=== PATIENT | male | born 1935 | race Caucasian/White ===

== ENCOUNTER 2017-03-06 14:23 | Day surgery (SDC) | payer MEDICARE, OTHER ==
[~2017-03-06 14:23] MED LIST: ACET325 PO; ACIDOPHILUS LA1 EACH PO; ALBIPROI INH; ALBU.083IS IH; ALBU3IS INH; ALBU90I INH; ALBU90OI INH; ALBU90OI61 INH; ALLO300 PO; AMIO200; AMIO200 PO; AMLO10 PO; AMLO5 PO; AMOCLA500 PO; AMOCLA875 PO; ASPI325 PO; ASPI81CH PO; ASPI81EC; ASPI81EC PO; ATEN50; BENACAR; BISA5EC PO; BUME1 PO; BUME2 PO; Benicar PO; CALC.25 PO; CEFP200 PO; CETI5 PO; CHOL10002 PO; CIPR250 PO; CLON.1 PO; CLON.2 PO; CLON.2TP TP; CLONIDINE; CLOP75; CLOP75 PO; COLCRYS0.6 MG PO; CYCL10 PO; DARB200I SQ; DILT120 PO; DILT120ERA PO; DILT30 PO; DILT60ER PO; DOCU100 PO; DULERA INH; Dilaudid 2 mg Ta2 MG PO; Diltiazem ER180 M1 PO; Duoneb 2.5-0.5 M3 ML INH; ELIQUIS5 MG PO; FIBE4P PO; FINA5 PO; FISH1000; FLUO25TC TOP; FURO100EL PO; FURO40; FURO80 PO; GABA300 PO; GATI5OPSO OD; GEMF600; GLIP2.5ER PO; GLIP5; GLIP5ER PO; GUAI600T33 PO; GUAPHELA PO; HYDACE5 PO; HYDMOR2 PO; Hair, Skin & N1 EACH PO; Humulin N100 UNIT/1 SQ; INSDET100 SC; INSN100I; INSN100I SC; INSN100I SUBQ; INSR10I; INSR10I SC; INSR10I SUBQ; INSUASPI SC; INSULANI SC; IPRA.06NI; IRON; ISOMON20 PO; ISOMON60ER PO; Isosorbide Mono30 MG PO; LEVFLO500 PO; LISI5 PO; LOVA20 PO; MECL25 PO; MEMA10 PO; METH10 PO; METO100 PO; METO2.5 PO; METO25 PO; METO25ER PO; METO50 PO; METO50ER PO; METR500 PO; MIDO2.5 PO; Monodox100 MG PO; Mucinex600 MG PO; NIAC500; NIFE30ER PO; NITR.4SL; NITR.4SL SL; Novolin R100 UNIT/M SC; Novolog Fl100 UNIT/1 SC; OLME20 PO; OLME5TAB PO; OMEP10ER; OMEP20ER; OMEP20ER PO; ONDA4 PO; ONDA4ODT MM; OXYACE5T PO; OXYC10ER PO; OXYC10TA19 PO; OXYC5 PO; PANT40 PO; PARI1 PO; POTA20PAC; POTCHL10ER; PRAV20 PO; PREG50 PO; PROM25 PO; Prednisone10 MG PO; Prednisone20 MG PO; RABE20; RANI150; RANI150 PO; Renvela800 MG PO; SACC250C PO; SENN187 PO; SEVE800 PO; SIMV40; SIMV80 PO; SPACER IH; STOMUL PO; TAMS.4ER; TAMS.4ER PO; TERA2 PO; TRAM50; TRAM50 PO; Vibramycin100 MG PO; WARF2.5 PO; WARF5; WARF5 PO; ZOLP10 PO; Zithromax250 MG PO; [UNRECOGNIZED DRUG - OTHER]; [UNRECOGNIZED DRUG - OTHER]
[2017-04-05] MEDS ORDERED: TAMS.4ER PO (01:27)
[2017-04-05] MEDS ORDERED: DIPH50 PO (01:28)
[2017-04-05] MEDS ORDERED: DOCU100 (01:29)
[2017-04-05] MEDS ORDERED: OXYC10TA19 (01:30)
[2017-04-05] MEDS ORDERED: COLCHICINE0.6 MG PO (01:32)
[2017-04-05] MEDS ORDERED: DESL5 PO (01:33)
[2017-04-05] MEDS ORDERED: MIDO5 PO (01:38)
[2017-04-05] MEDS ORDERED: INSULANPEN (01:42)
[2017-04-10] MEDS ORDERED: BENADRYL25 MG PO (09:43)
[2017-04-10] MEDS ORDERED: CEFP200 PO (09:49)
[2017-04-10] MEDS ORDERED: Pyridium100 MG PO (11:18)
== END 2017-03-06 23:16 | disposition home or self-care (01) ==
LOC: WOUND 14:23
PROC: 0HBNXZZ Excision of Left Foot Skin, External Approach (ICD-10-PCS; principal; 2017-03-06)
DX: Z48.00 Encounter for change or removal of nonsurgical wound dressing (principal); E11.621 Type 2 diabetes mellitus with foot ulcer; E11.22 Type 2 diabetes mellitus with diabetic chronic kidney disease; I13.2 Hypertensive heart and chronic kidney disease with heart failure and with stage 5 chronic kidney disease, or end stage renal disease; I73.9 Peripheral vascular disease, unspecified; L89.891 Pressure ulcer of other site, stage 1; J43.9 Emphysema, unspecified; N18.6 End stage renal disease; Z79.4 Long term (current) use of insulin; G47.33 Obstructive sleep apnea (adult) (pediatric); I50.9 Heart failure, unspecified
CPT/HCPCS: G0463

== ENCOUNTER 2017-03-13 14:52 | Day surgery (SDC) | payer MEDICARE, OTHER ==
[2017-04-05] MEDS ORDERED: TAMS.4ER PO (01:27)
[2017-04-05] MEDS ORDERED: DIPH50 PO (01:28)
[2017-04-05] MEDS ORDERED: DOCU100 (01:29)
[2017-04-05] MEDS ORDERED: OXYC10TA19 (01:30)
[2017-04-05] MEDS ORDERED: COLCHICINE0.6 MG PO (01:32)
[2017-04-05] MEDS ORDERED: DESL5 PO (01:33)
[2017-04-05] MEDS ORDERED: MIDO5 PO (01:38)
[2017-04-05] MEDS ORDERED: INSULANPEN (01:42)
[2017-04-10] MEDS ORDERED: BENADRYL25 MG PO (09:43)
[2017-04-10] MEDS ORDERED: CEFP200 PO (09:49)
[2017-04-10] MEDS ORDERED: Pyridium100 MG PO (11:18)
== END 2017-03-13 16:55 | disposition home or self-care (01) ==
LOC: WOUND 14:52
DX: Z48.00 Encounter for change or removal of nonsurgical wound dressing (principal); E11.621 Type 2 diabetes mellitus with foot ulcer; I13.2 Hypertensive heart and chronic kidney disease with heart failure and with stage 5 chronic kidney disease, or end stage renal disease; E11.22 Type 2 diabetes mellitus with diabetic chronic kidney disease; I73.9 Peripheral vascular disease, unspecified; L89.891 Pressure ulcer of other site, stage 1; J43.9 Emphysema, unspecified; Z79.4 Long term (current) use of insulin; N18.6 End stage renal disease; Z99.2 Dependence on renal dialysis; I48.91 Unspecified atrial fibrillation; I25.10 Atherosclerotic heart disease of native coronary artery without angina pectoris; I50.9 Heart failure, unspecified
CPT/HCPCS: G0463

== ENCOUNTER 2017-03-20 14:20 | Day surgery (SDC) | payer MEDICARE, OTHER ==
[2017-04-05] MEDS ORDERED: TAMS.4ER PO (01:27)
[2017-04-05] MEDS ORDERED: DIPH50 PO (01:28)
[2017-04-05] MEDS ORDERED: DOCU100 (01:29)
[2017-04-05] MEDS ORDERED: OXYC10TA19 (01:30)
[2017-04-05] MEDS ORDERED: COLCHICINE0.6 MG PO (01:32)
[2017-04-05] MEDS ORDERED: DESL5 PO (01:33)
[2017-04-05] MEDS ORDERED: MIDO5 PO (01:38)
[2017-04-05] MEDS ORDERED: INSULANPEN (01:42)
[2017-04-10] MEDS ORDERED: BENADRYL25 MG PO (09:43)
[2017-04-10] MEDS ORDERED: CEFP200 PO (09:49)
[2017-04-10] MEDS ORDERED: Pyridium100 MG PO (11:18)
== END 2017-03-20 17:22 | disposition home or self-care (01) ==
LOC: WOUND 14:20
PROC: 0HBNXZZ Excision of Left Foot Skin, External Approach (ICD-10-PCS; principal; 2017-03-20)
DX: Z48.00 Encounter for change or removal of nonsurgical wound dressing (principal); E11.621 Type 2 diabetes mellitus with foot ulcer; E11.22 Type 2 diabetes mellitus with diabetic chronic kidney disease; I73.9 Peripheral vascular disease, unspecified; I13.2 Hypertensive heart and chronic kidney disease with heart failure and with stage 5 chronic kidney disease, or end stage renal disease; L89.891 Pressure ulcer of other site, stage 1; J43.9 Emphysema, unspecified; Z79.4 Long term (current) use of insulin; N18.6 End stage renal disease; I48.91 Unspecified atrial fibrillation; Z79.01 Long term (current) use of anticoagulants; G47.33 Obstructive sleep apnea (adult) (pediatric)
CPT/HCPCS: G0463

== ENCOUNTER 2017-03-27 14:40 | Day surgery (SDC) | payer MEDICARE, OTHER ==
[2017-04-05] MEDS ORDERED: TAMS.4ER PO (01:27)
[2017-04-05] MEDS ORDERED: DIPH50 PO (01:28)
[2017-04-05] MEDS ORDERED: DOCU100 (01:29)
[2017-04-05] MEDS ORDERED: OXYC10TA19 (01:30)
[2017-04-05] MEDS ORDERED: COLCHICINE0.6 MG PO (01:32)
[2017-04-05] MEDS ORDERED: DESL5 PO (01:33)
[2017-04-05] MEDS ORDERED: MIDO5 PO (01:38)
[2017-04-05] MEDS ORDERED: INSULANPEN (01:42)
[2017-04-10] MEDS ORDERED: BENADRYL25 MG PO (09:43)
[2017-04-10] MEDS ORDERED: CEFP200 PO (09:49)
[2017-04-10] MEDS ORDERED: Pyridium100 MG PO (11:18)
== END 2017-03-27 23:26 | disposition home or self-care (01) ==
LOC: WOUND 14:40
DX: Z48.00 Encounter for change or removal of nonsurgical wound dressing (principal); E11.621 Type 2 diabetes mellitus with foot ulcer; E11.22 Type 2 diabetes mellitus with diabetic chronic kidney disease; I73.9 Peripheral vascular disease, unspecified; I13.2 Hypertensive heart and chronic kidney disease with heart failure and with stage 5 chronic kidney disease, or end stage renal disease; L89.891 Pressure ulcer of other site, stage 1; J43.9 Emphysema, unspecified; Z79.4 Long term (current) use of insulin; N18.6 End stage renal disease; I48.91 Unspecified atrial fibrillation; J44.9 Chronic obstructive pulmonary disease, unspecified; I25.10 Atherosclerotic heart disease of native coronary artery without angina pectoris; G47.33 Obstructive sleep apnea (adult) (pediatric); I50.9 Heart failure, unspecified; Z79.01 Long term (current) use of anticoagulants
CPT/HCPCS: G0463

== ENCOUNTER 2017-04-03 00:58 | Day surgery (SDC) | payer MEDICARE, OTHER ==
[2017-04-05] MEDS ORDERED: TAMS.4ER PO (01:27)
[2017-04-05] MEDS ORDERED: DIPH50 PO (01:28)
[2017-04-05] MEDS ORDERED: DOCU100 (01:29)
[2017-04-05] MEDS ORDERED: OXYC10TA19 (01:30)
[2017-04-05] MEDS ORDERED: COLCHICINE0.6 MG PO (01:32)
[2017-04-05] MEDS ORDERED: DESL5 PO (01:33)
[2017-04-05] MEDS ORDERED: MIDO5 PO (01:38)
[2017-04-05] MEDS ORDERED: INSULANPEN (01:42)
[2017-04-10] MEDS ORDERED: BENADRYL25 MG PO (09:43)
[2017-04-10] MEDS ORDERED: CEFP200 PO (09:49)
[2017-04-10] MEDS ORDERED: Pyridium100 MG PO (11:18)
== END 2017-04-03 22:47 | disposition home or self-care (01) ==
LOC: WOUND 00:58
DX: Z48.00 Encounter for change or removal of nonsurgical wound dressing (principal); E11.621 Type 2 diabetes mellitus with foot ulcer; I13.2 Hypertensive heart and chronic kidney disease with heart failure and with stage 5 chronic kidney disease, or end stage renal disease; E11.22 Type 2 diabetes mellitus with diabetic chronic kidney disease; N18.6 End stage renal disease; I50.9 Heart failure, unspecified; I73.9 Peripheral vascular disease, unspecified; L89.891 Pressure ulcer of other site, stage 1; J43.9 Emphysema, unspecified; Z79.4 Long term (current) use of insulin; I25.10 Atherosclerotic heart disease of native coronary artery without angina pectoris; G47.33 Obstructive sleep apnea (adult) (pediatric); I48.91 Unspecified atrial fibrillation; Z79.01 Long term (current) use of anticoagulants
CPT/HCPCS: G0463

== ENCOUNTER 2017-04-04 21:01 | Inpatient (IN) | payer MEDICARE, OTHER ==
[~2017-04-04] VITALS: Ht 180.3 cm; Wt 103.9 kg
[2017-04-04 21:57] LABS: BASOPHILS ABSOLUTE AUTO 0.06 K/mm3 (0.00-0.23); BASOPHILS PERCENT AUTO 1 % (0-2); EOSINOPHILS ABSOLUTE AUTO 0.11 K/mm3 (0.00-0.68); EOSINOPHILS PERCENT AUTO 1 % (0-6); Hematocrit 39.3 % (37.0-53.0); Hemoglobin 12.6 g/dL (13.5-17.5); IMMATURE GRAN ABSOLUTE AUTO 0.06 K/mm3 (0.00-0.10); IMMATURE GRAN PERCENT AUTO 1 % (0-1); LYMPHOCYTES ABSOLUTE AUTO 0.24 K/mm3 (0.84-5.20); LYMPHOCYTES PERCENT AUTO 2 % (21-46); MONOCYTES ABSOLUTE AUTO 0.48 K/mm3 (0.16-1.47); MONOCYTES PERCENT AUTO 4 % (4-13); Mean Corpuscular HGB 29.4 pg (26.0-34.0); Mean Corpuscular HGB Conc 32.1 g/dL (31.5-36.5); Mean Corpuscular Volume 92 fL (80-100); Mean Platelet Volume 11.8 fL (9.1-12.4); NEUTROPHILS ABSOLUTE AUTO 10.99 K/mm3 (1.96-9.15); NEUTROPHILS PERCENT AUTO 92 % (41-73); Platelet Count 124 K/mm3 (150-400); RDW Standard Deviation 49.3 fL (35.1-46.3); Red Blood Cell Count 4.28 M/mm3 (4.30-5.90); White Blood Cell Count 11.94 K/mm3 (4.00-11.30)
[2017-04-04 22:22] LABS: Albumin, Blood 3.4 g/dL (3.4-5.0); Albumin/Globulin Ratio 0.7 (0.8-1.8); Bilirubin, Total 0.7 mg/dL (0.1-1.0); Calcium, Blood 9.2 mg/dL (8.5-10.1); Creatinine, Blood 3.68 mg/dL (0.60-1.20); Globulin, Blood 4.9 g/dL (2.2-4.0); Potassium, Blood 4.5 mmol/L (3.5-5.5); Total Protein, Blood 8.3 g/dL (6.4-8.2); Troponin I 0.04 ng/mL (0.000-0.040)
[2017-04-04 22:26] LABS: Influenza A Negative (NEGATIVE); Influenza B Negative (NEGATIVE)
[2017-04-05] MEDS ORDERED: TAMS.4ER PO ×2 (01:27)
[2017-04-05] MEDS ORDERED: DIPH50 PO ×2 (01:28)
[2017-04-05] MEDS ORDERED: DOCU100 ×2 (01:29)
[2017-04-05] MEDS ORDERED: OXYC10TA19 ×2 (01:30)
[2017-04-05] MEDS ORDERED: COLCHICINE0.6 MG PO ×2 (01:32)
[2017-04-05] MEDS ORDERED: DESL5 PO ×2 (01:33)
[2017-04-05] MEDS ORDERED: MIDO5 PO ×2 (01:38)
[2017-04-05] MEDS ORDERED: INSULANPEN ×2 (01:42)
[2017-04-05 03:32] LABS: BASOPHILS ABSOLUTE AUTO 0.04 K/mm3 (0.00-0.23); BASOPHILS PERCENT AUTO 1 % (0-2); EOSINOPHILS ABSOLUTE AUTO 0.06 K/mm3 (0.00-0.68); EOSINOPHILS PERCENT AUTO 1 % (0-6); Hematocrit 33.7 % (37.0-53.0); IMMATURE GRAN ABSOLUTE AUTO 0.05 K/mm3 (0.00-0.10); IMMATURE GRAN PERCENT AUTO 1 % (0-1); LYMPHOCYTES ABSOLUTE AUTO 0.17 K/mm3 (0.84-5.20); LYMPHOCYTES PERCENT AUTO 2 % (21-46); MONOCYTES ABSOLUTE AUTO 0.26 K/mm3 (0.16-1.47); MONOCYTES PERCENT AUTO 3 % (4-13); Mean Corpuscular HGB 29.9 pg (26.0-34.0); Mean Corpuscular HGB Conc 32.6 g/dL (31.5-36.5); Mean Corpuscular Volume 92 fL (80-100); Mean Platelet Volume 11.3 fL (9.1-12.4); NEUTROPHILS ABSOLUTE AUTO 8.02 K/mm3 (1.96-9.15); NEUTROPHILS PERCENT AUTO 93 % (41-73); Platelet Count 112 K/mm3 (150-400); RDW Coefficient Variation 15.1 % (11.7-14.2); RDW Standard Deviation 49.9 fL (35.1-46.3); Red Blood Cell Count 3.68 M/mm3 (4.30-5.90)
[2017-04-05 03:48] LABS: Albumin, Blood 2.8 g/dL (3.4-5.0); Anion Gap 7 mmol/L (6-16); Blood Urea Nitrogen 39 mg/dL (8-24); Bun/Creatinine Ratio 9.1 (12.0-20.0); CO2, Blood 35 mmol/L (21-32); Calcium, Blood 8.5 mg/dL (8.5-10.1); Chloride, Blood 93 mmol/L (98-108); Creatinine, Blood 4.28 mg/dL (0.60-1.20); Glomerular Filtration Rate 14 (60-); Glucose, Blood 289 mg/dL (70-99); Phosphorus, Blood 4.1 mg/dL (2.5-4.9); Sodium, Blood 135 mmol/L (136-145)
[2017-04-05 06:24] LABS: Source, Urine Catheter
[2017-04-05 06:39] LABS: Blood, Urine 4+ (Neg); Glucose Qualitative, Urine 1+ (Neg); Ketones, Urine Neg (Neg); Leukocyte Esterase, Urine 3+ (Neg); Nitrite, Urine Neg (Neg); Protein, Urine 3+ (Neg); Specific Gravity, Urine 1.025 (1.003-1.022); Urobilinogen, Urine 1+ (Normal)
[2017-04-05 06:48] LABS: Appearance, Urine Cloudy (Clear); Bilirubin, Urine 2+ (Neg); Color, Urine Amber (P-Yellow)
[2017-04-05 06:49] LABS: White Blood Cells, Urine 50-100 /hpf (0-5)
[2017-04-05 06:50] LABS: Bacteria Many /hpf; Granular Casts 0-2 /lpf (0); Red Blood Cells, Urine 25-50 /hpf (0-2); Squamous Epithelial Cells Not Seen /hpf (Few)
[2017-04-05 16:18] LABS: Vancomycin, Random 15.6 ug/mL
[2017-04-06 04:05] LABS: BASOPHILS ABSOLUTE AUTO 0.04 K/mm3 (0.00-0.23); BASOPHILS PERCENT AUTO 1 % (0-2); EOSINOPHILS ABSOLUTE AUTO 0.27 K/mm3 (0.00-0.68); EOSINOPHILS PERCENT AUTO 4 % (0-6); Hematocrit 32.2 % (37.0-53.0); Hemoglobin 10.4 g/dL (13.5-17.5); IMMATURE GRAN ABSOLUTE AUTO 0.02 K/mm3 (0.00-0.10); IMMATURE GRAN PERCENT AUTO 0 % (0-1); LYMPHOCYTES ABSOLUTE AUTO 0.76 K/mm3 (0.84-5.20); LYMPHOCYTES PERCENT AUTO 11 % (21-46); MONOCYTES PERCENT AUTO 8 % (4-13); Mean Corpuscular HGB 29.5 pg (26.0-34.0); Mean Corpuscular HGB Conc 32.3 g/dL (31.5-36.5); Mean Corpuscular Volume 91 fL (80-100); Mean Platelet Volume 12.2 fL (9.1-12.4); NEUTROPHILS ABSOLUTE AUTO 5.42 K/mm3 (1.96-9.15); NEUTROPHILS PERCENT AUTO 76 % (41-73); Platelet Count 108 K/mm3 (150-400); RDW Coefficient Variation 15.5 % (11.7-14.2); RDW Standard Deviation 50.6 fL (35.1-46.3); Red Blood Cell Count 3.53 M/mm3 (4.30-5.90); White Blood Cell Count 7.11 K/mm3 (4.00-11.30)
[2017-04-06 04:29] LABS: Alanine Aminotransfer (ALT/SGP 22 U/L (12-78); Albumin, Blood 2.6 g/dL (3.4-5.0); Albumin/Globulin Ratio 0.7 (0.8-1.8); Alk Phos 66 U/L (50-136); Anion Gap 10 mmol/L (6-16); Aspartate Aminotrans (AST/SGOT 11 U/L (12-37); Bilirubin, Total 0.6 mg/dL (0.1-1.0); Blood Urea Nitrogen 44 mg/dL (8-24); Bun/Creatinine Ratio 8.8 (12.0-20.0); CO2, Blood 29 mmol/L (21-32); Calcium, Blood 8.8 mg/dL (8.5-10.1); Chloride, Blood 98 mmol/L (98-108); Creatinine, Blood 4.99 mg/dL (0.60-1.20); Globulin, Blood 3.9 g/dL (2.2-4.0); Glomerular Filtration Rate 12 (60-); Glucose, Blood 162 mg/dL (70-99); Magnesium, Blood 2.2 mg/dL (1.6-2.4); Phosphorus, Blood 4.8 mg/dL (2.5-4.9); Potassium, Blood 4.7 mmol/L (3.5-5.5); Sodium, Blood 137 mmol/L (136-145); Total Protein, Blood 6.5 g/dL (6.4-8.2)
[2017-04-06 17:16] LABS: Vancomycin, Random 21.2 ug/mL
[2017-04-07 04:26] LABS: BASOPHILS ABSOLUTE AUTO 0.04 K/mm3 (0.00-0.23); BASOPHILS PERCENT AUTO 1 % (0-2); EOSINOPHILS ABSOLUTE AUTO 0.59 K/mm3 (0.00-0.68); EOSINOPHILS PERCENT AUTO 8 % (0-6); Hematocrit 30.4 % (37.0-53.0); Hemoglobin 9.9 g/dL (13.5-17.5); IMMATURE GRAN ABSOLUTE AUTO 0.02 K/mm3 (0.00-0.10); IMMATURE GRAN PERCENT AUTO 0 % (0-1); LYMPHOCYTES ABSOLUTE AUTO 1.11 K/mm3 (0.84-5.20); LYMPHOCYTES PERCENT AUTO 15 % (21-46); MONOCYTES ABSOLUTE AUTO 0.65 K/mm3 (0.16-1.47); MONOCYTES PERCENT AUTO 9 % (4-13); Mean Corpuscular HGB Conc 32.6 g/dL (31.5-36.5); Mean Corpuscular Volume 92 fL (80-100); Mean Platelet Volume 11.8 fL (9.1-12.4); NEUTROPHILS PERCENT AUTO 67 % (41-73); Platelet Count 106 K/mm3 (150-400); RDW Coefficient Variation 15.1 % (11.7-14.2); RDW Standard Deviation 50.2 fL (35.1-46.3); White Blood Cell Count 7.31 K/mm3 (4.00-11.30)
[2017-04-07 04:44] LABS: Albumin, Blood 2.5 g/dL (3.4-5.0); Anion Gap 11 mmol/L (6-16); Blood Urea Nitrogen 63 mg/dL (8-24); Bun/Creatinine Ratio 10.5 (12.0-20.0); CO2, Blood 28 mmol/L (21-32); Calcium, Blood 8.7 mg/dL (8.5-10.1); Chloride, Blood 98 mmol/L (98-108); Creatinine, Blood 6.01 mg/dL (0.60-1.20); Glomerular Filtration Rate 10 (60-); Glucose, Blood 155 mg/dL (70-99); Magnesium, Blood 2.3 mg/dL (1.6-2.4); Phosphorus, Blood 5.3 mg/dL (2.5-4.9); Potassium, Blood 4.5 mmol/L (3.5-5.5); Sodium, Blood 137 mmol/L (136-145)
[2017-04-07 12:59] LABS: Vancomycin, Random 14.3 ug/mL
[2017-04-08 04:58] LABS: Hematocrit 32.5 % (37.0-53.0); Hemoglobin 10.6 g/dL (13.5-17.5)
[2017-04-08 05:23] LABS: Magnesium, Blood 2.3 mg/dL (1.6-2.4)
[2017-04-08 05:28] LABS: Albumin, Blood 2.8 g/dL (3.4-5.0); Anion Gap 11 mmol/L (6-16); Blood Urea Nitrogen 62 mg/dL (8-24); Bun/Creatinine Ratio 10.6 (12.0-20.0); CO2, Blood 24 mmol/L (21-32); Chloride, Blood 99 mmol/L (98-108); Creatinine, Blood 5.87 mg/dL (0.60-1.20); Glomerular Filtration Rate 10 (60-); Glucose, Blood 134 mg/dL (70-99); Phosphorus, Blood 5.6 mg/dL (2.5-4.9); Potassium, Blood 4.5 mmol/L (3.5-5.5); Sodium, Blood 134 mmol/L (136-145)
[2017-04-08 15:47] LABS: Vancomycin, Random 15.4 ug/mL
[2017-04-09 05:10] LABS: Hemoglobin 11.1 g/dL (13.5-17.5)
[2017-04-09 05:33] LABS: Magnesium, Blood 2.5 mg/dL (1.6-2.4)
[2017-04-09 05:37] LABS: Albumin, Blood 2.9 g/dL (3.4-5.0); Anion Gap 11 mmol/L (6-16); Blood Urea Nitrogen 60 mg/dL (8-24); Bun/Creatinine Ratio 10.5 (12.0-20.0); CO2, Blood 28 mmol/L (21-32); Calcium, Blood 9.2 mg/dL (8.5-10.1); Chloride, Blood 97 mmol/L (98-108); Creatinine, Blood 5.72 mg/dL (0.60-1.20); Glomerular Filtration Rate 10 (60-); Glucose, Blood 166 mg/dL (70-99); Phosphorus, Blood 5.1 mg/dL (2.5-4.9); Potassium, Blood 4.5 mmol/L (3.5-5.5); Sodium, Blood 136 mmol/L (136-145)
[2017-04-09 16:33] LABS: Vancomycin, Random 17.1 ug/mL
[2017-04-10 05:36] LABS: Hematocrit 34.1 % (37.0-53.0); Hemoglobin 11.4 g/dL (13.5-17.5)
[2017-04-10 05:58] LABS: Magnesium, Blood 2.6 mg/dL (1.6-2.4)
[2017-04-10 05:59] LABS: Anion Gap 10 mmol/L (6-16); Blood Urea Nitrogen 57 mg/dL (8-24); Bun/Creatinine Ratio 11.1 (12.0-20.0); CO2, Blood 26 mmol/L (21-32); Calcium, Blood 9.1 mg/dL (8.5-10.1); Chloride, Blood 99 mmol/L (98-108); Creatinine, Blood 5.15 mg/dL (0.60-1.20); Glomerular Filtration Rate 11 (60-); Glucose, Blood 162 mg/dL (70-99); Phosphorus, Blood 4.6 mg/dL (2.5-4.9); Potassium, Blood 4.6 mmol/L (3.5-5.5); Sodium, Blood 135 mmol/L (136-145)
[2017-04-10] MEDS ORDERED: BENADRYL25 MG PO ×2 (09:43)
[2017-04-10] MEDS ORDERED: CEFP200 PO ×2 (09:49)
[2017-04-10] MEDS ORDERED: Pyridium100 MG PO ×2 (11:18)
== END 2017-04-10 14:40 | disposition home or self-care (01) | DRG 871 ==
LOC: ER 21:01 → PCU 23:18 → MEDS 23:18 → PCU 04-05 00:20 → MEDS 04-07 16:40 → ENPENDDIS 04-10 09:14 → MEDS 04-10 14:40
PROVIDERS: Emergency Medicine; Family Medicine; Internal Medicine Nephrology
PROC: 5A1D70Z Performance of Urinary Filtration, Intermittent, Less than 6 Hours Per Day (ICD-10-PCS; principal; 2017-04-05)
PROC: 5A1D70Z Performance of Urinary Filtration, Intermittent, Less than 6 Hours Per Day (ICD-10-PCS; 2017-04-07)
PROC: 5A1D70Z Performance of Urinary Filtration, Intermittent, Less than 6 Hours Per Day (ICD-10-PCS; 2017-04-08)
PROC: 5A1D70Z Performance of Urinary Filtration, Intermittent, Less than 6 Hours Per Day (ICD-10-PCS; 2017-04-09)
DX: A41.9 Sepsis, unspecified organism (principal); G92 Toxic encephalopathy; J96.01 Acute respiratory failure with hypoxia; I13.2 Hypertensive heart and chronic kidney disease with heart failure and with stage 5 chronic kidney disease, or end stage renal disease; E11.22 Type 2 diabetes mellitus with diabetic chronic kidney disease; D69.6 Thrombocytopenia, unspecified; N18.5 Chronic kidney disease, stage 5; E87.5 Hyperkalemia; E87.1 Hypo-osmolality and hyponatremia; N25.81 Secondary hyperparathyroidism of renal origin; N39.0 Urinary tract infection, site not specified; I50.42 Chronic combined systolic (congestive) and diastolic (congestive) heart failure; E88.09 Other disorders of plasma-protein metabolism, not elsewhere classified; E86.9 Volume depletion, unspecified; I48.2 Chronic atrial fibrillation; I25.10 Atherosclerotic heart disease of native coronary artery without angina pectoris; J44.9 Chronic obstructive pulmonary disease, unspecified; B95.7 Other staphylococcus as the cause of diseases classified elsewhere; B96.20 Unspecified Escherichia coli [E. coli] as the cause of diseases classified elsewhere; R65.20 Severe sepsis without septic shock; D63.1 Anemia in chronic kidney disease; R80.9 Proteinuria, unspecified; R31.29 Other microscopic hematuria; L89.629 Pressure ulcer of left heel, unspecified stage; G47.33 Obstructive sleep apnea (adult) (pediatric); K21.9 Gastro-esophageal reflux disease without esophagitis; G89.4 Chronic pain syndrome; Z99.2 Dependence on renal dialysis; Z95.1 Presence of aortocoronary bypass graft; Z88.5 Allergy status to narcotic agent; Z88.6 Allergy status to analgesic agent; Z88.8 Allergy status to other drugs, medicaments and biological substances; Z86.14 Personal history of Methicillin resistant Staphylococcus aureus infection; Z79.01 Long term (current) use of anticoagulants; Z79.02 Long term (current) use of antithrombotics/antiplatelets; Z79.4 Long term (current) use of insulin; Z79.899 Other long term (current) drug therapy; Z86.73 Personal history of transient ischemic attack (TIA), and cerebral infarction without residual deficits; Z86.718 Personal history of other venous thrombosis and embolism; I25.2 Old myocardial infarction; Z95.5 Presence of coronary angioplasty implant and graft
CPT/HCPCS: 36415; 51702; 70450; 71046; 80053; 80069; 80202; 81001; 82947; 83605; 83735; 83880; 84100; 84145; 84484; 85014; 85018; 85025; 87040; 87070; 87077; 87086; 87186; 87205; 87493; 87804; 93005; 93010; 94762; 96374; 99285; G0463; J0692; J0881; J1815; J1956; J2405; J2543; J2997; J3370; J7030; J7050

== ENCOUNTER 2017-04-10 14:30 | Day surgery (SDC) | payer MEDICARE, OTHER ==
[~2017-04-10 14:30] MED LIST changes: +BENADRYL25 MG PO; +COLCHICINE0.6 MG PO; +DESL5 PO; +DIPH50 PO; +DOCU100; +INSULANPEN; +MIDO5 PO; +OXYC10TA19; +Pyridium100 MG PO
== END 2017-04-10 17:20 | disposition home or self-care (01) ==
LOC: WOUND 14:30
DX: Z48.00 Encounter for change or removal of nonsurgical wound dressing (principal); E11.621 Type 2 diabetes mellitus with foot ulcer; E11.22 Type 2 diabetes mellitus with diabetic chronic kidney disease; I73.9 Peripheral vascular disease, unspecified; I10 Essential (primary) hypertension; L89.891 Pressure ulcer of other site, stage 1; J43.9 Emphysema, unspecified
CPT/HCPCS: G0463

== ENCOUNTER 2017-04-24 00:27 | Day surgery (SDC) | payer MEDICARE, OTHER | END 2017-04-24 23:17 | disposition home or self-care (01) | LOC: WOUND 00:27 | DX: Z48.00 Encounter for change or removal of nonsurgical wound dressing (principal); E11.621 Type 2 diabetes mellitus with foot ulcer; E11.22 Type 2 diabetes mellitus with diabetic chronic kidney disease; I73.9 Peripheral vascular disease, unspecified; L89.891 Pressure ulcer of other site, stage 1; J43.9 Emphysema, unspecified; I13.2 Hypertensive heart and chronic kidney disease with heart failure and with stage 5 chronic kidney disease, or end stage renal disease; N18.6 End stage renal disease; I48.91 Unspecified atrial fibrillation; I25.10 Atherosclerotic heart disease of native coronary artery without angina pectoris; Z86.73 Personal history of transient ischemic attack (TIA), and cerebral infarction without residual deficits; I50.9 Heart failure, unspecified | CPT/HCPCS: G0463 ==

== ENCOUNTER 2017-05-01 01:07 | Day surgery (SDC) | payer MEDICARE, OTHER | END 2017-05-01 22:57 | disposition home or self-care (01) | LOC: WOUND 01:07 | PROC: 0HBNXZZ Excision of Left Foot Skin, External Approach (ICD-10-PCS; principal; 2017-05-01) | DX: E11.621 Type 2 diabetes mellitus with foot ulcer (principal); L89.629 Pressure ulcer of left heel, unspecified stage; E11.22 Type 2 diabetes mellitus with diabetic chronic kidney disease; I73.9 Peripheral vascular disease, unspecified; Z79.4 Long term (current) use of insulin; N18.3 Chronic kidney disease, stage 3 (moderate); Z99.2 Dependence on renal dialysis; I11.0 Hypertensive heart disease with heart failure; I50.9 Heart failure, unspecified; J44.9 Chronic obstructive pulmonary disease, unspecified; I48.91 Unspecified atrial fibrillation; Z79.01 Long term (current) use of anticoagulants | CPT/HCPCS: G0463 ==

== ENCOUNTER 2017-05-08 14:30 | Day surgery (SDC) | payer MEDICARE, OTHER | END 2017-05-08 22:39 | disposition home or self-care (01) | LOC: WOUND 14:30 | DX: L89.891 Pressure ulcer of other site, stage 1 (principal); E11.621 Type 2 diabetes mellitus with foot ulcer; E11.22 Type 2 diabetes mellitus with diabetic chronic kidney disease; I73.9 Peripheral vascular disease, unspecified; I12.0 Hypertensive chronic kidney disease with stage 5 chronic kidney disease or end stage renal disease; J43.9 Emphysema, unspecified; N18.6 End stage renal disease; Z99.2 Dependence on renal dialysis; I48.91 Unspecified atrial fibrillation; Z79.01 Long term (current) use of anticoagulants | CPT/HCPCS: G0463 ==

== ENCOUNTER → 2017-05-22 | Outpatient (CLI) | payer MEDICARE, OTHER ==
[~2017-05-22] MED LIST changes: +ALLEGRA ALLERG180 M1 PO; +AMOX875 PO; +AZIT250 PO; +CINA30; +ELIQUIS2.5 MG PO; +Fexofenadine HC60 MG PO; +Humulin N100 UNIT/1 SC; +METOPROLOL ER-1 EAC2 PO; +METPRE4 PO; +NITR.6SL SL; +Namenda10 MG PO; +Novolin R100 UNIT/M; +PREG25 PO; +Plavix75 MG PO; +SEVEC800 PO; +Senna8.6 MG PO; +TEMA15 PO; +Ventolin5 MG/1 ML INH; +Zantac150 MG PO
[2017-05-26 12:27] LABS: Albumin 3.6 g/dL (3.3-4.8); Albumin 51.6 % (45.0-80.0); Monoclonal Protein 1.2 g/dL; Monoclonal Protien % 17.7 %; Protein, Total 6.9 g/dL (6.1-7.8)
== END | disposition home or self-care (01) ==
LOC: LAB 13:30
PROVIDERS: Internal Medicine Hematology & Oncology
DX: D47.2 Monoclonal gammopathy (principal)
CPT/HCPCS: 84165; 86334

== ENCOUNTER → 2017-05-30 | Outpatient (CLI) | payer MEDICARE, OTHER ==
[~2017-05-30] MED LIST changes: -ALLEGRA ALLERG180 M1 PO; -AMOX875 PO; -CINA30; -ELIQUIS2.5 MG PO; -METOPROLOL ER-1 EAC2 PO; -NITR.6SL SL; -Namenda10 MG PO; -Novolin R100 UNIT/M; -PREG25 PO; -Plavix75 MG PO; -Senna8.6 MG PO; -TEMA15 PO; -Zantac150 MG PO
== END ==
LOC: EDSTATUS 14:05 → LAB DAV 15:51
DX: M10.9 Gout, unspecified (principal)
CPT/HCPCS: 84550

== ENCOUNTER 2017-06-02 14:04 | Inpatient (IN) | payer MEDICARE, OTHER ==
[~2017-06-02] VITALS: Ht 172.7 cm; Wt 101.4 kg
[~2017-06-02 14:04] MED LIST changes: -AZIT250 PO; -Fexofenadine HC60 MG PO; -Humulin N100 UNIT/1 SC; -METPRE4 PO; -SEVEC800 PO; -Ventolin5 MG/1 ML INH
[2017-06-02 15:23] LABS: BASOPHILS ABSOLUTE AUTO 0.04 K/mm3 (0.00-0.23); BASOPHILS PERCENT AUTO 0 % (0-2); EOSINOPHILS PERCENT AUTO 0 % (0-6); Hematocrit 36.1 % (37.0-53.0); Hemoglobin 11.9 g/dL (13.5-17.5); IMMATURE GRAN ABSOLUTE AUTO 0.05 K/mm3 (0.00-0.10); IMMATURE GRAN PERCENT AUTO 1 % (0-1); LYMPHOCYTES ABSOLUTE AUTO 0.52 K/mm3 (0.84-5.20); LYMPHOCYTES PERCENT AUTO 6 % (21-46); MONOCYTES ABSOLUTE AUTO 0.61 K/mm3 (0.16-1.47); MONOCYTES PERCENT AUTO 7 % (4-13); Mean Corpuscular HGB 29.8 pg (26.0-34.0); Mean Corpuscular Volume 91 fL (80-100); Mean Platelet Volume 12.2 fL (9.1-12.4); NEUTROPHILS ABSOLUTE AUTO 7.89 K/mm3 (1.96-9.15); NEUTROPHILS PERCENT AUTO 87 % (41-73); Platelet Count 122 K/mm3 (150-400); RDW Coefficient Variation 14.6 % (11.7-14.2); RDW Standard Deviation 48.2 fL (35.1-46.3); Red Blood Cell Count 3.99 M/mm3 (4.30-5.90); White Blood Cell Count 9.11 K/mm3 (4.00-11.30)
[2017-06-02 16:05] LABS: Troponin I 0.076 ng/mL (0.000-0.040)
[2017-06-02 16:12] LABS: Albumin, Blood 2.9 g/dL (3.4-5.0); Albumin/Globulin Ratio 0.6 (0.8-1.8); Bilirubin, Total 0.4 mg/dL (0.1-1.0); Calcium, Blood 8.6 mg/dL (8.5-10.1); Creatinine, Blood 9.84 mg/dL (0.60-1.20); Globulin, Blood 4.5 g/dL (2.2-4.0); Potassium, Blood 5.6 mmol/L (3.5-5.5); Total Protein, Blood 7.4 g/dL (6.4-8.2)
[2017-06-02 17:37] LABS: Bun/Creatinine Ratio 10.9 (12.0-20.0); Creatinine, Blood 9.93 mg/dL (0.60-1.20)
[2017-06-02 21:39] LABS: Bun/Creatinine Ratio 11.1 (12.0-20.0); Calcium, Blood 8.9 mg/dL (8.5-10.1); Creatinine, Blood 10.3 mg/dL (0.60-1.20); Potassium, Blood 5.4 mmol/L (3.5-5.5)
[2017-06-03] MEDS ORDERED: Humulin N100 UNIT/1 SC (03:05)
[2017-06-03] MEDS ORDERED: PANT40 PO (03:07)
[2017-06-03] MEDS ORDERED: AZIT250 PO (03:09)
[2017-06-03] MEDS ORDERED: METPRE4 PO (03:10)
[2017-06-03] MEDS ORDERED: PROM25 PO (03:13)
[2017-06-03] MEDS ORDERED: Ventolin5 MG/1 ML INH (03:14)
[2017-06-03] MEDS ORDERED: Fexofenadine HC60 MG PO (03:15)
[2017-06-03] MEDS ORDERED: SENN187 PO (03:19)
[2017-06-03] MEDS ORDERED: SEVEC800 PO (03:25)
[2017-06-03 05:38] LABS: BASOPHILS ABSOLUTE AUTO 0.01 K/mm3 (0.00-0.23); BASOPHILS PERCENT AUTO 0 % (0-2); EOSINOPHILS PERCENT AUTO 0 % (0-6); Hemoglobin 11.7 g/dL (13.5-17.5); IMMATURE GRAN ABSOLUTE AUTO 0.02 K/mm3 (0.00-0.10); IMMATURE GRAN PERCENT AUTO 0 % (0-1); LYMPHOCYTES ABSOLUTE AUTO 0.33 K/mm3 (0.84-5.20); LYMPHOCYTES PERCENT AUTO 4 % (21-46); MONOCYTES PERCENT AUTO 1 % (4-13); Mean Corpuscular HGB 29.3 pg (26.0-34.0); Mean Corpuscular HGB Conc 32.5 g/dL (31.5-36.5); Mean Corpuscular Volume 90 fL (80-100); NEUTROPHILS ABSOLUTE AUTO 7.72 K/mm3 (1.96-9.15); NEUTROPHILS PERCENT AUTO 95 % (41-73); Platelet Count 110 K/mm3 (150-400); RDW Coefficient Variation 14.5 % (11.7-14.2); RDW Standard Deviation 47.3 fL (35.1-46.3); White Blood Cell Count 8.18 K/mm3 (4.00-11.30)
[2017-06-03 05:59] LABS: Alanine Aminotransfer (ALT/SGP 24 U/L (12-78); Albumin, Blood 2.7 g/dL (3.4-5.0); Albumin/Globulin Ratio 0.6 (0.8-1.8); Alk Phos 87 U/L (50-136); Anion Gap 15 mmol/L (6-16); Aspartate Aminotrans (AST/SGOT 14 U/L (12-37); Bilirubin, Total 0.3 mg/dL (0.1-1.0); Blood Urea Nitrogen 78 mg/dL (8-24); CO2, Blood 27 mmol/L (21-32); Calcium, Blood 8.4 mg/dL (8.5-10.1); Chloride, Blood 91 mmol/L (98-108); Creatinine, Blood 7.12 mg/dL (0.60-1.20); Globulin, Blood 4.4 g/dL (2.2-4.0); Glomerular Filtration Rate 8 (60-); Glucose, Blood 414 mg/dL (70-99); Magnesium, Blood 2.6 mg/dL (1.6-2.4); Phosphorus, Blood 7.2 mg/dL (2.5-4.9); Potassium, Blood 5.3 mmol/L (3.5-5.5); Sodium, Blood 133 mmol/L (136-145); Total Protein, Blood 7.1 g/dL (6.4-8.2)
[2017-06-04 05:25] LABS: Hematocrit 33.8 % (37.0-53.0); Hemoglobin 11.2 g/dL (13.5-17.5)
[2017-06-04 05:53] LABS: Albumin, Blood 2.9 g/dL (3.4-5.0); Anion Gap 12 mmol/L (6-16); Blood Urea Nitrogen 87 mg/dL (8-24); Bun/Creatinine Ratio 13.8 (12.0-20.0); CO2, Blood 28 mmol/L (21-32); Calcium, Blood 9.2 mg/dL (8.5-10.1); Chloride, Blood 93 mmol/L (98-108); Creatinine, Blood 6.31 mg/dL (0.60-1.20); Glomerular Filtration Rate 9 (60-); Glucose, Blood 361 mg/dL (70-99); Magnesium, Blood 2.6 mg/dL (1.6-2.4); Phosphorus, Blood 5.6 mg/dL (2.5-4.9); Potassium, Blood 4.9 mmol/L (3.5-5.5); Sodium, Blood 133 mmol/L (136-145)
[2017-06-04 13:59] LABS: HCV Non Reactive (NR)
[2017-06-05 05:47] LABS: Hemoglobin 11.4 g/dL (13.5-17.5)
[2017-06-05 06:15] LABS: Albumin, Blood 2.9 g/dL (3.4-5.0); Anion Gap 15 mmol/L (6-16); Blood Urea Nitrogen 88 mg/dL (8-24); Bun/Creatinine Ratio 15.5 (12.0-20.0); CO2, Blood 28 mmol/L (21-32); Calcium, Blood 9.2 mg/dL (8.5-10.1); Chloride, Blood 89 mmol/L (98-108); Creatinine, Blood 5.67 mg/dL (0.60-1.20); Glomerular Filtration Rate 10 (60-); Glucose, Blood 379 mg/dL (70-99); Magnesium, Blood 2.4 mg/dL (1.6-2.4); Phosphorus, Blood 5.4 mg/dL (2.5-4.9); Potassium, Blood 4.5 mmol/L (3.5-5.5); Sodium, Blood 132 mmol/L (136-145)
[2017-06-06 05:28] LABS: Hematocrit 34.1 % (37.0-53.0); Hemoglobin 11.6 g/dL (13.5-17.5)
[2017-06-06 06:02] LABS: Albumin, Blood 2.9 g/dL (3.4-5.0); Anion Gap 15 mmol/L (6-16); Blood Urea Nitrogen 114 mg/dL (8-24); Bun/Creatinine Ratio 17.5 (12.0-20.0); CO2, Blood 28 mmol/L (21-32); Chloride, Blood 90 mmol/L (98-108); Creatinine, Blood 6.53 mg/dL (0.60-1.20); Glomerular Filtration Rate 9 (60-); Glucose, Blood 218 mg/dL (70-99); Magnesium, Blood 2.7 mg/dL (1.6-2.4); Phosphorus, Blood 5.8 mg/dL (2.5-4.9); Potassium, Blood 4.4 mmol/L (3.5-5.5); Sodium, Blood 133 mmol/L (136-145)
[2017-06-06] MEDS ORDERED: PREG50 PO (15:16)
[2017-06-06] MEDS ORDERED: METO50ER PO (15:17)
[2017-06-06] MEDS ORDERED: DILT30 PO (15:28)
== END 2017-06-06 19:12 | disposition home or self-care (01) | DRG 291 ==
LOC: ER 14:04 → MEDS 18:04 → ENPENDDIS 06-06 13:17 → MEDS 06-06 19:12
PROVIDERS: Emergency Medicine; Internal Medicine; Internal Medicine Nephrology; Physician Assistant
DX: I13.2 Hypertensive heart and chronic kidney disease with heart failure and with stage 5 chronic kidney disease, or end stage renal disease (principal); J96.20 Acute and chronic respiratory failure, unspecified whether with hypoxia or hypercapnia; N18.6 End stage renal disease; I50.20 Unspecified systolic (congestive) heart failure; J44.1 Chronic obstructive pulmonary disease with (acute) exacerbation; E87.1 Hypo-osmolality and hyponatremia; J44.0 Chronic obstructive pulmonary disease with (acute) lower respiratory infection; J20.9 Acute bronchitis, unspecified; D63.1 Anemia in chronic kidney disease; E11.22 Type 2 diabetes mellitus with diabetic chronic kidney disease; I25.10 Atherosclerotic heart disease of native coronary artery without angina pectoris; I48.91 Unspecified atrial fibrillation; E87.6 Hypokalemia; E88.09 Other disorders of plasma-protein metabolism, not elsewhere classified; E83.39 Other disorders of phosphorus metabolism; E87.5 Hyperkalemia; Z99.2 Dependence on renal dialysis; Z79.4 Long term (current) use of insulin; Z88.6 Allergy status to analgesic agent; Z88.5 Allergy status to narcotic agent; Z88.8 Allergy status to other drugs, medicaments and biological substances; Z79.02 Long term (current) use of antithrombotics/antiplatelets; Z86.14 Personal history of Methicillin resistant Staphylococcus aureus infection; Z79.899 Other long term (current) drug therapy; Z86.73 Personal history of transient ischemic attack (TIA), and cerebral infarction without residual deficits; I25.2 Old myocardial infarction; Z95.1 Presence of aortocoronary bypass graft; Z86.711 Personal history of pulmonary embolism; Z79.01 Long term (current) use of anticoagulants
CPT/HCPCS: 36415; 71046; 80048; 80053; 80069; 80074; 82947; 83735; 83880; 84100; 84484; 85014; 85018; 85025; 86706; 87070; 87205; 93005; 93010; 94640; 94644; 94760; 96374; 97161; 97530; 99285; G8978; G8979; G8980; J0696; J1815; J2920; J2930; P9041

== ENCOUNTER 2017-07-03 00:03 | Day surgery (SDC) | payer MEDICARE, OTHER ==
[~2017-07-03 00:03] MED LIST changes: +AZIT250 PO; +Fexofenadine HC60 MG PO; +Humulin N100 UNIT/1 SC; +METPRE4 PO; +SEVEC800 PO; +Ventolin5 MG/1 ML INH
== END 2017-07-03 11:37 | disposition home or self-care (01) ==
LOC: WOUND 00:03
PROC: 0HBMXZZ Excision of Right Foot Skin, External Approach (ICD-10-PCS; principal; 2017-07-03)
PROC: 0HBNXZZ Excision of Left Foot Skin, External Approach (ICD-10-PCS; principal; 2017-07-03)
DX: E11.621 Type 2 diabetes mellitus with foot ulcer (principal); L89.892 Pressure ulcer of other site, stage 2; I50.22 Chronic systolic (congestive) heart failure; E11.21 Type 2 diabetes mellitus with diabetic nephropathy; I48.2 Chronic atrial fibrillation; I25.84 Coronary atherosclerosis due to calcified coronary lesion; Z86.711 Personal history of pulmonary embolism; G47.30 Sleep apnea, unspecified; Z79.4 Long term (current) use of insulin
CPT/HCPCS: G0463

== ENCOUNTER 2017-07-10 10:30 | Day surgery (SDC) | payer MEDICARE, OTHER | END 2017-07-10 23:00 | disposition home or self-care (01) | LOC: WOUND 10:30 | PROC: 0HBMXZZ Excision of Right Foot Skin, External Approach (ICD-10-PCS; principal; 2017-07-10) | DX: L89.892 Pressure ulcer of other site, stage 2 (principal); E11.621 Type 2 diabetes mellitus with foot ulcer; L97.519 Non-pressure chronic ulcer of other part of right foot with unspecified severity; I50.22 Chronic systolic (congestive) heart failure; I48.2 Chronic atrial fibrillation; I25.84 Coronary atherosclerosis due to calcified coronary lesion; E11.22 Type 2 diabetes mellitus with diabetic chronic kidney disease; N18.6 End stage renal disease | CPT/HCPCS: G0463 ==

== ENCOUNTER 2017-07-17 10:30 | Day surgery (SDC) | payer MEDICARE, OTHER | END 2017-07-17 14:03 | disposition home or self-care (01) | LOC: WOUND 10:30 | PROC: 0HBMXZZ Excision of Right Foot Skin, External Approach (ICD-10-PCS; principal; 2017-07-17) | DX: L89.892 Pressure ulcer of other site, stage 2 (principal); I50.22 Chronic systolic (congestive) heart failure; E11.21 Type 2 diabetes mellitus with diabetic nephropathy; I48.2 Chronic atrial fibrillation; I25.84 Coronary atherosclerosis due to calcified coronary lesion; Z86.711 Personal history of pulmonary embolism; G47.30 Sleep apnea, unspecified; E11.22 Type 2 diabetes mellitus with diabetic chronic kidney disease; N18.6 End stage renal disease; Z79.4 Long term (current) use of insulin; J44.9 Chronic obstructive pulmonary disease, unspecified ==

== ENCOUNTER → 2017-07-22 | Outpatient (CLI) | payer MEDICARE, OTHER | LOC: LAB SHORT 13:28 → PLD 13:28 | DX: D48.5 Neoplasm of uncertain behavior of skin (principal) | CPT/HCPCS: 88305 ==

== ENCOUNTER 2017-07-24 11:00 | Day surgery (SDC) | payer MEDICARE, OTHER | END 2017-07-24 12:48 | disposition home or self-care (01) | LOC: WOUND 11:00 | PROC: 0HBMXZZ Excision of Right Foot Skin, External Approach (ICD-10-PCS; principal; 2017-07-24) | DX: E11.621 Type 2 diabetes mellitus with foot ulcer (principal); E11.22 Type 2 diabetes mellitus with diabetic chronic kidney disease; I13.2 Hypertensive heart and chronic kidney disease with heart failure and with stage 5 chronic kidney disease, or end stage renal disease; N18.6 End stage renal disease; Z99.2 Dependence on renal dialysis; I50.22 Chronic systolic (congestive) heart failure; L89.892 Pressure ulcer of other site, stage 2; I48.2 Chronic atrial fibrillation; L97.519 Non-pressure chronic ulcer of other part of right foot with unspecified severity | CPT/HCPCS: 87070; 87077; 87147; 87186; 87205; G0463 ==

== ENCOUNTER 2017-07-31 10:30 | Day surgery (SDC) | payer MEDICARE, OTHER | END 2017-07-31 12:26 | disposition home or self-care (01) | LOC: WOUND 10:30 | PROC: 0HBMXZZ Excision of Right Foot Skin, External Approach (ICD-10-PCS; principal; 2017-07-31) | DX: E11.621 Type 2 diabetes mellitus with foot ulcer (principal); L97.512 Non-pressure chronic ulcer of other part of right foot with fat layer exposed; Z79.4 Long term (current) use of insulin; I13.2 Hypertensive heart and chronic kidney disease with heart failure and with stage 5 chronic kidney disease, or end stage renal disease; E11.22 Type 2 diabetes mellitus with diabetic chronic kidney disease; N18.6 End stage renal disease; I48.91 Unspecified atrial fibrillation; G47.33 Obstructive sleep apnea (adult) (pediatric); Z79.02 Long term (current) use of antithrombotics/antiplatelets; L89.892 Pressure ulcer of other site, stage 2; I50.22 Chronic systolic (congestive) heart failure | CPT/HCPCS: G0463 ==

== ENCOUNTER 2017-08-14 10:30 | Day surgery (SDC) | payer MEDICARE, OTHER | END 2017-08-14 11:51 | disposition home or self-care (01) | LOC: WOUND 10:30 | DX: Z48.00 Encounter for change or removal of nonsurgical wound dressing (principal); E11.621 Type 2 diabetes mellitus with foot ulcer; E11.52 Type 2 diabetes mellitus with diabetic peripheral angiopathy with gangrene; I96 Gangrene, not elsewhere classified; L97.512 Non-pressure chronic ulcer of other part of right foot with fat layer exposed; L97.522 Non-pressure chronic ulcer of other part of left foot with fat layer exposed; L89.629 Pressure ulcer of left heel, unspecified stage; L89.159 Pressure ulcer of sacral region, unspecified stage; E11.22 Type 2 diabetes mellitus with diabetic chronic kidney disease; I13.2 Hypertensive heart and chronic kidney disease with heart failure and with stage 5 chronic kidney disease, or end stage renal disease; I50.22 Chronic systolic (congestive) heart failure; N18.6 End stage renal disease; I25.84 Coronary atherosclerosis due to calcified coronary lesion; I48.2 Chronic atrial fibrillation; G47.33 Obstructive sleep apnea (adult) (pediatric); Z79.4 Long term (current) use of insulin; Z79.01 Long term (current) use of anticoagulants; Z86.718 Personal history of other venous thrombosis and embolism; Z86.711 Personal history of pulmonary embolism; Z95.1 Presence of aortocoronary bypass graft; Z95.5 Presence of coronary angioplasty implant and graft; Z99.2 Dependence on renal dialysis | CPT/HCPCS: G0463 ==

== ENCOUNTER 2017-08-29 10:41 | Day surgery (SDC) | payer MEDICARE, OTHER | END 2017-08-29 12:50 | disposition home or self-care (01) | LOC: WOUND 10:41 | DX: Z48.00 Encounter for change or removal of nonsurgical wound dressing (principal); L89.892 Pressure ulcer of other site, stage 2; I50.22 Chronic systolic (congestive) heart failure; E11.21 Type 2 diabetes mellitus with diabetic nephropathy; I48.2 Chronic atrial fibrillation; I25.84 Coronary atherosclerosis due to calcified coronary lesion; Z86.711 Personal history of pulmonary embolism; G47.30 Sleep apnea, unspecified | CPT/HCPCS: G0463 ==

== ENCOUNTER 2017-09-02 12:00 | Day surgery (SDC) | payer MEDICARE, OTHER | END 2017-09-02 13:16 | disposition home or self-care (01) | LOC: WOUND 12:00 | DX: Z48.00 Encounter for change or removal of nonsurgical wound dressing (principal); L89.892 Pressure ulcer of other site, stage 2; I50.22 Chronic systolic (congestive) heart failure; E11.21 Type 2 diabetes mellitus with diabetic nephropathy; I48.2 Chronic atrial fibrillation; I25.84 Coronary atherosclerosis due to calcified coronary lesion; Z86.711 Personal history of pulmonary embolism; G47.30 Sleep apnea, unspecified | CPT/HCPCS: G0463 ==

== ENCOUNTER 2017-09-16 10:40 | Emergency (ER) | payer MEDICARE, OTHER ==
[~2017-09-16] VITALS: Ht 177.8 cm; Wt 99.8 kg
[2017-09-16 11:05] LABS: BASOPHILS ABSOLUTE AUTO 0.07 K/mm3 (0.00-0.23); BASOPHILS PERCENT AUTO 1 % (0-2); EOSINOPHILS PERCENT AUTO 3 % (0-6); Hemoglobin 12.7 g/dL (13.5-17.5); IMMATURE GRAN ABSOLUTE AUTO 0.03 K/mm3 (0.00-0.10); IMMATURE GRAN PERCENT AUTO 1 % (0-1); LYMPHOCYTES ABSOLUTE AUTO 0.78 K/mm3 (0.84-5.20); LYMPHOCYTES PERCENT AUTO 12 % (21-46); MONOCYTES PERCENT AUTO 9 % (4-13); Mean Corpuscular HGB 30.2 pg (26.0-34.0); Mean Corpuscular HGB Conc 33.4 g/dL (31.5-36.5); Mean Corpuscular Volume 90 fL (80-100); Mean Platelet Volume 10.8 fL (9.1-12.4); NEUTROPHILS ABSOLUTE AUTO 4.98 K/mm3 (1.96-9.15); NEUTROPHILS PERCENT AUTO 75 % (41-73); Platelet Count 157 K/mm3 (150-400); RDW Standard Deviation 49.4 fL (35.1-46.3); Red Blood Cell Count 4.21 M/mm3 (4.30-5.90); White Blood Cell Count 6.66 K/mm3 (4.00-11.30)
[2017-09-16 11:19] LABS: International Normalized Ratio 1.03; Prothrombin Time Results 10.6 Sec (9.7-11.5)
[2017-09-16 11:29] LABS: Albumin, Blood 3.4 g/dL (3.4-5.0); Albumin/Globulin Ratio 0.9 (0.8-1.8); Bilirubin, Total 0.7 mg/dL (0.1-1.0); Bun/Creatinine Ratio 7.5 (12.0-20.0); Calcium, Blood 8.4 mg/dL (8.5-10.1); Creatinine, Blood 4.67 mg/dL (0.60-1.20); Globulin, Blood 3.9 g/dL (2.2-4.0); Potassium, Blood 4.7 mmol/L (3.5-5.5); Total Protein, Blood 7.3 g/dL (6.4-8.2)
== END 2017-09-16 12:59 | disposition home or self-care (01) ==
LOC: ER 10:40
PROVIDERS: Emergency Medicine
DX: I48.91 Unspecified atrial fibrillation (principal); Z86.73 Personal history of transient ischemic attack (TIA), and cerebral infarction without residual deficits; Z88.6 Allergy status to analgesic agent; Z88.8 Allergy status to other drugs, medicaments and biological substances; Z88.5 Allergy status to narcotic agent; Z79.899 Other long term (current) drug therapy; Z79.4 Long term (current) use of insulin; Z79.2 Long term (current) use of antibiotics; E11.9 Type 2 diabetes mellitus without complications; I11.0 Hypertensive heart disease with heart failure; I50.9 Heart failure, unspecified; I25.2 Old myocardial infarction
CPT/HCPCS: 70450; 80053; 85025; 85610; 93005; 93010; 99285-25

== ENCOUNTER 2017-11-20 13:40 | Day surgery (SDC) | payer MEDICARE, OTHER | END 2017-11-20 15:05 | disposition home or self-care (01) | LOC: WOUND 13:40 | DX: E11.621 Type 2 diabetes mellitus with foot ulcer (principal); I87.2 Venous insufficiency (chronic) (peripheral); L97.519 Non-pressure chronic ulcer of other part of right foot with unspecified severity; E11.22 Type 2 diabetes mellitus with diabetic chronic kidney disease; N18.6 End stage renal disease; Z99.2 Dependence on renal dialysis; I12.0 Hypertensive chronic kidney disease with stage 5 chronic kidney disease or end stage renal disease ==

== ENCOUNTER 2017-11-24 12:35 | Day surgery (SDC) | payer MEDICARE, OTHER | END 2017-11-24 22:47 | disposition home or self-care (01) | LOC: WOUND 12:35 | DX: E11.621 Type 2 diabetes mellitus with foot ulcer (principal); L97.512 Non-pressure chronic ulcer of other part of right foot with fat layer exposed; L97.519 Non-pressure chronic ulcer of other part of right foot with unspecified severity; I87.2 Venous insufficiency (chronic) (peripheral); I10 Essential (primary) hypertension ==

== ENCOUNTER 2017-12-02 08:59 | Day surgery (SDC) | payer MEDICARE, OTHER ==
[2017-12-03] MEDS ORDERED: ALLEGRA ALLERG180 M1 PO (16:23)
[2017-12-03] MEDS ORDERED: DIPH50 PO (16:23)
[2017-12-03] MEDS ORDERED: ALBU3IS INH (16:23)
[2017-12-03] MEDS ORDERED: BUME2 PO (16:24)
[2017-12-03] MEDS ORDERED: DOCU100 PO (16:24)
[2017-12-03] MEDS ORDERED: CHOL10002 PO (16:24)
[2017-12-03] MEDS ORDERED: Novolin R100 UNIT/M (16:25)
[2017-12-03] MEDS ORDERED: INSDET100 SC (16:25)
[2017-12-03] MEDS ORDERED: Namenda10 MG PO (16:26)
[2017-12-03] MEDS ORDERED: OXYC10TA19 PO (16:26)
[2017-12-03] MEDS ORDERED: PANT40 PO (16:27)
[2017-12-03] MEDS ORDERED: FINA5 PO (16:27)
[2017-12-03] MEDS ORDERED: Plavix75 MG PO (16:27)
[2017-12-03] MEDS ORDERED: SEVEC800 PO (16:28)
[2017-12-03] MEDS ORDERED: Zantac150 MG PO (16:28)
[2017-12-03] MEDS ORDERED: Senna8.6 MG PO (16:29)
[2017-12-03] MEDS ORDERED: TEMA15 PO (16:29)
[2017-12-03] MEDS ORDERED: METO50ER PO (16:30)
[2017-12-03] MEDS ORDERED: TAMS.4ER PO (16:30)
== END 2017-12-02 22:40 | disposition home or self-care (01) ==
LOC: WOUND 08:59
DX: E11.621 Type 2 diabetes mellitus with foot ulcer (principal); L97.519 Non-pressure chronic ulcer of other part of right foot with unspecified severity; I87.2 Venous insufficiency (chronic) (peripheral); I10 Essential (primary) hypertension
CPT/HCPCS: G0463

== ENCOUNTER 2017-12-03 14:54 | Emergency (ER) | payer MEDICARE, OTHER ==
[~2017-12-03] VITALS: Ht 177.8 cm; Wt 104.3 kg
[2017-12-03 16:07] LABS: BASOPHILS ABSOLUTE AUTO 0.07 K/mm3 (0.00-0.23); BASOPHILS PERCENT AUTO 1 % (0-2); EOSINOPHILS ABSOLUTE AUTO 0.22 K/mm3 (0.00-0.68); EOSINOPHILS PERCENT AUTO 3 % (0-6); Hematocrit 37.1 % (37.0-53.0); Hemoglobin 12.3 g/dL (13.5-17.5); IMMATURE GRAN ABSOLUTE AUTO 0.02 K/mm3 (0.00-0.10); IMMATURE GRAN PERCENT AUTO 0 % (0-1); LYMPHOCYTES ABSOLUTE AUTO 1.17 K/mm3 (0.84-5.20); LYMPHOCYTES PERCENT AUTO 14 % (21-46); MONOCYTES ABSOLUTE AUTO 0.77 K/mm3 (0.16-1.47); MONOCYTES PERCENT AUTO 9 % (4-13); Mean Corpuscular HGB 32.1 pg (26.0-34.0); Mean Corpuscular HGB Conc 33.2 g/dL (31.5-36.5); Mean Corpuscular Volume 97 fL (80-100); Mean Platelet Volume 11.4 fL (9.1-12.4); NEUTROPHILS ABSOLUTE AUTO 6.23 K/mm3 (1.96-9.15); NEUTROPHILS PERCENT AUTO 74 % (41-73); Platelet Count 173 K/mm3 (150-400); RDW Coefficient Variation 13.9 % (11.7-14.2); RDW Standard Deviation 49.7 fL (35.1-46.3); Red Blood Cell Count 3.83 M/mm3 (4.30-5.90); White Blood Cell Count 8.48 K/mm3 (4.00-11.30)
[2017-12-03 16:23] LABS: Bun/Creatinine Ratio 8.4 (12.0-20.0); Calcium, Blood 8.5 mg/dL (8.5-10.1); Creatinine, Blood 7.18 mg/dL (0.60-1.20); Potassium, Blood 4.4 mmol/L (3.5-5.5)
[2017-12-03] MEDS ORDERED: ALLEGRA ALLERG180 M1 PO (16:23)
[2017-12-03] MEDS ORDERED: ALBU3IS INH (16:23)
[2017-12-03] MEDS ORDERED: DIPH50 PO (16:23)
[2017-12-03] MEDS ORDERED: DOCU100 PO (16:24)
[2017-12-03] MEDS ORDERED: CHOL10002 PO (16:24)
[2017-12-03] MEDS ORDERED: BUME2 PO (16:24)
[2017-12-03] MEDS ORDERED: Novolin R100 UNIT/M (16:25)
[2017-12-03] MEDS ORDERED: INSDET100 SC (16:25)
[2017-12-03] MEDS ORDERED: OXYC10TA19 PO (16:26)
[2017-12-03] MEDS ORDERED: Namenda10 MG PO (16:26)
[2017-12-03] MEDS ORDERED: PANT40 PO (16:27)
[2017-12-03] MEDS ORDERED: FINA5 PO (16:27)
[2017-12-03] MEDS ORDERED: Plavix75 MG PO (16:27)
[2017-12-03] MEDS ORDERED: SEVEC800 PO (16:28)
[2017-12-03] MEDS ORDERED: Zantac150 MG PO (16:28)
[2017-12-03] MEDS ORDERED: TEMA15 PO (16:29)
[2017-12-03] MEDS ORDERED: Senna8.6 MG PO (16:29)
[2017-12-03] MEDS ORDERED: METO50ER PO (16:30)
[2017-12-03] MEDS ORDERED: TAMS.4ER PO (16:30)
== END 2017-12-03 17:13 | disposition home or self-care (01) ==
LOC: ER 14:54
PROVIDERS: Emergency Medicine
DX: S09.90XA Unspecified injury of head, initial encounter (principal); E11.9 Type 2 diabetes mellitus without complications; I11.0 Hypertensive heart disease with heart failure; I50.9 Heart failure, unspecified; I25.2 Old myocardial infarction; J44.9 Chronic obstructive pulmonary disease, unspecified; I48.91 Unspecified atrial fibrillation; Z88.6 Allergy status to analgesic agent; Z88.8 Allergy status to other drugs, medicaments and biological substances; Z88.5 Allergy status to narcotic agent; Z91.048 Other nonmedicinal substance allergy status; Z79.01 Long term (current) use of anticoagulants; Z79.899 Other long term (current) drug therapy; Z79.4 Long term (current) use of insulin; Z79.51 Long term (current) use of inhaled steroids; Z86.73 Personal history of transient ischemic attack (TIA), and cerebral infarction without residual deficits; Z99.2 Dependence on renal dialysis; W22.8XXA Striking against or struck by other objects, initial encounter
CPT/HCPCS: 70450; 72125; 80048; 85025; 96360; 99284-25; J7030

== ENCOUNTER 2017-12-04 00:16 | Day surgery (SDC) | payer MEDICARE, OTHER ==
[~2017-12-04 00:16] MED LIST changes: +ALLEGRA ALLERG180 M1 PO; +Namenda10 MG PO; +Novolin R100 UNIT/M; +Plavix75 MG PO; +Senna8.6 MG PO; +TEMA15 PO; +Zantac150 MG PO
== END 2017-12-04 22:53 | disposition home or self-care (01) ==
LOC: WOUND 00:16
DX: E11.621 Type 2 diabetes mellitus with foot ulcer (principal); L97.519 Non-pressure chronic ulcer of other part of right foot with unspecified severity; E11.22 Type 2 diabetes mellitus with diabetic chronic kidney disease; N18.6 End stage renal disease; I50.9 Heart failure, unspecified; I13.2 Hypertensive heart and chronic kidney disease with heart failure and with stage 5 chronic kidney disease, or end stage renal disease; I87.2 Venous insufficiency (chronic) (peripheral); Z99.2 Dependence on renal dialysis
CPT/HCPCS: G0463

== ENCOUNTER 2017-12-24 07:54 | Day surgery (SDC) | payer MEDICARE, OTHER | END 2017-12-24 22:59 | disposition home health service (06) | LOC: WOUND 07:54 | DX: E11.621 Type 2 diabetes mellitus with foot ulcer (principal); L97.512 Non-pressure chronic ulcer of other part of right foot with fat layer exposed; S81.802A Unspecified open wound, left lower leg, initial encounter; I87.2 Venous insufficiency (chronic) (peripheral); R42 Dizziness and giddiness; R11.0 Nausea; I95.9 Hypotension, unspecified; E11.22 Type 2 diabetes mellitus with diabetic chronic kidney disease; I13.2 Hypertensive heart and chronic kidney disease with heart failure and with stage 5 chronic kidney disease, or end stage renal disease; I50.9 Heart failure, unspecified; N18.6 End stage renal disease; Z99.2 Dependence on renal dialysis; Z79.4 Long term (current) use of insulin; J44.9 Chronic obstructive pulmonary disease, unspecified; Z95.1 Presence of aortocoronary bypass graft; Z98.61 Coronary angioplasty status; G47.33 Obstructive sleep apnea (adult) (pediatric) | CPT/HCPCS: 87070; 87205 ==

== ENCOUNTER 2017-12-30 07:59 | Day surgery (SDC) | payer MEDICARE, OTHER | END 2017-12-30 23:03 | disposition home or self-care (01) | LOC: WOUND 07:59 | DX: E11.621 Type 2 diabetes mellitus with foot ulcer (principal); L97.519 Non-pressure chronic ulcer of other part of right foot with unspecified severity; I87.2 Venous insufficiency (chronic) (peripheral); I10 Essential (primary) hypertension ==

== ENCOUNTER 2018-02-16 12:15 | Emergency (ER) | payer MEDICARE, OTHER ==
[~2018-02-16] VITALS: Ht 180.3 cm; Wt 105.7 kg
[2018-02-16 13:02] LABS: BASOPHILS ABSOLUTE AUTO 0.04 K/mm3 (0.00-0.23); BASOPHILS PERCENT AUTO 0 % (0-2); EOSINOPHILS ABSOLUTE AUTO 0.22 K/mm3 (0.00-0.68); EOSINOPHILS PERCENT AUTO 2 % (0-6); Hematocrit 31.9 % (37.0-53.0); Hemoglobin 10.7 g/dL (13.5-17.5); IMMATURE GRAN ABSOLUTE AUTO 0.04 K/mm3 (0.00-0.10); IMMATURE GRAN PERCENT AUTO 0 % (0-1); LYMPHOCYTES ABSOLUTE AUTO 0.65 K/mm3 (0.84-5.20); LYMPHOCYTES PERCENT AUTO 6 % (21-46); MONOCYTES ABSOLUTE AUTO 0.76 K/mm3 (0.16-1.47); MONOCYTES PERCENT AUTO 7 % (4-13); Mean Corpuscular HGB 32.8 pg (26.0-34.0); Mean Corpuscular HGB Conc 33.5 g/dL (31.5-36.5); Mean Corpuscular Volume 98 fL (80-100); Mean Platelet Volume 11.1 fL (9.1-12.4); NEUTROPHILS ABSOLUTE AUTO 9.22 K/mm3 (1.96-9.15); NEUTROPHILS PERCENT AUTO 84 % (41-73); Platelet Count 140 K/mm3 (150-400); RDW Standard Deviation 50.6 fL (35.1-46.3); Red Blood Cell Count 3.26 M/mm3 (4.30-5.90); White Blood Cell Count 10.93 K/mm3 (4.00-11.30)
[2018-02-16 13:15] LABS: Source, Urine Clean Catch
[2018-02-16] MEDS ORDERED: PREG25 PO (13:18)
[2018-02-16] MEDS ORDERED: ELIQUIS2.5 MG PO (13:18)
[2018-02-16] MEDS ORDERED: DILT30 PO (13:18)
[2018-02-16 13:19] LABS: Bilirubin, Urine Neg (Neg); Blood, Urine 1+ (Neg); Glucose Qualitative, Urine 4+ (Neg); Ketones, Urine Neg (Neg); Leukocyte Esterase, Urine 1+ (Neg); Nitrite, Urine Neg (Neg); Protein, Urine 3+ (Neg); Urobilinogen, Urine NORM (Normal)
[2018-02-16] MEDS ORDERED: NITR.6SL SL (13:19)
[2018-02-16] MEDS ORDERED: METOPROLOL ER-1 EAC2 PO (13:19)
[2018-02-16] MEDS ORDERED: GABA300 PO (13:20)
[2018-02-16] MEDS ORDERED: CINA30 (13:20)
[2018-02-16 13:21] LABS: Albumin, Blood 2.7 g/dL (3.4-5.0); Albumin/Globulin Ratio 0.7 (0.8-1.8); Bilirubin, Total 0.4 mg/dL (0.1-1.0); Bun/Creatinine Ratio 11.6 (12.0-20.0); Calcium, Blood 7.8 mg/dL (8.5-10.1); Creatinine, Blood 7.33 mg/dL (0.60-1.20); Globulin, Blood 3.9 g/dL (2.2-4.0); Potassium, Blood 5.5 mmol/L (3.5-5.5); Total Protein, Blood 6.6 g/dL (6.4-8.2)
[2018-02-16] MEDS ORDERED: AMOX875 PO (13:21)
[2018-02-16 13:28] LABS: Appearance, Urine Clear (Clear); Bacteria Rare /hpf; Color, Urine Yellow (P-Yellow); Red Blood Cells, Urine 0-2 /hpf (0-2); Squamous Epithelial Cells Few /hpf (Few); White Blood Cells, Urine 0-2 /hpf (0-5)
== END 2018-02-16 15:25 | disposition home or self-care (01) ==
LOC: ER 12:15
PROVIDERS: Physician Assistant
DX: I13.2 Hypertensive heart and chronic kidney disease with heart failure and with stage 5 chronic kidney disease, or end stage renal disease (principal); E11.22 Type 2 diabetes mellitus with diabetic chronic kidney disease; N18.6 End stage renal disease; I50.9 Heart failure, unspecified; Z99.2 Dependence on renal dialysis; D64.9 Anemia, unspecified; I48.91 Unspecified atrial fibrillation; E11.621 Type 2 diabetes mellitus with foot ulcer; R79.89 Other specified abnormal findings of blood chemistry; Z88.6 Allergy status to analgesic agent; Z88.8 Allergy status to other drugs, medicaments and biological substances; Z88.5 Allergy status to narcotic agent; Z79.899 Other long term (current) drug therapy; Z79.4 Long term (current) use of insulin; I25.2 Old myocardial infarction; Z86.73 Personal history of transient ischemic attack (TIA), and cerebral infarction without residual deficits; J44.9 Chronic obstructive pulmonary disease, unspecified
CPT/HCPCS: 70450; 71046; 80053; 81001; 83880; 85025; 87086; 93005; 93010; 99284-25

== ENCOUNTER 2018-02-17 00:08 | Day surgery (SDC) | payer MEDICARE, OTHER ==
[~2018-02-17 00:08] MED LIST changes: +AMOX875 PO; +CINA30; +ELIQUIS2.5 MG PO; +METOPROLOL ER-1 EAC2 PO; +NITR.6SL SL; +PREG25 PO
== END 2018-02-17 22:42 | disposition home or self-care (01) ==
LOC: WOUND 00:08
DX: E11.621 Type 2 diabetes mellitus with foot ulcer (principal); L97.512 Non-pressure chronic ulcer of other part of right foot with fat layer exposed; I87.2 Venous insufficiency (chronic) (peripheral); I12.0 Hypertensive chronic kidney disease with stage 5 chronic kidney disease or end stage renal disease; E11.22 Type 2 diabetes mellitus with diabetic chronic kidney disease; N18.6 End stage renal disease; G47.33 Obstructive sleep apnea (adult) (pediatric); Z99.2 Dependence on renal dialysis

== ENCOUNTER 2018-02-23 10:30 | Day surgery (SDC) | payer MEDICARE, OTHER | END 2018-02-23 22:45 | disposition home or self-care (01) | LOC: WOUND 10:30 | DX: E11.621 Type 2 diabetes mellitus with foot ulcer (principal); L97.512 Non-pressure chronic ulcer of other part of right foot with fat layer exposed; I87.2 Venous insufficiency (chronic) (peripheral); I12.0 Hypertensive chronic kidney disease with stage 5 chronic kidney disease or end stage renal disease; E11.22 Type 2 diabetes mellitus with diabetic chronic kidney disease; N18.6 End stage renal disease; G47.33 Obstructive sleep apnea (adult) (pediatric); Z99.2 Dependence on renal dialysis ==

== ENCOUNTER 2018-03-05 14:10 | Day surgery (SDC) | payer MEDICARE, OTHER | END 2018-03-05 22:43 | disposition home or self-care (01) | LOC: WOUND 14:10 | DX: E11.621 Type 2 diabetes mellitus with foot ulcer (principal); L97.513 Non-pressure chronic ulcer of other part of right foot with necrosis of muscle; I87.2 Venous insufficiency (chronic) (peripheral); I12.0 Hypertensive chronic kidney disease with stage 5 chronic kidney disease or end stage renal disease; N18.6 End stage renal disease; G47.33 Obstructive sleep apnea (adult) (pediatric); Z99.2 Dependence on renal dialysis | CPT/HCPCS: 87081 ==

== ENCOUNTER → 2018-03-09 | Outpatient (CLI) | payer MEDICARE, OTHER | END | disposition home or self-care (01) | LOC: LAB SHORT 14:40 → LAB 14:40 | DX: R30.0 Dysuria (principal) | CPT/HCPCS: 87086 ==

== ENCOUNTER 2018-03-10 13:45 | Day surgery (SDC) | payer MEDICARE, OTHER | END 2018-03-10 22:36 | disposition home or self-care (01) | LOC: WOUND 13:45 | DX: Z48.00 Encounter for change or removal of nonsurgical wound dressing (principal); E11.621 Type 2 diabetes mellitus with foot ulcer; L97.516 Non-pressure chronic ulcer of other part of right foot with bone involvement without evidence of necrosis; L97.512 Non-pressure chronic ulcer of other part of right foot with fat layer exposed; I10 Essential (primary) hypertension | CPT/HCPCS: 87081; G0463 ==

== ENCOUNTER 2018-03-17 13:40 | Day surgery (SDC) | payer MEDICARE, OTHER | END 2018-03-17 22:37 | disposition home or self-care (01) | LOC: WOUND 13:40 | DX: E11.621 Type 2 diabetes mellitus with foot ulcer (principal); L97.515 Non-pressure chronic ulcer of other part of right foot with muscle involvement without evidence of necrosis; L97.512 Non-pressure chronic ulcer of other part of right foot with fat layer exposed; I87.2 Venous insufficiency (chronic) (peripheral); I10 Essential (primary) hypertension | CPT/HCPCS: 73718 ==

== ENCOUNTER 2018-03-24 00:22 | Day surgery (SDC) | payer MEDICARE, OTHER | END 2018-03-24 23:03 | disposition home or self-care (01) | LOC: WOUND 00:22 | DX: E11.621 Type 2 diabetes mellitus with foot ulcer (principal); L97.515 Non-pressure chronic ulcer of other part of right foot with muscle involvement without evidence of necrosis; I87.2 Venous insufficiency (chronic) (peripheral); E11.22 Type 2 diabetes mellitus with diabetic chronic kidney disease; N18.6 End stage renal disease; G47.33 Obstructive sleep apnea (adult) (pediatric); I12.0 Hypertensive chronic kidney disease with stage 5 chronic kidney disease or end stage renal disease; Z99.2 Dependence on renal dialysis; Z79.4 Long term (current) use of insulin; Z79.01 Long term (current) use of anticoagulants | CPT/HCPCS: G0463 ==

== ENCOUNTER 2018-04-02 10:34 | Day surgery (SDC) | payer MEDICARE, OTHER | END 2018-04-02 23:20 | disposition home or self-care (01) | LOC: WOUND 10:34 | DX: E11.621 Type 2 diabetes mellitus with foot ulcer (principal); L97.516 Non-pressure chronic ulcer of other part of right foot with bone involvement without evidence of necrosis; L97.512 Non-pressure chronic ulcer of other part of right foot with fat layer exposed; I87.2 Venous insufficiency (chronic) (peripheral); I10 Essential (primary) hypertension; E11.22 Type 2 diabetes mellitus with diabetic chronic kidney disease; I12.0 Hypertensive chronic kidney disease with stage 5 chronic kidney disease or end stage renal disease; N18.6 End stage renal disease ==

== ENCOUNTER 2018-04-14 00:36 | Day surgery (SDC) | payer MEDICARE, OTHER | END 2018-04-14 22:40 | disposition home or self-care (01) | LOC: WOUND 00:36 | DX: E11.621 Type 2 diabetes mellitus with foot ulcer (principal); L97.512 Non-pressure chronic ulcer of other part of right foot with fat layer exposed; I87.2 Venous insufficiency (chronic) (peripheral); I10 Essential (primary) hypertension; Z79.4 Long term (current) use of insulin; I50.9 Heart failure, unspecified | CPT/HCPCS: 71046; G0463 ==

== ENCOUNTER 2018-04-21 00:14 | Day surgery (SDC) | payer MEDICARE, OTHER | END 2018-04-21 22:48 | disposition home or self-care (01) | LOC: WOUND 00:14 | DX: E11.621 Type 2 diabetes mellitus with foot ulcer (principal); L97.512 Non-pressure chronic ulcer of other part of right foot with fat layer exposed; E11.51 Type 2 diabetes mellitus with diabetic peripheral angiopathy without gangrene; I10 Essential (primary) hypertension; E11.22 Type 2 diabetes mellitus with diabetic chronic kidney disease; I13.2 Hypertensive heart and chronic kidney disease with heart failure and with stage 5 chronic kidney disease, or end stage renal disease; I50.9 Heart failure, unspecified; N18.6 End stage renal disease; Z99.2 Dependence on renal dialysis; Z79.4 Long term (current) use of insulin; Z86.718 Personal history of other venous thrombosis and embolism; Z86.711 Personal history of pulmonary embolism; I48.91 Unspecified atrial fibrillation; J44.9 Chronic obstructive pulmonary disease, unspecified; I25.10 Atherosclerotic heart disease of native coronary artery without angina pectoris; Z95.1 Presence of aortocoronary bypass graft; Z95.5 Presence of coronary angioplasty implant and graft; Z86.73 Personal history of transient ischemic attack (TIA), and cerebral infarction without residual deficits; G47.33 Obstructive sleep apnea (adult) (pediatric) | CPT/HCPCS: G0463 ==

== ENCOUNTER 2018-05-12 00:20 | Day surgery (SDC) | payer MEDICARE, OTHER ==
[~2018-05-12 00:20] MED LIST changes: +Amoxicillin500 MG PO; +PROMETH-CODEIN 65 ML PO
== END 2018-05-12 22:41 | disposition home or self-care (01) ==
LOC: WOUND 00:20
DX: E11.621 Type 2 diabetes mellitus with foot ulcer (principal); L97.515 Non-pressure chronic ulcer of other part of right foot with muscle involvement without evidence of necrosis; I87.2 Venous insufficiency (chronic) (peripheral); I10 Essential (primary) hypertension; N18.6 End stage renal disease; G47.33 Obstructive sleep apnea (adult) (pediatric); Z99.2 Dependence on renal dialysis

== ENCOUNTER 2018-05-19 00:15 | Day surgery (SDC) | payer MEDICARE, OTHER ==
[2018-05-20] MEDS ORDERED: Zantac150 MG PO (14:25)
[2018-05-20] MEDS ORDERED: ELIQUIS2.5 MG PO (14:25)
[2018-05-20] MEDS ORDERED: CLOP75 PO (14:25)
[2018-05-20] MEDS ORDERED: CHOL10002 PO (14:26)
[2018-05-20] MEDS ORDERED: Novolin R100 UNIT/M SC (14:27)
[2018-05-20] MEDS ORDERED: Flomax0.4 MG PO (14:28)
[2018-05-20] MEDS ORDERED: Senna Laxative8.6 MG PO (14:28)
[2018-05-20] MEDS ORDERED: ALBU3IS INH (14:30)
[2018-05-20] MEDS ORDERED: SEVEC800 PO (14:31)
[2018-05-20] MEDS ORDERED: ALLEGRA ALLERGY60 MG PO (14:36)
[2018-05-20] MEDS ORDERED: BUME2 PO (14:36)
[2018-05-20] MEDS ORDERED: COLCHICINE0.6 MG PO (14:37)
[2018-05-20] MEDS ORDERED: CINA30 PO (14:37)
[2018-05-20] MEDS ORDERED: MEMA10 PO (14:38)
[2018-05-20] MEDS ORDERED: Toprol Xl25 MG PO (14:38)
[2018-05-20] MEDS ORDERED: BENADRYL25 MG PO (14:42)
== END 2018-05-19 22:58 | disposition home or self-care (01) ==
LOC: WOUND 00:15
DX: E11.621 Type 2 diabetes mellitus with foot ulcer (principal); L97.515 Non-pressure chronic ulcer of other part of right foot with muscle involvement without evidence of necrosis; I87.2 Venous insufficiency (chronic) (peripheral); I13.2 Hypertensive heart and chronic kidney disease with heart failure and with stage 5 chronic kidney disease, or end stage renal disease; E11.22 Type 2 diabetes mellitus with diabetic chronic kidney disease; N18.6 End stage renal disease; I50.9 Heart failure, unspecified; I48.91 Unspecified atrial fibrillation; J44.9 Chronic obstructive pulmonary disease, unspecified; I25.10 Atherosclerotic heart disease of native coronary artery without angina pectoris; G47.33 Obstructive sleep apnea (adult) (pediatric); Z99.2 Dependence on renal dialysis; Z86.718 Personal history of other venous thrombosis and embolism; Z86.711 Personal history of pulmonary embolism; Z95.5 Presence of coronary angioplasty implant and graft; Z86.73 Personal history of transient ischemic attack (TIA), and cerebral infarction without residual deficits; Z99.89 Dependence on other enabling machines and devices
CPT/HCPCS: G0463

== ENCOUNTER 2018-05-21 11:13 | Day surgery (SDC) | payer MEDICARE, OTHER ==
[~2018-05-21] VITALS: Ht 177.8 cm; Wt 104.0 kg
[~2018-05-21 11:13] MED LIST changes: +ALLEGRA ALLERGY60 MG PO; +CINA30 PO; +Flomax0.4 MG PO; +Senna Laxative8.6 MG PO; +Toprol Xl25 MG PO
--- NOTE | 2018-05-21 14:40 | NUR ---
PT RETURNED TO RECOVERY ROOM IN RECLINER. LEFT FOREARM FISTULA SITE SOFT WITH NO HEMATOMA AND NO BLEEDING WITH INTACT POLYMEM DRESSINGS. PT C/O "SORENESS" NEAR LEFT ELBOW. PT EATING LUNCH AND VISITING WITH FAMILY MEMBER. CALL LIGHT IN REACH.
--- NOTE | 2018-05-21 15:30 | NUR ---
PT RESTING COMFORTABLY. VSS. NADN. PT WITH CLOTH DOT DRESSINGS TO L FOREARM FISTULA AFTER PURSE STRINGS PULLED. NO BLEEDING OR HEMATOMA NOTED. NADN. SON AT BEDSIDE. CALL LIGHT WITHIN REACH.
--- NOTE | 2018-05-21 16:15 | NUR ---
PT IV DC'D. CATH INTACT. PRESSURE DSG APPLIED. NO BLEEDING NOTED. L ARM/ SITE REMAINS CLEAR/ STABLE. NO BLEEDING OR HEMATOMA NOTED. VSS. PT DRESSES SELF WITH MINIMAL ASSITANCE. PT AND GRANDSON VERBALIZES UNDERSTANDING WRITTEN AND VERBAL ORDERS. PT SCHEDULED TO HAVE DIALYSIS TOMORROW. PT DC TO HOME/ ESCORTED OUT BY WC.
== END 2018-05-21 16:20 | disposition home or self-care (01) ==
LOC: MHTC 11:13
DX: T82.858A Stenosis of other vascular prosthetic devices, implants and grafts, initial encounter (principal); I12.0 Hypertensive chronic kidney disease with stage 5 chronic kidney disease or end stage renal disease; E11.22 Type 2 diabetes mellitus with diabetic chronic kidney disease; N18.6 End stage renal disease; E78.00 Pure hypercholesterolemia, unspecified; I25.10 Atherosclerotic heart disease of native coronary artery without angina pectoris; M19.90 Unspecified osteoarthritis, unspecified site; N25.81 Secondary hyperparathyroidism of renal origin; E11.51 Type 2 diabetes mellitus with diabetic peripheral angiopathy without gangrene; I65.29 Occlusion and stenosis of unspecified carotid artery; M10.9 Gout, unspecified; I25.2 Old myocardial infarction; D63.1 Anemia in chronic kidney disease; Z88.5 Allergy status to narcotic agent; Z88.8 Allergy status to other drugs, medicaments and biological substances; Z86.73 Personal history of transient ischemic attack (TIA), and cerebral infarction without residual deficits; Z79.899 Other long term (current) drug therapy
CPT/HCPCS: 82947; 99152; 99153; C1725; C1769; C1887; C1894; J1644; J2250; J3010; J7030; J7040; Q9967

== ENCOUNTER 2018-05-26 01:04 | Day surgery (SDC) | payer MEDICARE, OTHER | END 2018-05-26 22:38 | disposition home or self-care (01) | LOC: WOUND 01:04 | DX: E11.621 Type 2 diabetes mellitus with foot ulcer (principal); L97.515 Non-pressure chronic ulcer of other part of right foot with muscle involvement without evidence of necrosis; I87.2 Venous insufficiency (chronic) (peripheral); I13.2 Hypertensive heart and chronic kidney disease with heart failure and with stage 5 chronic kidney disease, or end stage renal disease; E11.22 Type 2 diabetes mellitus with diabetic chronic kidney disease; N18.6 End stage renal disease; I50.9 Heart failure, unspecified; I48.91 Unspecified atrial fibrillation; I25.10 Atherosclerotic heart disease of native coronary artery without angina pectoris; J44.9 Chronic obstructive pulmonary disease, unspecified; G47.33 Obstructive sleep apnea (adult) (pediatric); Z86.718 Personal history of other venous thrombosis and embolism; Z86.711 Personal history of pulmonary embolism; Z86.73 Personal history of transient ischemic attack (TIA), and cerebral infarction without residual deficits; Z99.89 Dependence on other enabling machines and devices; Z99.2 Dependence on renal dialysis | CPT/HCPCS: G0463 ==

== ENCOUNTER 2018-06-02 13:05 | Day surgery (SDC) | payer MEDICARE, OTHER | END 2018-06-02 23:22 | disposition home or self-care (01) | LOC: WOUND 13:05 | DX: I87.2 Venous insufficiency (chronic) (peripheral) (principal); E11.621 Type 2 diabetes mellitus with foot ulcer; L97.515 Non-pressure chronic ulcer of other part of right foot with muscle involvement without evidence of necrosis; E11.22 Type 2 diabetes mellitus with diabetic chronic kidney disease; I13.2 Hypertensive heart and chronic kidney disease with heart failure and with stage 5 chronic kidney disease, or end stage renal disease; I50.9 Heart failure, unspecified; N18.6 End stage renal disease; J44.9 Chronic obstructive pulmonary disease, unspecified; I12.0 Hypertensive chronic kidney disease with stage 5 chronic kidney disease or end stage renal disease; I25.10 Atherosclerotic heart disease of native coronary artery without angina pectoris; G47.33 Obstructive sleep apnea (adult) (pediatric); Z95.1 Presence of aortocoronary bypass graft; Z86.711 Personal history of pulmonary embolism; Z86.718 Personal history of other venous thrombosis and embolism; Z95.5 Presence of coronary angioplasty implant and graft; Z86.73 Personal history of transient ischemic attack (TIA), and cerebral infarction without residual deficits; Z99.89 Dependence on other enabling machines and devices | CPT/HCPCS: Q4196 ==

== ENCOUNTER 2018-06-09 00:27 | Day surgery (SDC) | payer MEDICARE, OTHER | END 2018-06-09 22:54 | disposition home or self-care (01) | LOC: WOUND 00:27 | DX: E11.621 Type 2 diabetes mellitus with foot ulcer (principal); L97.515 Non-pressure chronic ulcer of other part of right foot with muscle involvement without evidence of necrosis; E11.36 Type 2 diabetes mellitus with diabetic cataract; J44.9 Chronic obstructive pulmonary disease, unspecified; G47.30 Sleep apnea, unspecified; I11.0 Hypertensive heart disease with heart failure; I50.9 Heart failure, unspecified; E11.22 Type 2 diabetes mellitus with diabetic chronic kidney disease; N18.6 End stage renal disease; M06.9 Rheumatoid arthritis, unspecified; M10.9 Gout, unspecified; F03.90 Unspecified dementia, unspecified severity, without behavioral disturbance, psychotic disturbance, mood disturbance, and anxiety; M19.90 Unspecified osteoarthritis, unspecified site; I25.2 Old myocardial infarction | CPT/HCPCS: Q4196 ==

== ENCOUNTER 2018-06-23 13:12 | Day surgery (SDC) | payer MEDICARE, OTHER | END 2018-06-23 22:41 | disposition home or self-care (01) | LOC: WOUND 13:12 | DX: E11.621 Type 2 diabetes mellitus with foot ulcer (principal); L97.515 Non-pressure chronic ulcer of other part of right foot with muscle involvement without evidence of necrosis; I87.2 Venous insufficiency (chronic) (peripheral); I13.2 Hypertensive heart and chronic kidney disease with heart failure and with stage 5 chronic kidney disease, or end stage renal disease; E11.22 Type 2 diabetes mellitus with diabetic chronic kidney disease; I50.9 Heart failure, unspecified; N18.6 End stage renal disease; I25.10 Atherosclerotic heart disease of native coronary artery without angina pectoris; I48.91 Unspecified atrial fibrillation; J44.9 Chronic obstructive pulmonary disease, unspecified; G47.33 Obstructive sleep apnea (adult) (pediatric); Z86.718 Personal history of other venous thrombosis and embolism; Z86.711 Personal history of pulmonary embolism; Z86.73 Personal history of transient ischemic attack (TIA), and cerebral infarction without residual deficits; Z99.89 Dependence on other enabling machines and devices | CPT/HCPCS: G0463 ==

== ENCOUNTER 2018-06-30 13:10 | Day surgery (SDC) | payer MEDICARE, OTHER | END 2018-06-30 22:50 | disposition home or self-care (01) | LOC: WOUND | DX: E11.621 Type 2 diabetes mellitus with foot ulcer (principal); L97.511 Non-pressure chronic ulcer of other part of right foot limited to breakdown of skin; I87.2 Venous insufficiency (chronic) (peripheral); I13.2 Hypertensive heart and chronic kidney disease with heart failure and with stage 5 chronic kidney disease, or end stage renal disease; E11.22 Type 2 diabetes mellitus with diabetic chronic kidney disease; N18.6 End stage renal disease; I50.9 Heart failure, unspecified; I48.91 Unspecified atrial fibrillation; J44.9 Chronic obstructive pulmonary disease, unspecified; I25.10 Atherosclerotic heart disease of native coronary artery without angina pectoris; F03.90 Unspecified dementia, unspecified severity, without behavioral disturbance, psychotic disturbance, mood disturbance, and anxiety; G47.33 Obstructive sleep apnea (adult) (pediatric); Z99.2 Dependence on renal dialysis; Z86.718 Personal history of other venous thrombosis and embolism; Z86.711 Personal history of pulmonary embolism; Z99.89 Dependence on other enabling machines and devices | CPT/HCPCS: Q4196 ==

== ENCOUNTER 2018-07-06 13:18 | Day surgery (SDC) | payer MEDICARE, OTHER ==
[2018-07-06] MEDS ORDERED: SEVEC800 PO (16:13)
[2018-07-07] MEDS ORDERED: CIPR500 PO (11:04)
== END 2018-07-06 22:47 | disposition home or self-care (01) ==
LOC: WOUND 13:18
DX: E11.621 Type 2 diabetes mellitus with foot ulcer (principal); L97.512 Non-pressure chronic ulcer of other part of right foot with fat layer exposed; I87.2 Venous insufficiency (chronic) (peripheral); E11.22 Type 2 diabetes mellitus with diabetic chronic kidney disease; I13.2 Hypertensive heart and chronic kidney disease with heart failure and with stage 5 chronic kidney disease, or end stage renal disease; I50.9 Heart failure, unspecified; N18.6 End stage renal disease; J44.9 Chronic obstructive pulmonary disease, unspecified; G47.33 Obstructive sleep apnea (adult) (pediatric); I25.10 Atherosclerotic heart disease of native coronary artery without angina pectoris; Z95.1 Presence of aortocoronary bypass graft; Z86.73 Personal history of transient ischemic attack (TIA), and cerebral infarction without residual deficits; Z95.5 Presence of coronary angioplasty implant and graft; Z99.89 Dependence on other enabling machines and devices; Z86.711 Personal history of pulmonary embolism; Z86.718 Personal history of other venous thrombosis and embolism; Z99.2 Dependence on renal dialysis
CPT/HCPCS: Q4196

== ENCOUNTER 2018-07-13 13:44 | Emergency (ER) | payer MEDICARE, OTHER ==
[~2018-07-13] VITALS: Ht 167.6 cm; Wt 104.3 kg
[~2018-07-13 13:44] MED LIST changes: +CIPR500 PO
[2018-07-13 14:33] LABS: BASOPHILS ABSOLUTE AUTO 0.06 K/mm3 (0.00-0.23); BASOPHILS PERCENT AUTO 1 % (0-2); EOSINOPHILS ABSOLUTE AUTO 0.29 K/mm3 (0.00-0.68); EOSINOPHILS PERCENT AUTO 4 % (0-6); Hemoglobin 10.7 g/dL (13.5-17.5); IMMATURE GRAN ABSOLUTE AUTO 0.03 K/mm3 (0.00-0.10); IMMATURE GRAN PERCENT AUTO 0 % (0-1); LYMPHOCYTES ABSOLUTE AUTO 0.71 K/mm3 (0.84-5.20); LYMPHOCYTES PERCENT AUTO 9 % (21-46); MONOCYTES ABSOLUTE AUTO 0.49 K/mm3 (0.16-1.47); MONOCYTES PERCENT AUTO 7 % (4-13); Mean Corpuscular HGB 32.5 pg (26.0-34.0); Mean Corpuscular HGB Conc 32.4 g/dL (31.5-36.5); Mean Corpuscular Volume 100 fL (80-100); Mean Platelet Volume 10.8 fL (9.1-12.4); NEUTROPHILS ABSOLUTE AUTO 5.96 K/mm3 (1.96-9.15); NEUTROPHILS PERCENT AUTO 79 % (41-73); Platelet Count 152 K/mm3 (150-400); RDW Coefficient Variation 14.6 % (11.7-14.2); RDW Standard Deviation 52.4 fL (35.1-46.3); Red Blood Cell Count 3.29 M/mm3 (4.30-5.90); White Blood Cell Count 7.54 K/mm3 (4.00-11.30)
[2018-07-13 15:10] LABS: Albumin, Blood 3.1 g/dL (3.4-5.0); Albumin/Globulin Ratio 0.8 (0.8-1.8); Bilirubin, Total 0.5 mg/dL (0.1-1.0); Bun/Creatinine Ratio 7.5 (12.0-20.0); Creatinine, Blood 7.1 mg/dL (0.60-1.20); Total Protein, Blood 7.1 g/dL (6.4-8.2)
[2018-07-13 16:08] LABS: International Normalized Ratio 1.01; Prothrombin Time Results 10.7 Sec (9.7-11.5)
== END 2018-07-13 19:42 | disposition home or self-care (01) ==
LOC: ER 13:44
PROVIDERS: Physician Assistant
DX: I97.638 Postprocedural hematoma of a circulatory system organ or structure following other circulatory system procedure (principal); E11.9 Type 2 diabetes mellitus without complications; I25.2 Old myocardial infarction; I11.0 Hypertensive heart disease with heart failure; I50.9 Heart failure, unspecified; J44.9 Chronic obstructive pulmonary disease, unspecified; Z79.899 Other long term (current) drug therapy
CPT/HCPCS: 36415; 71046; 80053; 85025; 85610; 85730; 93926; 99284-25

== ENCOUNTER 2018-07-14 13:10 | Day surgery (SDC) | payer MEDICARE, OTHER | END 2018-07-14 22:47 | disposition home or self-care (01) | LOC: WOUND 13:10 | DX: E11.621 Type 2 diabetes mellitus with foot ulcer (principal); L97.512 Non-pressure chronic ulcer of other part of right foot with fat layer exposed; I87.2 Venous insufficiency (chronic) (peripheral); I13.11 Hypertensive heart and chronic kidney disease without heart failure, with stage 5 chronic kidney disease, or end stage renal disease; E11.22 Type 2 diabetes mellitus with diabetic chronic kidney disease; N18.6 End stage renal disease; I50.9 Heart failure, unspecified; I25.2 Old myocardial infarction; J44.9 Chronic obstructive pulmonary disease, unspecified; F03.90 Unspecified dementia, unspecified severity, without behavioral disturbance, psychotic disturbance, mood disturbance, and anxiety; G47.30 Sleep apnea, unspecified; Z86.718 Personal history of other venous thrombosis and embolism | CPT/HCPCS: Q4196 ==

== ENCOUNTER 2018-07-21 13:15 | Day surgery (SDC) | payer MEDICARE, OTHER | END 2018-07-21 22:56 | disposition home or self-care (01) | LOC: WOUND 13:15 | DX: E11.621 Type 2 diabetes mellitus with foot ulcer (principal); L97.512 Non-pressure chronic ulcer of other part of right foot with fat layer exposed; E11.22 Type 2 diabetes mellitus with diabetic chronic kidney disease; I13.2 Hypertensive heart and chronic kidney disease with heart failure and with stage 5 chronic kidney disease, or end stage renal disease; I50.9 Heart failure, unspecified; N18.6 End stage renal disease; I25.10 Atherosclerotic heart disease of native coronary artery without angina pectoris; J44.9 Chronic obstructive pulmonary disease, unspecified; G47.33 Obstructive sleep apnea (adult) (pediatric); Z99.89 Dependence on other enabling machines and devices; Z95.5 Presence of coronary angioplasty implant and graft; Z86.718 Personal history of other venous thrombosis and embolism; Z86.711 Personal history of pulmonary embolism | CPT/HCPCS: Q4196 ==

== ENCOUNTER 2018-07-28 13:12 | Day surgery (SDC) | payer MEDICARE, OTHER | END 2018-07-28 23:10 | disposition home or self-care (01) | LOC: WOUND 13:12 | DX: E11.621 Type 2 diabetes mellitus with foot ulcer (principal); L97.512 Non-pressure chronic ulcer of other part of right foot with fat layer exposed; I87.2 Venous insufficiency (chronic) (peripheral); I13.2 Hypertensive heart and chronic kidney disease with heart failure and with stage 5 chronic kidney disease, or end stage renal disease; E11.22 Type 2 diabetes mellitus with diabetic chronic kidney disease; N18.6 End stage renal disease; I50.9 Heart failure, unspecified; I48.91 Unspecified atrial fibrillation; I25.10 Atherosclerotic heart disease of native coronary artery without angina pectoris; J44.9 Chronic obstructive pulmonary disease, unspecified; G47.33 Obstructive sleep apnea (adult) (pediatric); Z99.2 Dependence on renal dialysis; Z86.718 Personal history of other venous thrombosis and embolism; Z86.711 Personal history of pulmonary embolism; Z86.73 Personal history of transient ischemic attack (TIA), and cerebral infarction without residual deficits; Z99.89 Dependence on other enabling machines and devices | CPT/HCPCS: G0463 ==

== ENCOUNTER 2018-08-04 00:20 | Day surgery (SDC) | payer MEDICARE, OTHER | END 2018-08-04 23:01 | disposition home or self-care (01) | LOC: WOUND 00:20 | DX: E11.621 Type 2 diabetes mellitus with foot ulcer (principal); L97.512 Non-pressure chronic ulcer of other part of right foot with fat layer exposed; I87.2 Venous insufficiency (chronic) (peripheral); I13.10 Hypertensive heart and chronic kidney disease without heart failure, with stage 1 through stage 4 chronic kidney disease, or unspecified chronic kidney disease; E11.22 Type 2 diabetes mellitus with diabetic chronic kidney disease; N18.6 End stage renal disease; I50.9 Heart failure, unspecified; I48.91 Unspecified atrial fibrillation; J44.9 Chronic obstructive pulmonary disease, unspecified; I25.10 Atherosclerotic heart disease of native coronary artery without angina pectoris; G47.33 Obstructive sleep apnea (adult) (pediatric); Z99.2 Dependence on renal dialysis; Z86.718 Personal history of other venous thrombosis and embolism; Z86.711 Personal history of pulmonary embolism; Z86.73 Personal history of transient ischemic attack (TIA), and cerebral infarction without residual deficits; Z99.89 Dependence on other enabling machines and devices | CPT/HCPCS: G0463 ==

== ENCOUNTER 2018-08-11 13:13 | Day surgery (SDC) | payer MEDICARE, OTHER ==
[~2018-08-11 13:13] MED LIST changes: -CINA30 PO; -Flomax0.4 MG PO; -Senna Laxative8.6 MG PO; -Toprol Xl25 MG PO
== END 2018-08-11 23:26 | disposition home or self-care (01) ==
LOC: WOUND 13:13
DX: E11.621 Type 2 diabetes mellitus with foot ulcer (principal); L97.512 Non-pressure chronic ulcer of other part of right foot with fat layer exposed; I13.2 Hypertensive heart and chronic kidney disease with heart failure and with stage 5 chronic kidney disease, or end stage renal disease; I50.9 Heart failure, unspecified; E11.22 Type 2 diabetes mellitus with diabetic chronic kidney disease; N18.6 End stage renal disease; J44.9 Chronic obstructive pulmonary disease, unspecified; I87.2 Venous insufficiency (chronic) (peripheral); I95.9 Hypotension, unspecified; Z86.718 Personal history of other venous thrombosis and embolism; Z86.711 Personal history of pulmonary embolism
CPT/HCPCS: G0463

== ENCOUNTER 2018-08-18 13:15 | Day surgery (SDC) | payer MEDICARE, OTHER | END 2018-08-18 22:48 | disposition home or self-care (01) | LOC: WOUND 13:15 | DX: E11.621 Type 2 diabetes mellitus with foot ulcer (principal); L97.512 Non-pressure chronic ulcer of other part of right foot with fat layer exposed; I87.2 Venous insufficiency (chronic) (peripheral); I13.2 Hypertensive heart and chronic kidney disease with heart failure and with stage 5 chronic kidney disease, or end stage renal disease; E11.22 Type 2 diabetes mellitus with diabetic chronic kidney disease; N18.6 End stage renal disease; I50.9 Heart failure, unspecified; I48.91 Unspecified atrial fibrillation; J44.9 Chronic obstructive pulmonary disease, unspecified; I25.10 Atherosclerotic heart disease of native coronary artery without angina pectoris; I25.2 Old myocardial infarction; F03.90 Unspecified dementia, unspecified severity, without behavioral disturbance, psychotic disturbance, mood disturbance, and anxiety; G47.33 Obstructive sleep apnea (adult) (pediatric); Z99.2 Dependence on renal dialysis; Z86.718 Personal history of other venous thrombosis and embolism; Z86.711 Personal history of pulmonary embolism; Z95.1 Presence of aortocoronary bypass graft; Z95.5 Presence of coronary angioplasty implant and graft; Z86.73 Personal history of transient ischemic attack (TIA), and cerebral infarction without residual deficits; Z99.89 Dependence on other enabling machines and devices | CPT/HCPCS: G0463 ==

== ENCOUNTER → 2018-08-28 | Outpatient (CLI) | payer MEDICARE, OTHER ==
[~2018-08-28] MED LIST changes: +ALBU2.5V5 INH; +ALBU2.5V5 NEB; +ALLEGRA ALLERG180 MG PO; +ANTACID PLUS A355 M1 PO; +BASAGLAR K100 UNIT/1 SC; +BISA10S PR; +Bumetanide2 MG PO; +CINA30 PO; +Calcium Acetat667 MG PO; +Culturelle1 CAP PO; +Flomax0.4 MG PO; +HUMULIN N100 UNIT/1 SC; +HUMULIN R500 UNIT/1 SC; +HYDR10 PO; +LACT10SY PO; +MELATONIN10 M2 PO; +MEMA5TAB PO; +Midodrine HCl2.5 MG PO; +ONDA4ODT PO; +TEMA30 PO; +VITAMIN D31000 UNI2 PO
== END | disposition home or self-care (01) ==
LOC: LAB DAV 19:09 → LAB 19:09
DX: N39.0 Urinary tract infection, site not specified (principal)
CPT/HCPCS: 87086

== ENCOUNTER 2018-11-05 09:14 | Day surgery (SDC) | payer MEDICARE, OTHER ==
[~2018-11-05] VITALS: Ht 177.8 cm; Wt 106.0 kg
[~2018-11-05 09:14] MED LIST changes: -ALBU2.5V5 INH; -ALBU2.5V5 NEB; -ALLEGRA ALLERG180 MG PO; -ANTACID PLUS A355 M1 PO; -BASAGLAR K100 UNIT/1 SC; -BISA10S PR; -Bumetanide2 MG PO; -CINA30 PO; -Calcium Acetat667 MG PO; -Culturelle1 CAP PO; -Flomax0.4 MG PO; -HUMULIN N100 UNIT/1 SC; -HUMULIN R500 UNIT/1 SC; -HYDR10 PO; -LACT10SY PO; -MELATONIN10 M2 PO; -MEMA5TAB PO; -Midodrine HCl2.5 MG PO; -ONDA4ODT PO; -TEMA30 PO; -VITAMIN D31000 UNI2 PO
[2018-11-05 10:40] LABS: BASOPHILS ABSOLUTE AUTO 0.06 K/mm3 (0.00-0.23); BASOPHILS PERCENT AUTO 0 % (0-2); EOSINOPHILS ABSOLUTE AUTO 0.19 K/mm3 (0.00-0.68); EOSINOPHILS PERCENT AUTO 1 % (0-6); Hematocrit 36.9 % (37.0-53.0); Hemoglobin 12.2 g/dL (13.5-17.5); IMMATURE GRAN ABSOLUTE AUTO 0.07 K/mm3 (0.00-0.10); IMMATURE GRAN PERCENT AUTO 1 % (0-1); LYMPHOCYTES ABSOLUTE AUTO 0.76 K/mm3 (0.84-5.20); LYMPHOCYTES PERCENT AUTO 6 % (21-46); MONOCYTES ABSOLUTE AUTO 0.84 K/mm3 (0.16-1.47); MONOCYTES PERCENT AUTO 6 % (4-13); Mean Corpuscular HGB 31.7 pg (26.0-34.0); Mean Corpuscular HGB Conc 33.1 g/dL (31.5-36.5); Mean Platelet Volume 10.7 fL (9.1-12.4); NEUTROPHILS ABSOLUTE AUTO 11.51 K/mm3 (1.96-9.15); NEUTROPHILS PERCENT AUTO 86 % (41-73); Platelet Count 164 K/mm3 (150-400); RDW Coefficient Variation 15.1 % (11.7-14.2); Red Blood Cell Count 3.85 M/mm3 (4.30-5.90); White Blood Cell Count 13.43 K/mm3 (4.00-11.30)
[2018-11-05 10:42] LABS: Mean Corpuscular Volume 96 fL (80-100)
[2018-11-05 10:56] LABS: International Normalized Ratio 1.03; Prothrombin Time Results 10.9 Sec (9.7-11.5)
[2018-11-05 11:20] LABS: Calcium, Blood 9.3 mg/dL (8.5-10.1); Creatinine, Blood 4.55 mg/dL (0.60-1.20); Potassium, Blood 4.3 mmol/L (3.5-5.5)
--- NOTE | 2018-11-05 16:30 | NUR ---
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 vs stable, lungs are clear, dim in bases, resp even and unlabored, is 99% on 2liters via n/c, he reports he only uses at night, will titrate down, hrr, tele in place running sr per monitor, see strip, no edema noted, ppp found by doppler, btx4, abd flat soft nontender, voids via urinal, skin has access sites, otherwise c/w/d, kell titus, call light in reach.
--- NOTE | 2018-11-05 18:27 | NUR ---
pt doing well, v.s. stable. states he has a bit of pain, but doing ok, drifts off to sleep when left undisturbed. angio sites look unchanged. call light in reach.
--- NOTE | 2018-11-05 20:39 | NUR ---
PCU ASSUMED CARE (NOC SHIFT) ASSUMED CARE AT APPROX 1900. PATIENT ALERT AND ORIENTED TO SELF, SITUATION, LOCATION AND TIME/DATE. PATIENT DENIES ANY PAIN OR DISCOMFORT AT THIS TIME. RIGHT GROIN SITE AND LEFT PEDAL SURGICAL SITES CHECKED WITH RN DORITA KEVIN - NO CHANGE NOTED FROM DAYSHIFT PRIMARY RN - RIGHT GROIN REMAINS SOFT UPON PALPATION WITH SURGICAL CHG TEGADERM DRESSING IN PLACE - SMALL OLD DRIED BLOOD NOTED UNDERDRESSING DIME SIZE. LEFT PEDAL SITE HAS TEGADERM DRESSING IN PLACE WITH NO SWELLING OR BLEEDING NOTED. PEDAL AND TIBIAL PULSES OBTAINED WITH DOPPLER POSITIVE. VSS. PATIENT DENIES AND NEEDS AT THIS TIME.
--- NOTE | 2018-11-06 05:59 | NUR ---
PCU NOC SHIFT SUMMARY PATIENT REMAINED ALERT AND ORIENTED T/O SHIFT WITH NO ACUTE CHANGES. RIGHT GROIN SITE REMAINED STABLE WITH NO S/SX OF BLEEDING OR HEMATOMA NOTED. LEFT PEDAL SITE REMAINED STABLE. PATIENT USED WALKER TO AMBULATE TO BATHROOM, TOLERATED WELL - SITES REMAINED STABLE. PATIENT REMAINED IN AFIB IN THE 90'S WITH NO CARDIAC EVENTS PER HOSPITAL WARD CLERK. WILL CONTINUE TO MONITOR AND REPORT TO AN AGUILERA.
--- NOTE | 2018-11-06 08:00 | NUR ---
pt laying in bed, sleeps when left undisturbed, he states he did not sleep well last night, lungs are clear t/o, resp even and unlabored, no cough noted, hrr, tele, in place running afib per monitor, see strip, trace edema noted, ppp via doppler, iv site to rfa is clear and patent, fistula to lfa, btx4, abd flat soft nontender, voids via urinal, skin has access site to right groin and left foot, both sites are clear, kell titus, call light in reach.
--- NOTE | 2018-11-06 14:06 | NUR ---
pt has been discharged to home by Dr. Da Silva, iv removed intact, charge nurse went over discharge instructions with him, he verbalized understanding, left via wheelchair with family member and store clerk cashier in attendence.
== END 2018-11-06 13:59 | disposition home or self-care (01) ==
LOC: MHTC 09:14 → PCU 16:24 → MHTC 11-06 13:59
PROVIDERS: Radiology Diagnostic Radiology
DX: E11.51 Type 2 diabetes mellitus with diabetic peripheral angiopathy without gangrene (principal); I70.202 Unspecified atherosclerosis of native arteries of extremities, left leg; E11.621 Type 2 diabetes mellitus with foot ulcer; L97.519 Non-pressure chronic ulcer of other part of right foot with unspecified severity; I12.9 Hypertensive chronic kidney disease with stage 1 through stage 4 chronic kidney disease, or unspecified chronic kidney disease; E11.22 Type 2 diabetes mellitus with diabetic chronic kidney disease; N18.6 End stage renal disease; I65.29 Occlusion and stenosis of unspecified carotid artery; I25.10 Atherosclerotic heart disease of native coronary artery without angina pectoris; D63.1 Anemia in chronic kidney disease; I48.91 Unspecified atrial fibrillation; I25.2 Old myocardial infarction; Z99.2 Dependence on renal dialysis; Z86.73 Personal history of transient ischemic attack (TIA), and cerebral infarction without residual deficits; Z88.8 Allergy status to other drugs, medicaments and biological substances; Z88.1 Allergy status to other antibiotic agents; Z88.5 Allergy status to narcotic agent; Z91.09 Other allergy status, other than to drugs and biological substances; Z79.899 Other long term (current) drug therapy; Z79.01 Long term (current) use of anticoagulants
CPT/HCPCS: 36140; 37224; 37228; 75716; 75774; 76937; 80048; 85025; 85347; 85610; 93926; 99152; 99153; C1725; C1760; C1769; C1887; C1894; C2623; J1644; J2250; J3010; J7030; Q9967

== ENCOUNTER 2018-11-20 17:48 | Inpatient (IN) | payer OTHER, MEDICARE ==
[~2018-11-20] VITALS: Ht 177.8 cm; Wt 100.5 kg
[~2018-11-20 17:48] MED LIST changes: -ALBU2.5V5 INH; -ALBU2.5V5 NEB; -ALLEGRA ALLERG180 MG PO; -ANTACID PLUS A355 M1 PO; -BASAGLAR K100 UNIT/1 SC; -BISA10S PR; -Bumetanide2 MG PO; -CINA30 PO; -Calcium Acetat667 MG PO; -Culturelle1 CAP PO; -Flomax0.4 MG PO; -HUMULIN N100 UNIT/1 SC; -HUMULIN R500 UNIT/1 SC; -HYDR10 PO; -LACT10SY PO; -MELATONIN10 M2 PO; -MEMA5TAB PO; -Midodrine HCl2.5 MG PO; -ONDA4ODT PO; -TEMA30 PO; -VITAMIN D31000 UNI2 PO
[2018-11-20 18:17] LABS: BASOPHILS ABSOLUTE AUTO 0.06 K/mm3 (0.00-0.23); BASOPHILS PERCENT AUTO 1 % (0-2); EOSINOPHILS ABSOLUTE AUTO 0.15 K/mm3 (0.00-0.68); EOSINOPHILS PERCENT AUTO 1 % (0-6); Hematocrit 39.7 % (37.0-53.0); Hemoglobin 12.7 g/dL (13.5-17.5); IMMATURE GRAN ABSOLUTE AUTO 0.05 K/mm3 (0.00-0.10); IMMATURE GRAN PERCENT AUTO 0 % (0-1); LYMPHOCYTES PERCENT AUTO 7 % (21-46); MONOCYTES ABSOLUTE AUTO 0.58 K/mm3 (0.16-1.47); MONOCYTES PERCENT AUTO 5 % (4-13); Mean Corpuscular HGB 31.4 pg (26.0-34.0); Mean Corpuscular Volume 98 fL (80-100); Mean Platelet Volume 10.6 fL (9.1-12.4); NEUTROPHILS ABSOLUTE AUTO 9.85 K/mm3 (1.96-9.15); NEUTROPHILS PERCENT AUTO 86 % (41-73); Platelet Count 167 K/mm3 (150-400); RDW Coefficient Variation 14.4 % (11.7-14.2); Red Blood Cell Count 4.05 M/mm3 (4.30-5.90); White Blood Cell Count 11.49 K/mm3 (4.00-11.30)
[2018-11-20 18:36] LABS: Albumin, Blood 3.3 g/dL (3.4-5.0); Albumin/Globulin Ratio 0.8 (0.8-1.8); Bilirubin, Total 0.7 mg/dL (0.1-1.0); Bun/Creatinine Ratio 6.4 (12.0-20.0); Calcium, Blood 8.9 mg/dL (8.5-10.1); Creatinine, Blood 2.99 mg/dL (0.60-1.20); Globulin, Blood 4.1 g/dL (2.2-4.0); Potassium, Blood 3.8 mmol/L (3.5-5.5); Total Protein, Blood 7.4 g/dL (6.4-8.2)
[2018-11-20] MEDS ORDERED: TEMA30 PO (19:43)
[2018-11-20] MEDS ORDERED: MELATONIN10 M2 PO (19:43)
[2018-11-20] MEDS ORDERED: HUMULIN N100 UNIT/1 SC (19:44)
[2018-11-20] MEDS ORDERED: MEMA5TAB PO (19:45)
[2018-11-20] MEDS ORDERED: GABA300 PO (19:45)
[2018-11-20] MEDS ORDERED: METO25 PO (19:46)
[2018-11-20] MEDS ORDERED: MEMA10 PO (20:02)
[2018-11-20] MEDS ORDERED: OXYC10TA19 PO (20:04)
[2018-11-20] MEDS ORDERED: FINA5 PO (20:05)
[2018-11-20] MEDS ORDERED: Zantac150 MG PO (20:05)
[2018-11-20] MEDS ORDERED: ELIQUIS2.5 MG PO (20:05)
[2018-11-20] MEDS ORDERED: CLOP75 PO (20:05)
[2018-11-20] MEDS ORDERED: SENN187 PO (20:06)
[2018-11-20] MEDS ORDERED: VITAMIN D31000 UNI2 PO (20:06)
[2018-11-20] MEDS ORDERED: Flomax0.4 MG PO (20:07)
[2018-11-20] MEDS ORDERED: SEVEC800 PO ×2 (20:08→20:10)
[2018-11-20] MEDS ORDERED: ALBU2.5V5 NEB (20:08)
[2018-11-20] MEDS ORDERED: CINA30 PO (20:09)
[2018-11-20] MEDS ORDERED: BENADRYL25 MG PO (20:09)
[2018-11-20] MEDS ORDERED: Bumetanide2 MG PO (20:09)
[2018-11-20] MEDS ORDERED: HUMULIN R500 UNIT/1 SC (20:13)
[2018-11-20 21:15] LABS: International Normalized Ratio 1.04
[2018-11-21 06:46] LABS: BASOPHILS ABSOLUTE AUTO 0.04 K/mm3 (0.00-0.23); BASOPHILS PERCENT AUTO 0 % (0-2); EOSINOPHILS ABSOLUTE AUTO 0.05 K/mm3 (0.00-0.68); EOSINOPHILS PERCENT AUTO 0 % (0-6); Hematocrit 36.9 % (37.0-53.0); Hemoglobin 11.9 g/dL (13.5-17.5); IMMATURE GRAN ABSOLUTE AUTO 0.11 K/mm3 (0.00-0.10); IMMATURE GRAN PERCENT AUTO 1 % (0-1); LYMPHOCYTES ABSOLUTE AUTO 0.34 K/mm3 (0.84-5.20); LYMPHOCYTES PERCENT AUTO 2 % (21-46); MONOCYTES ABSOLUTE AUTO 0.59 K/mm3 (0.16-1.47); MONOCYTES PERCENT AUTO 4 % (4-13); Mean Corpuscular HGB 32.4 pg (26.0-34.0); Mean Corpuscular HGB Conc 32.2 g/dL (31.5-36.5); Mean Platelet Volume 10.6 fL (9.1-12.4); NEUTROPHILS ABSOLUTE AUTO 13.48 K/mm3 (1.96-9.15); NEUTROPHILS PERCENT AUTO 92 % (41-73); Platelet Count 154 K/mm3 (150-400); RDW Coefficient Variation 14.7 % (11.7-14.2); RDW Standard Deviation 54.5 fL (35.1-46.3); Red Blood Cell Count 3.67 M/mm3 (4.30-5.90); White Blood Cell Count 14.61 K/mm3 (4.00-11.30)
[2018-11-21 06:51] LABS: Mean Corpuscular Volume 101 fL (80-100)
[2018-11-22 04:05] LABS: Hematocrit 31.4 % (37.0-53.0); Hemoglobin 9.9 g/dL (13.5-17.5)
[2018-11-22 04:27] LABS: Albumin, Blood 2.3 g/dL (3.4-5.0); Anion Gap 7 mmol/L (6-16); Blood Urea Nitrogen 36 mg/dL (8-24); Bun/Creatinine Ratio 7.3 (12.0-20.0); CO2, Blood 30 mmol/L (21-32); Calcium, Blood 8.5 mg/dL (8.5-10.1); Chloride, Blood 100 mmol/L (98-108); Glomerular Filtration Rate 12 (60-); Glucose, Blood 201 mg/dL (70-99); Potassium, Blood 4.9 mmol/L (3.5-5.5); Sodium, Blood 137 mmol/L (136-145)
[2018-11-23 05:05] LABS: Hematocrit 32.3 % (37.0-53.0); Hemoglobin 10.3 g/dL (13.5-17.5)
[2018-11-23 05:24] LABS: Albumin, Blood 2.3 g/dL (3.4-5.0); Anion Gap 8 mmol/L (6-16); Blood Urea Nitrogen 34 mg/dL (8-24); Bun/Creatinine Ratio 7.5 (12.0-20.0); CO2, Blood 30 mmol/L (21-32); Calcium, Blood 8.4 mg/dL (8.5-10.1); Chloride, Blood 100 mmol/L (98-108); Creatinine, Blood 4.55 mg/dL (0.60-1.20); Glomerular Filtration Rate 13 (60-); Glucose, Blood 194 mg/dL (70-99); Magnesium, Blood 2.2 mg/dL (1.6-2.4); Phosphorus, Blood 4.5 mg/dL (2.5-4.9); Sodium, Blood 138 mmol/L (136-145)
[2018-11-24 04:46] LABS: BASOPHILS ABSOLUTE AUTO 0.03 K/mm3 (0.00-0.23); BASOPHILS PERCENT AUTO 0 % (0-2); EOSINOPHILS ABSOLUTE AUTO 0.33 K/mm3 (0.00-0.68); EOSINOPHILS PERCENT AUTO 4 % (0-6); Hematocrit 31.7 % (37.0-53.0); Hemoglobin 9.9 g/dL (13.5-17.5); IMMATURE GRAN ABSOLUTE AUTO 0.05 K/mm3 (0.00-0.10); IMMATURE GRAN PERCENT AUTO 1 % (0-1); LYMPHOCYTES ABSOLUTE AUTO 0.56 K/mm3 (0.84-5.20); LYMPHOCYTES PERCENT AUTO 7 % (21-46); MONOCYTES ABSOLUTE AUTO 0.77 K/mm3 (0.16-1.47); MONOCYTES PERCENT AUTO 9 % (4-13); Mean Corpuscular HGB 31.9 pg (26.0-34.0); Mean Corpuscular HGB Conc 31.2 g/dL (31.5-36.5); Mean Corpuscular Volume 102 fL (80-100); Mean Platelet Volume 11.4 fL (9.1-12.4); NEUTROPHILS ABSOLUTE AUTO 6.77 K/mm3 (1.96-9.15); NEUTROPHILS PERCENT AUTO 80 % (41-73); Platelet Count 118 K/mm3 (150-400); RDW Coefficient Variation 14.4 % (11.7-14.2); White Blood Cell Count 8.51 K/mm3 (4.00-11.30)
[2018-11-24 05:02] LABS: Albumin, Blood 2.3 g/dL (3.4-5.0); Anion Gap 9 mmol/L (6-16); Blood Urea Nitrogen 44 mg/dL (8-24); Bun/Creatinine Ratio 7.8 (12.0-20.0); CO2, Blood 30 mmol/L (21-32); Calcium, Blood 8.5 mg/dL (8.5-10.1); Chloride, Blood 99 mmol/L (98-108); Creatinine, Blood 5.66 mg/dL (0.60-1.20); Glomerular Filtration Rate 10 (60-); Glucose, Blood 162 mg/dL (70-99); Magnesium, Blood 2.2 mg/dL (1.6-2.4); Potassium, Blood 4.3 mmol/L (3.5-5.5); Sodium, Blood 138 mmol/L (136-145)
[2018-11-25 05:35] LABS: Hematocrit 30.3 % (37.0-53.0); Hemoglobin 9.6 g/dL (13.5-17.5)
[2018-11-25 06:01] LABS: Magnesium, Blood 2.3 mg/dL (1.6-2.4)
[2018-11-25 06:02] LABS: Albumin, Blood 2.3 g/dL (3.4-5.0); Anion Gap 7 mmol/L (6-16); Blood Urea Nitrogen 38 mg/dL (8-24); Bun/Creatinine Ratio 7.9 (12.0-20.0); CO2, Blood 30 mmol/L (21-32); Calcium, Blood 8.2 mg/dL (8.5-10.1); Chloride, Blood 102 mmol/L (98-108); Creatinine, Blood 4.82 mg/dL (0.60-1.20); Glomerular Filtration Rate 12 (60-); Glucose, Blood 142 mg/dL (70-99); Phosphorus, Blood 3.2 mg/dL (2.5-4.9); Sodium, Blood 139 mmol/L (136-145)
[2018-11-25] MEDS ORDERED: AMOCLA500 PO (12:34)
[2018-11-26 04:39] LABS: Hematocrit 31.9 % (37.0-53.0); Hemoglobin 10.2 g/dL (13.5-17.5)
[2018-11-26 04:59] LABS: Albumin, Blood 2.2 g/dL (3.4-5.0); Anion Gap 7 mmol/L (6-16); Blood Urea Nitrogen 47 mg/dL (8-24); Bun/Creatinine Ratio 8.7 (12.0-20.0); CO2, Blood 29 mmol/L (21-32); Calcium, Blood 8.1 mg/dL (8.5-10.1); Chloride, Blood 101 mmol/L (98-108); Glomerular Filtration Rate 11 (60-); Glucose, Blood 138 mg/dL (70-99); Magnesium, Blood 2.2 mg/dL (1.6-2.4); Phosphorus, Blood 3.5 mg/dL (2.5-4.9); Potassium, Blood 3.9 mmol/L (3.5-5.5); Sodium, Blood 137 mmol/L (136-145)
[2018-11-27] MEDS ORDERED: INSDET100 SC (18:15)
[2018-11-27] MEDS ORDERED: DOCU100 PO (18:15)
[2018-11-27] MEDS ORDERED: Midodrine HCl2.5 MG PO (18:16)
[2018-11-27] MEDS ORDERED: PANT40 PO (18:22)
[2018-11-27] MEDS ORDERED: ALBU3IS INH (18:23)
[2018-11-27] MEDS ORDERED: ALLEGRA ALLERG180 MG PO (18:23)
== END 2018-11-26 15:58 | disposition home or self-care (01) | DRG 853 ==
LOC: ER 17:48 → PCU 19:28 → SURS 11-22 19:42
PROVIDERS: Emergency Medicine; Internal Medicine Nephrology; Surgery; ADMIT Hospitalist
PROC: 0DTJ4ZZ Resection of Appendix, Percutaneous Endoscopic Approach (ICD-10-PCS; principal; 2018-11-21 10:00)
DX: A41.9 Sepsis, unspecified organism (principal); K35.32 Acute appendicitis with perforation, localized peritonitis, and gangrene, without abscess; N18.6 End stage renal disease; J96.01 Acute respiratory failure with hypoxia; I50.32 Chronic diastolic (congestive) heart failure; I13.2 Hypertensive heart and chronic kidney disease with heart failure and with stage 5 chronic kidney disease, or end stage renal disease; I48.0 Paroxysmal atrial fibrillation; E11.22 Type 2 diabetes mellitus with diabetic chronic kidney disease; I25.10 Atherosclerotic heart disease of native coronary artery without angina pectoris; D63.1 Anemia in chronic kidney disease; J44.9 Chronic obstructive pulmonary disease, unspecified; E11.40 Type 2 diabetes mellitus with diabetic neuropathy, unspecified; E66.01 Morbid (severe) obesity due to excess calories; I95.9 Hypotension, unspecified; E88.09 Other disorders of plasma-protein metabolism, not elsewhere classified; R65.20 Severe sepsis without septic shock; Z95.1 Presence of aortocoronary bypass graft; Z99.2 Dependence on renal dialysis; Z79.4 Long term (current) use of insulin; Z86.711 Personal history of pulmonary embolism; Z86.73 Personal history of transient ischemic attack (TIA), and cerebral infarction without residual deficits; Z87.891 Personal history of nicotine dependence; Z79.02 Long term (current) use of antithrombotics/antiplatelets; Z79.899 Other long term (current) drug therapy; I25.2 Old myocardial infarction
CPT/HCPCS: 36415; 71046; 74176; 80053; 80069; 82947; 83605; 83735; 84484; 85014; 85018; 85025; 85610; 85730; 87040; 87076; 88304; 93005; 93010; 94640; 94760; 96361; 96365; 96375; 97116; 97162; 97166; 97530; 97535; 99285-25; C1751; J0696; J0881; J1644; J1815; J1885; J2250; J2405; J2543; J2704; J3010; J7030; J7120

== ENCOUNTER → 2018-11-20 | Outpatient (CLI) | payer MEDICARE, OTHER ==
[~2018-11-20] MED LIST changes: +ALBU2.5V5 INH; +ALBU2.5V5 NEB; +ALLEGRA ALLERG180 MG PO; +ANTACID PLUS A355 M1 PO; +BASAGLAR K100 UNIT/1 SC; +BISA10S PR; +Bumetanide2 MG PO; +CINA30 PO; +Calcium Acetat667 MG PO; +Culturelle1 CAP PO; +Flomax0.4 MG PO; +HUMULIN N100 UNIT/1 SC; +HUMULIN R500 UNIT/1 SC; +HYDR10 PO; +LACT10SY PO; +MELATONIN10 M2 PO; +MEMA5TAB PO; +Midodrine HCl2.5 MG PO; +ONDA4ODT PO; +TEMA30 PO; +VITAMIN D31000 UNI2 PO
== END | disposition home or self-care (01) ==
LOC: LAB DAV 15:46
DX: N39.0 Urinary tract infection, site not specified (principal)
CPT/HCPCS: 87077; 87086; 87186

== ENCOUNTER 2018-11-27 15:51 | Inpatient (IN) | payer OTHER, MEDICARE ==
[~2018-11-27] VITALS: Ht 177.8 cm; Wt 105.3 kg
[~2018-11-27 15:51] MED LIST changes: +ALBU2.5V5 NEB; +Bumetanide2 MG PO; +CINA30 PO; +Flomax0.4 MG PO; +HUMULIN N100 UNIT/1 SC; +HUMULIN R500 UNIT/1 SC; +MELATONIN10 M2 PO; +MEMA5TAB PO; +TEMA30 PO; +VITAMIN D31000 UNI2 PO
[2018-11-27 17:27] LABS: BASOPHILS ABSOLUTE AUTO 0.04 K/mm3 (0.00-0.23); BASOPHILS PERCENT AUTO 1 % (0-2); EOSINOPHILS ABSOLUTE AUTO 0.15 K/mm3 (0.00-0.68); EOSINOPHILS PERCENT AUTO 2 % (0-6); Hemoglobin 11.6 g/dL (13.5-17.5); IMMATURE GRAN ABSOLUTE AUTO 0.04 K/mm3 (0.00-0.10); IMMATURE GRAN PERCENT AUTO 1 % (0-1); LYMPHOCYTES PERCENT AUTO 11 % (21-46); MONOCYTES ABSOLUTE AUTO 0.76 K/mm3 (0.16-1.47); MONOCYTES PERCENT AUTO 10 % (4-13); Mean Corpuscular HGB 31.7 pg (26.0-34.0); Mean Corpuscular HGB Conc 32.2 g/dL (31.5-36.5); Mean Platelet Volume 11.3 fL (9.1-12.4); NEUTROPHILS ABSOLUTE AUTO 6.07 K/mm3 (1.96-9.15); NEUTROPHILS PERCENT AUTO 76 % (41-73); Platelet Count 194 K/mm3 (150-400); RDW Coefficient Variation 14.2 % (11.7-14.2); RDW Standard Deviation 51.4 fL (35.1-46.3); Red Blood Cell Count 3.66 M/mm3 (4.30-5.90); White Blood Cell Count 7.96 K/mm3 (4.00-11.30)
[2018-11-27 17:34] LABS: Mean Corpuscular Volume 98 fL (80-100)
[2018-11-27 17:45] LABS: Albumin, Blood 2.4 g/dL (3.4-5.0); Albumin/Globulin Ratio 0.6 (0.8-1.8); Bilirubin, Total 0.6 mg/dL (0.1-1.0); Bun/Creatinine Ratio 9.4 (12.0-20.0); Calcium, Blood 8.2 mg/dL (8.5-10.1); Creatinine, Blood 5.72 mg/dL (0.60-1.20); Globulin, Blood 3.9 g/dL (2.2-4.0); Potassium, Blood 4.9 mmol/L (3.5-5.5); Total Protein, Blood 6.3 g/dL (6.4-8.2)
[2018-11-27] MEDS ORDERED: INSDET100 SC (18:15)
[2018-11-27] MEDS ORDERED: DOCU100 PO (18:15)
[2018-11-27] MEDS ORDERED: Midodrine HCl2.5 MG PO (18:16)
[2018-11-27] MEDS ORDERED: PANT40 PO (18:22)
[2018-11-27] MEDS ORDERED: ALBU3IS INH (18:23)
[2018-11-27] MEDS ORDERED: ALLEGRA ALLERG180 MG PO (18:23)
--- NOTE | 2018-11-28 02:05 | NUR ---
ATTEMPTED TO INSERT NG TUBE. PT DID NOT TOLERATE WELL. PT REPORTED THAT HE HAD BROKEN HIS NOSE WHEN HE WAS YOUNGER AND THAT DOCTORS HAD ATTEMPTED IN THE PAST AND WERE UNABLE TO INSERT AN NG TUBE. AFTER ONE ATTEMPT PT WOULD NOT ALLOW ANY FURTHER ATTEMPTS. PT DENYING NAUSEA AT TIME OF INSERTION ATTEMPT. PT ALSO PASSING SOME GAS. NOTIFIED CHANCE ANGELA.
--- NOTE | 2018-11-28 05:55 | NUR ---
SHIFT SUMMARY: Pt admitted to medical floor with small bowel obstruction. Reports no BM since 11/19- post appendectomy. RUQ and LUQ bowel tones active, RLQ, LLQ bowel tones hypoactive. Pt is passing flatus during ambulation to commode. No BM produced. Initially pt presented without nausea. NG tube placement attempted in right nare and encountered resistance afterwhich pt refused further attempts. Attending physician notified. Pt subsequently developed nausea- zofran was administered effectively, no vomiting. Pt has slept since. Reports severe abdominal pain- 11/10 with movement and light palation. Pain is intermittent between 0 and 10. Pt requested pain med and then refused when administration attmepted, instead requesting antinausea meds. Fistula on LFA with dressing in place- thrill palpable and bruit auscultated. [employer] Clerk ordered Dialysis on 11/28. 02 2l via NC 96%, continuous [address] Telemetry in place- Afib 98. Amb with SBA and walker. Continent of urine. Heel pads placed preventatively due to history of diabetic ulcers on bilateral heels per grand daughter. Call button explained to patient and placed within reach.
[2018-11-28 06:25] LABS: BASOPHILS ABSOLUTE AUTO 0.04 K/mm3 (0.00-0.23); BASOPHILS PERCENT AUTO 1 % (0-2); EOSINOPHILS ABSOLUTE AUTO 0.18 K/mm3 (0.00-0.68); EOSINOPHILS PERCENT AUTO 3 % (0-6); Hematocrit 32.7 % (37.0-53.0); Hemoglobin 10.6 g/dL (13.5-17.5); IMMATURE GRAN ABSOLUTE AUTO 0.03 K/mm3 (0.00-0.10); IMMATURE GRAN PERCENT AUTO 1 % (0-1); LYMPHOCYTES ABSOLUTE AUTO 0.72 K/mm3 (0.84-5.20); LYMPHOCYTES PERCENT AUTO 12 % (21-46); MONOCYTES ABSOLUTE AUTO 0.84 K/mm3 (0.16-1.47); MONOCYTES PERCENT AUTO 13 % (4-13); Mean Corpuscular HGB 31.8 pg (26.0-34.0); Mean Corpuscular HGB Conc 32.4 g/dL (31.5-36.5); Mean Corpuscular Volume 98 fL (80-100); Mean Platelet Volume 11.2 fL (9.1-12.4); NEUTROPHILS ABSOLUTE AUTO 4.47 K/mm3 (1.96-9.15); NEUTROPHILS PERCENT AUTO 71 % (41-73); Platelet Count 192 K/mm3 (150-400); RDW Coefficient Variation 14.3 % (11.7-14.2); Red Blood Cell Count 3.33 M/mm3 (4.30-5.90); White Blood Cell Count 6.28 K/mm3 (4.00-11.30)
[2018-11-28 06:39] LABS: Alanine Aminotransfer (ALT/SGP 8 U/L (12-78); Albumin, Blood 2.1 g/dL (3.4-5.0); Albumin/Globulin Ratio 0.6 (0.8-1.8); Alk Phos 61 U/L (50-136); Anion Gap 11 mmol/L (6-16); Bilirubin, Total 0.5 mg/dL (0.1-1.0); Blood Urea Nitrogen 58 mg/dL (8-24); Bun/Creatinine Ratio 9.5 (12.0-20.0); CO2, Blood 26 mmol/L (21-32); Calcium, Blood 7.9 mg/dL (8.5-10.1); Chloride, Blood 100 mmol/L (98-108); Creatinine, Blood 6.09 mg/dL (0.60-1.20); Globulin, Blood 3.3 g/dL (2.2-4.0); Glomerular Filtration Rate 9 (60-); Glucose, Blood 167 mg/dL (70-99); Magnesium, Blood 2.3 mg/dL (1.6-2.4); Phosphorus, Blood 5.2 mg/dL (2.5-4.9); Potassium, Blood 4.4 mmol/L (3.5-5.5); Sodium, Blood 137 mmol/L (136-145); Total Protein, Blood 5.4 g/dL (6.4-8.2)
[2018-11-28 06:44] LABS: Aspartate Aminotrans (AST/SGOT <3 U/L (12-37)
--- NOTE | 2018-11-28 11:34 | NUR ---
HORTENCIA SHAIKH NOTIFIED ABOUT PALLIATIVE CARE CONSULT.
--- NOTE | 2018-11-28 17:26 | NUR ---
SHIFT SUMMARY OX2; NPO; CBG'S Q6. DIALYSIS COMPLETED TODAY. AFIB IN 110'S TO 120'S. RECENT APPY SURGICAL INCISIONS WNL. FISTULA LEFT FOREARM. REFUSED OFFERS TO SIT IN CHAIR TODAY. Q2 TURNS.
[2018-11-29 05:35] LABS: BASOPHILS ABSOLUTE AUTO 0.03 K/mm3 (0.00-0.23); BASOPHILS PERCENT AUTO 1 % (0-2); EOSINOPHILS ABSOLUTE AUTO 0.17 K/mm3 (0.00-0.68); EOSINOPHILS PERCENT AUTO 4 % (0-6); Hematocrit 32.3 % (37.0-53.0); Hemoglobin 10.3 g/dL (13.5-17.5); IMMATURE GRAN ABSOLUTE AUTO 0.01 K/mm3 (0.00-0.10); IMMATURE GRAN PERCENT AUTO 0 % (0-1); LYMPHOCYTES PERCENT AUTO 13 % (21-46); MONOCYTES ABSOLUTE AUTO 0.76 K/mm3 (0.16-1.47); MONOCYTES PERCENT AUTO 19 % (4-13); Mean Corpuscular HGB 31.6 pg (26.0-34.0); Mean Corpuscular HGB Conc 31.9 g/dL (31.5-36.5); Mean Corpuscular Volume 99 fL (80-100); Mean Platelet Volume 10.7 fL (9.1-12.4); NEUTROPHILS ABSOLUTE AUTO 2.45 K/mm3 (1.96-9.15); NEUTROPHILS PERCENT AUTO 62 % (41-73); Platelet Count 211 K/mm3 (150-400); RDW Coefficient Variation 14.4 % (11.7-14.2); RDW Standard Deviation 52.1 fL (35.1-46.3); Red Blood Cell Count 3.26 M/mm3 (4.30-5.90); White Blood Cell Count 3.92 K/mm3 (4.00-11.30)
--- NOTE | 2018-11-29 05:44 | NUR ---
SHIFT SUMMARY: A/O. Making needs known. Abd large, round, tender. Bowel tones auscultated in RUQ, LUQ, and LLQ. NO bowel tones in RLQ. Tender in RLQ. Pt passed a very small- slightly less than a golf ball sized BM. Medicated with fentanyl x 1 this evening. Slept minimally. No N/V. No acute changes. Call button within reach.
[2018-11-29 06:08] LABS: Albumin, Blood 2.2 g/dL (3.4-5.0); Anion Gap 10 mmol/L (6-16); Blood Urea Nitrogen 45 mg/dL (8-24); Bun/Creatinine Ratio 8.4 (12.0-20.0); CO2, Blood 28 mmol/L (21-32); Calcium, Blood 8.1 mg/dL (8.5-10.1); Chloride, Blood 102 mmol/L (98-108); Creatinine, Blood 5.36 mg/dL (0.60-1.20); Glomerular Filtration Rate 11 (60-); Glucose, Blood 166 mg/dL (70-99); Magnesium, Blood 2.4 mg/dL (1.6-2.4); Phosphorus, Blood 4.9 mg/dL (2.5-4.9); Potassium, Blood 4.3 mmol/L (3.5-5.5); Sodium, Blood 140 mmol/L (136-145)
--- NOTE | 2018-11-29 08:28 | NUR ---
PATIENT DID NOT EAT BREAKFAST THIS SHIFT DUE TO BEING NPO AT THIS TIME.
--- NOTE | 2018-11-29 13:18 | NUR ---
PATIENT DID NOT EAT LUNCH THIS SHIFT AT THIS TIME DUE TO BEING NPO AT THIS TIME.
--- NOTE | 2018-11-29 17:47 | NUR ---
SUMMARY PT IS A/O X4, PLEASANT AFFECT. UP TO BR 1 ASSIST w FWW. DX SBO, DR RM IN T SEE HIM THIS AM, STATE CONTINUE NPO FOR NOW. PT STATE SM LIQUID BM DURING NOC. HE HAS BEEN UP TO TOILET X2 TODAY, PASSING GAS HOWEVER NO BM. S/P LAP APPY, STERI STRIPS TO ABD SITES, NO S/S INFECTION. ABD IS FIRM, DISTENDED, PAINFUL RLQ, HAVE GIVEN FENTANYL 25MCG PRN FOR RELIEF/CONTROL. PT STATE NO NAUSEA. CLINIMIX INFUSING/ORDER. HR IRREG, AFIB/TELE 90-100'S, VSS.
--- NOTE | 2018-11-29 18:40 | NUR ---
PATIENT DID NOT EAT DINNER THIS SHIFT DUE TO BEING NPO AT THIS TIME.
--- NOTE | 2018-11-30 05:09 | NUR ---
SHIFT SUMMARY: A/O. Slept heavily most of night, arousable. Pupils remain pencil point every noc since admit. Abd large, round, and LLQ/RLQ tender with palpation. BT active. No N/V. + Flatus. Amb to toilet with 1 A and walker. No BM. Tele- Afib, 104. Requested fentanyl x 1 tonight, effective. Fistula on LFA, + bruit and thrill. No acute changes to condition. Call button within reach.
[2018-11-30 09:35] LABS: BASOPHILS ABSOLUTE AUTO 0.02 K/mm3 (0.00-0.23); BASOPHILS PERCENT AUTO 0 % (0-2); Hemoglobin 9.9 g/dL (13.5-17.5); LYMPHOCYTES ABSOLUTE AUTO 0.31 K/mm3 (0.84-5.20); LYMPHOCYTES PERCENT AUTO 7 % (21-46); MONOCYTES ABSOLUTE AUTO 0.62 K/mm3 (0.16-1.47); MONOCYTES PERCENT AUTO 13 % (4-13); Mean Corpuscular HGB 30.9 pg (26.0-34.0); Mean Corpuscular HGB Conc 31.9 g/dL (31.5-36.5); Mean Corpuscular Volume 97 fL (80-100); Mean Platelet Volume 10.3 fL (9.1-12.4); Platelet Count 211 K/mm3 (150-400); RDW Coefficient Variation 14.2 % (11.7-14.2); RDW Standard Deviation 50.1 fL (35.1-46.3); White Blood Cell Count 4.74 K/mm3 (4.00-11.30)
[2018-11-30 09:36] LABS: EOSINOPHILS ABSOLUTE AUTO 0.22 K/mm3 (0.00-0.68); EOSINOPHILS PERCENT AUTO 5 % (0-6); IMMATURE GRAN ABSOLUTE AUTO 0.01 K/mm3 (0.00-0.10); IMMATURE GRAN PERCENT AUTO 0 % (0-1); NEUTROPHILS ABSOLUTE AUTO 3.56 K/mm3 (1.96-9.15); NEUTROPHILS PERCENT AUTO 75 % (41-73)
[2018-11-30 09:51] LABS: Albumin, Blood 2.1 g/dL (3.4-5.0); Anion Gap 6 mmol/L (6-16); Blood Urea Nitrogen 57 mg/dL (8-24); Bun/Creatinine Ratio 9.9 (12.0-20.0); CO2, Blood 28 mmol/L (21-32); Calcium, Blood 8.4 mg/dL (8.5-10.1); Chloride, Blood 104 mmol/L (98-108); Creatinine, Blood 5.74 mg/dL (0.60-1.20); Glomerular Filtration Rate 10 (60-); Glucose, Blood 182 mg/dL (70-99); Phosphorus, Blood 5.3 mg/dL (2.5-4.9); Potassium, Blood 4.3 mmol/L (3.5-5.5); Sodium, Blood 138 mmol/L (136-145)
--- NOTE | 2018-11-30 18:16 | NUR ---
SHIFT SUMMARY PT INCREASED TO CLEAR LIQUID DIET. PT HAS A LITTLE AROUND LUNCH TIME. PT STATES HIS ABD IS VERY TENDER THIS AFTERNOON & REFUSED DINNER DUE TO PAIN. PT CONTINUED ON CLINIMIX AT 50 ML/HR. PT REPORTS PASSING GAS. NO BM AT THIS TIME. PT STATES HE WOULD LIKE TO REMAIN NPO AT THIS TIME FOR ABD COMFORT. NO OTHER CHANGES IN ASSESSMENT AT THIS TIME. VSS. WILL CONTINUE TO MONITOR UNTIL TURNOVER IS COMPLETE.
--- NOTE | 2018-11-30 22:48 | NUR ---
1926: ASSUMED CARE OF PATIENT. PATIENT GETTING OOB TO BRP. PATIENT VOIDED 10 ML DARK YELLOW URINE, AND 1 EX-LARGE BM, FORMED BROWN. BELLY SOUNDS ARE HYPER ACTIVE. ABDOMEN IDS SOFT TENDER, STILL VERY DISTENDED. PER PATIENT FEELS LIKE HE MAY DO MORE, AND SAYS HE FEELS BETTER
[2018-12-01] MEDS ORDERED: GUAI600T33 PO (11:39)
[2018-12-01] MEDS ORDERED: LACT10SY PO (12:11)
--- NOTE | 2018-12-01 16:55 | NUR ---
SHIFT SUMMARY PT CONTINUES TO PASS GAS. PT TOELRATING FULL LIQUID DIET. PT SHOWERED THIS SHIFT. PT & OT ORDERED BY DR. PEREIRA FOR TOMORROW. PT IS POSSIBLE DC TOMORROW AFTER EVALS. CLINIMIX DC'ED. NO OTHER CHANGES IN ASSESSMENT AT THIS TIME. VSS. WILL CONTINUE TO MONITOR UNTIL TURNOVER IS COMPLETE.
[2018-12-02 05:20] LABS: BASOPHILS ABSOLUTE AUTO 0.03 K/mm3 (0.00-0.23); BASOPHILS PERCENT AUTO 0 % (0-2); Hematocrit 36.2 % (37.0-53.0); Hemoglobin 11.4 g/dL (13.5-17.5); LYMPHOCYTES ABSOLUTE AUTO 0.32 K/mm3 (0.84-5.20); LYMPHOCYTES PERCENT AUTO 4 % (21-46); MONOCYTES ABSOLUTE AUTO 0.71 K/mm3 (0.16-1.47); MONOCYTES PERCENT AUTO 8 % (4-13); Mean Corpuscular HGB 31.1 pg (26.0-34.0); Mean Corpuscular HGB Conc 31.5 g/dL (31.5-36.5); Mean Corpuscular Volume 99 fL (80-100); Mean Platelet Volume 10.4 fL (9.1-12.4); Platelet Count 286 K/mm3 (150-400); RDW Coefficient Variation 14.2 % (11.7-14.2); Red Blood Cell Count 3.67 M/mm3 (4.30-5.90)
[2018-12-02 05:22] LABS: EOSINOPHILS ABSOLUTE AUTO 0.11 K/mm3 (0.00-0.68); EOSINOPHILS PERCENT AUTO 1 % (0-6); IMMATURE GRAN ABSOLUTE AUTO 0.03 K/mm3 (0.00-0.10); IMMATURE GRAN PERCENT AUTO 0 % (0-1); NEUTROPHILS PERCENT AUTO 86 % (41-73)
[2018-12-02 05:41] LABS: Albumin, Blood 2.5 g/dL (3.4-5.0); Anion Gap 9 mmol/L (6-16); Blood Urea Nitrogen 52 mg/dL (8-24); Bun/Creatinine Ratio 8.9 (12.0-20.0); CO2, Blood 30 mmol/L (21-32); Calcium, Blood 9.2 mg/dL (8.5-10.1); Chloride, Blood 99 mmol/L (98-108); Creatinine, Blood 5.87 mg/dL (0.60-1.20); Glomerular Filtration Rate 10 (60-); Glucose, Blood 155 mg/dL (70-99); Magnesium, Blood 2.4 mg/dL (1.6-2.4); Phosphorus, Blood 5.1 mg/dL (2.5-4.9); Potassium, Blood 4.1 mmol/L (3.5-5.5); Sodium, Blood 138 mmol/L (136-145)
--- NOTE | 2018-12-02 07:21 | NUR ---
SHIFT SUMMARY PT WITH INCREASED NAUSEA AND ABD PAIN THIS EVENING. MEDICATED X 4 WITH 25 MCG FENTANYL, X 2 WITH ZOFRAN. ZOFRAN MINIMALLY EFFECTIVE. NEW ORDER THIS AM FOR PHENERGAN 25 MG X 1. AFTER PHENERGAN WAS GIVEN PT'S NAUSEA IMPROVED BUT PT VERY DROWSY FOLLOWING. PT VOMITED X 5 THIS SHIFT. MOST, VERY SMALL AMOUNTS BUT THE LAST EMESIS WAS [address] BILE LIKE. DR. LIM ORDERED A STAT ABD WITH PELVIS CT W/O CONTRAST THIS AM. PT HAD CT AND TOLERATED WELL. PT HAS CHRONIC AFIB W/ HEART RATE IN THE 110'S-120'2. PT ON 2 L O2 NC WHICH IS HIS BASELINE WITH O2 SATS IN THE HIGH 90'S. NO BM'S OR GAS THIS EVENING. REPORT GIVEN TO DAY RN.
--- NOTE | 2018-12-02 12:57 | NUR ---
DIALYSIS VOMITED SMALL AMTS OF EMESIS T/O THE TX. MEDICAL FLOOR RN GAVE ZOFRAN, BUT CONT TO VOMIT. HE HAS A SMALL BOWELL OBSTRUCTION.
--- NOTE | 2018-12-02 13:00 | NUR ---
DIALYSIS PT VOMITED SMALL ANTS OF EMESIS T/O THE ENTIRE TX. THE MEDICAL FLOOR RN CAME DOWN AND GAVE HIM SOME ZOFRAN BUT HE CONTINUED TO VOMITE. AT HIS REQUEST WE TOOK 30 MINS OFF HIS TX TIME.
--- NOTE | 2018-12-02 18:31 | NUR ---
SHIFT SUMMARY PATIENT CURRENTLY ASLEEP. MEDICATED WITH IV PHENERGAN APPEARED TO HAVE HELPED WITH ACTIVE VOMITING. CONTINUING BOWEL REST.
--- NOTE | 2018-12-02 22:23 | NUR ---
Hospitalist Contact: Call placed to Hospitalist JULIO CÉSAR Arcos regarding pt ongoing nausea/vomiting and pulse ranging 130s-150s. Pt allowed NG tube placement attempt again this evening. Unsuccessful first attempt. Pt then adamately refused any further attempts. Continues to vomit small amounts of green liquid. JULIO CÉSAR Arcos okayed restarting Clinimix. She suggested NG tube placement with interventional radiology. Due to hypertension similar to baseline for patient, no recommendations at this time for the tachycardia. She would like us to call again if pt condition worsens.
[2018-12-03 05:10] LABS: Hematocrit 34.4 % (37.0-53.0); Hemoglobin 11.2 g/dL (13.5-17.5)
--- NOTE | 2018-12-03 05:22 | NUR ---
SHIFT SUMMARY: Pt had a difficult night. C/O pain in LRQ of abdomen and in back all night despite administration of fentanyl Q2-3 hrs. Nauseaus and vomiting small amount of bile repeatedly through the night, blood tinged emesis- bright red streaking. Phenergan administered x 2 with little improvement in symptoms. Pt allowed attempt of NG tube placement- unsuccessful. Pt refused any further attempts tonight. Pulse ranging from 120s to 150s through the night. BP elevated 154/100, 160/101. Hospitalist notified. Restarted Clinimix while patient is not tolerating PO intake per hospitalist. BT active x 4. Abdomen large and distended, very tender to touch. Attempted to have a BM without success. Congested sounding cough tonight. Auscultated inspiratory crackles in right mid lobe posteriorly. 02 91-92% on 2L via NC. Lowered head of bed independently several times tonight attempting to find back pain relief. Encouraged pt to elevate head of bed due to ongoing N/V. Hospitalist mental health nurse practitioner this evening suggested NG tube placement by Interventional Radiology. Communicated this recommendation to charge account authorizer and will inform oncoming day shift RN. Call button in reach.
[2018-12-03 05:27] LABS: Albumin, Blood 2.5 g/dL (3.4-5.0); Anion Gap 14 mmol/L (6-16); Blood Urea Nitrogen 51 mg/dL (8-24); Bun/Creatinine Ratio 8.7 (12.0-20.0); CO2, Blood 27 mmol/L (21-32); Calcium, Blood 9.2 mg/dL (8.5-10.1); Chloride, Blood 96 mmol/L (98-108); Creatinine, Blood 5.88 mg/dL (0.60-1.20); Glomerular Filtration Rate 10 (60-); Glucose, Blood 289 mg/dL (70-99); Magnesium, Blood 2.5 mg/dL (1.6-2.4); Phosphorus, Blood 6.5 mg/dL (2.5-4.9); Potassium, Blood 4.6 mmol/L (3.5-5.5); Sodium, Blood 137 mmol/L (136-145)
--- NOTE | 2018-12-03 14:17 | NUR ---
PATIENT COMPLAINED OF CHEST PAIN. RN LOOKED AT THE CONTINUOUS PULSE OX TO SEE HIS HR WAS IN THE 130'S TO 140'S. RN CALLED DR. PEREIRA TO LET HIM KNOW ABOUT THE SITUATION. DR. PEREIRA ASKED FOR THE PATIENT TO BE TRANSFERRED DOWN TO PCU. ALL HIS BELONGINGS WERE GATHERED. HIS DAUGHTERS WERE NOTIFIED OF THE TRANSFER TO PCU 6.
--- NOTE | 2018-12-03 14:45 | NUR ---
PT TRANSFERRED TO PCU 6 BY STAFF. REPORT RECIEVED FROM WILLY ELLSWORTH. DR PEREIRA WAS AT BEDSIDE AND AWARE OF HR AND N/V WITH OBSTRUCTION AND DISTENTION. AWARE THAT STAFF ATTEMPTED TWICE FOR NG TUBE PLACEMENT. DISCUSSED PLACEMENT BY MD WITH SEDATION. STATED HE WAS GOING TO TRY TO SPEAK WITH DR DE LEON AND INSTRUCTED RN TO CALL IF HAVEN'T HEARD BY 3PM. AFIB ON TELE IN 120S-140S. CARDIZEM GTT AT 5 MG/HR AT THIS TIME.
--- NOTE | 2018-12-03 14:59 | NUR ---
CALL TO DR DE LEON, LEFT MESSAGE WITH OFFICE
--- NOTE | 2018-12-03 16:10 | NUR ---
PT C/O CHEST PAIN. INCREASE OF CARDIZEM GTT DUE TO HR REMAINING IN 1TEENS TO 120S ON 5 MG/HR. INCREASE TO 10 WITH HR IN 90S TO LOW 100S. PT RESTING QUIETLY NOW. GRANDDAUGHTER INFORMED OF TRANSFER AND CURRENT PLAN. AWAITING DR DE LEON FOR NG TUBE PLACEMENT
--- NOTE | 2018-12-03 16:26 | NUR ---
PT AWAKE, STATES CHEST PAIN IMPROVING. HR DECREASING BUT NO OTHER CHANGES ON TELE
--- NOTE | 2018-12-03 18:37 | NUR ---
PT MEDICATED FOR NAUSEA AND PAIN. LETHARGIC AND CONFUSED AT THIS TIME. IV CLINIMIX AND CARDIZEM RUNNING. CARDIZEM AT 10MG/HR AT THIS TIME. AFIB IN 1TEENS CURRENTLY. CONTINUING TO HAVE NAUSEA AND EMESIS AT TIMES. PT'S GRANDDAUGHTER AT BEDSIDE, BED ALARM ON.
--- NOTE | 2018-12-03 19:30 | NUR ---
ASSUMED CARE OF PATIENT (PCU NOC SHIFT) PATIENT SITTING UP IN PCU 6 ROOM UNIT BED. REPORTS ON GOING N/V, CHRONIC BACK PAIN DISCOMFORT AND ABD PAIN. UPON ASSESSMENT PATIENTS ABD IS SEVERLY DISTENDED, VOMITING BRIGHT GREEN EMESIS CONTINUOUSLY AND APPEARS MODERATLY UNCOMFORTABLE - MEDICATED PER EMAR. IT'S NOTED PATIENT HAS DIALYSIS FISTULA TO LEFT FOREARM W/ TWO 20 SUMAN IV'S IN RIGHT AC INFUSING CLINIMIX AND CARDIEZEM PER EMAR. PATIENT HAS OXYGEN IN PLACE AT 4 LPM WHICH HE STATES THAT HE DOES WEAR AT HOME BUT IS UNSURE OF HOW MANY LPM. WILL CONTINUE TO MONITOR CALL LIGHT W/I REACH AND BED ALARM ON.
--- NOTE | 2018-12-03 20:40 | NUR ---
PROVIDER CHANCE CALLED PATIENT CONTINUES TO HAVE BRIGHT GREEN EMESIS W/ SEVERLY DISTENDED ABD. PATIENT ALSO CONTINUES TO HAVE SEVERE PAIN W/ MEDICATION PER EMAR. ORDERS GIVEN. PATIENT GIVEN ENEMA, IV PAIN MEDICATION PER EMAR AND DISCUSSED PLACING A NG TUBE TO DRAIN STOMACH FLUID - PATIENT REFUSED TO HAVE NG PLACE TO THIS RN AND TO DILLAN SPAULDING LAWN CARETAKER WHO WAS IN THE ROOM DURING DISCUSSION W/ PATIENT. SPOKE WITH FAMILY MEMBERS IRMA WHO PATIENT LIVES WITH AND PATIENTS GRANDDAUGHTER - BOTH STATED PATIENT IS STUBBORN AND HAS HAD PAIN WITH NG TUBE PLACEMENT IN THE PAST. PATIENTS BED ALARM BUFFER INFLATED PAD LIGHT W/I REACH.
[2018-12-03 23:53] LABS: PO2 Arterial 61.2 mmHg (80-100); pH Blood Arterial 7.41 (7.35-7.45)
--- NOTE | 2018-12-04 | NUR ---
TRANSFER - REPORT TO ICU PATIENT BECOME HYPOXIC AT APPROX 2355 - NONREBREATHER PLACE ON PATIENT AND RESPIRTORY THERAPY AND MANAGER PUBLIC NOTIFIED. NT SUCTIONING PERFORMED AND NG TUBE PLACE. X-RAY OBTAINED, ABG OBTAINED - PROVIDER CHANCE AND MD WAKEFIELD AT BEDSIDE DURING EVENT. PATIENT TRANSFERED TO ICU - REPORT TO YOSELIN HAINES, COMMERCIAL DRIVER'S LICENSE DRIVER. PATIENT TRANSFERED TO ICU 4.
--- NOTE | 2018-12-04 00:30 | NUR ---
ASSUMED CARE PT TRANSFERED TO ICU 4 AT 0050 VIA BED. PT ON 15L 02 VIA NON REBREATHER UPON ARRIVAL. PT APPEARS ANXIOUS AT THIS TIME. PT IN AFIB WITH RATE 100-130'S. CARDIZEM INFUSING AT 10 MG/HR. CLINIMIX INFUSING AT 100 ML/HR. BP STABLE. NGT IN PLACE WITH LARGE AMOUNT OF DARK GREEN/BILE OUTPUT. PT ABDOMEN IS FIRM AND DISTENDED. PT WITH DIALYSIS FISTULA TO LEFT FOREARM. DR SCHULTZ AT BEDSIDE TO SEE PT. WILL CONTINUE TO MONITOR AND INITIATE BIPAP IF NEEDED, PER DR SCHULTZ.
--- NOTE | 2018-12-04 01:23 | NUR ---
UPDATE PT O2 REQUIREMENTS HAVE DECREASED. PT ON OXYMIZER AT 7L AT THIS TIME AND SPO2 >92%. VITAL SIGNS STABLE. NGT OUTPUT HAS SLOWED. PT RESTING QUIETLY. WILL CONTINUE TO MONITOR.
[2018-12-04 03:34] LABS: Hematocrit 35.2 % (37.0-53.0); Hemoglobin 11.3 g/dL (13.5-17.5)
[2018-12-04 03:49] LABS: Albumin, Blood 2.4 g/dL (3.4-5.0); Anion Gap 10 mmol/L (6-16); Blood Urea Nitrogen 67 mg/dL (8-24); Bun/Creatinine Ratio 10.1 (12.0-20.0); CO2, Blood 33 mmol/L (21-32); Calcium, Blood 8.8 mg/dL (8.5-10.1); Chloride, Blood 94 mmol/L (98-108); Creatinine, Blood 6.66 mg/dL (0.60-1.20); Glomerular Filtration Rate 8 (60-); Glucose, Blood 289 mg/dL (70-99); Magnesium, Blood 2.5 mg/dL (1.6-2.4); Sodium, Blood 137 mmol/L (136-145)
--- NOTE | 2018-12-04 05:42 | NUR ---
SHIFT SUMMARY NO ACUTE CHANGES THIS AM. PT HAS SLEPT OFF AND ON, AND IS ALERT AND ORIENTED WHEN AWAKE. PT DENIES PAIN OR DISCOMFORT AT THIS TIME. PT REMAINS ON 7L O2 VIA OXYMIZER. VITAL SIGNS STABLE. CARDIZEM INFUSING AT 10 MG/HR, AND CLINIMIX AT 100 ML/HR. NGT REMAINS IN PLACE TO LIS, WITH OVER 4L OF BILE OUTPUT THIS SHIFT. PT ABDOMEN WITH LESS DISTENTION. WILL CONTINUE TO MONITOR AND REPORT OFF TO ONCOMING RN.
--- NOTE | 2018-12-04 06:55 | NUR ---
REPORT AND BEDSIDE ROUNDING WITH FRANCOIS AGUILERA. ASSUMED PT CARE. PT ALERT TO SELF, SITUATION AND SURROUNDINGS. DENIES IMMEDIATE NEEDS.
--- NOTE | 2018-12-04 07:51 | NUR ---
DR PEREIRA TO ROOM FOR EVAL. PLAN TO HAVE PT GET DIALYSIS, MONITOR NG TUBE OUTPUT AND RE-EVAL DIET/NUTRITION STATUS. PLAN TO KEEP NPO AND SWITCH THINNERS TO IV HEPARIN.
--- NOTE | 2018-12-04 08:10 | NUR ---
PT MEDICATED PER EMAMine. FADUMO AGUILERA TO ROOM FOR DIALYSIS. CALL LIGHT IN REACH.
--- NOTE | 2018-12-04 08:40 | NUR ---
DIALYSIS IN PROCESS. PT STATES NAUSEA IMPROVED.
--- NOTE | 2018-12-04 09:30 | NUR ---
SPOKE WITH DR PEREIRA. PROVIDER WANTS TUBE ADVANCED ABOUT 1-2CM. NG TUBE ADVANCED ACCORDINGLY. PT FIDELIA WELL.
[2018-12-04 09:34] LABS: International Normalized Ratio 1.26; Prothrombin Time Results 13.1 Sec (9.7-11.5)
--- NOTE | 2018-12-04 11:55 | NUR ---
SUCTION CANISTER CHANGED. DRESSINGS TO IVS ON RIGH AC AREA CHANGED.
--- NOTE | 2018-12-04 13:20 | NUR ---
PT/OT TO ROOM FOR EVAL/ASSESSMENT. PT STATES HE NEEDS "TO WAKE UP FIRST" PLAN TO HAVE THERAPY CHECK BACK LATER.
--- NOTE | 2018-12-04 14:30 | NUR ---
PT STATES IMPROVED. PT TALKING ON CELL PHONE WITH FAMILY.
--- NOTE | 2018-12-04 15:09 | NUR ---
ASSUMED CARE: RECEIVED REPORT FROM BRANDON GUZMAN RN AT THIS TIME. DR DE LEON IN TO SEE THE PT. STATES PT SHOULD BE ON TPN AND CAN BE CHANGED TO PCU STATUS. CALLED DR PEREIRA WHO AGREED AND IS PLACING ORDERS FOR TPN, PICC LINE AND IN HOUSE TRANSFER TO PCU. WILL CONTINUE TO MONITOR.
--- NOTE | 2018-12-04 18:19 | NUR ---
SHIFT SUMMARY- ASSUMED CARE OF PATIENT FROM ICU TRANSFER AT 1710. NGT TO SUCTION WITH COFFEE COLORED GASTRIC CONTENTS OUT. PATIENT HAS NAUSEA AFTER MOVING FROM ICU BED TO PCU, JUST FROTHY COLORED SPUTUM OUT. LUNGS ARE CLEAR, BT HYPOACTIVE, NO C/O PAIN AT THIS TIME. PAS IN PLACE BILATERAL CALVES. GRAND-DTR "JUNE" WITH PATIENT DURING TRANSFER.
[2018-12-05 03:51] LABS: Hematocrit 27.9 % (37.0-53.0); Hemoglobin 8.7 g/dL (13.5-17.5)
[2018-12-05 04:19] LABS: Albumin, Blood 1.7 g/dL (3.4-5.0); Anion Gap 12 mmol/L (6-16); Blood Urea Nitrogen 59 mg/dL (8-24); Bun/Creatinine Ratio 11.5 (12.0-20.0); CO2, Blood 31 mmol/L (21-32); Calcium, Blood 8.2 mg/dL (8.5-10.1); Chloride, Blood 86 mmol/L (98-108); Creatinine, Blood 5.15 mg/dL (0.60-1.20); Glomerular Filtration Rate 11 (60-); Glucose, Blood 556 mg/dL (70-99); Sodium, Blood 129 mmol/L (136-145); Triglycerides 179 mg/dL (30-160)
[2018-12-05 04:20] LABS: Potassium, Blood 6.1 mmol/L (3.5-5.5)
--- NOTE | 2018-12-05 06:06 | NUR ---
SHIFT SUMMARY PT SLEEPING IN ROOM COMFORTABLY AT THIS TIME. PT SLEPT WELL T/O THE NIGHT. THIS AM LABS CAME BACK WITH HIGH POTASSIUM AND PHOS LEVELS. LIM CALLED AND PT TO HAVE DIALYSIS THIS AM. PT ALSO HAD HIGH GLUCOSE THIS AM. HOSPITALIST CALLED AND ORDERS GIVEN, SEE EMAR. NGT IN PLACE AND CONTINUES TO DRAIN DARK BORWN EMESIS. PT C/O NAUSEA ONCE DURING NIGHT AND WAS MEDCIATED PER EMAR. PT COUGH BECAME MORE PRODUCTIVE T/O NIGHT AND RT PROVIDED FLUTTER VALVE TO ASSIST W/ SECRETIONS. RESP EVEN UNLABORED ON 7L OXIMIZER W/ SATS >92%. PT DENIED ANY CP, REPORTED SOB ONLY AFTER COUGHING EPISODE, AND RECOVERED QUICKLY. DENIES OTHER NEEDS. CALL LIGHT IN REACH, BED ALARM ON FOR SAFETY.
--- NOTE | 2018-12-05 08:40 | NUR ---
ASSUPMTION OF CARE ASSUMED CARE OF PT AT 0700, PT APPEARS TO BE SLEEPING, RESTING IN BED. BREATHING EVEN AND UNLABORED. NO S/SX OF DISTRESS NOTED. DRAINAGE FROM NG TUBE DARK MAROON IN COLOR. WILL CONTINUE TO MONITOR. 0800 - NG TUBE DRAINAGE CONTINUES TO BE MAROON IN COLOR, PT REPORTS NASUEA AND CONTINUES TO HAVE TENDER ABD, BS HYPOACTIVE x4 QUAD. PT REPROTS CHEST PRESSURE OVER LEFT SIDE OF CHEST, 7/10 ON PAIN SCALE, WORSE WITH PLACING PRESSURE ON CHEST. PT STATES HE GETS THIS WITH HIS AFIB. PT DENIES DIZZINESS/LIGHTHEADEDNESS, NUMB/TING, OR RADIATED PAIN. DR PEREIRA NOTIIFED, EKG AND TROP ORDERS. PT A&Ox3, CALM AND COOPERTIAVE WITH CARE. CONFUSED AT TIMES. PT CBG 204, DOWN FROM 500'S THIS AM, WILL CONTINUE WITH Q6 HR BLOOD GLUCOSE PER ORDERS. PT SPO2 >92% ON 7L O2 VIA OXYMIZER, BREATHING EVEN, MILDLY LABORED. LS DIM IN BASES. VSS. TELE SHOWING AFIB AVE 80'S TITRATED CARDIZEM TO 5MG/HR. WILL CONTINUE TO MONITOR.
--- NOTE | 2018-12-05 09:44 | NUR ---
NOTIFIED DR PEREIRA OF TROP. NO NEW ORDERS.
--- NOTE | 2018-12-05 10:11 | NUR ---
When I enter the room, Sammy appears to be sleeping, but awakens readily to verbal stimulation. NO observable dyspnea, respiratory rate is even and unlabored without the use of accessory muscles. Wearing oxygen at 7 l/min n.c. delivery and and 93% spow. When awake, Sammy states states his chest pain is a pressure which makes it difficult for him to breathe. Rates the pain at 9/10 and states after getting one ntg sublingually that it is decreased to 3/10 after 2 minutes. Blood pressure is stable. Heart rate 85 bpm.
--- NOTE | 2018-12-05 10:14 | NUR ---
Sammy states that his pain is pretty well gone now. Vital signs taken, noted stable.
--- NOTE | 2018-12-05 15:10 | NUR ---
PT REPORTING CHEST PAIN 8 DURING DIALYSIS, VS CHECKED, NITRO GIVEN, NOTIFIED DR PEREIRA, EKG AND TROP ORDERED. NOTIFIED DR PEREIRA OF RESULTS OF EKG AND TROP, WILL CONTINUE TO MONITOR.
--- NOTE | 2018-12-05 15:44 | NUR ---
pt on dialysis will return when family in.
--- NOTE | 2018-12-05 18:34 | NUR ---
Meet with patient and daughter to review polst. pt having some chest pain and coughing up thick secretions. Advised nursing for prn meds. Pt wants to be full code at this time daughter at bedside they are aware and able to make the decisions if pt declines or on life support. They aslo want to complete advance deirective. Review of directive will meet with family tomorrow to process.
--- NOTE | 2018-12-05 19:45 | NUR ---
SHIFT SUMMARY PT A&Ox3, CONFUSED AT TIMES. PT RESTING IN BED DURING SHIFT, ENCOURAGED TO REPOSITION SELF, PT REFUSING TO REPOSTION FOR MAJORITY OF SHIFT. PT 1-2 PERSON ASSIST. PT APPEARS TO BE SLEEPING INTERMITTENTLY T/O SHIFT. PT REPORTS CHEST PAIN ON/OFF T/O SHIFT, NOTIFIED DR PEREIRA, NEW ORDERS ENTERED, MEDICATED PER EMAR WITH NITRO SLx2, NITRO PATCH THIS EVENING AND FENTNYL x1 THIS EVENING. PT SOB WITH EXERTION, THIS AM PT ON 7L O2 VIA OXYMIZER, TITRATED T/O SHIFT TO 5L. GRANDDAUGHTER STATES THAT HOME DOSE IS 2L O2 VIA NC. PT HAS NG TUBE IN PLACE, THIS AM DRAINING MAROON LIQUIDS, THIS EVENING CLEAN BROWN LIQUID. BS HYPOACTIVE T/O SHIFT. PT REPORTS NAUSEA THIS AM, MEDICATED x1 WITH ZOFRAN. TELE AFIB THIS AM ON CARDIZEM GTT 10MG, TITRATED OFF, AVG IN 80'S, PT STARTED TRENDING BACK UP THIS AFTERNOON, RESTARTED GTT AT 5MG/HR. DIALYSIS THIS AFTERNOON, RECEIVED 1 UNIT PRBC. VSS. NO OTHER ACUTE CHANGES NOTED. REPORT GIVEN TO ONCOMING RN.
--- NOTE | 2018-12-05 20:39 | NUR ---
UPDATE TO DR OSBORNE: DR OSBORNE CALLED AND NOTIFIED THAT PATIENT CURRENTLY HAS NGT PLACED AND IS UNABLE TO TAKE HIS PO MEDICATIONS TONIGHT DUE TO BEING NPO WITH N/V. NO ORDERS GIVEN TO CHANGE ROUTE OF MEDICATIONS. NO ORDERS GIVEN AT THIS TIME.
[2018-12-06 05:02] LABS: Hematocrit 31.8 % (37.0-53.0); Hemoglobin 10.1 g/dL (13.5-17.5)
[2018-12-06 05:21] LABS: Magnesium, Blood 2.3 mg/dL (1.6-2.4)
[2018-12-06 05:22] LABS: Anion Gap 9 mmol/L (6-16); Blood Urea Nitrogen 66 mg/dL (8-24); CO2, Blood 33 mmol/L (21-32); Calcium, Blood 8.4 mg/dL (8.5-10.1); Chloride, Blood 96 mmol/L (98-108); Creatinine, Blood 5.51 mg/dL (0.60-1.20); Glomerular Filtration Rate 11 (60-); Glucose, Blood 168 mg/dL (70-99); Sodium, Blood 138 mmol/L (136-145)
[2018-12-06 06:14] LABS: Phosphorus, Blood 4.4 mg/dL (2.5-4.9); Potassium, Blood 3.7 mmol/L (3.5-5.5)
--- NOTE | 2018-12-06 07:46 | NUR ---
SHIFT SUMMARY PATIENT PLEASENT AND COOPERATIVE THROUGHOUT THE NIGHT. PATIENT APPEARED TO SLEEP WELL ON AND OFF BETWEEN CARE. PATIENT TURNED Q2H. PATIENT'S CPN RUNNING PER ORDERS. CARDIZEM GTT RUNNING AT 5. ABX GIVEN PER ORDERS. PATIENT MEDICATED FOR CHEST PAIN SEVERAL TIMES THROUGHOUT THE SHIFT. PATIENT REPORTS IT, "FEELS LIKE REALLY BAD HEARTBURN." PATIENT HAD RELIEF FROM PAIN WITH PROVIDED MEDICATION. NGT IN PLACE, MINIMAL BROWN OUTPUT THROUGHUT THE NIGHT. PATIENT IS PASSING GAS BUT DID NOT HAVE A BM THROUGHOUT THE NIGHT. REPORT GIVEN TO ONCOMING RN.
--- NOTE | 2018-12-06 14:53 | NUR ---
HIGH SBP CALLED DR PEREIRA. REPORTED ELEVATED SBP TO DR PEREIRA. ORDERS RECEIVED. REPORTED PT ON GOING SUBSTERNAL CHEST PAIN THAT INCREASES WITH SWALLOWING AND PT HICCUPS. REPORTED DR EDWARDS VISIT AND PLAN TO KEEP NG TUBE X24 MORE HOURS. CONTINUE POT.
--- NOTE | 2018-12-06 17:03 | NUR ---
EVENING NOTE PT ALERT AND ORIENTED. PT JUST COMPLETED FILLING OUT AN ADVANCED DIRECTIVE WITH [facility]. NO FAMILY IN ROOM. AFIB RATE CONTROLLED. CARDIZEM GTT 5MG/HR. BP ELEVATED. MEDICATED WITH HYDRALAZINE 10MG X2. SBP IMPROVED. NG TUBE IN RIGHT NARE. PLACEMENT VERFIED WITH AIR NELSON AND ASPIRATION. SUCTION TO LIS. SCANT OUT TODAY THE NG. CLEAR, FROTHY DRAINED. RETAPED NG TUBE THIS AM. NO DIALYSIS TODAY PER DR LIM. ABD LARGE, SOFT. TENDER RIGHT LQ. MEDICATED WITH FENTANTL X2 FOR ABD PAIN. PT PASSING FLATUS. MULTIPLE TIMES TODAY. NO BM. PT SUB STERNAL PAIN INCREASES WITH SWALLOWING. PT COUGHING UP LARGE GOBS OF FROTHY CLEAR SPUTUM THAT HE SPITS INTO A BAG. PT DOING OWN ORAl CARE WITH GREEN SPONGS. HE HAS REFUSED TO GET OOB. HAVE ATTEMPTED TO ENCOURAGE HIM OOB MULTIPLE TIMES. HE TURNS EASILY BUT HE DOESN'T WANT TO GET OOB. CONTINUE POT.
--- NOTE | 2018-12-06 18:18 | NUR ---
initiated visit for advance directive. will witness and get secondary to sign acceptance tomorrow
--- NOTE | 2018-12-07 03:21 | NUR ---
ASSUMED CARE AT 1900. AROUSE FREQ THRU NOC FOR TURNING AND COUGH AND DEEP BREATHE. VERY THICK MUCUS PRODUCTION AND EXPECTORATES AND DENIES NAUSEA. IV PAIN MED NEEDED X1 FOR CHRONIC BACK PAIN AND REPORTS SOME ABD CRAMPING .FLATUS EXPELLED AND ONE ATTEMPT ON BED GUERRERO NO STOOL. IRRIGATED NG TO LIS X 1 W/ 40 ML TO CHECK PATENTCY. WNL AND REMAINS LIGHT BROWN IN NG TUBE RETURNS OF 40 ML ONLY. SEE ASSESS FOR DETAILS OF SURG INCISION. DENIES CP.MENTATION CLEAR ORIENTED. CONVERSES W/ FAMILY . APPROPRIATE CONVERSATION. MAKES ONE ATTEMPT TO VOID AND 50 ML CLOUDY DK STANLEY. PARTICIPATING EFFORT IN TURNS.O2 NEEDS SAME AT 6L OXIMIZER. HTN TX SHOWN ON MAY.NO NOTED BLEEDING ISSUES. FLUTTER VALVE PROMOTES COUGH.
[2018-12-07 04:57] LABS: Hematocrit 32.6 % (37.0-53.0); Hemoglobin 10.4 g/dL (13.5-17.5)
[2018-12-07 05:23] LABS: Magnesium, Blood 2.2 mg/dL (1.6-2.4)
[2018-12-07 05:26] LABS: Anion Gap 11 mmol/L (6-16); Blood Urea Nitrogen 94 mg/dL (8-24); Bun/Creatinine Ratio 14.1 (12.0-20.0); CO2, Blood 29 mmol/L (21-32); Calcium, Blood 8.5 mg/dL (8.5-10.1); Chloride, Blood 96 mmol/L (98-108); Creatinine, Blood 6.65 mg/dL (0.60-1.20); Glomerular Filtration Rate 8 (60-); Glucose, Blood 215 mg/dL (70-99); Phosphorus, Blood 4.3 mg/dL (2.5-4.9); Potassium, Blood 3.8 mmol/L (3.5-5.5); Sodium, Blood 136 mmol/L (136-145)
--- NOTE | 2018-12-07 06:00 | NUR ---
SHIFT SUMMARY. IV PAIN MED NEEDED. SAME SORENESS HE SWALLOWS. CHRONIC BACK PAIN AND ABD CRAMPING W/ REPORT OF GAS PAINS. NO CHANGE IN NG RETURNS . ONLY H20 INSTILLED. NAUSEA = PROTONIX AND PHENERGAN. ENC TO COUGH AND EXPECTORATES A LOT OF THICK MUCUS,..AF 100 RATE AVERAGE.
--- NOTE | 2018-12-07 11:59 | NUR ---
NOTE PT IN DIALYSIS. EYES CLOSED. RESP EVEN AND UNLABORED. NG TO LIS. SCANT OUT. DIALYSIS NURSE RELATED THAT PT IS COMFORTABLE. CONTINUE POT.
--- NOTE | 2018-12-07 14:52 | NUR ---
Meeting with Brandy and Edenilson this afternoon. He was able to get some rest this morning on the bipap and is more awake and wants the bipap off for our conversation. Edenilson states his wishes are to go home with hospice. He states "I almost last night!" Discussed what services hospice offers and answered questions. He currently has [facility] and would like to transition to [facility] services. Brandy is supportive of his choice and states she has all the equipment at home they need and feels that with the help of his son she will be able to care for him. He did ask if he would have a feeding tube. Explained the pros and cons to the feeding tube and discussed EOL and feedings. Also explained to him that he may not survive a surgical procedure given his current condition. Brandy asked how he could eat. Explained transitioning to comfort care in the hospital and having ST assist with diet suggestions if needed. He can eat for comfort knowing that the risk of aspiration remains. After discussing comfort care, Edenilson states this is what he would like to do. Brandy is supportive of that decision. They would like to stop IVF and antibiotics. Spoke with Miya, raw material planner. She is working with [facility] on a discharge plan. Miya notified that pt would like to have the bipap at home for comfort. Spoke with Dr. Galo and Aruna Carbajal, pharmacist and placed comfort care orders. Updated Brandy and Edenilson on plan for discharge home with [facility]. Explained that if he deteriorates quickly he may not be able to get home. He prefers to be home, however he acknowledged the possibility of not being able to get home. PC to follow for comfort care and symptom managment.
--- NOTE | 2018-12-07 15:29 | NUR ---
NG TUBE CALLED DR DE LEON TO CLARIFY NG TUBE CLAMP. DR DE LEON OKD ELIQUIS AND LACTULOSE RESTARTING. DR POPE OKTrevor RESTARTING TOPROL, ELEIQUIS AND LACTULOSE. DR DE LEON DID NOT WANT THE NG TUBE TO BE PULLED AT THIS TIME. LEAVE IN UNTIL PT HAS SEVERAL BMS. CONTINUE POT.
--- NOTE | 2018-12-08 03:15 | NUR ---
ASSUMED CARE AT 1900. NG CLAMPED AND MARKED DAY NG RETURNS. FEW ICE CHIPS TAKEN ON DAY SHIFT AND SOME ON NOC SHIFT. CHRONIC PAIN AT BASE LINE TOLERANCE. ABD CRAMPING OCCURRED AT START OF SHIFT AND NOW SINCE LAXATIVES AND LACTULOSE VERY GIGANTIC FORMED BROWN/YELLOW STOOL AT ABOUT 2300. MUCH FLATUS LEADING UP TO THIS.AND NOW SINCE MID NOC VERY FREQUENT INCONTINENT BROWN/YELLOW LIQUID STOOL. POSITION CHANGE FREQ AND NOW IRRITATED SKIN AT COCCYX HAS SOME SKIN TEAR AND DRY FLAKY AREAS . ATTEMPTED MEPILEX , BUT WITH ATTENDS AND FREE FLOWING STOOL, A THICK COAT OF CALIZIME UNGT ALWAYS APPLIED FOR ALL CHANGES. ALL MEDS GIVEN VIA NG TUBE POST CRUSHED AND CLAMPED 4 HRS POST. OPEN TO LIS AT 0200 AND HAS BEEN CLAMPED SINCE 1729. SOME LIGHT BROWN RETURNS , AND MAY BE SOME ICE CHIPS. MARKD FOR SHIFT LATER. X 1 APRESOLINE GIVEN. CRUSHED PO TOPROL GIVEN ON DAYS AND NOTED AF RATE IS AVERAGE IS 90'S. WILL CONSIDER TURNING OFF CARDIZEM GTT WHICH HAS BEEN AT 5 MG SINCE NPO
[2018-12-08 05:33] LABS: Hematocrit 32.1 % (37.0-53.0); Hemoglobin 10.2 g/dL (13.5-17.5)
[2018-12-08 05:55] LABS: Anion Gap 10 mmol/L (6-16); Blood Urea Nitrogen 77 mg/dL (8-24); Bun/Creatinine Ratio 13.3 (12.0-20.0); CO2, Blood 27 mmol/L (21-32); Calcium, Blood 8.9 mg/dL (8.5-10.1); Chloride, Blood 100 mmol/L (98-108); Creatinine, Blood 5.79 mg/dL (0.60-1.20); Glomerular Filtration Rate 10 (60-); Glucose, Blood 205 mg/dL (70-99); Magnesium, Blood 2.1 mg/dL (1.6-2.4); Phosphorus, Blood 3.5 mg/dL (2.5-4.9); Potassium, Blood 3.7 mmol/L (3.5-5.5); Sodium, Blood 137 mmol/L (136-145)
--- NOTE | 2018-12-08 06:22 | NUR ---
SHIFT SUMMARY . IT APPEARS THAT NG RETURNS ARE ABOUT 200 ML , BUT IT REPRESENTS SOME ICE CHIPS AND H2O WITH MEDS. VERY LIGHT BROWN TINGED. NO FURTHER LIQ STOOLS SINCE 399. AND VERY LG AMT UP UNTIL THEN.MUCH FLATUS AND INCONTINENT STOOL . MENTATION CLEAR .ALMOST NO SLEEP TONIGHT. IV PAIN MED X 1 FOR CHRONIC BACK PAIN. REPORTS ABD NOT IN PAIN. UP TO BSC ONLY ONCE. TOLERATED VERY WELL, WHILE DECONDITIONED AND WEAK. DENIES CP TONIGHT. LEFT CARDIZEM ON AT 5 MG .NOTED 110 HR
--- NOTE | 2018-12-08 10:33 | NUR ---
Mepilex to umbilical incision was removed, noted small amount of dark red moist sanguinous secretions. ARea was cleased with skintegrity and dried with sterile 4x4 gauze. Mepitel maxabsorb blue square was applied and secured with tape. NO active drainage was noted at all. Incision was photographed, noted 2.5 cm long, redness noted around the periphery, edges well approximated and no steristrips adhering to the incision were present.
--- NOTE | 2018-12-08 14:55 | NUR ---
NGT DISCONTINUED; PT WAS GIVEN A POPSCICLE. HE TOLERATED IT WELL.
--- NOTE | 2018-12-08 17:01 | NUR ---
The pt was tolerating ice chips and sips of water last night, but this morning was c/o some nausea and amdominal aching. He was also have cramping from the lactolose. Evacuated three loose liquid large stools, brown. States he is feeling better this afternoon. NGT was dc'd per Dr. Blanco at 1430, and the pt has been tolerating popsciles this afternoon. States it's the most delightful thing he has ever eaten. Oxygen delivery was titrated down to 2-3 l/min, nasal cannula delivery, which is his baseline at home, he states. Encouraged the pt to get up out of bed, but he declined today. I encouraged him strongly to work with physical and occupational therapists, which he did do. After the multiple episodes of diarrhea, he stated that he was just too tired to do any more activity. No complaints this evening.
--- NOTE | 2018-12-08 23:21 | NUR ---
ASSUMED CARE AT 1900. VISITS W/ FAMILY. COMFORTABLE W/BASELINE CHRONIC BACK PAIN. AND MINIMAL ABD CRAMPING. ENC TO TURN/COUGH / DEEP BREATHE. POOR EFFORT IN ACTIVE ROM .SIPS IN H20 AND NO OTHER FLUIDS DESIRED NOW. DENIES NAUSEA./ BP BORDERLINE FOR PRN MED AND PO MED DUE FOR ASSIST IN THIS. LATER THIS LORI HUGE INCONTINENT STOOL ONCE BACK TO SLEEP .FULL BATH AND BED CHANGE. CHRONIC PAIN AND ABD SORENESS ONCE ALL THE MOVING IN BED. REFUSED TO GET OUT OF BED. TO BE CLEANED UP AND TO HAVE FURTHER STOOL.USED BED GUERRERO WHEN INCONT STOOL IN BED. BP UP APRESOLINE GIVEN AND WILL RECHECK. SOUND ASLEEP W/COMFORT.LOOSE COUGH AND PRODUCTIVE.
[2018-12-09 04:52] LABS: Hematocrit 31.7 % (37.0-53.0); Hemoglobin 10.4 g/dL (13.5-17.5)
--- NOTE | 2018-12-09 05:02 | NUR ---
PCU NOC SHIFT SUMMARY PATIENT AWAKENS EASILY TO SOUND. ORIENTED TO SELF. CONFUSED AT TIMES TO LOCATITONS/SITUATION - REORIENTS EASILY. SLEPT WELL T/O SHIFT. HR REMAINS IN AFIB IN THE 100-110'S T/O SHIFT. PPATIENT TURNED PRN. NO ACUTE CHANGES NOTED. WILL CONTINUE TO MONITOR AND GIVE REPORT TO DAYSHIFT RN.
[2018-12-09 05:10] LABS: Albumin, Blood 1.9 g/dL (3.4-5.0); Anion Gap 12 mmol/L (6-16); Blood Urea Nitrogen 97 mg/dL (8-24); Bun/Creatinine Ratio 14.3 (12.0-20.0); CO2, Blood 25 mmol/L (21-32); Chloride, Blood 100 mmol/L (98-108); Creatinine, Blood 6.76 mg/dL (0.60-1.20); Glomerular Filtration Rate 8 (60-); Glucose, Blood 191 mg/dL (70-99); Phosphorus, Blood 4.7 mg/dL (2.5-4.9); Potassium, Blood 3.9 mmol/L (3.5-5.5); Sodium, Blood 137 mmol/L (136-145)
--- NOTE | 2018-12-09 08:07 | NUR ---
The pt slept all night, I was told. This morning he has no complaints. He is eating his clear liquid breakfast, but states that he is having some nausea part way through.
--- NOTE | 2018-12-09 08:22 | NUR ---
zofran given for nausea. Dr. Blanco here to see the pt; states that we can advance the diet to full liquid once nausea has gotten better.
--- NOTE | 2018-12-09 10:54 | NUR ---
Bedside handoff to Catherine Jacome RN. The pt appears to be resting comfortably with his eyes closed. I am uncertain if he was able to work with occupational therapy, although I was told by the physical therapist Moiz that their session was limited by the pt's nausea.
--- NOTE | 2018-12-09 12:18 | NUR ---
SIMETHACONE CHEW GIVEN FOR STOMACH DISCOMFORT. Sammy is attempting a full liquid lunch at this time.
--- NOTE | 2018-12-09 13:11 | NUR ---
PLAN FOR HD AT 1430. DRESSING CHANGES DONE FOR BOTH PICC/POWERGLIDE. PT REPORTING "LOWER STOMACH PAIN" SIMETHICONE ORDERED. A/O/PLEASANT COOP WITH CARE.
--- NOTE | 2018-12-09 14:11 | NUR ---
CURRENTLY AT HEMODIALYSIS.
--- NOTE | 2018-12-09 19:34 | NUR ---
SHIFT SUMMARY PCU TRANSFER THIS AFTERNOON. PATIENT MEDICATED X1 FOR PAIN AND X1 FOR NAUSEA. SIMETHICONE FOR BLOATING X1. PATIENT HAD DIALYSIS TODAY. PATIENT UP 1 ASSIST STAND PIVOT TO BSC OR CHAIR.PATIENT STATES HE FEELSVERY WEEK. DIET ADVANCED TO FULL LIQUID, TOLERATING WELL. CALL LIGHT IN REACH.
--- NOTE | 2018-12-10 03:10 | NUR ---
SHIFT SUMMARY PT ADMITTED FOR SMALL BOWEL OBSTRUCTION. HE IS A FULL CODE. FULL LIQUID DIET, HAS A POWERGLIDE AND A PICC IN THE DARLIN. HE TAKES HIS MEDICATIONS WHOLE, 1 ASSIST WITH FWW. HE HAS APPEARED TO REST COMFORTABLY THIS SHIFT. WILL CONTINUE TO MONITOR.
--- NOTE | 2018-12-10 15:52 | NUR ---
SHIFT SUMMARY NO ACUTE CHANGES. PATIENT REPORTS MILD ABDOMINAL DISCOMFORT, GIVEN KPAD. DENIES NAUSEA OR SHORTNESS OF BREATH. LARGE STOOL THIS MORNING. DIET ADVANCED TO REGULAR, CPN DISCONTINUED. PATIENT WORKED WITH PT, UP 1 ASSIST W/FWW TO CHAIR. CALL LIGHT IN REACH.
--- NOTE | 2018-12-11 00:45 | NUR ---
SHIFT SUMMARY THERE WAS A GLITCH WITH THE EMAR IN THE BEGINNING OF THE SHIFT AND IT DOES NOT SHOW I GAVE MY 2100 MEDICATIONS AND WONT LET ME EDIT IT SO THERE IS A DOWNTIME SHEET WITH THE TIME I GAVE MEDS IN THE FRONT OF THE PT CHART. PT HAS HAD SOME PAIN ON AND OFF THROUGHOUT THE NIGHT WHICH WAS TREATED PER EMAR AND REPOSITIONING. HE HAS APPEARED TO BE RESTING COMFORTABLY SINCE THEN. WILL CONTINUE TO MONITOR.
[2018-12-11 05:53] LABS: Hematocrit 30.1 % (37.0-53.0); Hemoglobin 10.2 g/dL (13.5-17.5)
[2018-12-11 06:11] LABS: Anion Gap 14 mmol/L (6-16); Blood Urea Nitrogen 95 mg/dL (8-24); CO2, Blood 26 mmol/L (21-32); Calcium, Blood 8.9 mg/dL (8.5-10.1); Chloride, Blood 97 mmol/L (98-108); Glomerular Filtration Rate 8 (60-); Glucose, Blood 119 mg/dL (70-99); Potassium, Blood 3.6 mmol/L (3.5-5.5); Sodium, Blood 137 mmol/L (136-145)
--- NOTE | 2018-12-11 10:00 | NUR ---
pt more alert going to dialysis today will complete advance directive.
--- NOTE | 2018-12-11 11:51 | NUR ---
PT CURRENTLY IN DIALYSIS
--- NOTE | 2018-12-11 13:20 | NUR ---
RETURNED FROM DIALYSIS C/O NAUSEA ZOFRAN GIVEN. ATE LUNCH TRAY REPORTS RELIEF OF NAUSEA AFTER ZOFRAN NO VOMITING.
--- NOTE | 2018-12-11 14:00 | NUR ---
DISCHARGE NOTE PT DISCHARGED VIA W/C WITH [facility] TO [facility] AND IN NO ACUTE DISTRESS ON 3LNC PICC LINE DISCONTINUED BY LEEANNA Vernon RN. ALL WRITTEN DISCHARGE INSTRUCTIONS AND MEDICATION ORDERS SENT WITH [facility].
--- NOTE | 2018-12-11 15:55 | NUR ---
REPORT GIVEN TO [facility].
--- NOTE | 2018-12-18 11:24 | NUR ---
Late entry: Palliative care note written on 12/07/18 at 1502 was charted in error on the wrong pt chart. Please disregard this note for this pt written by this auto service writer.
== END 2018-12-11 13:58 | DRG 388 ==
LOC: DELPENDDIS → ER 15:51 → MEDS 18:53 → ICUE 18:53 → MEDS 20:03 → ENPENDDIS 12-01 11:00 → PCU 12-03 14:10 → ICUE 12-03 23:55 → PCU 12-04 17:20 → MEDS 12-09 14:49
PROVIDERS: Emergency Medicine; Internal Medicine; Internal Medicine Nephrology; Nurse Practitioner Acute Care; ADMIT Internal Medicine
PROC: 5A1D70Z Performance of Urinary Filtration, Intermittent, Less than 6 Hours Per Day (ICD-10-PCS; principal; 2018-11-28)
PROC: 5A1D70Z Performance of Urinary Filtration, Intermittent, Less than 6 Hours Per Day (ICD-10-PCS; 2018-11-28)
PROC: 5A1D70Z Performance of Urinary Filtration, Intermittent, Less than 6 Hours Per Day (ICD-10-PCS; 2018-11-28)
DX: K91.30 Postprocedural intestinal obstruction, unspecified as to partial versus complete (principal); N18.6 End stage renal disease; J96.01 Acute respiratory failure with hypoxia; J18.9 Pneumonia, unspecified organism; I13.2 Hypertensive heart and chronic kidney disease with heart failure and with stage 5 chronic kidney disease, or end stage renal disease; I50.32 Chronic diastolic (congestive) heart failure; N25.81 Secondary hyperparathyroidism of renal origin; J44.0 Chronic obstructive pulmonary disease with (acute) lower respiratory infection; I25.10 Atherosclerotic heart disease of native coronary artery without angina pectoris; E11.22 Type 2 diabetes mellitus with diabetic chronic kidney disease; J44.9 Chronic obstructive pulmonary disease, unspecified; Z99.81 Dependence on supplemental oxygen; I48.0 Paroxysmal atrial fibrillation; D63.1 Anemia in chronic kidney disease; K56.7 Ileus, unspecified; E87.5 Hyperkalemia; E83.39 Other disorders of phosphorus metabolism; Z99.2 Dependence on renal dialysis; G89.29 Other chronic pain; Z79.891 Long term (current) use of opiate analgesic; Z86.73 Personal history of transient ischemic attack (TIA), and cerebral infarction without residual deficits; Z79.01 Long term (current) use of anticoagulants
CPT/HCPCS: 31720; 36415; 36430; 36600; 71045; 74019; 74176; 80053; 80069; 82803; 82947; 83690; 83735; 84100; 84132; 84478; 84484; 85014; 85018; 85025; 85610; 85730; 86850; 86900; 86901; 86923; 93005; 93010; 94640; 94667; 94760; 94762; 96361; 96365; 96375; 97110; 97162; 97166; 97530; 99285-25; C9113; J0360; J0610; J0697; J0881; J1170; J1644; J1815; J2405; J2543; J2550; J3010; J3411; J7030; J7050; J7120; J7131; P9016

== ENCOUNTER 2018-12-17 11:01 | Inpatient (IN) | payer OTHER, MEDICARE ==
[~2018-12-17] VITALS: Ht 177.8 cm; Wt 102.9 kg
[~2018-12-17 11:01] MED LIST changes: +ALLEGRA ALLERG180 MG PO; +LACT10SY PO; +Midodrine HCl2.5 MG PO
[2018-12-17 11:36] LABS: Base Excess Venous 16.6 mmol/L; PCO2 Venous 51.7 mmHg (38-42); PO2 Venous 40.5 mmHg (38-42)
[2018-12-17 11:38] LABS: BASOPHILS ABSOLUTE AUTO 0.07 K/mm3 (0.00-0.23); BASOPHILS PERCENT AUTO 1 % (0-2); EOSINOPHILS ABSOLUTE AUTO 0.16 K/mm3 (0.00-0.68); EOSINOPHILS PERCENT AUTO 2 % (0-6); Hematocrit 31.5 % (37.0-53.0); Hemoglobin 9.9 g/dL (13.5-17.5); IMMATURE GRAN ABSOLUTE AUTO 0.03 K/mm3 (0.00-0.10); IMMATURE GRAN PERCENT AUTO 0 % (0-1); LYMPHOCYTES ABSOLUTE AUTO 0.82 K/mm3 (0.84-5.20); LYMPHOCYTES PERCENT AUTO 9 % (21-46); MONOCYTES ABSOLUTE AUTO 0.72 K/mm3 (0.16-1.47); MONOCYTES PERCENT AUTO 8 % (4-13); Mean Corpuscular HGB 30.7 pg (26.0-34.0); Mean Corpuscular HGB Conc 31.4 g/dL (31.5-36.5); Mean Corpuscular Volume 98 fL (80-100); Mean Platelet Volume 10.5 fL (9.1-12.4); NEUTROPHILS PERCENT AUTO 80 % (41-73); Platelet Count 284 K/mm3 (150-400); RDW Coefficient Variation 14.6 % (11.7-14.2); RDW Standard Deviation 52.7 fL (35.1-46.3); Red Blood Cell Count 3.23 M/mm3 (4.30-5.90)
[2018-12-17 11:59] LABS: Albumin, Blood 2.5 g/dL (3.4-5.0); Albumin/Globulin Ratio 0.5 (0.8-1.8); Bilirubin, Total 0.5 mg/dL (0.1-1.0); Bun/Creatinine Ratio 6.9 (12.0-20.0); Calcium, Blood 9.2 mg/dL (8.5-10.1); Creatinine, Blood 4.34 mg/dL (0.60-1.20); Globulin, Blood 4.6 g/dL (2.2-4.0); Potassium, Blood 3.6 mmol/L (3.5-5.5); Total Protein, Blood 7.1 g/dL (6.4-8.2); Troponin I 0.166 ng/mL (0.000-0.040)
[2018-12-17 12:17] LABS: Source, Urine Voided
[2018-12-17 12:52] LABS: Bilirubin, Urine Neg (Neg); Blood, Urine 5+ (Neg); Glucose Qualitative, Urine Neg (Neg); Ketones, Urine Neg (Neg); Leukocyte Esterase, Urine 1+ (Neg); Nitrite, Urine Neg (Neg); Protein, Urine 3+ (Neg); Urobilinogen, Urine NORM (Normal)
[2018-12-17 13:08] LABS: Appearance, Urine Hazy (Clear); Color, Urine Yellow (P-Yellow)
[2018-12-17 13:10] LABS: Bacteria Mod /hpf; Calcium Oxalate Crystals Rare /hpf; Red Blood Cells, Urine 50-100 /hpf (0-2); Squamous Epithelial Cells Few /hpf (Few)
[2018-12-17] MEDS ORDERED: BASAGLAR K100 UNIT/1 SC (13:39)
[2018-12-17] MEDS ORDERED: TEMA30 PO (13:40)
[2018-12-17] MEDS ORDERED: ALBU2.5V5 INH (13:41)
[2018-12-17] MEDS ORDERED: ONDA4ODT PO (13:41)
[2018-12-17] MEDS ORDERED: MIDO5 PO (13:42)
[2018-12-17] MEDS ORDERED: PREG50 PO (13:44)
--- NOTE | 2018-12-17 16:15 | NUR ---
REPORT RECEIVED FROM WILLY JIMENEZ AT THIS TIME. AWAITING ARRIVAL
--- NOTE | 2018-12-17 16:33 | NUR ---
review of plan of care with kristina.
[2018-12-17] MEDS ORDERED: OXYC5 PO (17:23)
[2018-12-17] MEDS ORDERED: HYDR10 PO (17:26)
[2018-12-17] MEDS ORDERED: ANTACID PLUS A355 M1 PO (17:28)
[2018-12-17] MEDS ORDERED: Calcium Acetat667 MG PO (17:30)
[2018-12-17] MEDS ORDERED: BISA10S PR (17:31)
[2018-12-17] MEDS ORDERED: GUAI600T33 PO (17:32)
--- NOTE | 2018-12-17 17:47 | NUR ---
ADMIT NOTE. PT ARRIVED TO ROOM VIA BED. MED REC COMPLETED. PT PLACED ON TELE AT 106 PER KITCHEN AND COUNTER WORKER. ADMISSION IN PROCESS AT THIS TIME. BED IN LOW POSITION, CALL LIGHT WITHIN REACH. FAMILY PRESENT IN THE ROOM.
--- NOTE | 2018-12-17 20:54 | NUR ---
HD 1:1 NON-ROUTINE HOURS HEMODIALYSIS ORDERED BY DR LIM FOR PATIENT ADMITTED THROUGH ER TO MED FLOOR WITH C/O CHEST PAIN AND DYSPNIA. [facility] [employer] > 2 L REMOVAL TONIGHT.
[2018-12-18 00:27] LABS: Hematocrit 31.2 % (37.0-53.0); Hemoglobin 9.7 g/dL (13.5-17.5); Mean Corpuscular HGB 30.7 pg (26.0-34.0); Mean Corpuscular HGB Conc 31.1 g/dL (31.5-36.5); Mean Corpuscular Volume 99 fL (80-100); Mean Platelet Volume 10.4 fL (9.1-12.4); Platelet Count 299 K/mm3 (150-400); RDW Coefficient Variation 14.4 % (11.7-14.2); RDW Standard Deviation 52.6 fL (35.1-46.3); Red Blood Cell Count 3.16 M/mm3 (4.30-5.90); White Blood Cell Count 9.55 K/mm3 (4.00-11.30)
[2018-12-18 00:43] LABS: Albumin, Blood 2.5 g/dL (3.4-5.0); Anion Gap 5 mmol/L (6-16); Blood Urea Nitrogen 28 mg/dL (8-24); Bun/Creatinine Ratio 7.5 (12.0-20.0); CO2, Blood 34 mmol/L (21-32); Chloride, Blood 99 mmol/L (98-108); Creatinine, Blood 3.72 mg/dL (0.60-1.20); Glomerular Filtration Rate 17 (60-); Glucose, Blood 233 mg/dL (70-99); Magnesium, Blood 2.3 mg/dL (1.6-2.4); Phosphorus, Blood 4.3 mg/dL (2.5-4.9); Potassium, Blood 4.8 mmol/L (3.5-5.5); Sodium, Blood 138 mmol/L (136-145)
--- NOTE | 2018-12-18 04:58 | NUR ---
SHIFT SUMMARY PT HAD DIALYSIS THIS SHIFT AND HAS SINCE RESTED T/O THE NIGHT. PT DAUGHTER AT BEDSIDE AND IS ATTENTIVE TO PT AND HIS NEEDS. PT MEDICATED FOR PAIN HS PER ORDERS. O2 IN PLACE AT 3L, PT DESATS QUICKLY WITHOUT IT. WEARS BIPAP WHILE SLEEPING AND WILL OCCASIONALLY REMOVE MASK. PT ENCOURAGED TO WEAR MASK, BUT IF NOT THAT HE WOULD NEED TO WEAR HIS O2. PT ON TELE AFIB WITH A RATE AVERAGING AROUND 106 OVER THE COURSE OF THE NIGHT PER GREENSKEEPER SUPERVISOR. PRN METOPROLOL HAS NOT BEEN NEEDED. PT DAUGHTER HOPEFUL FOR DC. NO ACUTE CHANGES TO REPORT. WILL CONTINUE TO MONITOR AND REPORT TO ONCOMING RN.
--- NOTE | 2018-12-18 12:45 | NUR ---
Spiritual care visit conducted. Patient is lying in bed and alert. Patient tells me his medical history up to his current issues. Patient shares his career, family and augusto history, as well, as about the recent of his 6 mos ago. I listen empathically and provide grief support, companionship, pastoral counseling department chair and prayer. Patient responds well and shows signs of restored augusto. Patient thanks me for the visit. I will continue to remain available to patient and family.
--- NOTE | 2018-12-18 18:26 | NUR ---
SHIFT SUMMARY PATIENT IS PLEASANT. ALERT AND ORIENTED. HAS NOT GOTTEN UP SINCE [facility]. CALLS APPROPRIATELY. USES THE URINAL. HAS OLIGURIA DUE TO HIS DIALYSIS.
[2018-12-19 05:00] LABS: BASOPHILS ABSOLUTE AUTO 0.09 K/mm3 (0.00-0.23); BASOPHILS PERCENT AUTO 1 % (0-2); EOSINOPHILS ABSOLUTE AUTO 0.29 K/mm3 (0.00-0.68); EOSINOPHILS PERCENT AUTO 3 % (0-6); Hematocrit 32.4 % (37.0-53.0); Hemoglobin 9.9 g/dL (13.5-17.5); IMMATURE GRAN ABSOLUTE AUTO 0.03 K/mm3 (0.00-0.10); IMMATURE GRAN PERCENT AUTO 0 % (0-1); LYMPHOCYTES ABSOLUTE AUTO 0.69 K/mm3 (0.84-5.20); LYMPHOCYTES PERCENT AUTO 6 % (21-46); MONOCYTES ABSOLUTE AUTO 0.49 K/mm3 (0.16-1.47); MONOCYTES PERCENT AUTO 4 % (4-13); Mean Corpuscular HGB 30.4 pg (26.0-34.0); Mean Corpuscular HGB Conc 30.6 g/dL (31.5-36.5); Mean Corpuscular Volume 99 fL (80-100); Mean Platelet Volume 10.4 fL (9.1-12.4); NEUTROPHILS ABSOLUTE AUTO 10.02 K/mm3 (1.96-9.15); NEUTROPHILS PERCENT AUTO 86 % (41-73); Platelet Count 284 K/mm3 (150-400); RDW Coefficient Variation 14.6 % (11.7-14.2); RDW Standard Deviation 53.9 fL (35.1-46.3); Red Blood Cell Count 3.26 M/mm3 (4.30-5.90); White Blood Cell Count 11.61 K/mm3 (4.00-11.30)
[2018-12-19 05:16] LABS: Albumin, Blood 2.5 g/dL (3.4-5.0); Anion Gap 6 mmol/L (6-16); Blood Urea Nitrogen 34 mg/dL (8-24); Bun/Creatinine Ratio 8.5 (12.0-20.0); CO2, Blood 33 mmol/L (21-32); Calcium, Blood 8.6 mg/dL (8.5-10.1); Chloride, Blood 101 mmol/L (98-108); Creatinine, Blood 3.98 mg/dL (0.60-1.20); Glomerular Filtration Rate 15 (60-); Glucose, Blood 157 mg/dL (70-99); Magnesium, Blood 2.3 mg/dL (1.6-2.4); Phosphorus, Blood 4.1 mg/dL (2.5-4.9); Potassium, Blood 4.3 mmol/L (3.5-5.5); Sodium, Blood 140 mmol/L (136-145)
--- NOTE | 2018-12-19 18:21 | NUR ---
SHIFT SUMMARY PATIENT IS PLEASANT, ALERT AND ORIENTED. HE WORKED WITH PHYSICAL THERAPY TODAY IN THE ROOM AND WAS UP IN THE CHAIR FOR ALL MEALS. HE DID GET A SHOWER TODAY AND HIS IV IS STILL WORKING WELL. PATIENT DID NOT HAVE DIALYSIS TODAY ALTHOUGH HE IS CURRENTLY ON THE LIST FOR TOMORROW'S DIALYSIS. PATIENT WAS PLACED ON BUMEX PO ONLY ON NON DIALYSIS DAYS. HE IS STILL ON THE 1000ML FLUID RESTRICTION WHICH HE DOES WELL WITH AND WILL CONTINUE TO MONITOR FOR OUTPUT. HE IS DIALYSIS AND MAY BECOME ANURIC. HE IS ON IV ANTIBIOTICS FOR HIS CURRENT UTI.
--- NOTE | 2018-12-20 02:46 | NUR ---
CARDIAC: PCU INFORMATION SECURITY SYSTEMS INSTRUCTOR CALLS TO REPORT PATIENT HAS A SEVEN BEAT RUN OF V-TACH. VS ARE BP 157/94 RR 16 HR 106 SAT 95% ON 3L NC. PATIENT REPORTS CHEST HEAVINESS BUT NO PAIN. PATIENT REPORTS WAKING UP WITH URGE TO URINATE AND NOT FEELING QUITE RIGHT. PATIENT VOIDED 20ML OF TEA COLORED URINE. CALL WAS PLACED TO DR LYNN, AWAITING CALL BACK.
--- NOTE | 2018-12-20 03:11 | NUR ---
CARDIAC: UPDATED DR LYNN ON RUN OF V-TACH AND CHEST HEAVINESS. TROPONIN IS ADDED TO AM LABS, CONTINUE TO MONITOR ON TELEMETRY.
[2018-12-20 04:22] LABS: BASOPHILS ABSOLUTE AUTO 0.07 K/mm3 (0.00-0.23); BASOPHILS PERCENT AUTO 1 % (0-2); EOSINOPHILS ABSOLUTE AUTO 0.42 K/mm3 (0.00-0.68); EOSINOPHILS PERCENT AUTO 5 % (0-6); Hematocrit 29.6 % (37.0-53.0); IMMATURE GRAN ABSOLUTE AUTO 0.03 K/mm3 (0.00-0.10); IMMATURE GRAN PERCENT AUTO 0 % (0-1); LYMPHOCYTES ABSOLUTE AUTO 0.73 K/mm3 (0.84-5.20); LYMPHOCYTES PERCENT AUTO 8 % (21-46); MONOCYTES ABSOLUTE AUTO 0.53 K/mm3 (0.16-1.47); MONOCYTES PERCENT AUTO 6 % (4-13); Mean Corpuscular HGB 29.7 pg (26.0-34.0); Mean Corpuscular HGB Conc 30.4 g/dL (31.5-36.5); Mean Corpuscular Volume 98 fL (80-100); Mean Platelet Volume 10.4 fL (9.1-12.4); NEUTROPHILS ABSOLUTE AUTO 7.62 K/mm3 (1.96-9.15); NEUTROPHILS PERCENT AUTO 81 % (41-73); Platelet Count 262 K/mm3 (150-400); RDW Coefficient Variation 14.7 % (11.7-14.2); RDW Standard Deviation 52.7 fL (35.1-46.3); Red Blood Cell Count 3.03 M/mm3 (4.30-5.90)
[2018-12-20 04:45] LABS: Albumin, Blood 2.3 g/dL (3.4-5.0); Anion Gap 7 mmol/L (6-16); Blood Urea Nitrogen 53 mg/dL (8-24); Bun/Creatinine Ratio 9.8 (12.0-20.0); CO2, Blood 33 mmol/L (21-32); Calcium, Blood 8.4 mg/dL (8.5-10.1); Chloride, Blood 100 mmol/L (98-108); Creatinine, Blood 5.42 mg/dL (0.60-1.20); Glomerular Filtration Rate 11 (60-); Glucose, Blood 132 mg/dL (70-99); Magnesium, Blood 2.4 mg/dL (1.6-2.4); Phosphorus, Blood 5.3 mg/dL (2.5-4.9); Potassium, Blood 4.7 mmol/L (3.5-5.5); Sodium, Blood 140 mmol/L (136-145)
--- NOTE | 2018-12-20 05:05 | NUR ---
SHIFT SUMMARY: AM LABS SHOW TROPONIN CONTINUEING TO TREND DOWN TO 0.134 FROM 0.168 ON 12/18/18. MAGNESIUM IS 2.4. PATIENT IS SLEEPING AT THIS TIME WITH NO FURTHER COMPLIANTS OF CHEST HEAVINESS. WILL CONTINUE TO MONITOR.
--- NOTE | 2018-12-20 18:08 | NUR ---
SHIFT SUMMARY PATIENT IS PLEASANT, NO ACUTE CONCERNS PER PATIENT. HE HAD A [employer]ANDMEN CONSULT AND THE LANDMEN WANTS TO SPEAK WITH THE FAMILY AND THE PATIENT ON WHERE TO GO FROM HERE HIS RECOMMENDATIONS HAVE BEEN PLACED IN HIS NOTE.
--- NOTE | 2018-12-21 03:34 | NUR ---
LATE ENTRY FOR 12/20/18 AT 2145: MIDODRINE WAS HELD FOR BP 146/77.
--- NOTE | 2018-12-21 04:40 | NUR ---
SHIFT SUMMARY: PATIENT IS MUCH MORE INTERACTIVE WITH STAFF THIS SHIFT. EDUCATION IS GIVEN ON FLUID RESTRICTION, PATIENT HAS BEEN BELOW LIMIT FOR TWO DAYS. THID SHIFT PO INTAKE IS 360 MLS WITH 50 ML OF TEA COLORED URINE OUT. SCHEDULED OXYCODONE IS EFFECTIVE FOR CHRONIC NECK AND BACK PAIN. PATIENT IS A-FIB ON TELEMETRY. BED ALARM IS ON FOR SAFETY.
[2018-12-21 04:44] LABS: Hematocrit 28.8 % (37.0-53.0); Hemoglobin 8.9 g/dL (13.5-17.5)
[2018-12-21 05:05] LABS: Albumin, Blood 2.3 g/dL (3.4-5.0); Anion Gap 7 mmol/L (6-16); Blood Urea Nitrogen 53 mg/dL (8-24); Bun/Creatinine Ratio 10.5 (12.0-20.0); CO2, Blood 34 mmol/L (21-32); Calcium, Blood 8.2 mg/dL (8.5-10.1); Chloride, Blood 98 mmol/L (98-108); Creatinine, Blood 5.05 mg/dL (0.60-1.20); Glomerular Filtration Rate 12 (60-); Glucose, Blood 169 mg/dL (70-99); Magnesium, Blood 2.2 mg/dL (1.6-2.4); Phosphorus, Blood 5.2 mg/dL (2.5-4.9); Potassium, Blood 4.3 mmol/L (3.5-5.5); Sodium, Blood 139 mmol/L (136-145)
--- NOTE | 2018-12-21 18:24 | NUR ---
SHIFT SUMMARY PATIENT IS ALERT AND ORIENTED X3, COOPERTIVE WITH CARE FOR THE MOST PART. DAUGHTER NELLIE CALLED TWICE FOR UPDATE, TOLD RN THAT HE HAS A HISTORY OF DEMENTIA. VSS, BLOOD SUGARS STABLE. PATIENT DENIES SIGNIFICANT PAIN, NAUSEA, SOB, CHEST PRESSURE. PT C/O TIREDNESS AFTER DIALYSIS. PT IS A 1 ASSIST WITH FWW TO CHAIR, PT WORKED WITH OT TODAY. PT HAD DIALYSIS AND 1 UNIT PRBCS. MIDODRINE HELD, SBPS WERE ABOVE 130. DR JONES WAS ABLE TO UPDATE GRANDDAUGHTER ON PHONE, TOLD HER ECHO RESULTS. THE ANTICIPATED PLAN IS THAT HE WILL RETURN TO [facility] TOMORROW.
[2018-12-22 04:55] LABS: BASOPHILS ABSOLUTE AUTO 0.05 K/mm3 (0.00-0.23); BASOPHILS PERCENT AUTO 1 % (0-2); EOSINOPHILS PERCENT AUTO 5 % (0-6); Hematocrit 33.4 % (37.0-53.0); Hemoglobin 10.3 g/dL (13.5-17.5); IMMATURE GRAN ABSOLUTE AUTO 0.01 K/mm3 (0.00-0.10); IMMATURE GRAN PERCENT AUTO 0 % (0-1); LYMPHOCYTES ABSOLUTE AUTO 0.82 K/mm3 (0.84-5.20); LYMPHOCYTES PERCENT AUTO 13 % (21-46); MONOCYTES PERCENT AUTO 8 % (4-13); Mean Corpuscular HGB 29.4 pg (26.0-34.0); Mean Corpuscular HGB Conc 30.8 g/dL (31.5-36.5); Mean Platelet Volume 10.3 fL (9.1-12.4); NEUTROPHILS ABSOLUTE AUTO 4.72 K/mm3 (1.96-9.15); NEUTROPHILS PERCENT AUTO 74 % (41-73); Platelet Count 233 K/mm3 (150-400); RDW Coefficient Variation 15.1 % (11.7-14.2); RDW Standard Deviation 52.8 fL (35.1-46.3)
[2018-12-22 04:56] LABS: Mean Corpuscular Volume 95 fL (80-100)
[2018-12-22 05:16] LABS: Albumin, Blood 2.4 g/dL (3.4-5.0); Anion Gap 9 mmol/L (6-16); Blood Urea Nitrogen 46 mg/dL (8-24); Bun/Creatinine Ratio 10.6 (12.0-20.0); CO2, Blood 32 mmol/L (21-32); Calcium, Blood 8.4 mg/dL (8.5-10.1); Chloride, Blood 99 mmol/L (98-108); Creatinine, Blood 4.33 mg/dL (0.60-1.20); Glomerular Filtration Rate 14 (60-); Glucose, Blood 121 mg/dL (70-99); Magnesium, Blood 2.1 mg/dL (1.6-2.4); Phosphorus, Blood 4.9 mg/dL (2.5-4.9); Potassium, Blood 3.9 mmol/L (3.5-5.5); Sodium, Blood 140 mmol/L (136-145)
--- NOTE | 2018-12-22 06:03 | NUR ---
SUMMARY: A/OX3 BUT BED ALARM ARMED FOR OCCASIONAL FORGETFULLNESS AND DAUGHTER'S REPORT OF BEING STUBBORN AT TIMES. PT COOPERATIVE W/1L FR AND DIALYSIS FISTULA NOTED TO MILENA. PT IS OLIGURIC AND ATTEMPTED TO USE BEDPAN FOR NO VOID OR BM. PT REPOSITIONS SELF IN BED BUT TURN SCHEDULE MAINTAINED, PINK BOTTOM NOTED BUT NO SBD OBSERVED. PT TOLERATED CPAP AT HS AND 1L O2 VIA NC WA, SPO2 WNL ON CONT BIOX AND RESPS E/U. HE REMAINS AFIB AT 90'S-100'S AND ON ELOQUIS AND XARELTO FOR DVT PROPHYLAXIS. PT WILL LIKELY D/C TO [facility] TODAY W/ORDERS ON CHART. DAUGHTER REMAINED AT BEDSIDE. NO ACUTE CHANGES, VSS AND AFEBRILE. WCTM AND REPORT TO DAY RN.
[2018-12-22] MEDS ORDERED: Culturelle1 CAP PO (08:05)
[2018-12-22] MEDS ORDERED: Bumetanide2 MG PO (08:05)
--- NOTE | 2018-12-22 11:29 | NUR ---
PT DISCHARGED FROM THE UNIT 1129 VIA WHEELCHAIR. PT LEFT WITH TRANSPORT HOME TO [facility]. REPORT CALLED TO [facility]. DAUGHTER AWARE OF DISCHARGE AND WILL MEET PT AT [facility]
== END 2018-12-22 11:28 | DRG 291 ==
LOC: ER 11:01 → MEDS 11:02
PROVIDERS: Emergency Medicine; Internal Medicine Nephrology; Nurse Practitioner Acute Care; ADMIT Family Medicine
PROC: 5A1D70Z Performance of Urinary Filtration, Intermittent, Less than 6 Hours Per Day (ICD-10-PCS; principal; 2018-12-19)
PROC: 30233N1 Transfusion of Nonautologous Red Blood Cells into Peripheral Vein, Percutaneous Approach (ICD-10-PCS; 2018-12-19)
DX: I13.2 Hypertensive heart and chronic kidney disease with heart failure and with stage 5 chronic kidney disease, or end stage renal disease (principal); I50.33 Acute on chronic diastolic (congestive) heart failure; N18.6 End stage renal disease; J96.21 Acute and chronic respiratory failure with hypoxia; I47.2 Ventricular tachycardia; I48.20 Chronic atrial fibrillation, unspecified; N39.0 Urinary tract infection, site not specified; N25.81 Secondary hyperparathyroidism of renal origin; E11.22 Type 2 diabetes mellitus with diabetic chronic kidney disease; Z99.2 Dependence on renal dialysis; J44.9 Chronic obstructive pulmonary disease, unspecified; Z99.81 Dependence on supplemental oxygen; I25.10 Atherosclerotic heart disease of native coronary artery without angina pectoris; Z79.4 Long term (current) use of insulin; Z86.73 Personal history of transient ischemic attack (TIA), and cerebral infarction without residual deficits; Z79.01 Long term (current) use of anticoagulants; Z86.718 Personal history of other venous thrombosis and embolism; Z86.711 Personal history of pulmonary embolism; F03.90 Unspecified dementia, unspecified severity, without behavioral disturbance, psychotic disturbance, mood disturbance, and anxiety; E66.01 Morbid (severe) obesity due to excess calories; N40.0 Benign prostatic hyperplasia without lower urinary tract symptoms; D63.1 Anemia in chronic kidney disease; Z87.891 Personal history of nicotine dependence; I25.5 Ischemic cardiomyopathy; Z95.1 Presence of aortocoronary bypass graft; E11.42 Type 2 diabetes mellitus with diabetic polyneuropathy; E11.21 Type 2 diabetes mellitus with diabetic nephropathy; G47.33 Obstructive sleep apnea (adult) (pediatric)
CPT/HCPCS: 36415; 36430; 71045; 80048; 80053; 80069; 81001; 82803; 82947; 83735; 83880; 84145; 84484; 85014; 85018; 85025; 85027; 86850; 86900; 86901; 86923; 90686; 93005; 93010; 93308; 93321; 94762; 96372; 96374; 96375; 97110; 97162; 97166; 97530; 97535; 99285-25; G0008; G0257; G0378; J0696; J0881; J2405; J2930; P9016

== ENCOUNTER 2019-04-10 13:37 | Observation (INO) | payer MEDICARE, OTHER ==
[~2019-04-10] VITALS: Ht 177.8 cm; Wt 99.8 kg
[~2019-04-10 13:37] MED LIST changes: +ALBU2.5V5 INH; +ANTACID PLUS A355 M1 PO; +BISA10S PR; +CULTURELLE1 EACH PO; +Calcium Acetat667 MG PO; +Culturelle1 CAP PO; +HUMALOG KW200 UNIT/1 SC; -HUMULIN R500 UNIT/1 SC; +HYDR10 PO; -MEMA5TAB PO; +Vitamin D2000 UNIT PO
[2019-04-10 14:16] LABS: BASOPHILS ABSOLUTE AUTO 0.08 K/mm3 (0.00-0.23); BASOPHILS PERCENT AUTO 1 % (0-2); EOSINOPHILS PERCENT AUTO 4 % (0-6); Hematocrit 33.9 % (37.0-53.0); IMMATURE GRAN ABSOLUTE AUTO 0.03 K/mm3 (0.00-0.10); IMMATURE GRAN PERCENT AUTO 0 % (0-1); LYMPHOCYTES ABSOLUTE AUTO 0.91 K/mm3 (0.84-5.20); LYMPHOCYTES PERCENT AUTO 10 % (21-46); MONOCYTES ABSOLUTE AUTO 0.62 K/mm3 (0.16-1.47); MONOCYTES PERCENT AUTO 7 % (4-13); Mean Corpuscular HGB Conc 32.4 g/dL (31.5-36.5); Mean Corpuscular Volume 92 fL (80-100); Mean Platelet Volume 10.4 fL (9.1-12.4); NEUTROPHILS PERCENT AUTO 77 % (41-73); Platelet Count 173 K/mm3 (150-400); RDW Standard Deviation 47.7 fL (35.1-46.3); Red Blood Cell Count 3.67 M/mm3 (4.30-5.90); White Blood Cell Count 9.04 K/mm3 (4.00-11.30)
[2019-04-10 14:21] LABS: Source, Urine Clean Catch
[2019-04-10 14:22] LABS: Albumin, Blood 2.8 g/dL (3.4-5.0); Albumin/Globulin Ratio 0.7 (0.8-1.8); Bilirubin, Total 0.3 mg/dL (0.1-1.0); Bun/Creatinine Ratio 9.8 (12.0-20.0); Calcium, Blood 10.1 mg/dL (8.5-10.1); Creatinine, Blood 6.65 mg/dL (0.60-1.20); Globulin, Blood 4.1 g/dL (2.2-4.0); Potassium, Blood 4.4 mmol/L (3.5-5.5); Total Protein, Blood 6.9 g/dL (6.4-8.2)
[2019-04-10 14:24] LABS: Bilirubin, Urine Neg (Neg); Blood, Urine 1+ (Neg); Glucose Qualitative, Urine Neg (Neg); Ketones, Urine 1+ (Neg); Leukocyte Esterase, Urine 3+ (Neg); Nitrite, Urine Neg (Neg); Protein, Urine 3+ (Neg); Urobilinogen, Urine NORM (Normal)
[2019-04-10 14:37] LABS: Appearance, Urine Hazy (Clear); Color, Urine Yellow (P-Yellow)
[2019-04-10 14:38] LABS: Bacteria Few /hpf; Squamous Epithelial Cells Rare /hpf (Few); White Blood Cells, Urine TNTC /hpf (0-5)
[2019-04-10] MEDS ORDERED: DONE5 PO (17:00)
--- NOTE | 2019-04-10 19:14 | NUR ---
SHIFT SUMMARY: PATIENT ADMIT (OBS) FROM ED THIS SHIFT. PT A&O; Kake; CALM AND COOPERATIVE WITH CARE. MEDICATED FOR PAIN PER EMAR. A/V FISTULA L FA; THRILL & BRUIT PRESENT; PATIENT ADMITTED FOR DIALYSIS. REPORT GIVEN TO ONCOMING RN.
--- NOTE | 2019-04-10 20:23 | NUR ---
DR LIM CALLED TO SEE IF PATIENT WILL GET DIALYSIS TONIGHT OR TOMORROW. REPORTS HE WILL BE IN TO SEE PATIENT TONIGHT.
--- NOTE | 2019-04-10 21:03 | NUR ---
DR LIM IN TO SEE PATIENT AND REPORTS HE WILL GET DIALYSIS IN AM.
--- NOTE | 2019-04-10 23:33 | NUR ---
HOSPITALIST CHANCE ANGELA NOTIFIED PATIENT DOES NOT HAVE BASIC ORDERS FOR: AC/HS, VITAL SIGN MONITORING, WEIGHT MONITORING, BASIC PROTOCOL ORDERS, ETC. SHE REPORTS THEY WILL BE PUT IN THE MORNING. CBG 110.
--- NOTE | 2019-04-11 03:20 | NUR ---
SHIFT SUMMARY PATIENT HAD NO ACUTE CHANGES OBSERVED. DR LIM CALLED AND REPORTED HE WOULD SEE PATIENT THIS SHIFT. DR LIM REPORTED PATIENT WILL HAVE DIALYSIS 04/11/19 IN THE MORNING. CBG 110 AND [place]. PIV REMAINS INTACT. A/V FISTUAL LFA. HOSPITALIST CHANCE ANGELA REPORTS REST OF PATIENT ORDERES WILL BE PUT IN THIS MORNING. PRO-AMATINE HELD WITH SBP 166 AND PARAMETERS TO HOLD IF SBP OVER 130. TAKES MEDICATION WHOLE W/WATER. AXO X3 AND LETHARGIC, BEDREST. DENIES PAIN, SOB, AND N/V. AFEBRILE AND RENAL DIET. CALL LIGHT IN REACH. BED IN LOWEST POSITION. WILL CONTINUE TO MONITOR UNTIL DAY SHIFT NURSE ASSUMES CARE.
--- NOTE | 2019-04-11 04:36 | NUR ---
BACK PAIN REPORTED AND OXYCODONE 10 MG GIVEN PER EMAR. CALL LIGHT IN REACH.
[2019-04-11 05:38] LABS: Hematocrit 34.2 % (37.0-53.0)
[2019-04-11 06:10] LABS: Albumin, Blood 2.6 g/dL (3.4-5.0); Anion Gap 8 mmol/L (6-16); Blood Urea Nitrogen 69 mg/dL (8-24); Bun/Creatinine Ratio 9.7 (12.0-20.0); CO2, Blood 28 mmol/L (21-32); Calcium, Blood 9.5 mg/dL (8.5-10.1); Chloride, Blood 102 mmol/L (98-108); Creatinine, Blood 7.08 mg/dL (0.60-1.20); Glomerular Filtration Rate 8 (60-); Glucose, Blood 195 mg/dL (70-99); Magnesium, Blood 2.5 mg/dL (1.6-2.4); Sodium, Blood 138 mmol/L (136-145)
--- NOTE | 2019-04-11 19:32 | NUR ---
SHIFT SUMMARY: NO ACUTE CHANGES TO REPORT THIS SHIFT. PT A&O; CALM AND COOPERATIVE WITH CARE. NO C/O PAIN THIS SHIFT. HEMODIALYSIS THIS SHIFT; PT TOLERATED WELL. UTI; IV ABX CONTINUING. REPORT GIVEN TO ONCOMING RN.
--- NOTE | 2019-04-12 03:15 | NUR ---
SHIFT SUMMARY PATIENT HAD NO ACUTE CHANGE OBSERVED. AXOX 3 AND 1-2 PERSON ASSIST TO BSC. TAKES MEDICATION WHOLE WITH WATER. PRO-AMATINE HELD WITH SBP 135 AND PARAMETER TO HOLD WITH SBP OVER 130. A/V FISTULA LFA. DENIES PAIN, SOB, AND N/V. VSS/AFEBRILE. PATIENT ABLE TO SLEEP MOST OF THE SHIFT. LETHARGIC AT SHIFT CHANGE, DIALYSIS DURING THE DAY. CALL LIGHT IN REACH. BED IN LOWEST POSITION. WILL CONTINUE TO MONITOR UNTIL DAY SHIFT NURSE ASSUMES CARE.
[2019-04-12 05:58] LABS: BASOPHILS ABSOLUTE AUTO 0.07 K/mm3 (0.00-0.23); BASOPHILS PERCENT AUTO 1 % (0-2); EOSINOPHILS PERCENT AUTO 6 % (0-6); Hematocrit 35.6 % (37.0-53.0); Hemoglobin 11.5 g/dL (13.5-17.5); IMMATURE GRAN ABSOLUTE AUTO 0.02 K/mm3 (0.00-0.10); IMMATURE GRAN PERCENT AUTO 0 % (0-1); LYMPHOCYTES ABSOLUTE AUTO 0.81 K/mm3 (0.84-5.20); LYMPHOCYTES PERCENT AUTO 13 % (21-46); MONOCYTES ABSOLUTE AUTO 0.58 K/mm3 (0.16-1.47); MONOCYTES PERCENT AUTO 9 % (4-13); Mean Corpuscular HGB 29.9 pg (26.0-34.0); Mean Corpuscular HGB Conc 32.3 g/dL (31.5-36.5); Mean Corpuscular Volume 93 fL (80-100); Mean Platelet Volume 10.7 fL (9.1-12.4); NEUTROPHILS ABSOLUTE AUTO 4.61 K/mm3 (1.96-9.15); NEUTROPHILS PERCENT AUTO 71 % (41-73); Platelet Count 163 K/mm3 (150-400); RDW Standard Deviation 47.3 fL (35.1-46.3); Red Blood Cell Count 3.85 M/mm3 (4.30-5.90); White Blood Cell Count 6.49 K/mm3 (4.00-11.30)
[2019-04-12 06:21] LABS: Magnesium, Blood 2.3 mg/dL (1.6-2.4)
[2019-04-12 06:24] LABS: Albumin, Blood 2.6 g/dL (3.4-5.0); Anion Gap 7 mmol/L (6-16); Blood Urea Nitrogen 50 mg/dL (8-24); Bun/Creatinine Ratio 8.5 (12.0-20.0); CO2, Blood 32 mmol/L (21-32); Calcium, Blood 9.5 mg/dL (8.5-10.1); Chloride, Blood 100 mmol/L (98-108); Creatinine, Blood 5.87 mg/dL (0.60-1.20); Glomerular Filtration Rate 10 (60-); Glucose, Blood 121 mg/dL (70-99); Phosphorus, Blood 4.5 mg/dL (2.5-4.9); Potassium, Blood 4.2 mmol/L (3.5-5.5); Sodium, Blood 139 mmol/L (136-145)
[2019-04-12] MEDS ORDERED: SEVEC800 PO (09:32)
[2019-04-12] MEDS ORDERED: BENADRYL25 MG PO (09:33)
[2019-04-12] MEDS ORDERED: COLCHICINE0.6 MG PO (09:36)
[2019-04-12] MEDS ORDERED: CINA30 PO (09:37)
[2019-04-12] MEDS ORDERED: GABA300 PO (09:39)
[2019-04-12] MEDS ORDERED: MELATONIN10 M4 PO (09:40)
[2019-04-12] MEDS ORDERED: AZELASTINE137 MCG/0. (09:43)
[2019-04-12] MEDS ORDERED: HYDR10 PO (09:46)
--- NOTE | 2019-04-12 19:28 | NUR ---
PATIENT A/OX4, UP WITH FWW AND SBA. VSS, ON 2LO2 HERE AND AT BASELINE. SKIN INTACT. NO DIALYSIS THIS SHIFT, FISTULA TO L FA. 20G IV TO R AC WNL AND SL. OXYCODONE GIVEN X1 TODAY TO TREAT KIDNEY AND BACK PAIN. PAIN WITH URINATION HAS RESOLVED. ABX SWITCHED TO AMPICILLIN. SKIN INTACT. CALM AND COOPERATIVE WITH CARE. CALLS APPROPRIATELY FOR ASSISTANCE.
--- NOTE | 2019-04-13 04:30 | NUR ---
SHIFT SUMMARY: BP ELEVATED AT 154/80. AFEB. A/OX4. COMMUNICATES NEEDS. PT REPORTS IMPROVEMENT IN UTI SYMPTOM OF SUPRAPUBIC AND RLQ DISCOMFORT. BRUIT AND THRILL PRESENT IN LFA FISTULA. NO ACUTE CHANGES. BED LOW, CALL BUTTON IN REACH. WILL CONT TO MONITOR.
[2019-04-13 05:15] LABS: Hematocrit 34.1 % (37.0-53.0); Hemoglobin 11.2 g/dL (13.5-17.5)
[2019-04-13 05:35] LABS: Albumin, Blood 2.5 g/dL (3.4-5.0); Anion Gap 8 mmol/L (6-16); Blood Urea Nitrogen 66 mg/dL (8-24); Bun/Creatinine Ratio 9.7 (12.0-20.0); CO2, Blood 30 mmol/L (21-32); Calcium, Blood 9.6 mg/dL (8.5-10.1); Chloride, Blood 97 mmol/L (98-108); Creatinine, Blood 6.77 mg/dL (0.60-1.20); Glomerular Filtration Rate 8 (60-); Glucose, Blood 135 mg/dL (70-99); Magnesium, Blood 2.3 mg/dL (1.6-2.4); Phosphorus, Blood 5.2 mg/dL (2.5-4.9); Potassium, Blood 4.4 mmol/L (3.5-5.5); Sodium, Blood 135 mmol/L (136-145)
[2019-04-13] MEDS ORDERED: Vsl#3 Capsule1 EACH PO (11:46)
[2019-04-13] MEDS ORDERED: INSULANPEN SC (11:46)
[2019-04-13] MEDS ORDERED: Amoxicillin500 MG PO (11:46)
--- NOTE | 2019-04-13 17:23 | NUR ---
PATIENT DC'D TO HOME WITH GRANDJACEY BERGERON. RX MEDICATIONS FAXED TO [facility]. DC INSTRUCTIONS AND EDUCATION DISCUSSED WITH PATIENT AND COPY PROVIDED. PATIENT DENIES ANY FURTHER QUESTIONS OR CONCERNS.
== END 2019-04-13 17:22 | disposition home or self-care (01) ==
LOC: ER 13:37 → MEDS 13:38 → ENPENDDIS 04-13 07:58 → MEDS 04-13 17:22
PROVIDERS: Emergency Medicine; Internal Medicine; Internal Medicine Nephrology; ADMIT Internal Medicine
DX: N30.90 Cystitis, unspecified without hematuria (principal); B95.2 Enterococcus as the cause of diseases classified elsewhere; E11.22 Type 2 diabetes mellitus with diabetic chronic kidney disease; I13.2 Hypertensive heart and chronic kidney disease with heart failure and with stage 5 chronic kidney disease, or end stage renal disease; N18.6 End stage renal disease; I48.20 Chronic atrial fibrillation, unspecified; I50.32 Chronic diastolic (congestive) heart failure; J44.9 Chronic obstructive pulmonary disease, unspecified; D63.1 Anemia in chronic kidney disease; I25.10 Atherosclerotic heart disease of native coronary artery without angina pectoris; E83.39 Other disorders of phosphorus metabolism; M10.9 Gout, unspecified; R41.89 Other symptoms and signs involving cognitive functions and awareness; Z99.2 Dependence on renal dialysis; N40.0 Benign prostatic hyperplasia without lower urinary tract symptoms; Z86.718 Personal history of other venous thrombosis and embolism; E88.09 Other disorders of plasma-protein metabolism, not elsewhere classified; I25.2 Old myocardial infarction; Z79.4 Long term (current) use of insulin; E66.9 Obesity, unspecified; Z88.8 Allergy status to other drugs, medicaments and biological substances; Z88.5 Allergy status to narcotic agent; Z88.6 Allergy status to analgesic agent; Z79.01 Long term (current) use of anticoagulants; Z79.899 Other long term (current) drug therapy; Z79.02 Long term (current) use of antithrombotics/antiplatelets; Z68.31 Body mass index [BMI] 31.0-31.9, adult
CPT/HCPCS: 36415; 74176; 80048; 80053; 80069; 81001; 82947; 83690; 83735; 85014; 85018; 85025; 87077; 87086; 87186; 93005; 93010; 96365; 99285-25; A9270-GY; G0257; J0696; J7050

== ENCOUNTER 2019-04-29 07:19 | Day surgery (SDC) | payer MEDICARE, OTHER ==
[~2019-04-29] VITALS: Ht 177.8 cm; Wt 97.4 kg
[~2019-04-29 07:19] MED LIST changes: +AZELASTINE137 MCG/0.; +DONE5 PO; +INSULANPEN SC; +MELATONIN10 M4 PO; +Vsl#3 Capsule1 EACH PO
--- NOTE | 2019-04-29 08:04 | NUR ---
PT UNABLE TO VERIFY WHICH MEDICATIONS HE HAS TAKEN TODAY, REPORTS THAT HIS DAUGHTER PINO KNOWS THAT INFORMATION. SHE IS NOT PRESENT AT THIS TIME. LEFT ARM FISTULA WITH STRONG THRILL, BRUIT HEARD IN PROXIMAL FISUTLA BUT NOT DISTAL FISTULA.
[2019-04-29 08:15] LABS: BASOPHILS ABSOLUTE AUTO 0.13 K/mm3 (0.00-0.23); BASOPHILS PERCENT AUTO 1 % (0-2); EOSINOPHILS PERCENT AUTO 3 % (0-6); Hemoglobin 11.6 g/dL (13.5-17.5); IMMATURE GRAN ABSOLUTE AUTO 0.05 K/mm3 (0.00-0.10); IMMATURE GRAN PERCENT AUTO 1 % (0-1); LYMPHOCYTES ABSOLUTE AUTO 1.27 K/mm3 (0.84-5.20); LYMPHOCYTES PERCENT AUTO 13 % (21-46); MONOCYTES ABSOLUTE AUTO 0.83 K/mm3 (0.16-1.47); MONOCYTES PERCENT AUTO 8 % (4-13); Mean Corpuscular HGB 29.9 pg (26.0-34.0); Mean Corpuscular HGB Conc 32.2 g/dL (31.5-36.5); Mean Corpuscular Volume 93 fL (80-100); Mean Platelet Volume 10.8 fL (9.1-12.4); NEUTROPHILS ABSOLUTE AUTO 7.43 K/mm3 (1.96-9.15); NEUTROPHILS PERCENT AUTO 74 % (41-73); Platelet Count 216 K/mm3 (150-400); RDW Coefficient Variation 14.1 % (11.7-14.2); RDW Standard Deviation 48.1 fL (35.1-46.3); Red Blood Cell Count 3.88 M/mm3 (4.30-5.90); White Blood Cell Count 10.01 K/mm3 (4.00-11.30)
[2019-04-29 08:29] LABS: International Normalized Ratio 1.11; Prothrombin Time Results 11.8 Sec (9.7-11.5)
[2019-04-29 08:33] LABS: Bun/Creatinine Ratio 8.9 (12.0-20.0); Calcium, Blood 9.9 mg/dL (8.5-10.1); Creatinine, Blood 5.29 mg/dL (0.60-1.20); Potassium, Blood 4.1 mmol/L (3.5-5.5)
--- NOTE | 2019-04-29 10:25 | NUR ---
PT PROVIDED WITH MEAL TRAY, TOLERATES PO FLUIDS WITH NO DIFFICULTIES. HOB RAISED TO 90 DEGREES. PT LEFT RADIAL AND BOTH PROX/DISTAL FISTULA SITES APPEAR TO BE WNL. SUTURES REMAIN IN PLACE ON FISTULA ACCESS SITES PER ORDER. PLAN TO REMOVE PRIOR TO D/C HOME. WILL CONTINUE TO MONITOR. PT DAUGHTER CALLED AND UPDATED ON PT DISCHARGE STATUS PER PT REQUEST.
--- NOTE | 2019-04-29 12:25 | NUR ---
DISCHARGE TR BAND REMOVED AND CLOTH DOT DRESSING APPLIED. NO BLEEDING, OOZING OR HEMATOMA NOTED. PURSE STRING SUTURES REMOVED WITH NO COMPLICATIONS. NO BLEEDING OR OOZING NOTED. PT AND FAMILY STATE THEIR UNDERSTANDING OF DISCHARGE AND SITE CARE INSTRUCTIONS AND DENY ANY QUESTIONS OR CONCERNS. IV DCD WITH CATH INTACT. VSS. PT DISCHARGED IN WHEELCHAIR WITH FAMILY.
== END 2019-04-29 12:43 | disposition home or self-care (01) ==
LOC: MHTC 07:19
PROVIDERS: Radiology Diagnostic Radiology
DX: T82.858A Stenosis of other vascular prosthetic devices, implants and grafts, initial encounter (principal); Y71.2 Prosthetic and other implants, materials and accessory cardiovascular devices associated with adverse incidents; E11.22 Type 2 diabetes mellitus with diabetic chronic kidney disease; I12.0 Hypertensive chronic kidney disease with stage 5 chronic kidney disease or end stage renal disease; N18.6 End stage renal disease; E78.00 Pure hypercholesterolemia, unspecified; I25.10 Atherosclerotic heart disease of native coronary artery without angina pectoris; I25.2 Old myocardial infarction; Z88.6 Allergy status to analgesic agent; Z99.2 Dependence on renal dialysis; Z88.5 Allergy status to narcotic agent; Z88.1 Allergy status to other antibiotic agents; Z88.8 Allergy status to other drugs, medicaments and biological substances; Z79.01 Long term (current) use of anticoagulants; Z79.4 Long term (current) use of insulin
CPT/HCPCS: 36902; 76937; 80048; 85025; 85610; 99152; 99153; C1725; C1769; C1887; C1894; J2250; J3010; J7030; Q9967

== ENCOUNTER 2019-05-18 08:43 | Day surgery (SDC) | payer MEDICARE, OTHER | END 2019-05-18 22:51 | disposition home or self-care (01) | LOC: WOUND 08:43 | DX: L89.600 Pressure ulcer of unspecified heel, unstageable (principal); E11.22 Type 2 diabetes mellitus with diabetic chronic kidney disease; I13.2 Hypertensive heart and chronic kidney disease with heart failure and with stage 5 chronic kidney disease, or end stage renal disease; N18.6 End stage renal disease; J44.9 Chronic obstructive pulmonary disease, unspecified; G47.33 Obstructive sleep apnea (adult) (pediatric); I50.9 Heart failure, unspecified; Z99.89 Dependence on other enabling machines and devices; Z99.2 Dependence on renal dialysis; Z95.5 Presence of coronary angioplasty implant and graft; Z79.4 Long term (current) use of insulin; Z88.6 Allergy status to analgesic agent; Z88.1 Allergy status to other antibiotic agents; Z88.8 Allergy status to other drugs, medicaments and biological substances; Z79.899 Other long term (current) drug therapy; Z79.02 Long term (current) use of antithrombotics/antiplatelets; Z79.01 Long term (current) use of anticoagulants | CPT/HCPCS: G0463 ==

== ENCOUNTER 2019-06-11 00:09 | Day surgery (SDC) | payer MEDICARE, OTHER ==
[~2019-06-11 00:09] MED LIST changes: +COLCRYS0.6 M1 PO
== END 2019-06-11 22:38 | disposition home or self-care (01) ==
LOC: WOUND 00:09
DX: Z53.9 Procedure and treatment not carried out, unspecified reason (principal)

== ENCOUNTER 2019-06-14 15:58 | Inpatient (IN) | payer OTHER, MEDICARE ==
[~2019-06-14] VITALS: Ht 177.8 cm; Wt 93.5 kg
[2019-06-14 17:01] LABS: BASOPHILS ABSOLUTE AUTO 0.03 K/mm3 (0.00-0.23); BASOPHILS PERCENT AUTO 0 % (0-2); EOSINOPHILS ABSOLUTE AUTO 0.25 K/mm3 (0.00-0.68); EOSINOPHILS PERCENT AUTO 3 % (0-6); Hematocrit 35.8 % (37.0-53.0); Hemoglobin 11.5 g/dL (13.5-17.5); IMMATURE GRAN ABSOLUTE AUTO 0.05 K/mm3 (0.00-0.10); IMMATURE GRAN PERCENT AUTO 1 % (0-1); LYMPHOCYTES ABSOLUTE AUTO 1.06 K/mm3 (0.84-5.20); LYMPHOCYTES PERCENT AUTO 11 % (21-46); MONOCYTES ABSOLUTE AUTO 0.48 K/mm3 (0.16-1.47); MONOCYTES PERCENT AUTO 5 % (4-13); Mean Corpuscular HGB Conc 32.1 g/dL (31.5-36.5); Mean Corpuscular Volume 97 fL (80-100); Mean Platelet Volume 10.2 fL (9.1-12.4); NEUTROPHILS ABSOLUTE AUTO 7.73 K/mm3 (1.96-9.15); NEUTROPHILS PERCENT AUTO 81 % (41-73); Platelet Count 212 K/mm3 (150-400); RDW Coefficient Variation 13.6 % (11.7-14.2); RDW Standard Deviation 48.1 fL (35.1-46.3); Red Blood Cell Count 3.71 M/mm3 (4.30-5.90)
[2019-06-14 17:26] LABS: Albumin, Blood 3.1 g/dL (3.4-5.0); Albumin/Globulin Ratio 0.8 (0.8-1.8); Bilirubin, Total 0.3 mg/dL (0.1-1.0); Bun/Creatinine Ratio 12.2 (12.0-20.0); Calcium, Blood 9.4 mg/dL (8.5-10.1); Creatinine, Blood 5.91 mg/dL (0.60-1.20); Globulin, Blood 3.7 g/dL (2.2-4.0); Total Protein, Blood 6.8 g/dL (6.4-8.2); Troponin I 0.161 ng/mL (0.000-0.040)
[2019-06-14 19:19] LABS: Adenovirus Not Detected (NOT DETECT); Coronavirus 229E Not Detected (NOT DETECT); Coronavirus HKU1 Not Detected (NOT DETECT); Coronavirus NL63 Not Detected (NOT DETECT)
[2019-06-14 19:20] LABS: Bordetella pertussis Not Detected (NOT DETECT); Chlamydophila pneumoniae Not Detected (NOT DETECT); Coronavirus OC43 Not Detected (NOT DETECT); Human Metapneumovirus Not Detected (NOT DETECT); Human Rhinovirus/Enterovirus Not Detected (NOT DETECT); Influenza A/2009-H1 Not Detected (NOT DETECT); Influenza A/H1 Not Detected (NOT DETECT); Influenza A/H3 Not Detected (NOT DETECT); Influenza B Not Detected (NOT DETECT); Mycoplasma pneumoniae Not Detected (NOT DETECT); Parainfluenza Virus 1 Not Detected (NOT DETECT); Parainfluenza Virus 2 Not Detected (NOT DETECT); Parainfluenza Virus 3 Not Detected (NOT DETECT); Parainfluenza Virus 4 Not Detected (NOT DETECT); Respiratory Syncytial Virus Not Detected (NOT DETECT)
--- NOTE | 2019-06-14 23:45 | NUR ---
NOTIFIED CHANCE CAMP NP REGARDING ELEVATED D-DIMER OF 0.87. PER CHANCE WILL MAKE DR. PEREIRA AWARE.
--- NOTE | 2019-06-15 05:21 | NUR ---
SHIFT SUMMARY- PT. NEW ADMIT FROM ED. COVID-19 R/O. A&O, FORGETFUL AT TIMES. ASLEEP T/O MOST OF THE SHIFT. NO APPARENT DISTRESS NOTED. DENIED ANY C/O PAIN OR DISCOMFORT DURING THE NIGHT. PT. ON RA, O2 SATS WNL. CONT BIOX IN PLACE. PT. ON HEMODIALYSIS, DR. LIM MADE AWARE OF PT. ADMISSION. CALL LIGHT WITHIN REACH AND SIDE RAILS UP X2. WILL CONT TO MONITOR.
[2019-06-15 10:01] LABS: Hematocrit 30.2 % (37.0-53.0); Hemoglobin 9.8 g/dL (13.5-17.5)
[2019-06-15 10:23] LABS: Magnesium, Blood 2.5 mg/dL (1.6-2.4)
[2019-06-15 10:24] LABS: Albumin, Blood 2.6 g/dL (3.4-5.0); Anion Gap 8 mmol/L (6-16); Blood Urea Nitrogen 67 mg/dL (8-24); Bun/Creatinine Ratio 12.2 (12.0-20.0); CO2, Blood 29 mmol/L (21-32); Calcium, Blood 8.5 mg/dL (8.5-10.1); Chloride, Blood 101 mmol/L (98-108); Creatinine, Blood 5.48 mg/dL (0.60-1.20); Glomerular Filtration Rate 11 (60-); Glucose, Blood 181 mg/dL (70-99); Phosphorus, Blood 3.7 mg/dL (2.5-4.9); Potassium, Blood 3.8 mmol/L (3.5-5.5); Sodium, Blood 138 mmol/L (136-145)
--- NOTE | 2019-06-15 17:13 | NUR ---
PATIENT IS ALERT AND ORIENTED AND COOPERATIVE WITH CARE. PATIENT CALLS APPROPRIATELY. HE IS CONTINENT OF BOWEL AND BLADDER. HE USES THE URINAL AND BATHROOM. STAND BY ASISSTED TO THE CHAIR. PATIENT HAD DIALYSIS TODAY, HE COMLAINED OF WEAKNESS FOLLOWING DIALYSIS. HEEL PROTECTOR IS ON LEFT FOOT. PATIENT IS SEEN IN WOUND CLINIC FOR DRESSING CHANGES ON HIS HEEL. HIS LOREE WORKS IN THE WOUND CLINIC. HE USES A FWW AT HOME. WILL CONTINUE TO MONITOR.
[2019-06-16 04:45] LABS: Hematocrit 32.3 % (37.0-53.0); Hemoglobin 10.8 g/dL (13.5-17.5)
[2019-06-16 05:04] LABS: Magnesium, Blood 2.2 mg/dL (1.6-2.4)
[2019-06-16 05:05] LABS: Albumin, Blood 2.7 g/dL (3.4-5.0); Anion Gap 8 mmol/L (6-16); Blood Urea Nitrogen 50 mg/dL (8-24); Bun/Creatinine Ratio 10.6 (12.0-20.0); CO2, Blood 30 mmol/L (21-32); Calcium, Blood 8.7 mg/dL (8.5-10.1); Chloride, Blood 96 mmol/L (98-108); Creatinine, Blood 4.71 mg/dL (0.60-1.20); Glomerular Filtration Rate 13 (60-); Glucose, Blood 224 mg/dL (70-99); Phosphorus, Blood 3.6 mg/dL (2.5-4.9); Potassium, Blood 4.4 mmol/L (3.5-5.5); Sodium, Blood 134 mmol/L (136-145)
--- NOTE | 2019-06-16 05:48 | NUR ---
SHIFT SUMMARY- POSITIVE BC LAST NIGHT. PT. STARTED ON VANCOMYCIN. SLEPT ON/OFF DURING THE NIGHT. HAD NO C/O PAIN OR DISCOMFORT. AWAITING PENDING COVID RESULTS TO RESUME OUPT DIALYSIS. DENIES ANY NEEDS AT THIS TIME. CALL LIGHT WITHIN REACH AND SIDE RAILS UP X2. WILL CONT TO MONITOR.
[2019-06-16 12:49] LABS: Vancomycin, Random 8.7 ug/mL
--- NOTE | 2019-06-16 17:54 | NUR ---
PATIENT IS ALERT AND ORIENTED AND COOPERATIVE WITH CARE. PATIENT DOES NOT USE HIS CALL LIGHT. TELEMETRY IS IN PLACE, AFIB 120'S. CONTINUOUS PULSE OX IS IN PLACE. PATIENT IS ON RA DURING THE DAY. CPAP IS AVAILABLE FOR THE PATIENT TONIGHT. PATIENT HAD DIALYSIS TODAY IN HIS ROOM. PATIENT IS CONTINENT OF BOWEL AND BLADDER, USES THE URINAL INDEPENDENTLY. NO COMPLAINTS OF CHILLS, SOB OR COUGH. LOW GRADE FEVER OF 99.3 DEGREES FEHRENHEIT THIS MORNING. R/O COVID-19. WILL CONTINUE TO MONITOR
--- NOTE | 2019-06-17 04:01 | NUR ---
PT RESTING QUIETLY WITH OCCASIONAL AWAKENING. BIPAP IN USE. REMAINS ON [place]NE PRECAUTIONS TO R/O COVID 19. UP WITH ASSIST TO BEDSIDE COMMODE X 2. CALL LIGHT IN REACH
[2019-06-17 04:42] LABS: BASOPHILS ABSOLUTE AUTO 0.04 K/mm3 (0.00-0.23); BASOPHILS PERCENT AUTO 1 % (0-2); EOSINOPHILS ABSOLUTE AUTO 0.11 K/mm3 (0.00-0.68); EOSINOPHILS PERCENT AUTO 2 % (0-6); Hematocrit 32.3 % (37.0-53.0); Hemoglobin 10.8 g/dL (13.5-17.5); IMMATURE GRAN ABSOLUTE AUTO 0.06 K/mm3 (0.00-0.10); IMMATURE GRAN PERCENT AUTO 1 % (0-1); LYMPHOCYTES ABSOLUTE AUTO 0.42 K/mm3 (0.84-5.20); LYMPHOCYTES PERCENT AUTO 6 % (21-46); MONOCYTES ABSOLUTE AUTO 0.33 K/mm3 (0.16-1.47); MONOCYTES PERCENT AUTO 5 % (4-13); Mean Corpuscular HGB Conc 33.4 g/dL (31.5-36.5); Mean Platelet Volume 10.3 fL (9.1-12.4); NEUTROPHILS ABSOLUTE AUTO 6.43 K/mm3 (1.96-9.15); NEUTROPHILS PERCENT AUTO 87 % (41-73); Platelet Count 169 K/mm3 (150-400); RDW Coefficient Variation 13.7 % (11.7-14.2); RDW Standard Deviation 46.7 fL (35.1-46.3); Red Blood Cell Count 3.48 M/mm3 (4.30-5.90); White Blood Cell Count 7.39 K/mm3 (4.00-11.30)
[2019-06-17 04:43] LABS: Mean Corpuscular Volume 93 fL (80-100)
[2019-06-17 05:02] LABS: Albumin, Blood 2.6 g/dL (3.4-5.0); Anion Gap 8 mmol/L (6-16); Blood Urea Nitrogen 46 mg/dL (8-24); CO2, Blood 30 mmol/L (21-32); Chloride, Blood 97 mmol/L (98-108); Creatinine, Blood 4.59 mg/dL (0.60-1.20); Glomerular Filtration Rate 13 (60-); Glucose, Blood 171 mg/dL (70-99); Magnesium, Blood 2.2 mg/dL (1.6-2.4); Phosphorus, Blood 3.4 mg/dL (2.5-4.9); Potassium, Blood 4.1 mmol/L (3.5-5.5); Sodium, Blood 135 mmol/L (136-145)
--- NOTE | 2019-06-17 17:56 | NUR ---
SUMMARY PT SITTING UP IN BED EATING HIS DINNER, PT HAS WORKED WITH PT/OT TODAY, HAS BEEN UP IN THE CHAIR AND UP IN THE ROOM SEVERAL TIMES, PT DID NOT HAVE DIALYSIS TODAY, GRANDDAUGHTER JUNE HAS CALLED TO CHECK ON THE PT SEVERAL TIMES, HAS EXPRESSED CONCERN REGARDING POTENTIAL DISCHARGE TOMORROW, DISCHARGE PLANNING IS AWARE, VSS, NO ACUTE CHANGES, WILL CONT TO MONITOR
[2019-06-18 04:47] LABS: Hematocrit 29.9 % (37.0-53.0); Hemoglobin 9.9 g/dL (13.5-17.5)
[2019-06-18 05:08] LABS: Albumin, Blood 2.5 g/dL (3.4-5.0); Anion Gap 8 mmol/L (6-16); Blood Urea Nitrogen 60 mg/dL (8-24); Bun/Creatinine Ratio 10.8 (12.0-20.0); CO2, Blood 30 mmol/L (21-32); Calcium, Blood 8.9 mg/dL (8.5-10.1); Chloride, Blood 95 mmol/L (98-108); Creatinine, Blood 5.58 mg/dL (0.60-1.20); Glomerular Filtration Rate 10 (60-); Glucose, Blood 157 mg/dL (70-99); Magnesium, Blood 2.2 mg/dL (1.6-2.4); Phosphorus, Blood 3.8 mg/dL (2.5-4.9); Potassium, Blood 4.3 mmol/L (3.5-5.5); Sodium, Blood 133 mmol/L (136-145)
--- NOTE | 2019-06-18 05:24 | NUR ---
SUMMARY HAS BEEN RESTING QUIETLY WITH FEW INERRUPTIONS THIS SHIFT. TOLRATED MEDS WELL. CPAP IN USE. VSS. AFFECT CHEERFUL WHEN SPEAKING WITH STFF. CALL LIGHT IN REACH
--- NOTE | 2019-06-18 16:11 | NUR ---
CANDELARIA SPOKE WITH PT'S GRANDDAUGHTER JUNE ON THE PHONE, WHO IS ALSO POA, SHE IS APPEALING HIS DISCHARGE AT THIS TIME
--- NOTE | 2019-06-18 18:09 | NUR ---
SUMMARY PT AWAKE IN BED EATING DINNER, PT HAD DIALYSIS TODAY, WAS UP IN THE CHAIR FOR BREAKFAST, WORKED WITH PT/OT, FAMILY HAS CALLED TO CHECK ON HIM SEVERAL TIMES, VSS, NO ACUTE CHANGES, WILL CONT TO MONITOR
--- NOTE | 2019-06-19 04:12 | NUR ---
SUMMARY NO ISSUES NOTED. PT HAS SLEPT WELL T/O SHIFT. PT HAD NO COMPLAINTS. CALL LIGHT IN REACH. TM.
[2019-06-19 05:04] LABS: Hematocrit 31.5 % (37.0-53.0); Hemoglobin 10.4 g/dL (13.5-17.5)
[2019-06-19 05:26] LABS: Albumin, Blood 2.7 g/dL (3.4-5.0); Anion Gap 6 mmol/L (6-16); Blood Urea Nitrogen 50 mg/dL (8-24); Bun/Creatinine Ratio 10.2 (12.0-20.0); CO2, Blood 32 mmol/L (21-32); Calcium, Blood 8.7 mg/dL (8.5-10.1); Chloride, Blood 97 mmol/L (98-108); Creatinine, Blood 4.91 mg/dL (0.60-1.20); Glomerular Filtration Rate 12 (60-); Glucose, Blood 170 mg/dL (70-99); Magnesium, Blood 2.2 mg/dL (1.6-2.4); Phosphorus, Blood 3.3 mg/dL (2.5-4.9); Potassium, Blood 4.4 mmol/L (3.5-5.5); Sodium, Blood 135 mmol/L (136-145)
--- NOTE | 2019-06-19 19:25 | NUR ---
SHIFT SUMMARY. PT DENIES SOB, N/V, AND PAIN. NO NEW CHANGES OR CONCERNS.
--- NOTE | 2019-06-20 05:07 | NUR ---
SIFT SUMMARY: PATIENT IS A&OX3, REPORTING CHRONIC BACK PAIN 09/09, PATIENT REFUSES HEAT THERAPY BUT HAS GOOD EFFECT FROM PRN OXYCODONE. PATIENT REQUEST A SLEEP AIDE AND REPORTS USING BENADRYL AND MELATONIN AT HOME WITH GOOD EFFECT. CHANCE CAMP SUPERVISOR MENDING IS NOTIFIED AND ORDERS ARE OBTAINED FOR ABOVE MEDICATIONS. PATIENT HAS GOOD EFFECT AND SLEPT WELL. VS ARE STABLE.
--- NOTE | 2019-06-20 18:27 | NUR ---
SHIFT SUMMARY. PT DIALYZED TODAY. PT DENIES PAIN, SOB, N/V. GOOD MEAL INTAKE. NO NEW CHANGES OR CONCERNS.
--- NOTE | 2019-06-21 06:25 | NUR ---
SHIFT SUMMARY A/O, ABLE TO MAKE NEEDS KNOWN. COOPERATIVE WITH CARE. ANSWERS QUESTIONS APPROPRIATELY. C/O PAIN/DISCOMFORT X1; MEDICATED PER EMAR. APPEARED TO REST MUCH OF SHIFT. CPAP IN PLACE AT HS WITH CONT. BIOX. NO ACUTE CHANGES NOTED. VSS/AFEBRILE. NO ACUTE CHANGES NOTED OVERNIGHT. BED IN LOWEST POSITION. CALL LIGHT AND BELONGINGS WITHIN REACH. WCTM. REPORT TO ONCOMING RN.
--- NOTE | 2019-06-21 15:43 | NUR ---
SHIFT SUMMARY PT IS A/O X 4 WITH BASELINE FORGETFULNESS AND NO C/O PAIN OR DISCOMFORT. PT DID NOT HAVE DIALYSIS TODAY. PT HAS BEEN COOPERATIVE WITH HIS CARE AND PLEASANT. HIS GRANDDAUGHTER CALLED TODAY AND ASKED SOME QUESTIONS ABOUT THE APPEAL SHE SUBMITTED FOR HIM AND SHE WAS DIRECTED TO TALK WITH HIS QUALITY CONTROL MICROBIOLOGY SUPERVISOR WHO WAS ALSO INFORMED OF HER CALL AND SAID SHE WOULD CALL HER BACK. PT IS ABLE TO MAKE HIS NEEDS KNOWN AND CALLS FOR HELP WHEN NEEDED.
--- NOTE | 2019-06-22 03:59 | NUR ---
SHIFT SUMMARY ADMITTED FOR DYSPNEA. FULL CODE. DIALYSIS PT, AV FISTULA IN LUE. TO BE DIALYZED ON FRI, FRI, FRIDAYS. INSURANCE ISSUES NEEDING TO BE WORKED OUT FOR SCHEDULED DIALYSIS. PT'S LOREE HAS FILED APPEALS OPPOSING DISCHARGE. HE IS ON REGULAR DIET, CONTINUOUS PULSE OX. REFUSED CPAP THIS SHIFT. RA, PILLS GIVEN WHOLE W/WATER, 1 PERSON ASSIST. MIDODRINE HELD BP WAS ABOVE PARAMETER IN EMAR. NO CONCERNS THIS SHIFT. HX: ESRD, DM2, AFIB, CAD, ANEMIA.
[2019-06-22 04:35] LABS: Hematocrit 30.9 % (37.0-53.0); Hemoglobin 10.2 g/dL (13.5-17.5)
[2019-06-22 04:58] LABS: Albumin, Blood 2.8 g/dL (3.4-5.0); Anion Gap 8 mmol/L (6-16); Blood Urea Nitrogen 84 mg/dL (8-24); Bun/Creatinine Ratio 13.7 (12.0-20.0); CO2, Blood 31 mmol/L (21-32); Calcium, Blood 8.5 mg/dL (8.5-10.1); Chloride, Blood 97 mmol/L (98-108); Creatinine, Blood 6.15 mg/dL (0.60-1.20); Glomerular Filtration Rate 9 (60-); Glucose, Blood 183 mg/dL (70-99); Magnesium, Blood 2.1 mg/dL (1.6-2.4); Phosphorus, Blood 4.5 mg/dL (2.5-4.9); Potassium, Blood 5.1 mmol/L (3.5-5.5); Sodium, Blood 136 mmol/L (136-145)
--- NOTE | 2019-06-22 16:13 | NUR ---
SHIFT SUMMARY PT IS A/O X 4 WITH NO C/O PAIN OR DISCOMFORT. HE WENT TO DIALYSIS THIS MORNING ORDERED. PT CONTINUES TO AWAIT APPEAL FILED BY HIS [facility]. HE IS A STAND BY ASSIST TO THE TOILET AND SET UP FOR MEALS AND ADLS.PT IS ABLE TO MAKE HIS NEEDS KNOWN AND CALLS FOR HELP WHEN NEEDED. HE HAS HIS CALL LIGHT IN REACH.
--- NOTE | 2019-06-23 04:13 | NUR ---
SHIFT SUMMARY ADMITTED FOR DYSPNEA. FULL CODE. DIALYSIS PERFORMED YESTERDAY. AV FISTULA IN LEFT FOREARM. GRANDDAUGHTER IS POA, SHE SUBMITTED APPEAL TO PREVENT DC. WHEN DC CAN BE ARRANGED, PLAN IS TO SET UP HOME HEALTH. ON RA, CPAP @ PM. OLIGURIC. PILLS TAKEN WHOLE W/WATER. REGULAR DIET, 1 PERSON STANDBY ASSIST. HX: ESRD, DM2, AFIB, CAD, ANEMIA. NO NEW CONCERNS THIS SHIFT.
[2019-06-23 04:28] LABS: Hematocrit 30.2 % (37.0-53.0); Hemoglobin 9.9 g/dL (13.5-17.5)
[2019-06-23 05:01] LABS: Magnesium, Blood 2.2 mg/dL (1.6-2.4)
[2019-06-23 05:04] LABS: Albumin, Blood 2.8 g/dL (3.4-5.0); Anion Gap 8 mmol/L (6-16); Blood Urea Nitrogen 66 mg/dL (8-24); Bun/Creatinine Ratio 13.6 (12.0-20.0); CO2, Blood 31 mmol/L (21-32); Calcium, Blood 8.7 mg/dL (8.5-10.1); Chloride, Blood 97 mmol/L (98-108); Creatinine, Blood 4.84 mg/dL (0.60-1.20); Glomerular Filtration Rate 12 (60-); Glucose, Blood 132 mg/dL (70-99); Phosphorus, Blood 3.7 mg/dL (2.5-4.9); Potassium, Blood 4.8 mmol/L (3.5-5.5); Sodium, Blood 136 mmol/L (136-145)
--- NOTE | 2019-06-23 18:41 | NUR ---
a+o, able to transfer self with sba to manage hoses and chords, call light in reach, no acute changes noted during shift, currently watching tv after eating dinner, up for therapy, cooperative with care, will continue to monitor and treat until share bsr with noc nurse and pt
--- NOTE | 2019-06-24 04:08 | NUR ---
SHIFT SUMMARY PT HAS BEEN AMBULATING WELL TO THE BATHROOM W/FWW. NO NEW CONCERNS. NO CHANGES IN CONDITION.
[2019-06-24 04:45] LABS: Hematocrit 29.9 % (37.0-53.0); Hemoglobin 9.8 g/dL (13.5-17.5)
[2019-06-24 05:04] LABS: Albumin, Blood 2.9 g/dL (3.4-5.0); Anion Gap 7 mmol/L (6-16); Blood Urea Nitrogen 88 mg/dL (8-24); Bun/Creatinine Ratio 14.4 (12.0-20.0); CO2, Blood 30 mmol/L (21-32); Chloride, Blood 99 mmol/L (98-108); Creatinine, Blood 6.09 mg/dL (0.60-1.20); Glomerular Filtration Rate 9 (60-); Glucose, Blood 160 mg/dL (70-99); Magnesium, Blood 2.1 mg/dL (1.6-2.4); Phosphorus, Blood 5.1 mg/dL (2.5-4.9); Sodium, Blood 136 mmol/L (136-145)
--- NOTE | 2019-06-24 19:31 | NUR ---
A+O DOWN FOR DIALYSIS, RESTING IN BED WHEN SHARED BSR WITH NOC NURSE, DENIED PAIN, ABLE TO TRANSFER TO BATHROOM USING FWW, WITH SBA
[2019-06-25 05:10] LABS: Hematocrit 29.5 % (37.0-53.0); Hemoglobin 9.7 g/dL (13.5-17.5)
[2019-06-25 05:44] LABS: Albumin, Blood 2.9 g/dL (3.4-5.0); Anion Gap 7 mmol/L (6-16); Blood Urea Nitrogen 64 mg/dL (8-24); Bun/Creatinine Ratio 13.3 (12.0-20.0); CO2, Blood 30 mmol/L (21-32); Calcium, Blood 8.6 mg/dL (8.5-10.1); Chloride, Blood 98 mmol/L (98-108); Creatinine, Blood 4.83 mg/dL (0.60-1.20); Glomerular Filtration Rate 12 (60-); Glucose, Blood 130 mg/dL (70-99); Magnesium, Blood 2.1 mg/dL (1.6-2.4); Phosphorus, Blood 4.2 mg/dL (2.5-4.9); Potassium, Blood 4.4 mmol/L (3.5-5.5); Sodium, Blood 135 mmol/L (136-145)
--- NOTE | 2019-06-25 06:57 | NUR ---
ARC WELDER SUMMARY PT A/OX4. COOPERATIVE WITH CARE. CALLS APPROPRIATELY. VSS. NO ACUTE CHANGES OVERNIGHT. SLEPT WELL THIS SHIFT.
--- NOTE | 2019-06-25 13:55 | NUR ---
Spiritual care visit conducted. Patient is lying in bed and alert. Patient tells me that he is depressed from being in the hospital so long. I ask patient how much longer the doctors are saying he needs to stay in the hospital. Patient explains that his daughter is positive for Covid-19 and when she is cleared then he will be able to return home. I listen empathically, normalize patient's experience and provide pastoral chemical dependency counselor, recitaion of inspiring Bible verses and prayer. Patient responds well and shows signs of improved hope. I will continue to remain available to patient and family.
--- NOTE | 2019-06-25 17:44 | NUR ---
SHIFT SUMMARY PT ALERT AND ORIENTED THROUGHOUT THIS SHIFT. PT USES CALL LIGHT APPROPRIATELY. PT USES URINAL AND IS 1 PERSON ASSIST TO THE BATHROOM. PT HAD DIALYSIS THIS AM AND SLEPT MUCH OF THE EARLY AFTERNOON. PT COOPERATIVE WITH CARE THROUGHOUT THIS SHIFT. PT LAYING IN BED WATCHING TELEVISION.
[2019-06-26 04:34] LABS: Hemoglobin 10.3 g/dL (13.5-17.5)
[2019-06-26 04:55] LABS: Albumin, Blood 2.9 g/dL (3.4-5.0); Anion Gap 7 mmol/L (6-16); Blood Urea Nitrogen 61 mg/dL (8-24); Bun/Creatinine Ratio 12.8 (12.0-20.0); CO2, Blood 33 mmol/L (21-32); Calcium, Blood 8.7 mg/dL (8.5-10.1); Chloride, Blood 96 mmol/L (98-108); Creatinine, Blood 4.78 mg/dL (0.60-1.20); Glomerular Filtration Rate 12 (60-); Glucose, Blood 151 mg/dL (70-99); Magnesium, Blood 2.2 mg/dL (1.6-2.4); Phosphorus, Blood 4.4 mg/dL (2.5-4.9); Potassium, Blood 4.4 mmol/L (3.5-5.5); Sodium, Blood 136 mmol/L (136-145)
--- NOTE | 2019-06-26 16:50 | NUR ---
SHIFT SUMMARY PATIENT DENIES PAIN, NAUSEA, AND SHORTNESS OF BREATH. PATIENT UP SBA W/FWW TO BATHROOM. PATIENT USING 2L/NC PRN. PATIENT UP IN CHAIR FOR MEALS. PATIENT DISCHARGE PENDING HIS INHOME CAREGIVER RECOVERING FROM COVID 19. CALL LIGHT IN REACH.
--- NOTE | 2019-06-26 18:29 | NUR ---
ASSUMED PT CARE. HE IS A/O X4, PLEASANT. NOTED HR IRREG APPROX 104, STATE HX AFIB. ASSISTED UP TO CHAIR FOR DINNER, 1 ASSIST.
[2019-06-27 04:32] LABS: Hematocrit 31.2 % (37.0-53.0); Hemoglobin 10.5 g/dL (13.5-17.5)
--- NOTE | 2019-06-27 04:35 | NUR ---
SHIFT SUMMARY NO ACUTE CHANGES TO REPORT THIS SHIFT, PT HAS RESTED COMFORTABLY MOST OF THE NIGHT. VITALS STABLE. MEDICATED X1 FOR PAIN. PT HAS BEEN A/OX4, PLESANT AND COOPERATIVE WITH CARE. STILL AWAITING THE ALL CLEAR FOR DC AT THIS TIME. ASSESSMENT UNCHANGED. BED IN LOWEST POSITION, CALL LIGHT WITHIN REACH. WILL CONTINUE TO MONITOR AND REPORT TO ONCOMING RN.
[2019-06-27 04:48] LABS: Anion Gap 8 mmol/L (6-16); Blood Urea Nitrogen 89 mg/dL (8-24); Bun/Creatinine Ratio 14.4 (12.0-20.0); CO2, Blood 31 mmol/L (21-32); Calcium, Blood 8.8 mg/dL (8.5-10.1); Chloride, Blood 98 mmol/L (98-108); Creatinine, Blood 6.19 mg/dL (0.60-1.20); Glomerular Filtration Rate 9 (60-); Glucose, Blood 150 mg/dL (70-99); Magnesium, Blood 2.3 mg/dL (1.6-2.4); Phosphorus, Blood 4.9 mg/dL (2.5-4.9); Potassium, Blood 4.8 mmol/L (3.5-5.5); Sodium, Blood 137 mmol/L (136-145)
--- NOTE | 2019-06-27 16:30 | NUR ---
SHIFT SUMMARY PT AXO, PLEASANT AND COOPERATIVE WITH CARE. PT HAD DIALYSIS THIS SHIFT. PT DENIES PAIN, SOB AND N/V. NO ACUTE CHANGES THIS SHIFT. PT UP WITH 1 ASSIST TO BATHROOM. BED IN LOW POSITION, CALL LIGHT WITHIN REACH.
--- NOTE | 2019-06-28 04:40 | NUR ---
BP 184/105, MD NOTIFIED. ORDERS FOR LABETOLOL 10 MG IV Q 6 HR PRN OBTAINED. PT ASYMPTOMATIC AT THIS TIME
[2019-06-28 04:55] LABS: Hematocrit 31.6 % (37.0-53.0); Hemoglobin 10.4 g/dL (13.5-17.5)
[2019-06-28 05:16] LABS: Anion Gap 7 mmol/L (6-16); Blood Urea Nitrogen 73 mg/dL (8-24); Bun/Creatinine Ratio 14.2 (12.0-20.0); CO2, Blood 32 mmol/L (21-32); Calcium, Blood 8.8 mg/dL (8.5-10.1); Chloride, Blood 100 mmol/L (98-108); Creatinine, Blood 5.15 mg/dL (0.60-1.20); Glomerular Filtration Rate 11 (60-); Glucose, Blood 157 mg/dL (70-99); Magnesium, Blood 2.2 mg/dL (1.6-2.4); Potassium, Blood 4.7 mmol/L (3.5-5.5); Sodium, Blood 139 mmol/L (136-145)
--- NOTE | 2019-06-28 18:37 | NUR ---
NO ACUTE CHANGES NOTED THIS SHIFT, PT IS WAITING ON DAUGHTERS COVID CLEARANCE BEFORE RETURNING HOME. WILL CONTINUE TO MONITOR AND REPORT TO ON COMING RN
[2019-06-29 04:58] LABS: Hematocrit 31.4 % (37.0-53.0); Hemoglobin 10.3 g/dL (13.5-17.5)
--- NOTE | 2019-06-29 05:15 | NUR ---
SUMMARY PT HAS BEEN RESTING INTERMITTENTLY THIS SHIFT. BP EARLIER WAS 199/106. IV LABETOLOL ADMINISTERED PER MD ORDERS, MED EFFECTIVE. BP NOW 149/95. VOICED FELT BETTER. RESTING QUIETLY. CALL LIGHT IN REACH.
[2019-06-29 05:29] LABS: Magnesium, Blood 2.2 mg/dL (1.6-2.4)
[2019-06-29 05:31] LABS: Albumin, Blood 3.1 g/dL (3.4-5.0); Anion Gap 9 mmol/L (6-16); Blood Urea Nitrogen 90 mg/dL (8-24); Bun/Creatinine Ratio 13.7 (12.0-20.0); CO2, Blood 28 mmol/L (21-32); Calcium, Blood 8.8 mg/dL (8.5-10.1); Chloride, Blood 102 mmol/L (98-108); Creatinine, Blood 6.57 mg/dL (0.60-1.20); Glomerular Filtration Rate 9 (60-); Glucose, Blood 166 mg/dL (70-99); Phosphorus, Blood 4.8 mg/dL (2.5-4.9); Potassium, Blood 4.8 mmol/L (3.5-5.5); Sodium, Blood 139 mmol/L (136-145)
--- NOTE | 2019-06-29 10:30 | NUR ---
NAUSEA PT REPORTED FEELING NAUSEATED. MEDICATED PER ORDERS.
--- NOTE | 2019-06-29 10:54 | NUR ---
NAUSEA PT REPORTS NAUSEA SLIGHTLY IMPROVED. DENIES ANY NEEDS AT THIS TIME.
--- NOTE | 2019-06-29 12:21 | NUR ---
PT TO DIALYSIS.
--- NOTE | 2019-06-29 15:02 | NUR ---
PT BACK TO ROOM FROM DIALYSIS.
--- NOTE | 2019-06-29 17:15 | NUR ---
SUMMARY PT RESTING IN BED W/EYES CLOSED. HAD BOUT OF NAUSEA THIS AM; MEDICATED PER ORDERS W/ZOFRAN. PT REPORTED NAUSEA HAD IMPROVED. DIALYSIS PERFORMED TODAY. PT PLEASANT AND COOPERATIVE. CALL LIGHT IN REACH.
--- NOTE | 2019-06-30 02:46 | NUR ---
SHIFT SUMMARY PT HAS BEEN RESTING QUIETLY WITH FEW INTERRUPTIONS SINCE HS. MED TELE MAINTAINED. CALL LIGHT IN REACH.
[2019-06-30 04:54] LABS: Hematocrit 31.9 % (37.0-53.0); Hemoglobin 10.5 g/dL (13.5-17.5)
[2019-06-30 05:22] LABS: Magnesium, Blood 1.9 mg/dL (1.6-2.4)
[2019-06-30 05:25] LABS: Albumin, Blood 3.2 g/dL (3.4-5.0); Anion Gap 8 mmol/L (6-16); Blood Urea Nitrogen 66 mg/dL (8-24); Bun/Creatinine Ratio 12.8 (12.0-20.0); CO2, Blood 31 mmol/L (21-32); Calcium, Blood 8.7 mg/dL (8.5-10.1); Chloride, Blood 98 mmol/L (98-108); Creatinine, Blood 5.16 mg/dL (0.60-1.20); Glomerular Filtration Rate 11 (60-); Glucose, Blood 129 mg/dL (70-99); Phosphorus, Blood 4.6 mg/dL (2.5-4.9); Potassium, Blood 4.6 mmol/L (3.5-5.5); Sodium, Blood 137 mmol/L (136-145)
--- NOTE | 2019-06-30 17:34 | NUR ---
PATIENT IS ALERT AND ORIENTED AND COOPERATIVE WITH CARE. HE CALLS TO USE THE RESTROOM APPROPRIATELY. ATTENDS IN PLACE. 1PA TO THE BATHROOM. SITS ON THE SIDE OF THE BED FOR MEALS. HAS A GOOD APPETITE. NO COMPLAINTS OF PAIN. WILL CONTINUE TO MONITOR
[2019-07-01 04:33] LABS: Hematocrit 30.9 % (37.0-53.0); Hemoglobin 10.2 g/dL (13.5-17.5)
[2019-07-01 04:51] LABS: Albumin, Blood 3.1 g/dL (3.4-5.0); Anion Gap 6 mmol/L (6-16); Blood Urea Nitrogen 86 mg/dL (8-24); Bun/Creatinine Ratio 13.3 (12.0-20.0); CO2, Blood 32 mmol/L (21-32); Calcium, Blood 8.8 mg/dL (8.5-10.1); Chloride, Blood 100 mmol/L (98-108); Creatinine, Blood 6.47 mg/dL (0.60-1.20); Glomerular Filtration Rate 9 (60-); Glucose, Blood 127 mg/dL (70-99); Magnesium, Blood 2.1 mg/dL (1.6-2.4); Potassium, Blood 4.8 mmol/L (3.5-5.5); Sodium, Blood 138 mmol/L (136-145)
--- NOTE | 2019-07-01 12:24 | NUR ---
PT RETURNED FROM DIALYSIS VIA HIS BED. A&O X 3, APPEARS FATIGUED. IS DANGLING AT BEDSIDE, EATING LUNCH AT THIS TIME.
--- NOTE | 2019-07-01 15:46 | NUR ---
Patient is lying in bed and alert. Patient tells me that is not clear on what is happening with him in terms of medical treatment and plan of DC. Patient states that he is frustrated but he lightens up as we discuss his family and all they did for him for his 85th birthday. He also perks up as he speaks of fishing and gardening. Patient tells stories and cheers himself up. I listen empathically, conduct a life review, normalize patient's experience and provide companionship and prayer. Patient responds well and shows signs of an elevated mood. I will continue to remain available to patient and family.
--- NOTE | 2019-07-01 18:41 | NUR ---
SHIFT SUMMARY: PT GIVEN HD TODAY, TOLERATED WELL. A&O X 3, APPEARS WITHDRAWN. POOR APPETITE. LA FISTULA WITH + BRUIT AND THRILL. LUNGS CLEAR, VSS. DENIED PAIN. SBA TO GET OOB. IS FATIGUED AT THIS TIME.
[2019-07-02 04:59] LABS: Hematocrit 31.9 % (37.0-53.0); Hemoglobin 10.6 g/dL (13.5-17.5)
[2019-07-02 05:17] LABS: Albumin, Blood 3.2 g/dL (3.4-5.0); Anion Gap 9 mmol/L (6-16); Blood Urea Nitrogen 67 mg/dL (8-24); Bun/Creatinine Ratio 12.1 (12.0-20.0); CO2, Blood 31 mmol/L (21-32); Calcium, Blood 8.5 mg/dL (8.5-10.1); Chloride, Blood 97 mmol/L (98-108); Creatinine, Blood 5.54 mg/dL (0.60-1.20); Glomerular Filtration Rate 10 (60-); Glucose, Blood 154 mg/dL (70-99); Magnesium, Blood 2.1 mg/dL (1.6-2.4); Phosphorus, Blood 4.2 mg/dL (2.5-4.9); Potassium, Blood 4.7 mmol/L (3.5-5.5); Sodium, Blood 137 mmol/L (136-145)
--- NOTE | 2019-07-02 18:47 | NUR ---
SHIFT SUMMARY: PT A&O X 3, WITHDRAWN, HAS NO REQUESTS FOR NURSING MOST OF THE TIME. DECLINED AM CARE AND BATH THIS MORNING. FAIR TO POOR APPETITE. VSS, A FIB WITH RATE IN 110'S, NOT ON TELE. NO DIALYSIS TODAY. AMBULATED X 3, TOLERATED FAIR. DANGLED FOR MEALS. PROD COUGH WITH GORDON SPUTUM, RA, CTAB. PLAN IS FOR D/C WHEN CG COVID NEGATIVE. WILL HAVE DIALYSIS TOMORROW.
--- NOTE | 2019-07-03 03:57 | NUR ---
SHIFT SUMMARY PATIENT HAD NO ACUTE CHANGES OBSERVED. AXOX 3 AND ONE ASSIST W/FWW TO BSC. USES URINAL AT BEDSIDE. CBG 204. NO IV ACCESS. DENIES PAIN, SOB, AND N/V. FISTUAL LEFT ARM. COOPERATIVE WITH CARE. CALL LIGHT IN REACH. BED IN LOWEST POSITION. WILL CONTINUE TO MONITOR UNTIL DAY SHIFT NURSE ASSUMES CARE.
[2019-07-03 05:14] LABS: Hematocrit 31.1 % (37.0-53.0); Hemoglobin 10.2 g/dL (13.5-17.5)
[2019-07-03 05:39] LABS: Albumin, Blood 3.1 g/dL (3.4-5.0); Anion Gap 10 mmol/L (6-16); Blood Urea Nitrogen 93 mg/dL (8-24); Bun/Creatinine Ratio 13.4 (12.0-20.0); CO2, Blood 29 mmol/L (21-32); Calcium, Blood 8.6 mg/dL (8.5-10.1); Chloride, Blood 98 mmol/L (98-108); Creatinine, Blood 6.95 mg/dL (0.60-1.20); Glomerular Filtration Rate 8 (60-); Glucose, Blood 152 mg/dL (70-99); Magnesium, Blood 2.2 mg/dL (1.6-2.4); Phosphorus, Blood 4.7 mg/dL (2.5-4.9); Potassium, Blood 4.9 mmol/L (3.5-5.5); Sodium, Blood 137 mmol/L (136-145)
--- NOTE | 2019-07-03 13:04 | NUR ---
to dialysis via cart
--- NOTE | 2019-07-03 17:07 | NUR ---
ALERT. ORIENTED. CHRONIC PAIN FEET AND BACK. HAD DIALYSIS TODAY. INDEPENDENT IN ROOM. UNLABORED RESPIRATIONS. WAITING FOR DAUGHTER TO GET OVER ILLNESS BEFORE GOING HOME. COOPERATIVE. WCTM
[2019-07-04 05:04] LABS: Hematocrit 31.4 % (37.0-53.0); Hemoglobin 10.6 g/dL (13.5-17.5)
[2019-07-04 05:32] LABS: Albumin, Blood 3.2 g/dL (3.4-5.0); Anion Gap 9 mmol/L (6-16); Blood Urea Nitrogen 68 mg/dL (8-24); Bun/Creatinine Ratio 12.6 (12.0-20.0); CO2, Blood 32 mmol/L (21-32); Calcium, Blood 8.8 mg/dL (8.5-10.1); Chloride, Blood 99 mmol/L (98-108); Creatinine, Blood 5.41 mg/dL (0.60-1.20); Glomerular Filtration Rate 11 (60-); Glucose, Blood 133 mg/dL (70-99); Magnesium, Blood 2.2 mg/dL (1.6-2.4); Phosphorus, Blood 4.4 mg/dL (2.5-4.9); Potassium, Blood 4.5 mmol/L (3.5-5.5); Sodium, Blood 140 mmol/L (136-145)
--- NOTE | 2019-07-04 05:39 | NUR ---
SHIFT SUMMARY PATIENT ALERT AND ORIENTED. PATIENT MEDICATED PER EMAR FOR BACK AND KNEE PAIN. WAS ABLE TO SLEEP MOST OF THE NIGHT. HAD MINIMAL NEEDS. BED IN LOWEST POSITION WITH WHEELS LOCKED. CALL LIGHT AND BELONGINGS WITHIN REACH. REPORT GIVEN TO ONCOMING RN.
--- NOTE | 2019-07-04 16:55 | NUR ---
ALERT. ORIENTED.PLEASANT. COOPERATIVE. UNLABORED RESPIRATIONS. DANGLES FOR MEALS. INDEPENDENT IN ROOM. [facility]
--- NOTE | 2019-07-05 04:15 | NUR ---
SHIFT SUMMARY PATIENT HAD NO ACUTE CHANGES OBSERVED. AXOX 3 AND ONE ASSIST TO BR. USES URINAL AT BEDSIDE. CBG 212. NO IV ACCESS. VSS/AFEBRILE. DENIES PAIN, SOB, AND N/V. DIALYSIS TODAY. ON 2L O2 NC. TAKES MEDICATION WHOLE WITH WATER. CALL LIGHT IN REACH. BED IN LOWEST POSITION. WILL CONTINUE TO MONITOR UNTIL DAY SHIFT NURSE ASSUMES CARE.
--- NOTE | 2019-07-05 05:59 | NUR ---
DR LIM NOTIFIED OF STAT LAB FOR K+=4.9 AND Hgb=10.6
--- NOTE | 2019-07-05 09:00 | NUR ---
0900 DR ERIC RAE [facility] CALLED. PERIPHERAL ANGIO RT LEG TOMORROW. PLEASE HOLD ELIQUIS AND PLAVIX. OKAY D/C UNTIL RESUME. NPO MIDNITE. TOLD DR MONTANO IN [facility].
--- NOTE | 2019-07-05 09:20 | NUR ---
PT PLEASANT COOP A/O. DENIES PAIN. PENDING DIALYSIS TODAY PER DR LIM IN ROOM. FISTULA ANALISA. H/R REG, NO MURMER NOTED. NO TELE. LUNGS CLEAR, RESP EASY UNLABORED. ON 2L O2. BT X4 LAST BM YEST. STATES STILL VOIDS SOME. COUPLE CUPS PER DAY. PT 1 ASST TO BATHROOM. USING URINAL. BED IN LOW POSITION, CALL LITE IN REACHM, CALLS APPROP
--- NOTE | 2019-07-05 09:40 | NUR ---
PT OUT FOR DIALYSIS
--- NOTE | 2019-07-05 12:00 | NUR ---
DR WEINBERG TO DO RT LEG PERIPHERAL ANGIO TOMORROW DR WEINBERG. CALLED DR MONTANO. ADVISED OF ABOVE. DOROTEO TO HOLD D/CHARGE. ADVISED MAINTENANCE PAINTER.
--- NOTE | 2019-07-05 12:45 | NUR ---
BACK FROM [employer] 0822
--- NOTE | 2019-07-05 17:32 | NUR ---
PT PLEASANT TODAY. SLEEPING MUCH AFTER DIALYSIS. PT EXPECTING TO SEE DR WEINBERG. UNDERSTANDS NPO MIDNITE AND PROCEDURE TOMORROW HOPEFUL IN AM. STATES NOT SEEN DR WEINBERG THIS DAY. NO OTHER CONCERNS AT THIS TIME. BED IN LOW POSITION, CALL LITE IN REACH, CALLS APPROP
[2019-07-06 05:43] LABS: Hematocrit 33.4 % (37.0-53.0); Hemoglobin 10.8 g/dL (13.5-17.5)
[2019-07-06 05:59] LABS: Albumin, Blood 3.2 g/dL (3.4-5.0); Anion Gap 6 mmol/L (6-16); Blood Urea Nitrogen 67 mg/dL (8-24); Bun/Creatinine Ratio 11.8 (12.0-20.0); CO2, Blood 33 mmol/L (21-32); Calcium, Blood 8.6 mg/dL (8.5-10.1); Chloride, Blood 101 mmol/L (98-108); Creatinine, Blood 5.69 mg/dL (0.60-1.20); Glomerular Filtration Rate 10 (60-); Glucose, Blood 148 mg/dL (70-99); Magnesium, Blood 2.1 mg/dL (1.6-2.4); Phosphorus, Blood 4.5 mg/dL (2.5-4.9); Potassium, Blood 4.6 mmol/L (3.5-5.5); Sodium, Blood 140 mmol/L (136-145)
--- NOTE | 2019-07-06 06:39 | NUR ---
SUMMARY: PT A/OX4, CALLS APPROPRIATELY AND SBA OOB W/FWW. HE USED URINAL T/O NOCTE AND IS ON DIALYSIS BUT ADMITS TO VOIDING APPROX "1-2 CUPS/DAY". FISTULA PRESENT TO L.ARM W/THRILLS AND BRUITS INTACT. NO IV ACCESS NEEDED. L.HEEL MEPILEX IS PREVENTATIVE OF SBD D/T REDNESS OBSERVED. HE'S BEEN NPO SINCE [place] FOR R.LEG ANGIO TODAY BY . PT LIVES W/HIS DAUGHTER WHO IS CURRENTLY COVID (+) AND SHE STATED HE'S UNABLE TO SAFELY COME HOME UNTIL SHE'S BEEN CLEARED. PT DESIRES TO GO HOME SOON BUT IS VERY UNDERSTANDING OF SITUATION. HE REMAINS ON 2L O2 AND WEARS HOME O2 PRN. RESPS ARE E/U W/O ANY S/S RESP DISTRESS. VSS/AFEBRILE, NO ACUTE CHANGES. WCTM AND REPORT TO DAY RN.
--- NOTE | 2019-07-06 10:40 | NUR ---
DR. WALSH GLADE AT BEDSIDE TO CONSENT PT FOR RLE ANGIOGRAM LATER TODAY.
[2019-07-06 18:39] LABS: International Normalized Ratio 1.16; Prothrombin Time Results 12.3 Sec (9.7-11.5)
--- NOTE | 2019-07-06 18:50 | NUR ---
PCU TRANSFER SUMMARY PATIENT ARRIVED FROM [facility] PROCEDURE WITH MD WEINBERG - REVASCULARIZATION OF RIGHT LEG/FOOT. RIGHT FEMORAL ACCESS DONE WITH MYNX CLOSURE USED. NO S/SX OF HEMATOMA OR ACTIVE BLEEDING NOTED AT RIGHT GROIN SITE. PATIENT KEPT FLAT SINCE ARRIVAL TO PCU UNIT TO [facility]. PATIENT HAS BEEN RESTFUL BUT AWAKES EASILY WITH VERBAL STIMULATION. HEPARIN GTT STARTED WITH BOLUS PER EMAR. NO ACUTE DISTRESS NOTED AND VSS. WILL CONTINUE TO [facility] AND REPORT TO NOC SHIFT RN.
[2019-07-07 02:23] LABS: Hematocrit 35.1 % (37.0-53.0); Hemoglobin 11.4 g/dL (13.5-17.5)
[2019-07-07 02:39] LABS: Albumin, Blood 3.4 g/dL (3.4-5.0); Anion Gap 9 mmol/L (6-16); Blood Urea Nitrogen 79 mg/dL (8-24); Bun/Creatinine Ratio 11.9 (12.0-20.0); CO2, Blood 30 mmol/L (21-32); Calcium, Blood 8.7 mg/dL (8.5-10.1); Chloride, Blood 100 mmol/L (98-108); Creatinine, Blood 6.63 mg/dL (0.60-1.20); Glomerular Filtration Rate 9 (60-); Glucose, Blood 154 mg/dL (70-99); Magnesium, Blood 1.9 mg/dL (1.6-2.4); Phosphorus, Blood 5.8 mg/dL (2.5-4.9); Potassium, Blood 4.8 mmol/L (3.5-5.5); Sodium, Blood 139 mmol/L (136-145)
--- NOTE | 2019-07-07 05:03 | NUR ---
SHIFT SUMMARY: APPROX STARTED TO SLOWLY RAISE PATIENTS HOB BY 15 DEGREES, PATIENT WISHED TO BE PUT BACK DOWN SHORTLY AFTER D/T FEELING SLEEPY. MPATIENTS NRIGHT GROIN SITE HAS NO SIGN OF HEMATOMA OR BLEED. DISTAL SITE HAS BASELINE SENSATION AND CAPILLARY REFILL <3, GOOD SKIN TONE AND MOVEMENT. PATIENT DISCHARGE PAPAERS IN FRONT OF CHART. DISCHARGE PLANNING HAS BEEN MADE AWARE OF PATIENTS SITUATION PER DAYSHIFT WILLY BARAJAS. HAPARIN RUNNING AT 17UNOITS/KG/HR PER MD ORDERS, PATIENT COMPLIANT WITH CARE AT THIS TIME. BED LOW AND LOCKED, CALL LIGHT WITHIN REACH
--- NOTE | 2019-07-07 07:20 | NUR ---
ASSUMED CARE: PT RESTING QUIETLY IN BED. RELIABILITY MANAGER AT BEDSIDE. NO ACUTE NEEDS OR CONCERNS AT THIS TIME.
--- NOTE | 2019-07-07 08:10 | NUR ---
PT TAKEN TO DIALYSIS VIA WHEEL CHAIR BY MIMI
--- NOTE | 2019-07-07 10:54 | NUR ---
REPORT CALLED TO MIMI AGUILERA. MIMI AWARE THAT ALL MEDS WERE HELD DUE TO EITHER DIALIZING OFF OR INTERFERING WITH DIALYSIS. PT TO BE TRANSFERRED TO ROOM 309 VIA WHEEL CHAIR AFTER COMPLETION OF DIALYSIS BY PROFESSIONAL BASS FISHER.
--- NOTE | 2019-07-07 16:47 | NUR ---
SHIFT SUMMARY PT AXO, PLEASANT AND COOPERATIVE WITH CARE. UP WITH SBA WITH FWW. VSS. IV PATENT AND SALINE LOCKED. HEPARIN DRIP DC'D THIS SHIFT PER ORDERS.PT TRANSFERRED FROM PCU AT ABOUT 1100 AFTER COMPLETION OF DIALYSIS THIS SHIFT. SEE BRIDGE WELDER NOTES REGARDING PLACEMENT ISSUES. BED IN LOW POSITION, CALL LIGHT WITHIN REACH. PT DENIES PAIN, SOB AND NV.
--- NOTE | 2019-07-07 19:41 | NUR ---
ASSUMED CARE: RAUDEL IS LAYING ON HIS SIDE IN BED. JUST GOT DONE USING THE URINAL. PUT OUT 100CC OF ORANGE COLOR URINE. DENIES ANY SOB, CHEST PAIN, LIGHTHEADNESS, OR ANY OTHER COMPLAINTS. STATES TENDERNESS AT SURGICAL SITE FROM REVASCULARIZATION TODAY. RIGHT GROIN HAS CLEAR TEGADERM OVER SMALL PUNCTURE SITE. CDI, NO DRAINAGE NOTED. VERY LITTLE BRUSING. ATTENDS IS ON CLEAN AND DRY. REPORTS N/T IN BLE NORMAL FOR HIM. BTX4, NO NAUSEA. APPETITE IS FAIR. BM TODAY. WILL CONTINUE TO MONITOR. BED ALARM IS ON.
--- NOTE | 2019-07-07 23:27 | NUR ---
RAUDEL IS LAYING ON SIDE IN BED, AWAKE BUT TRYING TO SLEEP. DENIES ANY NEEDS OR COMPLAINTS AT THIS TIME. CALL LIGHT IN REACH.
--- NOTE | 2019-07-08 05:11 | NUR ---
SHIFT SUMMARY: 84 Y/O HERE FOR DYSPNEA AND FLUID OVERLOAD AND IS NOW AWAITING PLACEMENT. RAUDEL HAS BEEN QUIT ALL NIGHT LAYING IN HIS BED. SURGICAL SITE TO THE RIGHT GROIN HAS TEGADERM OVER IT STILL INTACT, NO DRAINAGE NOTED. HE HAS MOSTLY SLEPT ALL SHIFT DENYING ANY NEEDS OR COMPLAINTS. CBG WAS 213 AT BEDTIME. VS SHOWED SLIGHTLY ELEVATION IN DBP OF 106 RETAKE OF BP WAS NORMAL. HR IS STILL TACHYCARDIC RUNNING 110'S. DENIES ANY CHEST PAIN OR DISCOMFORT. VERY LITTLE OUTPUT NOTED IN SMALL AMOUNTS MOST GOT AT ONE TIME WAS 100CC. NO OTHER CHANGES TO REPORT.
[2019-07-08 05:20] LABS: Hematocrit 33.1 % (37.0-53.0); Hemoglobin 11.2 g/dL (13.5-17.5)
[2019-07-08 05:38] LABS: Albumin, Blood 3.2 g/dL (3.4-5.0); Anion Gap 9 mmol/L (6-16); Blood Urea Nitrogen 74 mg/dL (8-24); Bun/Creatinine Ratio 12.2 (12.0-20.0); CO2, Blood 30 mmol/L (21-32); Calcium, Blood 8.8 mg/dL (8.5-10.1); Chloride, Blood 97 mmol/L (98-108); Creatinine, Blood 6.05 mg/dL (0.60-1.20); Glomerular Filtration Rate 9 (60-); Glucose, Blood 122 mg/dL (70-99); Magnesium, Blood 2.1 mg/dL (1.6-2.4); Phosphorus, Blood 5.7 mg/dL (2.5-4.9); Potassium, Blood 4.5 mmol/L (3.5-5.5); Sodium, Blood 136 mmol/L (136-145)
--- NOTE | 2019-07-08 17:23 | NUR ---
SHIFT SUMMARY PT ALERT AND ORIENTED THIS SHIFT. PT COOPERATIVE WITH CARE AND SAT AT THE SIDE OF THE BED FOR MEALS. PT REPORTED DRY EYES THIS SHIFT AND ASKED FOR MEDICATION FOR IT. CONTACTED AND EYE DROPS WERE ORDERED AND ADMINISTERED. PT REPORTS IMPROVEMENT IN FEELING OF EYES. PT HAS BEEN LAYING IN BED WATCHING TELEVISION THROUGHOUT THIS SHIFT. PT REPORTS NO ADDITIONAL NEEDS.
[2019-07-09 05:51] LABS: Hematocrit 33.1 % (37.0-53.0); Hemoglobin 11.1 g/dL (13.5-17.5)
[2019-07-09 06:05] LABS: Albumin, Blood 3.2 g/dL (3.4-5.0); Anion Gap 10 mmol/L (6-16); Blood Urea Nitrogen 86 mg/dL (8-24); Bun/Creatinine Ratio 12.1 (12.0-20.0); CO2, Blood 29 mmol/L (21-32); Calcium, Blood 8.8 mg/dL (8.5-10.1); Chloride, Blood 97 mmol/L (98-108); Glomerular Filtration Rate 8 (60-); Glucose, Blood 131 mg/dL (70-99); Magnesium, Blood 2.1 mg/dL (1.6-2.4); Phosphorus, Blood 5.6 mg/dL (2.5-4.9); Potassium, Blood 4.7 mmol/L (3.5-5.5); Sodium, Blood 136 mmol/L (136-145)
--- NOTE | 2019-07-09 06:40 | NUR ---
07/09/19 0630 AWAKED FOR AM MEDS. STATES HE SLEPT ON AND OFF. VITALS STABLE. NO DISCOMFORT THIS AM. DIALYSIS PLANNED FOR TODAY. UNEVENTFUL NIGHT.
--- NOTE | 2019-07-09 19:03 | NUR ---
SHIFT SUMMARY: NO ACUTE CHANGES TO REPORT THIS SHIFT. PT A&O; FLAT AFFECT; CALM AND COOPERATIVE WITH CARE. NO C/O PAIN THIS SHIFT. DIALYSIS PATIENT; A-V FISTULA L UA; THRILL & BRUIT PRESENT; DIALYSIS TODAY; PT TIRED & WEAK. AWAITING PLACEMENT. REPORT GIVEN TO ONCOMING RN.
--- NOTE | 2019-07-10 04:22 | NUR ---
SHIFT SUMMARY: RAUDEL IS A&O, COOPERATIVE WITH CARE AND DOES HAVE A FLAT AFFECT. HE USES THE URINAL WITHOUT DIFFICULTY, PRODUCES SMALL AMOUNTS OF URINE D/T DIALYSIS. HE DID HAVE DIALYSIS YESTERDAY. AV FISTULA TO LEFT ARM WITH POSITIVE THRILL AND BRUIT. HE DENIES PAIN. HE IS ABLE TO MAKE HIS NEEDS KNOWN. HE IS A ONE PERSON ASSIST W/ FWW AND GAIT BELT. HE DID REPORT DIFFICULTY BREATHING EARLY IN THE SHIFT. O2 STABLE ON ROOM AIR, LUNGS CLEAR. REASSESSMENT AFTER BREATHING TREATMENT REMAINED UNCHANGED. OXYGEN STABLE, LUNGS CLEAR, NO VISIBLE INCREASED WORK OF BREATHING. HE IS LYING IN BED WITH HIS CALL LIGHT IN REACH. HE SWALLOWS HIS PILLS WHOLE WITH WATER. TOLERATES PO INTAKE WELL. WILL REPORT TO DAY SHIFT RN.
[2019-07-10 04:46] LABS: Hemoglobin 11.8 g/dL (13.5-17.5)
[2019-07-10 05:03] LABS: Albumin, Blood 3.4 g/dL (3.4-5.0); Anion Gap 10 mmol/L (6-16); Blood Urea Nitrogen 69 mg/dL (8-24); Bun/Creatinine Ratio 10.8 (12.0-20.0); CO2, Blood 32 mmol/L (21-32); Calcium, Blood 8.8 mg/dL (8.5-10.1); Chloride, Blood 94 mmol/L (98-108); Creatinine, Blood 6.39 mg/dL (0.60-1.20); Glomerular Filtration Rate 9 (60-); Glucose, Blood 127 mg/dL (70-99); Magnesium, Blood 1.8 mg/dL (1.6-2.4); Phosphorus, Blood 4.8 mg/dL (2.5-4.9); Potassium, Blood 4.2 mmol/L (3.5-5.5); Sodium, Blood 136 mmol/L (136-145)
--- NOTE | 2019-07-10 17:22 | NUR ---
SUMMARY PT RESTING QUIETLY IN BED, WAKES EASILY, UP WITH MIN ASSIST, PT USES THE CALL LIGHT APPROPRIATELY, HAS BEEN PLEASANT AND COOPERATIVE WITH CARE, NO DIALYSIS TODAY, NO COMPLAINTS, WILL CONT TO MONITOR
--- NOTE | 2019-07-11 05:10 | NUR ---
SHIFT SUMMARY- PT. PLEASANT AND COOPERATIVE WITH CARE. PT. HAD NO ACUTE CHANGES OVERNIGHT. APPEARED TO HAVE SLEPT COMFORTABLY T/O THE SHIFT. NO APPARENT DISTRESS NOTED. DENIED NEEDS T/O THE SHIFT. CALL LIGHT WITHIN REACH AND SIDE RAILS UP X2. WILL CONT TO MONITOR.
[2019-07-11 06:09] LABS: Hematocrit 35.1 % (37.0-53.0); Hemoglobin 11.4 g/dL (13.5-17.5)
--- NOTE | 2019-07-11 07:17 | NUR ---
ASSUMED PATIENT CARE. PATIENT SLEEPING COMFORTABLY IN BED, NO SIGNS OF ACUTE DISTRESS. WCTM.
--- NOTE | 2019-07-11 17:06 | NUR ---
NO ACUTE EVENTS THIS SHIFT. PATIENT REPORTED DIARRHEA FROM MILL OPERATOR HEAD, DR. GONGORA NOTIFIED AND LOMOTIL ORDERED, PATIENT ENDORSED RELIEF. NO DIALYSIS TODAY, PLAN IS FOR DIALYSIS TOMORROW IN AM. THRILL AND BRUIT NOTED IN FISTULA. NO SIGNS OF DISCHARGE AT ANGIO GROIN PUNCTURE SITE. PATIENT COMPLAINED OF THRUSH-LIKE SYMPTOMS IN MOUTH, DR. GONGORA NOTIFIED AND NYSTATIN MOUTHWASH ORDERED.
--- NOTE | 2019-07-12 03:34 | NUR ---
SUMMARY: PT A/OX4, CALLS APPROPRIATELY AND IS PLEASANT/COOPERATIVE W/CARE. HE DENIED PAIN/COMPLAINTS AND ANY FURTHER HEARTBURN OR LOOSE STOOL PREVIOUSLY EXPERIENCED ON DAY SHIFT. PT REPOSITIONS SELF IN BED AND USES URINAL INDEPENDENTLY. HE IS OLYGURIC D/T DIALYSIS W/THRILLS AND BRUITS INTACT TO L.ARM FISTULA. DIALYSIS SCHEDULED THIS AM. PRIOR HEALING ANGIO GROIN SITE IS C/D/I. PT RECEIVING SCHEDULED NYSTATIN MOUTHWASH FOR REPORTED IMPROVEMENT. NO ACUTE CHANGES, VSS/AFEBRILE, TACHY AT BASELINE W/KNOW HX AFIB. WCTM AND REPORT TO DAY RN. PT AWAITING D/C PENDING DAUGHTER CLEARING COVID.
[2019-07-12 05:35] LABS: Hematocrit 34.5 % (37.0-53.0); Hemoglobin 11.5 g/dL (13.5-17.5)
--- NOTE | 2019-07-12 06:05 | NUR ---
CRITICAL CREATININE 8.28 THIS AM BUT PT INTENDED TO HAVE DIALYSIS TODAY. DISCUSSED W/CASING RUNNING MACHINE TENDER, ABHAY MULLEN.
[2019-07-12 06:06] LABS: Albumin, Blood 3.3 g/dL (3.4-5.0); Anion Gap 11 mmol/L (6-16); Blood Urea Nitrogen 98 mg/dL (8-24); Bun/Creatinine Ratio 11.8 (12.0-20.0); CO2, Blood 28 mmol/L (21-32); Calcium, Blood 8.7 mg/dL (8.5-10.1); Chloride, Blood 97 mmol/L (98-108); Creatinine, Blood 8.28 mg/dL (0.60-1.20); Glomerular Filtration Rate 6 (60-); Glucose, Blood 122 mg/dL (70-99); Phosphorus, Blood 5.2 mg/dL (2.5-4.9); Potassium, Blood 4.3 mmol/L (3.5-5.5); Sodium, Blood 136 mmol/L (136-145)
[2019-07-12] MEDS ORDERED: Vitamin D2000 UNIT PO (14:55)
[2019-07-12] MEDS ORDERED: SENN187 PO (14:55)
[2019-07-12] MEDS ORDERED: NYST100000 (14:57)
--- NOTE | 2019-07-12 18:33 | NUR ---
PT DISCHARGED AT 1821 ALL PAPERWORK WAS REVIEWED WITH PT AND GRANDDAUGHTER WITH EDUCATIONAL MATERIAL. MEDCIATION FAXED TO [facility]. WALKER TAKEN WITH PERSONAL BELONGING WITH PT. PT ESCORTED BY THIS ROOFING SUBCONTRACTOR TO [facility] VIA WHEELCHAIR. NO DISTRESS NOTED.
== END 2019-07-12 18:12 | disposition home or self-care (01) | DRG 853 ==
LOC: ER 15:58 → MEDS 21:17 → PCU 21:17 → MEDS 22:27 → PCU 07-06 15:18 → MEDS 07-07 11:09
PROVIDERS: Internal Medicine Nephrology; Pharmacist; Physician Assistant; Radiology Diagnostic Radiology; ADMIT Internal Medicine
PROC: 5A1D70Z Performance of Urinary Filtration, Intermittent, Less than 6 Hours Per Day (ICD-10-PCS; 2019-06-14)
PROC: 8E0ZXY6 Isolation (ICD-10-PCS; 2019-06-14)
PROC: 5A1D70Z Performance of Urinary Filtration, Intermittent, Less than 6 Hours Per Day (ICD-10-PCS; 2019-06-24)
PROC: 5A1D70Z Performance of Urinary Filtration, Intermittent, Less than 6 Hours Per Day (ICD-10-PCS; 2019-06-25)
PROC: 5A1D70Z Performance of Urinary Filtration, Intermittent, Less than 6 Hours Per Day (ICD-10-PCS; 2019-06-28)
PROC: 5A1D70Z Performance of Urinary Filtration, Intermittent, Less than 6 Hours Per Day (ICD-10-PCS; 2019-06-30)
PROC: 5A1D70Z Performance of Urinary Filtration, Intermittent, Less than 6 Hours Per Day (ICD-10-PCS; 2019-07-02)
PROC: 5A1D70Z Performance of Urinary Filtration, Intermittent, Less than 6 Hours Per Day (ICD-10-PCS; 2019-07-05)
PROC: 047T3ZZ Dilation of Right Peroneal Artery, Percutaneous Approach (ICD-10-PCS; principal; 2019-07-06)
PROC: 04CT3ZZ Extirpation of Matter from Right Peroneal Artery, Percutaneous Approach (ICD-10-PCS; 2019-07-06)
PROC: 5A1D70Z Performance of Urinary Filtration, Intermittent, Less than 6 Hours Per Day (ICD-10-PCS; 2019-07-06)
PROC: 5A1D70Z Performance of Urinary Filtration, Intermittent, Less than 6 Hours Per Day (ICD-10-PCS; 2019-07-06)
PROC: 5A1D70Z Performance of Urinary Filtration, Intermittent, Less than 6 Hours Per Day (ICD-10-PCS; 2019-07-08)
DX: R50.9 Fever, unspecified (principal); N18.6 End stage renal disease; R78.81 Bacteremia; I13.2 Hypertensive heart and chronic kidney disease with heart failure and with stage 5 chronic kidney disease, or end stage renal disease; I50.32 Chronic diastolic (congestive) heart failure; E87.1 Hypo-osmolality and hyponatremia; E11.22 Type 2 diabetes mellitus with diabetic chronic kidney disease; D63.1 Anemia in chronic kidney disease; Z99.2 Dependence on renal dialysis; Z79.4 Long term (current) use of insulin; N40.0 Benign prostatic hyperplasia without lower urinary tract symptoms; J44.9 Chronic obstructive pulmonary disease, unspecified; R06.00 Dyspnea, unspecified; I48.0 Paroxysmal atrial fibrillation; K21.9 Gastro-esophageal reflux disease without esophagitis; Z86.73 Personal history of transient ischemic attack (TIA), and cerebral infarction without residual deficits; Z85.89 Personal history of malignant neoplasm of other organs and systems; M10.9 Gout, unspecified; E11.51 Type 2 diabetes mellitus with diabetic peripheral angiopathy without gangrene; I25.10 Atherosclerotic heart disease of native coronary artery without angina pectoris; F03.90 Unspecified dementia, unspecified severity, without behavioral disturbance, psychotic disturbance, mood disturbance, and anxiety; B37.9 Candidiasis, unspecified; Z20.828 Contact with and (suspected) exposure to other viral communicable diseases
CPT/HCPCS: 0099U; 36140; 36415; 37229; 71045; 75710; 75774; 76937; 80053; 80069; 80202; 82947; 83605; 83735; 83880; 84132; 84145; 84484; 85014; 85018; 85025; 85347; 85379; 85610; 85730; 86140; 86317; 87040; 93005; 93010; 94640; 94660; 94760; 94762; 96360; 96361; 97116; 97162; 97165; 97530; 97535; 99152; 99153; 99285-25; A9270-GY; C1724; C1725; C1769; C1887; C1894; J0696; J0881; J1644; J2250; J2405; J3010; J3370; J7030; Q0163; Q9967; U0002

== ENCOUNTER 2019-07-26 15:32 | Emergency (ER) | payer OTHER, MEDICARE ==
[~2019-07-26] VITALS: Ht 177.8 cm; Wt 99.8 kg
[~2019-07-26 15:32] MED LIST changes: +NYST100000
[2019-07-26] MEDS ORDERED: TAMS.4ER PO (16:21)
[2019-07-26] MEDS ORDERED: PANT40 PO (16:21)
[2019-07-26] MEDS ORDERED: CLOP75 PO (16:22)
[2019-07-26] MEDS ORDERED: BUME2 PO (16:23)
[2019-07-26] MEDS ORDERED: Vitamin D2000 UNIT PO (16:23)
[2019-07-26] MEDS ORDERED: MEMA5TAB PO (16:24)
[2019-07-26] MEDS ORDERED: FINA5 PO (16:24)
[2019-07-26] MEDS ORDERED: HYDR10 PO (16:24)
[2019-07-26] MEDS ORDERED: METO25ER PO (16:24)
[2019-07-26] MEDS ORDERED: MELA3 (16:24)
[2019-07-26] MEDS ORDERED: OXYC10TA19 PO (16:25)
[2019-07-26] MEDS ORDERED: DONEPEZIL HCL10 MG PO (16:25)
[2019-07-26] MEDS ORDERED: ELIQUIS2.5 MG PO (16:25)
[2019-07-26 16:28] LABS: BASOPHILS ABSOLUTE AUTO 0.04 K/mm3 (0.00-0.23); BASOPHILS PERCENT AUTO 1 % (0-2); EOSINOPHILS ABSOLUTE AUTO 0.14 K/mm3 (0.00-0.68); EOSINOPHILS PERCENT AUTO 2 % (0-6); Hematocrit 32.3 % (37.0-53.0); Hemoglobin 10.6 g/dL (13.5-17.5); IMMATURE GRAN ABSOLUTE AUTO 0.03 K/mm3 (0.00-0.10); IMMATURE GRAN PERCENT AUTO 0 % (0-1); LYMPHOCYTES ABSOLUTE AUTO 0.67 K/mm3 (0.84-5.20); LYMPHOCYTES PERCENT AUTO 8 % (21-46); MONOCYTES ABSOLUTE AUTO 0.61 K/mm3 (0.16-1.47); MONOCYTES PERCENT AUTO 7 % (4-13); Mean Corpuscular HGB Conc 32.8 g/dL (31.5-36.5); Mean Corpuscular Volume 94 fL (80-100); Mean Platelet Volume 11.4 fL (9.1-12.4); NEUTROPHILS ABSOLUTE AUTO 6.85 K/mm3 (1.96-9.15); NEUTROPHILS PERCENT AUTO 82 % (41-73); Platelet Count 183 K/mm3 (150-400); RDW Coefficient Variation 13.3 % (11.7-14.2); RDW Standard Deviation 45.7 fL (35.1-46.3); Red Blood Cell Count 3.42 M/mm3 (4.30-5.90); White Blood Cell Count 8.34 K/mm3 (4.00-11.30)
[2019-07-26 16:38] LABS: Magnesium, Blood 2.4 mg/dL (1.6-2.4); Troponin I 0.153 ng/mL (0.000-0.040)
[2019-07-26 16:40] LABS: Albumin, Blood 2.9 g/dL (3.4-5.0); Albumin/Globulin Ratio 0.8 (0.8-1.8); Bilirubin, Total 0.4 mg/dL (0.1-1.0); Bun/Creatinine Ratio 14.2 (12.0-20.0); Calcium, Blood 9.4 mg/dL (8.5-10.1); Creatinine, Blood 8.31 mg/dL (0.60-1.20); Globulin, Blood 3.8 g/dL (2.2-4.0); Potassium, Blood 4.8 mmol/L (3.5-5.5); Total Protein, Blood 6.7 g/dL (6.4-8.2)
[2019-07-26 18:01] LABS: Source, Urine Catheter
[2019-07-26 18:10] LABS: Bilirubin, Urine Neg (Neg); Blood, Urine 1+ (Neg); Glucose Qualitative, Urine 2+ (Neg); Ketones, Urine Neg (Neg); Leukocyte Esterase, Urine Neg (Neg); Nitrite, Urine Neg (Neg); Protein, Urine 2+ (Neg); Specific Gravity, Urine 1.015 (1.003-1.022); Urobilinogen, Urine NORM (Normal)
[2019-07-26 18:23] LABS: Appearance, Urine Clear (Clear); Color, Urine Yellow (P-Yellow)
[2019-07-26 18:24] LABS: Amorphous Light (0-Heavy); Bacteria Few /hpf; Red Blood Cells, Urine 0-2 /hpf (0-2); Renal Epithelial Rare /hpf (0-Rare); Squamous Epithelial Cells Many /hpf (Few)
== END 2019-07-26 20:07 | disposition home or self-care (01) ==
LOC: ER 15:32
PROVIDERS: Emergency Medicine
DX: R53.1 Weakness (principal); R00.0 Tachycardia, unspecified; R79.1 Abnormal coagulation profile; I13.2 Hypertensive heart and chronic kidney disease with heart failure and with stage 5 chronic kidney disease, or end stage renal disease; E11.22 Type 2 diabetes mellitus with diabetic chronic kidney disease; N18.6 End stage renal disease; D63.1 Anemia in chronic kidney disease; I50.9 Heart failure, unspecified; I25.2 Old myocardial infarction; I48.91 Unspecified atrial fibrillation; J44.9 Chronic obstructive pulmonary disease, unspecified; I25.10 Atherosclerotic heart disease of native coronary artery without angina pectoris; Z88.6 Allergy status to analgesic agent; Z88.8 Allergy status to other drugs, medicaments and biological substances; Z88.5 Allergy status to narcotic agent; Z88.1 Allergy status to other antibiotic agents; Z79.899 Other long term (current) drug therapy; Z79.01 Long term (current) use of anticoagulants; Z79.4 Long term (current) use of insulin; Z79.02 Long term (current) use of antithrombotics/antiplatelets; Z99.2 Dependence on renal dialysis
CPT/HCPCS: 36415; 71045; 80053; 81001; 83735; 83880; 84484; 85025; 93005; 93010; 99285-25

== ENCOUNTER 2019-12-01 14:04 | Inpatient (IN) | payer OTHER, MEDICARE ==
[~2019-12-01] VITALS: Ht 182.9 cm; Wt 97.0 kg
[~2019-12-01 14:04] MED LIST changes: +MELA3 PO; +MEMA5TAB PO; +MEMANTINE HCL10 MG PO; +Midodrine HCl10 MG PO; +PANT20 PO; +SERT50 PO
[2019-12-01] MEDS ORDERED: HYDR10 PO (14:32)
[2019-12-01] MEDS ORDERED: GABA100 PO (14:36)
[2019-12-01] MEDS ORDERED: MERIBIN5 M1 PO (14:37)
[2019-12-01] MEDS ORDERED: NOVOLIN 70100 UNIT/3 SC (14:37)
[2019-12-01] MEDS ORDERED: HUMALOG KW100 UNIT/1 SC (14:38)
[2019-12-01] MEDS ORDERED: Ropinirole HCl0.5 MG PO (14:38)
[2019-12-01 14:45] LABS: BASOPHILS ABSOLUTE AUTO 0.06 K/mm3 (0.00-0.23); BASOPHILS PERCENT AUTO 1 % (0-2); EOSINOPHILS ABSOLUTE AUTO 0.18 K/mm3 (0.00-0.68); EOSINOPHILS PERCENT AUTO 2 % (0-6); Hematocrit 31.7 % (37.0-53.0); Hemoglobin 9.7 g/dL (13.5-17.5); IMMATURE GRAN ABSOLUTE AUTO 0.06 K/mm3 (0.00-0.10); IMMATURE GRAN PERCENT AUTO 1 % (0-1); LYMPHOCYTES ABSOLUTE AUTO 0.94 K/mm3 (0.84-5.20); LYMPHOCYTES PERCENT AUTO 10 % (21-46); MONOCYTES ABSOLUTE AUTO 0.54 K/mm3 (0.16-1.47); MONOCYTES PERCENT AUTO 6 % (4-13); Mean Corpuscular HGB 29.8 pg (26.0-34.0); Mean Corpuscular HGB Conc 30.6 g/dL (31.5-36.5); Mean Corpuscular Volume 98 fL (80-100); NEUTROPHILS ABSOLUTE AUTO 7.52 K/mm3 (1.96-9.15); NEUTROPHILS PERCENT AUTO 81 % (41-73); Platelet Count 183 K/mm3 (150-400); RDW Coefficient Variation 13.9 % (11.7-14.2); RDW Standard Deviation 49.6 fL (35.1-46.3); Red Blood Cell Count 3.25 M/mm3 (4.30-5.90)
[2019-12-01 15:30] LABS: Albumin, Blood 2.7 g/dL (3.4-5.0); Albumin/Globulin Ratio 0.7 (0.8-1.8); Bilirubin, Total 0.4 mg/dL (0.1-1.0); Calcium, Blood 10.1 mg/dL (8.5-10.1); Creatinine, Blood 8.49 mg/dL (0.60-1.20); Globulin, Blood 3.9 g/dL (2.2-4.0); Potassium, Blood 5.3 mmol/L (3.5-5.5); Total Protein, Blood 6.6 g/dL (6.4-8.2)
--- NOTE | 2019-12-01 17:20 | NUR ---
Spoke with ED WILLY Rizvi and discussed case. Pt resting on gurny with his eyes closed and is on BIPAP. Pt's daughter Georgie is bedside. Engaged in therapeutic listening as Georgie reports Pt has missed his last 2 dialysis appointments due to being to weak and sick. Georgie reports her and her daughter are POA. Georgie reports seeing a significant decline in Pt's condition over the last 4 to 6 weeks. Pt is no longer able to stand or walk and has become incontinent of bowel and bladder. Pt also has been hallucinating and more confused over the last few weeks. Georgie reports Pt is now full care including assisting him with feeding. Listened as Georgie reports her and her daughter feel that his body is shutting down. Georgie is tearful at times during visit, and this RN offered emotional support. Georgie is considering comfort care and hospice but expresses concerns regarding this decision. Validated concerns and anwered questions. Georgie states "He is suffering and existing", "he's not actucally living anymore". Offered freelance translator visit with Georgie being agreeable. Ended visit and Georgie agreeable with Palliative Care Follow ups. Neonatologist Marc reports after having conversation Georgie would like Pt to be dialyzed one more time then placed on comfort care, then home with [facility]. This RN confirms with Georgie of wishes. Georgie reports plan to let family know of decision then will place Pt on comfort care. Georgie wishes to have Pt's code status changed to DNR. Confirmed Georgie's understanding of DNR. Georgie expresses appreciation of visit. Spoke with Bedside WILLY Rizvi and ED Research Executive Carmen. Discussed case and daughter's wishes. Called and spoke with Dr Baron. Discussed daughter's wishes and plan. Changed Pt's code status to DNR per V/O from Dr Baron. Dr Baron will call daughter and discuss plan further. Will place hospice referral. Palliative Care will remain available for symptom management and supportive visits.
--- NOTE | 2019-12-01 17:40 | NUR ---
Initial spiritual care note: Met with Mr. Brower's dtr, Georgie at bedside. She was tearful and clearly exhausted. She spoke at length about how hard it has been to care for her father these past few months. Apparently, Sammy has declined physically and mentally--often falling and becoming incontinent. Georgie admits "this " is "never how he wanted to live." I spoke to Georgie about options. Her mom at home on hospice, and Georgie tells me that Sammy wants to at home. In his confusion, he has been telling Georgie that he is afraid of dying. This is making decisions harder for her. She admits he does not understand he is very ill. I provided prayer for a clear path. Georgie would like to speak to her siblings before deciding to stop dialysis. Siblings live out of town and have not been involved in their father's care. Strongly encouraged Georgie to go home and get some food/rest. Offered palliative care team as a resource for siblings if they have questions. Georgie has lost her 2 dogs in the past 2 days. She is very raw emotionally. Assured her that we would take excellent care of her dad and follow family's wishes. Georgie wuold like her dad to be DNR saying, "If his heart stops, that would be God saying 'it time.'" [employer] services will remain available.
[2019-12-01 19:24] LABS: PCO2 Arterial 45.4 mmHg (35-45); PO2 Arterial 75.1 mmHg (80-100); pH Blood Arterial 7.38 (7.35-7.45)
--- NOTE | 2019-12-01 19:44 | NUR ---
PT ARRIVED ON MEDICAL UNIT AT SHIFT CHANGE. LINNENS AND CLOTHES CHANGED, IVF RUNNING (STARTED IN ICU). PT RECIEVING DIALYSIS CURRENTLY. PT VERBALLY AGREED TO RECIEVE DIALYSIS WITH THIS RN AND THE SNOUT PULLER NAKUL. PASSED ON REPORT THAT WAS RECIEVED TO NIGHT RN.
[2019-12-01 23:19] LABS: Source, Urine Catheter
[2019-12-01 23:22] LABS: Appearance, Urine Clear (Clear); Blood, Urine 1+ (Neg); Color, Urine Yellow (P-Yellow); Glucose Qualitative, Urine 1+ (Neg); Ketones, Urine Neg (Neg); Leukocyte Esterase, Urine Neg (Neg); Nitrite, Urine Neg (Neg); Protein, Urine 2+ (Neg); Urobilinogen, Urine NORM (Normal)
[2019-12-01 23:27] LABS: Adenovirus Not Detected (NOT DETECT); Bordetella pertussis Not Detected (NOT DETECT); Chlamydophila pneumoniae Not Detected (NOT DETECT); Coronavirus 229E Not Detected (NOT DETECT); Coronavirus HKU1 Not Detected (NOT DETECT); Coronavirus NL63 Not Detected (NOT DETECT); Coronavirus OC43 Not Detected (NOT DETECT); Human Metapneumovirus Not Detected (NOT DETECT); Human Rhinovirus/Enterovirus Not Detected (NOT DETECT); Influenza A/2009-H1 Not Detected (NOT DETECT); Influenza A/H1 Not Detected (NOT DETECT); Influenza A/H3 Not Detected (NOT DETECT); Influenza B Not Detected (NOT DETECT); Mycoplasma pneumoniae Not Detected (NOT DETECT); Parainfluenza Virus 1 Not Detected (NOT DETECT); Parainfluenza Virus 2 Not Detected (NOT DETECT); Parainfluenza Virus 3 Not Detected (NOT DETECT); Parainfluenza Virus 4 Not Detected (NOT DETECT); Respiratory Syncytial Virus Not Detected (NOT DETECT); SARS-Cov-2 (COVID-19), BioFire Not Detected (NOT DETECT)
[2019-12-01 23:32] LABS: Bilirubin, Urine 1+ (Neg)
[2019-12-01 23:39] LABS: Amorphous Light (0-Heavy); Bacteria Not Seen /hpf; Granular Casts 0-2 /lpf (0); Red Blood Cells, Urine 0-2 /hpf (0-2); Squamous Epithelial Cells Rare /hpf (Few); White Blood Cells, Urine Rare /hpf (0-5)
--- NOTE | 2019-12-02 04:21 | NUR ---
SHIFT SUMMARY ASSUMED CARE OF PT AT 1900. PT IS CONFUSED AND CANT ANSWER ORIENTATION QUESTIONS. PT WAS ABLE TO SWOLLOW PILLS WITH WATER, BUT TOOK BIG GULPS WITH THE STRAW AND COUGHED AFTERWARDS. HEART SOUNDS REGUILAR, PT IS ON TELE RUNNING SINUS TACH @ 121. LUNG SOUNDS ARE CLEAR, PT WORE HIS CPAP T/O THE NIGHT. OT IS INCONTINENT. PT RECEIVED DIALYSIS TODAY, 1100 WAS TAKEN OFF. FISTULA ON L ARM. BRUIT AND THRILL PRESENT UPON ASSESSMENT. GRAND DAUGHTER CALLED, WHO IS POA, SHE DISCUSSED WITH FAMILY THAT SHE MIGHT NOT WANT TO PUT THE PATIENT ON HOSPICE JUST YET. THIS NURSE INFORMED HER TO BRING PROOF OF POA AND THAT THERE WILL BE CARE MANAGERS WHOM SHE CAN TALK TO ABOUT DISCHARGE IN THE AM. NO ACUTE EVENTS DURING THE NIGHT. PT SLEPT T/O THE NIGHT. CALL LIGHT IN REACH, BED IN LOWEST POSTION.
[2019-12-02 05:28] LABS: BASOPHILS ABSOLUTE AUTO 0.06 K/mm3 (0.00-0.23); BASOPHILS PERCENT AUTO 1 % (0-2); EOSINOPHILS ABSOLUTE AUTO 0.13 K/mm3 (0.00-0.68); EOSINOPHILS PERCENT AUTO 2 % (0-6); Hematocrit 35.5 % (37.0-53.0); IMMATURE GRAN ABSOLUTE AUTO 0.07 K/mm3 (0.00-0.10); IMMATURE GRAN PERCENT AUTO 1 % (0-1); LYMPHOCYTES ABSOLUTE AUTO 0.54 K/mm3 (0.84-5.20); LYMPHOCYTES PERCENT AUTO 7 % (21-46); MONOCYTES ABSOLUTE AUTO 0.23 K/mm3 (0.16-1.47); MONOCYTES PERCENT AUTO 3 % (4-13); Mean Corpuscular Volume 97 fL (80-100); Mean Platelet Volume 10.9 fL (9.1-12.4); NEUTROPHILS ABSOLUTE AUTO 7.06 K/mm3 (1.96-9.15); NEUTROPHILS PERCENT AUTO 87 % (41-73); Platelet Count 175 K/mm3 (150-400); RDW Coefficient Variation 14.1 % (11.7-14.2); RDW Standard Deviation 50.3 fL (35.1-46.3); Red Blood Cell Count 3.67 M/mm3 (4.30-5.90); White Blood Cell Count 8.09 K/mm3 (4.00-11.30)
[2019-12-02 06:02] LABS: Albumin, Blood 2.7 g/dL (3.4-5.0); Albumin/Globulin Ratio 0.6 (0.8-1.8); Bilirubin, Total 0.5 mg/dL (0.1-1.0); Bun/Creatinine Ratio 10.1 (12.0-20.0); Calcium, Blood 9.9 mg/dL (8.5-10.1); Creatinine, Blood 5.37 mg/dL (0.60-1.20); Globulin, Blood 4.2 g/dL (2.2-4.0); Magnesium, Blood 2.2 mg/dL (1.6-2.4); Phosphorus, Blood 3.9 mg/dL (2.5-4.9); Potassium, Blood 4.2 mmol/L (3.5-5.5); Total Protein, Blood 6.9 g/dL (6.4-8.2)
--- NOTE | 2019-12-02 17:07 | NUR ---
SHIFT SUMMARY PT AOX4. AFTER DIALYSIS; PT C/O DISCOMFORT ON HIS ABD AFTER DIALYSIS; BOWEL SOUNDS ON ALL FOUR QUADRANTS PRESENT; NO PAIN UPON PALPATION; PT STATED FEELING MUCH BETTER AFTER EATING. PT IS ON CONT PULSE OX- MAINTAINING LOW 90S- ON 2L OF 02 PRN. NO C/O N&V. PT TOLERATED RENAL DIET. CHANGED MEPELEX DRESSINGS ON BUTTOCKS AREA- SEE PIC. NO OTHER ACUTE CHANGES AT THIS TIME; BED IS IN LOWEST POSITION; CALL LIGHTS WIHTIN REACH AND WILL CONT MONITOR UNTIL NEXT SHIFT.
--- NOTE | 2019-12-02 17:58 | NUR ---
Family brought in advanced directive for pt this liseth. RN to make a copy for our chart and I will hand deliver a copy to medical records in the am.I asked that original be given back to family before they leave this liseth.
--- NOTE | 2019-12-02 20:41 | NUR ---
SINUS RHYTHM UNISHEAR OPERATOR PETTY NAZARIO NOTIFIED THIS RN AT APPROX 1944 STATING THAT PT APPEARED TO BE ATTEMPTING TO CONVERT INTO SINUS RHYTHM FROM AFLUTTER. PT HAD CONSISTENTLY BEEN AFLUTTER IN THE 110'S SINCE ADMISSION. AT 2042 PETTY NAZARIO REPORTED THAT PT HAD BEEN SINUS RHYTHM IN THE 90'S FOR APPROX 1 HOUR AND HAD NOT CONVERTED BACK INTO AFLUTTER.
--- NOTE | 2019-12-03 04:15 | NUR ---
SHIFT SUMMARY PT SLEPT WELL THIS EVENING. UP TO BSC X 1, OTHERWISE REMAINED IN BED THROUGHOUT THE NIGHT. PT STRONGER THIS EVENING. STOOD SELF UP WITH FWW AND TOOK SEVERAL STEPS TO THE BSC. 2 STAFF MEMBERS STANDING BY BUT PT WAS ABLE TO DO IT MOSTLY BY HIMSELF. PT HAS LOW URINE OUTPUT RELATED TO ESRD AND DIALYSIS. ONLY 50 ML'S OUT THIS SHIFT. PT REPORTED SOME MILD MID UPPER EPIGASTRIC DISCOMFORT. DENIED ANY NEED FOR MEDICATION FOR IT. PT ON TELEMETRY. CONVERTED FROM AFLUTTER TO SINUS RHYTHM AT START OF SHIFT AND REMAINED IN SINUS RHYTHM THROUGHOUT THE NIGHT. RATE MOSTLY IN THE 90'S. MEPILEX TO COCCYX REPLACED. PRESSURE ULCER NOTED ON COCCYX. PT WORE BIPAP FOR APPROX 5 HOURS THIS EVENING AND REQUESTED TO USE NASAL CANNULA THE REST OF THE NIGHT. O2 SATS IN THE MID TO HIGH 90'S. PT DENIES ANY SOB. OTHERWISE PT HAD UNEVENTFUL NIGHT. VITAL SIGNS STABLE. WILL CONTINUE TO MONITOR.
[2019-12-03 05:36] LABS: Hematocrit 29.5 % (37.0-53.0); Hemoglobin 9.2 g/dL (13.5-17.5)
[2019-12-03 06:15] LABS: Albumin, Blood 2.5 g/dL (3.4-5.0); Anion Gap 6 mmol/L (6-16); Blood Urea Nitrogen 43 mg/dL (8-24); CO2, Blood 32 mmol/L (21-32); Calcium, Blood 9.3 mg/dL (8.5-10.1); Chloride, Blood 101 mmol/L (98-108); Glomerular Filtration Rate 12 (60-); Glucose, Blood 187 mg/dL (70-99); Phosphorus, Blood 4.7 mg/dL (2.5-4.9); Potassium, Blood 3.8 mmol/L (3.5-5.5); Sodium, Blood 139 mmol/L (136-145)
--- NOTE | 2019-12-03 09:48 | NUR ---
Met with Sammy this morning in his room. He is currently receiving a HD treatment. He is awake, and denies any pain. He reports recent fatigue and falling at home. He reports he lives at home with his dtr, Jennifer, and has daily caregivers that assist with his care. Chart notes reviewed. Sammy appears to be alert and oriented, but is forgetful at times during the conversation. It appears he doesn't grasp how chronically ill he is. He states he wants to get better and get stronger. He states he is not interested in hospice services. Will continue to work with CM and family to determine a safe plan for discharge.
[2019-12-03] MEDS ORDERED: TEMA30 PO (12:31)
[2019-12-03] MEDS ORDERED: OXYC10TA19 PO (12:32)
[2019-12-03] MEDS ORDERED: MEGESTROL400 MG/11 PO (12:33)
[2019-12-03] MEDS ORDERED: DIPH50 PO (12:34)
[2019-12-03] MEDS ORDERED: Calcium Acetat667 MG PO (12:35)
--- NOTE | 2019-12-03 17:12 | NUR ---
SHIFT SUMMARY PT HAD MULTIPLE EPISODES OF SINUS TACH @140S, BUT CONVERTED BACK TO SINUS RHYTHM @90S. DENIES CP, DIZZINESS, N&V. PT HAD AN XRAY OF HIS TIBIA AND ANKLE TODAY AFTER C/O PAIN ON THAT AREA. DR STILL AWARE. PT RECOMMENDED PT GOING TO SNF. GRANDDAUGHTER, JUNE AWARE ABOUT THE PLAN. PT STAYS ON LOW 90S- ON 3L OF 02. BIPAP AT NIGHT. BED IS IN THE LOWEST POSITION; CALL LIGHTS WITHIN REACH; AND WILL CONT MONITOR.
--- NOTE | 2019-12-04 04:43 | NUR ---
SUMMARY PT HAD A REPORTED 10 BEAT RUN OF V-TACH. PT ASSESSED AND NO ISSUES NOTED. PT HAS BEEN SLEEPING T/O SHIFT. PT REQUIRES 2 PERSON ASSISTANCE TO STAND AND TRANSFER. PT CURRENTLY SLEEPING AND IN NO DISTRESS. CALL LIGHT IN REACH.
[2019-12-04 05:37] LABS: BASOPHILS ABSOLUTE AUTO 0.05 K/mm3 (0.00-0.23); BASOPHILS PERCENT AUTO 1 % (0-2); EOSINOPHILS ABSOLUTE AUTO 0.13 K/mm3 (0.00-0.68); EOSINOPHILS PERCENT AUTO 3 % (0-6); Hematocrit 28.1 % (37.0-53.0); Hemoglobin 8.9 g/dL (13.5-17.5); IMMATURE GRAN ABSOLUTE AUTO 0.03 K/mm3 (0.00-0.10); IMMATURE GRAN PERCENT AUTO 1 % (0-1); LYMPHOCYTES ABSOLUTE AUTO 0.79 K/mm3 (0.84-5.20); LYMPHOCYTES PERCENT AUTO 16 % (21-46); MONOCYTES ABSOLUTE AUTO 0.51 K/mm3 (0.16-1.47); MONOCYTES PERCENT AUTO 10 % (4-13); Mean Corpuscular HGB 29.6 pg (26.0-34.0); Mean Corpuscular HGB Conc 31.7 g/dL (31.5-36.5); Mean Corpuscular Volume 93 fL (80-100); Mean Platelet Volume 11.3 fL (9.1-12.4); NEUTROPHILS PERCENT AUTO 70 % (41-73); Platelet Count 167 K/mm3 (150-400); RDW Coefficient Variation 13.7 % (11.7-14.2); RDW Standard Deviation 46.6 fL (35.1-46.3); Red Blood Cell Count 3.01 M/mm3 (4.30-5.90); White Blood Cell Count 5.01 K/mm3 (4.00-11.30)
[2019-12-04 05:52] LABS: Albumin, Blood 2.4 g/dL (3.4-5.0); Albumin/Globulin Ratio 0.6 (0.8-1.8); Bilirubin, Total 0.4 mg/dL (0.1-1.0); Bun/Creatinine Ratio 9.2 (12.0-20.0); Calcium, Blood 9.1 mg/dL (8.5-10.1); Creatinine, Blood 4.48 mg/dL (0.60-1.20); Globulin, Blood 3.7 g/dL (2.2-4.0); Potassium, Blood 3.8 mmol/L (3.5-5.5); Total Protein, Blood 6.1 g/dL (6.4-8.2)
--- NOTE | 2019-12-04 12:02 | NUR ---
DIALYSIS CALLED AND INFORMED OF HR OF 150. TX JUST COMPLETED. TOOK OFF TX. C/O CP AND H/A. CP IMPROVED AFTER DCED FROM TX
--- NOTE | 2019-12-04 13:37 | NUR ---
PATIENT CAME BACK FROM DIALYSIS COMPLAINING OF CHEST PAIN WHILE HE WAS ON DIALYSIS. HE WAS ON TELEMETRY. FINE UNHAIRER CALLED A COUPLE TIMES ABOUT THE PATIENT HAVING CONVERSION FROM AFIB TO SINUS RHYTHM. PATIENT REPORTS 7/[address] PA[address] SPOKE WITH [address] STILL. EKG WAS OBTAINED AND PATIENT WAS GIVEN 10MG IV LABETOLOL. HE STATES NOW THAT HIS CHEST PAIN HAS RESOLVED BUT HE HAS GOTTEN A HEADACHE. HE WAS GIVEN A DOSE OF TYLENOL FOR HIS HEADACHE. HE DENIES ANY CHEST PAIN AT THIS TIME. HE IS EATING AND DENIES NAUSEA. DR. STILL HAS BEEN IN TO SEE THE PATIENT TWICE. NO FURTHER CONCERNS AT THIS TIME.
[2019-12-04 17:40] LABS: Albumin, Blood 2.5 g/dL (3.4-5.0); Albumin/Globulin Ratio 0.6 (0.8-1.8); Bilirubin, Total 0.3 mg/dL (0.1-1.0); Bun/Creatinine Ratio 6.9 (12.0-20.0); Calcium, Blood 8.9 mg/dL (8.5-10.1); Creatinine, Blood 3.9 mg/dL (0.60-1.20); Globulin, Blood 3.9 g/dL (2.2-4.0); Potassium, Blood 3.7 mmol/L (3.5-5.5); Total Protein, Blood 6.4 g/dL (6.4-8.2); Troponin I 0.204 ng/mL (0.000-0.040)
--- NOTE | 2019-12-04 18:42 | NUR ---
SHIFT SUMMARY PATIENT IS PLEASANT, ALERT AND ORIENTED. PATIENT'S FAMILY MEMBER IS IN THE ROOM WITH HIM AT THIS TIME. STARTING AT 1230 THIS MORNING THE PATIENT COMPLAINED OF CHEST PAIN. IT WAS INTERMITTENT WHEN HE CAME BACK FROM DIALYSIS. HE HAS BEEN RESTING SINCE THEN AND HIS CHEST PAIN HAS COME AND GONE. PATIENT DID STATE THAT THE CHEST PAIN CAME BACK AROUND 1630 TODAY. HE RATED THIS 6/10 CHEST PAIN. HE REPORTS THAT HE IS STARTING TO GET BETTER. HE GOT TWO DOSES OF NITRO AND IT DID NOT RESOLVE WITH THIS. HIS BLOOD PRESSURE WAS DROPPING AND HE WAS GIVEN A DOSE OF MORPHINE FIRST. HE DROPPED FROM 6-3/10. HE IS STATING THAT THE PAIN HAS CURRENTLY RESOLVED. HIS HEART RATE IS STILL HIGH AND HE WAS GIVEN A DOSE OF DIGOXIN. THIS WAS THE SAFEST TO TRY TO BRING HIS HEART RATE DOWN WITHOUT BRINGING DOWN HIS BLOOD PRESSURE. I HAVE BEEN MONITORING HIS BLOOD PRESSURE EVERY 15-30 MINUTES SINCE 1630 TODAY. HE HAS TRENDED BETWEEN 90-117 SYSTOLIC. HE HAS NOT HAD A THIRD NITRO TODAY. HE REPORTS THAT HE IS FEELING BETTER AT THIS TIME. HIS FAMILY JUST CAME IN. HE DID HAVE DIALYSIS TODAY. WILL PASS ALL THIS ON TO NIGHTSHIFT NURSES.
--- NOTE | 2019-12-05 04:33 | NUR ---
SUMMARY PT CONTINUED TO HAVE A-FIB W/ RVR. PT ALSO C/O CX PAIN. PROVIDER CALLED AND DR ROBBINS ORDERED ADDITIONAL DIGOXIN. PT ALSO GIVEN NTG W/ DECREASE IN PAIN. PT RATE DID NOT IMPROVE W/ DIGOXIN. PROVIDER CALLED AND ORDERED IV LOPRESSOR AND ADDITIONAL PO LOPRESSOR. PT CONVERTED TO SINUS TACH IN 100'S. PT DENIED CX PAIN AND ABLE TO SLEEP DURING THE NIGHT. PT CURRENTLY SLEEPING AND BREATHING EASY. CALL LIGHT IN REACH.
[2019-12-05 05:22] LABS: BASOPHILS ABSOLUTE AUTO 0.04 K/mm3 (0.00-0.23); BASOPHILS PERCENT AUTO 1 % (0-2); EOSINOPHILS ABSOLUTE AUTO 0.09 K/mm3 (0.00-0.68); EOSINOPHILS PERCENT AUTO 2 % (0-6); Hematocrit 28.2 % (37.0-53.0); Hemoglobin 8.9 g/dL (13.5-17.5); IMMATURE GRAN ABSOLUTE AUTO 0.02 K/mm3 (0.00-0.10); IMMATURE GRAN PERCENT AUTO 0 % (0-1); LYMPHOCYTES ABSOLUTE AUTO 0.75 K/mm3 (0.84-5.20); LYMPHOCYTES PERCENT AUTO 14 % (21-46); MONOCYTES ABSOLUTE AUTO 0.62 K/mm3 (0.16-1.47); MONOCYTES PERCENT AUTO 12 % (4-13); Mean Corpuscular HGB 29.3 pg (26.0-34.0); Mean Corpuscular HGB Conc 31.6 g/dL (31.5-36.5); Mean Corpuscular Volume 93 fL (80-100); Mean Platelet Volume 11.3 fL (9.1-12.4); NEUTROPHILS PERCENT AUTO 71 % (41-73); Platelet Count 172 K/mm3 (150-400); RDW Coefficient Variation 13.7 % (11.7-14.2); RDW Standard Deviation 46.8 fL (35.1-46.3); Red Blood Cell Count 3.04 M/mm3 (4.30-5.90); White Blood Cell Count 5.22 K/mm3 (4.00-11.30)
[2019-12-05 06:05] LABS: Digoxin (Lanoxin) 1.22 ug/mL (0.80-2.00); Magnesium, Blood 1.9 mg/dL (1.6-2.4)
--- NOTE | 2019-12-05 17:12 | NUR ---
SHIFT SUMMARY PATIENT IS PLEASNT, ALERT AND ORIENTED. DENIES ANY CONCERNS AT THIS TIME. NO CHEST PAIN OR SHORTNESS OF BREATH TODAY. HE REPORTS HE IS FEELING BETTER. HAD MILD CONCERNS IN THE MID AFTERNOON BUT STATES "IT WAS JUST GAS". HIS BLOOD SUGARS ARE DOING MUCH BETTER TODAY AND HE IS NOT COMPLAINING OF MUCH PAIN. HE IS STILL A ONE PERSON ASSIST BUT MOVING MUCH BETTER THIS AFTERNOON WELL. HE SPENT ABOUT 4 HOURS IN THE CHAIR EARLIER TODAY. FAMILY IN TO SEE THE PATIENT AT THIS TIME.
--- NOTE | 2019-12-06 04:21 | NUR ---
PAYROLL HUMAN RESOURCES ASSISTANT SUMMARY PT DENIED ANY CHEST PAIN DURING THE SHIFT. PT HAD 2 LARGE BOWEL MOVEMENT DURING THE SHIFT. PT REPORTED NAUSEA EARLY IN THE SHIFT THAT HE SAID BEGAN AFTER HE HAD ATE HIS LUNCH SO ZOFRAN WAS GIVEN W NO RELIEF, PROVIDER WAS CONTACTED AND AN ADDITIONAL DOSE OF ZOFRAN WAS GIVEN WHICH BROUGHT RELIEF TO THE PT. PT CONTINUES TO HAVE AFIB IN THE 110'S BUT IS ASYMPTOMATIC. PT IS SLEEPING COMFORTABLY IN BED W CALL LIGHT WITHIN REACH.
[2019-12-06 04:41] LABS: Hematocrit 29.3 % (37.0-53.0); Hemoglobin 9.5 g/dL (13.5-17.5)
[2019-12-06 05:05] LABS: Albumin, Blood 2.5 g/dL (3.4-5.0); Anion Gap 6 mmol/L (6-16); Blood Urea Nitrogen 48 mg/dL (8-24); Bun/Creatinine Ratio 8.9 (12.0-20.0); CO2, Blood 31 mmol/L (21-32); Chloride, Blood 99 mmol/L (98-108); Creatinine, Blood 5.41 mg/dL (0.60-1.20); Glomerular Filtration Rate 11 (60-); Glucose, Blood 159 mg/dL (70-99); Phosphorus, Blood 4.4 mg/dL (2.5-4.9); Potassium, Blood 4.1 mmol/L (3.5-5.5); Sodium, Blood 136 mmol/L (136-145)
[2019-12-06] MEDS ORDERED: METO25 PO (15:41)
[2019-12-06] MEDS ORDERED: DOCU100 PO (15:42)
[2019-12-06] MEDS ORDERED: ACET325 PO (15:42)
[2019-12-06] MEDS ORDERED: NITR.4SL SL (15:43)
[2019-12-06] MEDS ORDERED: SENN187 PO (15:44)
--- NOTE | 2019-12-06 16:14 | NUR ---
Spiritual care note: Maura was irritable and said he felt "sick" post dialysis. He declined chemistry lecturer visit. He is being discharged shortly.
--- NOTE | 2019-12-06 16:20 | NUR ---
DISCHARGE SUMMARY PT RECEIVED DIALYSIS TODAY. NO C/O OF CP BUT C/O OF GAS PAINS THAT HAVE SINCE RESOLVED. DC'D TO [facility]. WILL RECEIVE DIALYSIS OP. GAVE REPORT TO KEELYSARATOGA NURSE.
[2019-12-07 10:09] LABS: HBSAG SCREEN Negative (Negative); HEP A AB, IGM Negative (Negative); HEP B CORE AB, IGM Negative (Negative); HEP C VIRUS AB <0.1 (0.0-0.9)
== END 2019-12-06 16:02 | DRG 640 ==
LOC: ER 14:04 → MEDS 14:05 → PCU 14:05 → ICUE 16:27 → PCU 16:27 → MEDS 16:27 → ER 16:27 → MEDS 16:27 → ICUE 17:33 → PCU 17:33 → MEDS 18:24 → ICUE 18:24 → MEDS 22:25 → ENPENDDIS 12-06 13:02 → MEDS 12-06 16:02
PROVIDERS: Emergency Medicine; Internal Medicine; Internal Medicine Nephrology; ADMIT Internal Medicine
PROC: 5A09357 Assistance with Respiratory Ventilation, Less than 24 Consecutive Hours, Continuous Positive Airway Pressure (ICD-10-PCS; principal; 2019-12-04)
PROC: 5A1D70Z Performance of Urinary Filtration, Intermittent, Less than 6 Hours Per Day (ICD-10-PCS; 2019-12-05)
DX: E87.79 Other fluid overload (principal); J96.01 Acute respiratory failure with hypoxia; N18.6 End stage renal disease; G93.41 Metabolic encephalopathy; I13.2 Hypertensive heart and chronic kidney disease with heart failure and with stage 5 chronic kidney disease, or end stage renal disease; I50.32 Chronic diastolic (congestive) heart failure; E87.1 Hypo-osmolality and hyponatremia; E87.70 Fluid overload, unspecified; L89.152 Pressure ulcer of sacral region, stage 2; I25.10 Atherosclerotic heart disease of native coronary artery without angina pectoris; E11.22 Type 2 diabetes mellitus with diabetic chronic kidney disease; Z99.2 Dependence on renal dialysis; Z91.15 Patient's noncompliance with renal dialysis; J44.9 Chronic obstructive pulmonary disease, unspecified; M79.604 Pain in right leg; Z95.1 Presence of aortocoronary bypass graft; Z86.73 Personal history of transient ischemic attack (TIA), and cerebral infarction without residual deficits; D63.1 Anemia in chronic kidney disease; E87.5 Hyperkalemia; Z66 Do not resuscitate; Z79.4 Long term (current) use of insulin; Z86.711 Personal history of pulmonary embolism; Z86.718 Personal history of other venous thrombosis and embolism; I25.2 Old myocardial infarction; Z99.81 Dependence on supplemental oxygen; F03.90 Unspecified dementia, unspecified severity, without behavioral disturbance, psychotic disturbance, mood disturbance, and anxiety; Z87.891 Personal history of nicotine dependence; I48.0 Paroxysmal atrial fibrillation
CPT/HCPCS: 0202U; 36415; 36600; 71045; 73590; 73600; 80053; 80069; 80074; 80162; 81001; 82803; 82947; 83735; 83880; 84100; 84484; 85014; 85018; 85025; 86317; 87040; 93005; 93010; 94660; 94762; 96361; 96365; 96366; 96372; 96374; 96375; 96376; 97162; 97530; 99285-25; A9270; A9270-GY; G0257; G0378; J0696; J0881; J1160; J2270; J2405; J7050

== ENCOUNTER 2019-12-29 10:34 | Inpatient (IN) | payer OTHER, MEDICARE ==
[~2019-12-29] VITALS: Ht 177.8 cm; Wt 86.2 kg
[~2019-12-29 10:34] MED LIST changes: +GABA100 PO; +HUMALOG KW100 UNIT/1 SC; +MEGESTROL400 MG/11 PO; +MERIBIN5 M1 PO; +NOVOLIN 70100 UNIT/3 SC; +Ropinirole HCl0.5 MG PO
[2019-12-29 10:55] LABS: Calcium, Ionized (POC) 1.19 mmol/L (1.10-1.46); Chloride (POC) 90 mmol/L (98-108); Glucose (ISTAT POC) 203 mg/dL (70-99); Hemoglobin (POC) 11.9 g/dL (13.5-17.5); Potassium (POC) 3.5 mmol/L (3.5-5.5); Sodium (POC) 137 mmol/L (135-148); Total CO2 (POC) 34 mmol/L (21-32)
[2019-12-29 11:04] LABS: BASOPHILS PERCENT AUTO 1 % (0-2); EOSINOPHILS ABSOLUTE AUTO 0.32 K/mm3 (0.00-0.68); EOSINOPHILS PERCENT AUTO 4 % (0-6); Hematocrit 36.3 % (37.0-53.0); Hemoglobin 11.5 g/dL (13.5-17.5); IMMATURE GRAN ABSOLUTE AUTO 0.03 K/mm3 (0.00-0.10); IMMATURE GRAN PERCENT AUTO 0 % (0-1); LYMPHOCYTES ABSOLUTE AUTO 1.07 K/mm3 (0.84-5.20); LYMPHOCYTES PERCENT AUTO 13 % (21-46); MONOCYTES PERCENT AUTO 8 % (4-13); Mean Corpuscular HGB 28.8 pg (26.0-34.0); Mean Corpuscular HGB Conc 31.7 g/dL (31.5-36.5); Mean Corpuscular Volume 91 fL (80-100); Mean Platelet Volume 10.7 fL (9.1-12.4); NEUTROPHILS ABSOLUTE AUTO 6.37 K/mm3 (1.96-9.15); NEUTROPHILS PERCENT AUTO 74 % (41-73); Platelet Count 183 K/mm3 (150-400); RDW Coefficient Variation 13.7 % (11.7-14.2); Red Blood Cell Count 3.99 M/mm3 (4.30-5.90); White Blood Cell Count 8.59 K/mm3 (4.00-11.30)
[2019-12-29 11:14] LABS: International Normalized Ratio 1.03
[2019-12-29 11:25] LABS: Alanine Aminotransfer (ALT/SGP 21 U/L (12-78); Albumin/Globulin Ratio 0.8 (0.8-1.8); Alk Phos 110 U/L (50-136); Anion Gap 9 mmol/L (6-16); Aspartate Aminotrans (AST/SGOT 13 U/L (12-37); Bilirubin, Total 0.5 mg/dL (0.1-1.0); Blood Urea Nitrogen 47 mg/dL (8-24); Bun/Creatinine Ratio 7.8 (12.0-20.0); CO2, Blood 35 mmol/L (21-32); Calcium, Blood 9.7 mg/dL (8.5-10.1); Chloride, Blood 95 mmol/L (98-108); Creatinine, Blood 6.05 mg/dL (0.60-1.20); Ethanol (Alcohol), Blood, Med <3 mg/dL; Glomerular Filtration Rate 9 (60-); Glucose, Blood 193 mg/dL (70-99); Magnesium, Blood 2.3 mg/dL (1.6-2.4); Phosphorus, Blood 3.3 mg/dL (2.5-4.9); Potassium, Blood 3.5 mmol/L (3.5-5.5); Sodium, Blood 139 mmol/L (136-145)
[2019-12-29] MEDS ORDERED: CLOP75 PO (12:28)
[2019-12-29] MEDS ORDERED: BIOTIN5 MG PO (12:28)
[2019-12-29] MEDS ORDERED: DONE5 PO (12:28)
[2019-12-29] MEDS ORDERED: FINA5 PO (12:29)
[2019-12-29] MEDS ORDERED: BENADRYL25 MG PO (12:29)
[2019-12-29] MEDS ORDERED: Neurontin 100100 MG PO (12:29)
[2019-12-29] MEDS ORDERED: PANT40 PO (12:30)
[2019-12-29] MEDS ORDERED: TAMS.4ER PO (12:30)
[2019-12-29] MEDS ORDERED: MEMA10 PO (12:30)
[2019-12-29] MEDS ORDERED: SERT50 PO (12:30)
[2019-12-29] MEDS ORDERED: Vitamin D2000 UNIT PO (12:31)
[2019-12-29] MEDS ORDERED: DOCU100 PO (12:31)
[2019-12-29] MEDS ORDERED: METO25 PO (12:31)
[2019-12-29] MEDS ORDERED: ELIQUIS2.5 MG PO (12:31)
[2019-12-29] MEDS ORDERED: SENN187 PO (12:32)
[2019-12-29] MEDS ORDERED: Calcium Acetat667 MG PO (12:32)
[2019-12-29] MEDS ORDERED: HUMULIN 70100 UNIT/4 SC (12:33)
[2019-12-29] MEDS ORDERED: HUMALOG KW100 UNIT/1 SC (12:34)
[2019-12-29 19:13] LABS: U Amphetamine Screen Not Detected; U Barbituate Screen Not Detected; U Benzodiazapine Screen Not Detected; U Buprenorphine Screen Not Detected; U Cannabinoids Screen Not Detected; U Cocaine Screen Not Detected; U Methadone Screen Not Detected; U Methamphetamine Screen Not Detected; U Opiates Screen Not Detected; U Oxycodone Screen Not Detected; U Phencyclidine Screen Not Detected; U Propoxyphene Screen Not Detected
--- NOTE | 2019-12-29 19:23 | NUR ---
PT ARRIVED ON MEDICAL FLOOR AT 1830 POST DIALYSIS. TUCKED IN, TELE ON, CBG AND VS DONE. PT ALERT, NEURO CHECKS NORMAL EXCEPT R SHEET SORTER WEAK. COURIER DRIVER NURSE GIVEN REPORT
--- NOTE | 2019-12-29 22:46 | NUR ---
84 year old Male admitted with rt sided weakness intermittantly had hemodialysis prior to admission today. 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 PT unsure when he had a previor CVA but on eliquis & recieved HS dose. No apparent problems swallowing medication, did give meds with thickened liquid due to aspiration risk. Hx of cataract removal, PERRL. PT currently at [facility], reports working with physical therapy who have plave tape on PT's back to aide with chronic back pain. PT says hx of falls, fall precautions in place. Says he uses FWW baseline. Has echo ordered. PT on tele sr 78. able to communicate.
--- NOTE | 2019-12-29 23:08 | NUR ---
Avery called to say he incorrectly said PT's quality assurance monitor final was NSR he says PT is in [place] & he has been since tele monitor started.
[2019-12-30 04:43] LABS: BASOPHILS ABSOLUTE AUTO 0.05 K/mm3 (0.00-0.23); BASOPHILS PERCENT AUTO 1 % (0-2); EOSINOPHILS ABSOLUTE AUTO 0.47 K/mm3 (0.00-0.68); EOSINOPHILS PERCENT AUTO 5 % (0-6); Hematocrit 34.8 % (37.0-53.0); Hemoglobin 11.1 g/dL (13.5-17.5); IMMATURE GRAN ABSOLUTE AUTO 0.04 K/mm3 (0.00-0.10); IMMATURE GRAN PERCENT AUTO 0 % (0-1); LYMPHOCYTES ABSOLUTE AUTO 0.48 K/mm3 (0.84-5.20); LYMPHOCYTES PERCENT AUTO 5 % (21-46); MONOCYTES ABSOLUTE AUTO 0.52 K/mm3 (0.16-1.47); MONOCYTES PERCENT AUTO 6 % (4-13); Mean Corpuscular HGB 29.1 pg (26.0-34.0); Mean Corpuscular HGB Conc 31.9 g/dL (31.5-36.5); Mean Corpuscular Volume 91 fL (80-100); NEUTROPHILS PERCENT AUTO 83 % (41-73); Platelet Count 175 K/mm3 (150-400); RDW Coefficient Variation 13.7 % (11.7-14.2); RDW Standard Deviation 45.9 fL (35.1-46.3); Red Blood Cell Count 3.82 M/mm3 (4.30-5.90); White Blood Cell Count 9.36 K/mm3 (4.00-11.30)
[2019-12-30 05:16] LABS: Albumin, Blood 2.9 g/dL (3.4-5.0); Anion Gap 9 mmol/L (6-16); Blood Urea Nitrogen 29 mg/dL (8-24); Bun/Creatinine Ratio 6.1 (12.0-20.0); CO2, Blood 29 mmol/L (21-32); Calcium, Blood 9.2 mg/dL (8.5-10.1); Chloride, Blood 100 mmol/L (98-108); Creatinine, Blood 4.72 mg/dL (0.60-1.20); Glomerular Filtration Rate 13 (60-); Glucose, Blood 162 mg/dL (70-99); Phosphorus, Blood 3.1 mg/dL (2.5-4.9); Potassium, Blood 3.8 mmol/L (3.5-5.5); Sodium, Blood 138 mmol/L (136-145)
--- NOTE | 2019-12-30 12:59 | NUR ---
CALL TO DR/STROKE SYMPTOMS CALL FROM OT TO CHECK ON PATIENT. DURING OT SESSION PATIENT BEGAN EXIBITING WEAKNESS AND SLURRED SPEECH. VSS. CALL TO DR. ZUNIGA. EFRAIN AT BEDSIDE, NEW ORDERS FOR ASPIRIN. PALLIATIVE CARE SPOKE WITH PATIENT AND GRANDDAUGHTER JUNE. [facility] DECLINED TO PERFORM ENDARTERECTOMY DUE TO PROCEDURAL RISK. WEAKNESS AND SLURRED SPEECH RESOLVED OVER THE NEXT HOUR. PATIENT WOULD LIKE TO DISCHARGE HOME ON HOME HEALTH AND REMAIN FULL CODE.
--- NOTE | 2019-12-30 13:59 | NUR ---
Initial palliative care consult: Sammy is an 84 year old gentleman with a history of ESRD on HD 3x/week, DM, HTN, CAD, A-fib, CVA, dementia, COPD with home O2 at 2 l/min. Sammy was admitted to [facility] from [facility] on 12/29/19. He was having some stroke-like symptoms and became unresponsive at the SNF when paramedics were called. In the ER he had some symptoms of right hemiparesis and slurred speech which improved with time. Sammy who has been at rehab recently normally lives at home with his dtr, Georgie, and grandson Kye. He receives 16 hours/week of caregiver hours from the [place] and receives assistance from his family. He reports he has "all the equipment I could ever need at home." He is currently receiving transportation to and from [facility] to [facility] that is provided by the [place]. Qi is asking if they could get some transportation assistance through the [place] for dialysis appointments when he goes home. Reviewed current plan of care with Sammy and that Dr. Jonas had spoken with neurology and vascular surgery in [place] and that there are no procedures that are available to him at this time. Aspirin has been added to his medications to see if he will have some benefit from it. Dr. Jonas had called Georgie, martha's dtr, and relayed that information to her prior to my visit with Sammy. Qi reports that her mom was called instead of her. Qi is the healthcare rep for Sammy, Georgie is the alternate rep for health decisions. Sammy's AD is present in his EMR which states Qi is the health manager critical care. Printed a copy of the AD and placed it on his chart. Qi is upset that her mom Georgie was contacted instead of her. Spoke with mutuel clerk who will change Qi to the first NOK to contact and Georgie to the 2nd NOK per Sammy's AD. Sammy would like to not return to [facility]. He would like to be able to go home and receive some PT/OT at home. Qi supports his choice to go home. Qi states that Dr. Rodriges was considering changing Sammy's dialysis appointments to twice a week instead of 3 times/week. Qi states that Sammy's POLST form is for full code with no terminal press operator life support. Sammy states that if he got home and needed to have medical attention he would like to be able to return to the hospital. He confirms his previous wishes for full code but no detention support. Sat at Sammy's bedside after his granddaughter left to monitor his mealtime. He was able to eat a mechanical soft diet by himself without and choking or coughing noted. Allowed Sammy to talk about his life. He has no questions. When asked if he had any concerns, he stated "I don't ever want to be a burden to my family." Spoke with Dr. Jonas and updated him on pt's desire to remain a full code with no terminal press operator support and his wish to be able to go home with HH. LM for COOPER Galindo, re: pt's wishes for HH and family's desire for increased caregiver hours from [place] and to see if transportation to and from [facility] could be covered by the [place]. Updated martha [place]'s bedside nurse. Spoke with Qi to let her know the AD is on file and that her grandfather's biggest concern was being a burden to his family. Qi states "I will do anything for my papa." She states that she will provide EOL care at home when the time is right for him. She states that his goal would be to be able to at home surrounded by his family. PC to continue to follow for symptom management and advanced care planning.
--- NOTE | 2019-12-31 04:25 | NUR ---
SHIFT SUMMARY NO ACUTE CHANGES THIS SHIFT, NO C/O ANY KIND, SLEPT T/O THE NIGHT, ABLE TO REPOSITION IN BED, CALL LIGHT IN REACH, WILL CONT TO MONITOR UNTIL REPORT GIVEN TO DAY RN.
[2019-12-31 04:45] LABS: Hematocrit 31.2 % (37.0-53.0); Hemoglobin 10.1 g/dL (13.5-17.5)
[2019-12-31 05:04] LABS: Magnesium, Blood 2.2 mg/dL (1.6-2.4)
[2019-12-31 05:05] LABS: Albumin, Blood 2.9 g/dL (3.4-5.0); Anion Gap 7 mmol/L (6-16); Blood Urea Nitrogen 42 mg/dL (8-24); Bun/Creatinine Ratio 6.4 (12.0-20.0); CO2, Blood 33 mmol/L (21-32); Calcium, Blood 9.1 mg/dL (8.5-10.1); Chloride, Blood 97 mmol/L (98-108); Glomerular Filtration Rate 9 (60-); Glucose, Blood 126 mg/dL (70-99); Phosphorus, Blood 3.6 mg/dL (2.5-4.9); Potassium, Blood 3.5 mmol/L (3.5-5.5); Sodium, Blood 137 mmol/L (136-145)
[2019-12-31] MEDS ORDERED: Aspirin EC81 MG PO (11:09)
--- NOTE | 2019-12-31 13:25 | NUR ---
PT DISCHARGED VIA WC TRANSPORT. IV DCD. PT PROVIDED PACKETS THAT INCLUDES RX MEDS AND EDUCATIONS; PT STATED THAT THE DAUGHTER WILL CHECK THE EDUCATION PACKETS WHEN HE GETS HOME. PT HAD DIALYSIS PRIOR DISCHARGE. FAXED RX MEDS TO [facility].
== END 2019-12-31 13:15 | disposition home health service (06) | DRG 67 ==
LOC: ER 10:34 → MEDS 10:35 → ENPENDDIS 12-31 09:32 → MEDS 12-31 13:15
PROVIDERS: Internal Medicine Nephrology; Nurse Practitioner Acute Care; Physician Assistant; ADMIT Family Medicine
PROC: 5A1D70Z Performance of Urinary Filtration, Intermittent, Less than 6 Hours Per Day (ICD-10-PCS; principal; 2019-12-29)
PROC: 5A1D70Z Performance of Urinary Filtration, Intermittent, Less than 6 Hours Per Day (ICD-10-PCS; 2019-12-31)
DX: I65.22 Occlusion and stenosis of left carotid artery (principal); N18.6 End stage renal disease; I12.0 Hypertensive chronic kidney disease with stage 5 chronic kidney disease or end stage renal disease; G81.91 Hemiplegia, unspecified affecting right dominant side; N25.81 Secondary hyperparathyroidism of renal origin; I65.01 Occlusion and stenosis of right vertebral artery; E11.22 Type 2 diabetes mellitus with diabetic chronic kidney disease; Z99.2 Dependence on renal dialysis; E87.70 Fluid overload, unspecified; N40.0 Benign prostatic hyperplasia without lower urinary tract symptoms; F03.90 Unspecified dementia, unspecified severity, without behavioral disturbance, psychotic disturbance, mood disturbance, and anxiety; M10.9 Gout, unspecified; R29.810 Facial weakness; J44.9 Chronic obstructive pulmonary disease, unspecified; E88.09 Other disorders of plasma-protein metabolism, not elsewhere classified; I25.10 Atherosclerotic heart disease of native coronary artery without angina pectoris; I48.0 Paroxysmal atrial fibrillation; D63.1 Anemia in chronic kidney disease; I25.2 Old myocardial infarction; Z99.81 Dependence on supplemental oxygen; Z95.5 Presence of coronary angioplasty implant and graft; Z86.14 Personal history of Methicillin resistant Staphylococcus aureus infection; Z86.73 Personal history of transient ischemic attack (TIA), and cerebral infarction without residual deficits; Z85.828 Personal history of other malignant neoplasm of skin; Z86.718 Personal history of other venous thrombosis and embolism; Z86.711 Personal history of pulmonary embolism; Z95.1 Presence of aortocoronary bypass graft; Z88.8 Allergy status to other drugs, medicaments and biological substances; Z88.5 Allergy status to narcotic agent; Z88.1 Allergy status to other antibiotic agents; Z79.01 Long term (current) use of anticoagulants; Z79.02 Long term (current) use of antithrombotics/antiplatelets; Z79.4 Long term (current) use of insulin; Z79.899 Other long term (current) drug therapy
CPT/HCPCS: 36415; 70450; 70496; 70498; 70551; 80047; 80053; 80069; 82140; 82947; 83735; 84100; 85014; 85018; 85025; 85610; 85730; 92526; 92610; 93005; 93010; 93308; 93321; 97110; 97161; 97166; 99285-25; A9270-GY; G0480; J7042; Q0163; Q9967

== ENCOUNTER 2020-01-03 16:56 | Inpatient (IN) | payer OTHER, MEDICARE ==
[~2020-01-03] VITALS: Ht 180.3 cm; Wt 93.3 kg
[~2020-01-03 16:56] MED LIST changes: +Aspirin EC81 MG PO; +BIOTIN5 MG PO; +HUMULIN 70100 UNIT/4 SC; +Neurontin 100100 MG PO
[2020-01-03 17:20] LABS: Calcium, Ionized (POC) 1.07 mmol/L (1.10-1.46); Chloride (POC) 93 mmol/L (98-108); Creatinine (POC) 3.9 mg/dL (0.8-1.3); Glucose (ISTAT POC) 204 mg/dL (70-99); Hemoglobin (POC) 11.6 g/dL (13.5-17.5); Potassium (POC) 3.3 mmol/L (3.5-5.5); Sodium (POC) 137 mmol/L (135-148); Total CO2 (POC) 33 mmol/L (21-32)
[2020-01-03 17:25] LABS: BASOPHILS ABSOLUTE AUTO 0.05 K/mm3 (0.00-0.23); BASOPHILS PERCENT AUTO 0 % (0-2); EOSINOPHILS ABSOLUTE AUTO 0.21 K/mm3 (0.00-0.68); EOSINOPHILS PERCENT AUTO 2 % (0-6); Hematocrit 34.4 % (37.0-53.0); Hemoglobin 11.3 g/dL (13.5-17.5); IMMATURE GRAN ABSOLUTE AUTO 0.07 K/mm3 (0.00-0.10); IMMATURE GRAN PERCENT AUTO 1 % (0-1); LYMPHOCYTES ABSOLUTE AUTO 0.92 K/mm3 (0.84-5.20); LYMPHOCYTES PERCENT AUTO 8 % (21-46); MONOCYTES ABSOLUTE AUTO 0.47 K/mm3 (0.16-1.47); MONOCYTES PERCENT AUTO 4 % (4-13); Mean Corpuscular HGB 29.6 pg (26.0-34.0); Mean Corpuscular HGB Conc 32.8 g/dL (31.5-36.5); Mean Corpuscular Volume 90 fL (80-100); NEUTROPHILS ABSOLUTE AUTO 10.28 K/mm3 (1.96-9.15); NEUTROPHILS PERCENT AUTO 86 % (41-73); Platelet Count 199 K/mm3 (150-400); RDW Coefficient Variation 13.9 % (11.7-14.2); RDW Standard Deviation 45.4 fL (35.1-46.3); Red Blood Cell Count 3.82 M/mm3 (4.30-5.90)
[2020-01-03 17:49] LABS: Albumin, Blood 2.9 g/dL (3.4-5.0); Albumin/Globulin Ratio 0.7 (0.8-1.8); Bilirubin, Total 0.3 mg/dL (0.1-1.0); Bun/Creatinine Ratio 7.6 (12.0-20.0); Calcium, Blood 9.3 mg/dL (8.5-10.1); Creatinine, Blood 3.82 mg/dL (0.60-1.20); Globulin, Blood 4.3 g/dL (2.2-4.0); Phosphorus, Blood 1.9 mg/dL (2.5-4.9); Potassium, Blood 3.2 mmol/L (3.5-5.5); Total Protein, Blood 7.2 g/dL (6.4-8.2); Troponin I 0.16 ng/mL (0.000-0.040)
[2020-01-03] MEDS ORDERED: OXYC10TA19 PO (22:06)
[2020-01-03] MEDS ORDERED: MEGE40T PO (22:07)
[2020-01-04 01:03] LABS: BASOPHILS ABSOLUTE AUTO 0.06 K/mm3 (0.00-0.23); BASOPHILS PERCENT AUTO 1 % (0-2); EOSINOPHILS PERCENT AUTO 3 % (0-6); Hematocrit 32.2 % (37.0-53.0); Hemoglobin 10.3 g/dL (13.5-17.5); IMMATURE GRAN ABSOLUTE AUTO 0.04 K/mm3 (0.00-0.10); IMMATURE GRAN PERCENT AUTO 0 % (0-1); LYMPHOCYTES PERCENT AUTO 7 % (21-46); MONOCYTES ABSOLUTE AUTO 0.66 K/mm3 (0.16-1.47); MONOCYTES PERCENT AUTO 6 % (4-13); Mean Corpuscular HGB 28.9 pg (26.0-34.0); Mean Corpuscular Volume 90 fL (80-100); Mean Platelet Volume 10.9 fL (9.1-12.4); NEUTROPHILS ABSOLUTE AUTO 10.24 K/mm3 (1.96-9.15); NEUTROPHILS PERCENT AUTO 85 % (41-73); Platelet Count 186 K/mm3 (150-400); RDW Standard Deviation 46.5 fL (35.1-46.3); Red Blood Cell Count 3.56 M/mm3 (4.30-5.90)
[2020-01-04 01:25] LABS: Albumin, Blood 2.6 g/dL (3.4-5.0); Albumin/Globulin Ratio 0.6 (0.8-1.8); Bilirubin, Total 0.3 mg/dL (0.1-1.0); Calcium, Blood 8.8 mg/dL (8.5-10.1); Creatinine, Blood 4.57 mg/dL (0.60-1.20); Phosphorus, Blood 2.6 mg/dL (2.5-4.9); Total Protein, Blood 6.6 g/dL (6.4-8.2); Troponin I 0.159 ng/mL (0.000-0.040)
[2020-01-04 09:39] LABS: Troponin I 0.161 ng/mL (0.000-0.040)
[2020-01-04 15:43] LABS: Source, Urine Clean Catch
[2020-01-04 15:52] LABS: Appearance, Urine Clear (Clear); Blood, Urine 4+ (Neg); Glucose Qualitative, Urine Neg (Neg); Ketones, Urine Neg (Neg); Leukocyte Esterase, Urine 1+ (Neg); Nitrite, Urine Neg (Neg); Protein, Urine 2+ (Neg); Specific Gravity, Urine 1.015 (1.003-1.022); Urobilinogen, Urine NORM (Normal)
[2020-01-04 16:14] LABS: Bilirubin, Urine 2+ (Neg)
[2020-01-04 16:15] LABS: Color, Urine Amber (P-Yellow)
[2020-01-04 16:16] LABS: Squamous Epithelial Cells Few /hpf (Few)
[2020-01-04 16:18] LABS: Bacteria Few /hpf; Hyaline Casts 0-2 /lpf (0-2)
[2020-01-04 16:19] LABS: Other Crystals Mod /hpf
[2020-01-05 04:49] LABS: Hematocrit 30.9 % (37.0-53.0); Hemoglobin 9.8 g/dL (13.5-17.5); Mean Corpuscular HGB 28.9 pg (26.0-34.0); Mean Corpuscular HGB Conc 31.7 g/dL (31.5-36.5); Mean Corpuscular Volume 91 fL (80-100); Mean Platelet Volume 11.3 fL (9.1-12.4); Platelet Count 188 K/mm3 (150-400); Red Blood Cell Count 3.39 M/mm3 (4.30-5.90); White Blood Cell Count 8.96 K/mm3 (4.00-11.30)
[2020-01-05 05:15] LABS: Bun/Creatinine Ratio 7.9 (12.0-20.0); Calcium, Blood 9.3 mg/dL (8.5-10.1); Creatinine, Blood 6.3 mg/dL (0.60-1.20); Potassium, Blood 4.3 mmol/L (3.5-5.5)
[2020-01-06 04:45] LABS: Hemoglobin 9.7 g/dL (13.5-17.5)
[2020-01-06 05:03] LABS: Albumin, Blood 2.7 g/dL (3.4-5.0); Anion Gap 8 mmol/L (6-16); Blood Urea Nitrogen 38 mg/dL (8-24); Bun/Creatinine Ratio 7.5 (12.0-20.0); CO2, Blood 31 mmol/L (21-32); Calcium, Blood 9.8 mg/dL (8.5-10.1); Chloride, Blood 101 mmol/L (98-108); Glomerular Filtration Rate 12 (60-); Glucose, Blood 179 mg/dL (70-99); Magnesium, Blood 2.2 mg/dL (1.6-2.4); Phosphorus, Blood 3.3 mg/dL (2.5-4.9); Potassium, Blood 4.3 mmol/L (3.5-5.5); Sodium, Blood 140 mmol/L (136-145)
[2020-01-07 05:51] LABS: Hematocrit 29.1 % (37.0-53.0); Hemoglobin 9.5 g/dL (13.5-17.5)
[2020-01-07 06:08] LABS: Albumin, Blood 2.7 g/dL (3.4-5.0); Anion Gap 9 mmol/L (6-16); Blood Urea Nitrogen 56 mg/dL (8-24); Bun/Creatinine Ratio 8.5 (12.0-20.0); CO2, Blood 29 mmol/L (21-32); Calcium, Blood 9.6 mg/dL (8.5-10.1); Chloride, Blood 98 mmol/L (98-108); Creatinine, Blood 6.58 mg/dL (0.60-1.20); Glomerular Filtration Rate 9 (60-); Glucose, Blood 173 mg/dL (70-99); Magnesium, Blood 2.3 mg/dL (1.6-2.4); Phosphorus, Blood 2.8 mg/dL (2.5-4.9); Potassium, Blood 4.7 mmol/L (3.5-5.5); Sodium, Blood 136 mmol/L (136-145)
[2020-01-08 04:46] LABS: Hematocrit 29.8 % (37.0-53.0); Hemoglobin 9.9 g/dL (13.5-17.5)
[2020-01-08 05:11] LABS: Albumin, Blood 2.8 g/dL (3.4-5.0); Anion Gap 7 mmol/L (6-16); Blood Urea Nitrogen 46 mg/dL (8-24); Bun/Creatinine Ratio 8.5 (12.0-20.0); CO2, Blood 31 mmol/L (21-32); Calcium, Blood 9.3 mg/dL (8.5-10.1); Chloride, Blood 93 mmol/L (98-108); Glomerular Filtration Rate 11 (60-); Glucose, Blood 172 mg/dL (70-99); Magnesium, Blood 2.2 mg/dL (1.6-2.4); Phosphorus, Blood 2.9 mg/dL (2.5-4.9); Potassium, Blood 4.6 mmol/L (3.5-5.5); Sodium, Blood 131 mmol/L (136-145)
[2020-01-08] MEDS ORDERED: ARTIFICIAL TEAR15 M2 BOTHEYES (15:18)
[2020-01-08] MEDS ORDERED: MUPIROCIN22 GM TOP (15:18)
== END 2020-01-08 17:33 | disposition home health service (06) | DRG 157 ==
LOC: ER 16:56 → MEDS 16:57
PROVIDERS: Emergency Medicine; Internal Medicine; Internal Medicine Nephrology; ADMIT Internal Medicine
DX: K12.30 Oral mucositis (ulcerative), unspecified (principal); N18.6 End stage renal disease; G92 Toxic encephalopathy; L03.211 Cellulitis of face; I50.32 Chronic diastolic (congestive) heart failure; N25.81 Secondary hyperparathyroidism of renal origin; A31.1 Cutaneous mycobacterial infection; I95.3 Hypotension of hemodialysis; G47.33 Obstructive sleep apnea (adult) (pediatric); Z99.2 Dependence on renal dialysis; Z86.73 Personal history of transient ischemic attack (TIA), and cerebral infarction without residual deficits; I48.0 Paroxysmal atrial fibrillation; Z95.1 Presence of aortocoronary bypass graft; M10.9 Gout, unspecified; J44.9 Chronic obstructive pulmonary disease, unspecified; E11.22 Type 2 diabetes mellitus with diabetic chronic kidney disease; Z98.52 Vasectomy status; F03.90 Unspecified dementia, unspecified severity, without behavioral disturbance, psychotic disturbance, mood disturbance, and anxiety; I25.10 Atherosclerotic heart disease of native coronary artery without angina pectoris; Z99.81 Dependence on supplemental oxygen; E87.6 Hypokalemia; E83.39 Other disorders of phosphorus metabolism; E86.9 Volume depletion, unspecified; E88.09 Other disorders of plasma-protein metabolism, not elsewhere classified; Z79.82 Long term (current) use of aspirin; Z79.4 Long term (current) use of insulin
CPT/HCPCS: 36415; 36430; 70450; 71045; 80047; 80048; 80053; 80069; 81001; 82550; 82947; 83605; 83735; 83880; 84100; 84484; 85014; 85018; 85025; 85027; 87040; 87086; 93005; 93010; 96360; 96361; 96365; 96366; 96367; 96376; 99285-25; A9270-GY; G0378; J0690; J1815; J3480; J7030

== ENCOUNTER 2020-03-02 18:02 | Inpatient (IN) | payer OTHER, MEDICARE ==
[~2020-03-02] VITALS: Ht 177.8 cm; Wt 94.7 kg
[~2020-03-02 18:02] MED LIST changes: +ARTIFICIAL TEAR15 M2 BOTHEYES; -HUMULIN 70100 UNIT/4 SC; +MEGE40T PO; +MUPIROCIN22 GM TOP
[2020-03-02 18:39] LABS: BASOPHILS ABSOLUTE AUTO 0.04 K/mm3 (0.00-0.23); BASOPHILS PERCENT AUTO 0 % (0-2); EOSINOPHILS ABSOLUTE AUTO 0.07 K/mm3 (0.00-0.68); EOSINOPHILS PERCENT AUTO 0 % (0-6); Hemoglobin 10.5 g/dL (13.5-17.5); IMMATURE GRAN ABSOLUTE AUTO 0.24 K/mm3 (0.00-0.10); IMMATURE GRAN PERCENT AUTO 1 % (0-1); LYMPHOCYTES ABSOLUTE AUTO 0.42 K/mm3 (0.84-5.20); LYMPHOCYTES PERCENT AUTO 3 % (21-46); MONOCYTES ABSOLUTE AUTO 0.64 K/mm3 (0.16-1.47); MONOCYTES PERCENT AUTO 4 % (4-13); Mean Corpuscular HGB 29.4 pg (26.0-34.0); Mean Corpuscular HGB Conc 30.9 g/dL (31.5-36.5); Mean Corpuscular Volume 95 fL (80-100); NEUTROPHILS ABSOLUTE AUTO 15.53 K/mm3 (1.96-9.15); NEUTROPHILS PERCENT AUTO 92 % (41-73); Platelet Count 218 K/mm3 (150-400); RDW Coefficient Variation 14.6 % (11.7-14.2); RDW Standard Deviation 50.7 fL (35.1-46.3); Red Blood Cell Count 3.57 M/mm3 (4.30-5.90); White Blood Cell Count 16.94 K/mm3 (4.00-11.30)
[2020-03-02 18:53] LABS: Albumin, Blood 3.1 g/dL (3.4-5.0); Albumin/Globulin Ratio 0.9 (0.8-1.8); Bilirubin, Total 0.3 mg/dL (0.1-1.0); Bun/Creatinine Ratio 11.1 (12.0-20.0); Calcium, Blood 9.4 mg/dL (8.5-10.1); Creatinine, Blood 4.97 mg/dL (0.60-1.20); Globulin, Blood 3.6 g/dL (2.2-4.0); Potassium, Blood 4.8 mmol/L (3.5-5.5); Total Protein, Blood 6.7 g/dL (6.4-8.2); Troponin I 0.165 ng/mL (0.000-0.040)
[2020-03-02 18:56] LABS: Magnesium, Blood 2.2 mg/dL (1.6-2.4); Phosphorus, Blood 5.5 mg/dL (2.5-4.9)
[2020-03-02 19:52] LABS: Influenza A, PCR Negative (NEGATIVE); Influenza B, PCR Negative (NEGATIVE); Resp Syncytial Virus, PCR Negative (NEGATIVE); SARS-Cov-2 (COVID-19) PCR, MMC Negative (NEGATIVE)
[2020-03-02] MEDS ORDERED: ELIQUIS2.5 MG PO (20:33)
[2020-03-02] MEDS ORDERED: NOVOLIN N100 UNIT/2 SC (20:34)
[2020-03-02] MEDS ORDERED: CLOP75 PO (20:35)
[2020-03-02] MEDS ORDERED: MEMA5TAB PO (20:36)
[2020-03-02] MEDS ORDERED: TAMS.4ER PO (20:37)
[2020-03-02] MEDS ORDERED: INSULIN AS100 UNIT/7 SC (20:38)
[2020-03-02] MEDS ORDERED: Vitamin D2000 UNIT PO (20:39)
[2020-03-02] MEDS ORDERED: OXYC10TA19 PO (20:40)
[2020-03-02] MEDS ORDERED: TEMAZEPAM30 M1 PO (20:41)
[2020-03-02] MEDS ORDERED: DONEPEZIL HCL10 MG PO (20:41)
[2020-03-02] MEDS ORDERED: MEGESTROL400 MG/13 PO (20:43)
[2020-03-02] MEDS ORDERED: ZOLOFT50 MG PO (20:44)
[2020-03-02] MEDS ORDERED: GABA100 PO (20:45)
[2020-03-02] MEDS ORDERED: CALCIUM ACETAT667 M2 PO (20:45)
[2020-03-02] MEDS ORDERED: ROPINIROLE HCL0.5 MG PO (20:45)
[2020-03-02] MEDS ORDERED: PANTOPRAZOLE SO40 M2 PO (20:45)
[2020-03-02] MEDS ORDERED: FINA5 PO (20:46)
[2020-03-02] MEDS ORDERED: HYDR10 PO (20:47)
[2020-03-02] MEDS ORDERED: ASPI325EC PO (20:48)
[2020-03-02] MEDS ORDERED: METO25 PO (20:51)
[2020-03-02] MEDS ORDERED: MELATONIN1010 PO (20:59)
[2020-03-02 21:37] LABS: Source, Urine Catheter
[2020-03-02 21:40] LABS: Appearance, Urine Clear (Clear); Blood, Urine Neg (Neg); Color, Urine Yellow (P-Yellow); Glucose Qualitative, Urine 3+ (Neg); Ketones, Urine Neg (Neg); Leukocyte Esterase, Urine 1+ (Neg); Nitrite, Urine Neg (Neg); Protein, Urine 3+ (Neg); Urobilinogen, Urine NORM (Normal)
[2020-03-02 21:54] LABS: Bacteria Rare /hpf; Bilirubin, Urine 1+ (Neg); Hyaline Casts 0-2 /lpf (0-2); Red Blood Cells, Urine Not Seen /hpf (0-2); Squamous Epithelial Cells Few /hpf (Few); White Blood Cells, Urine 0-2 /hpf (0-5)
[2020-03-02 22:30] LABS: Adenovirus Not Detected (NOT DETECT); Bordetella pertussis Not Detected (NOT DETECT); Chlamydophila pneumoniae Not Detected (NOT DETECT); Coronavirus 229E Not Detected (NOT DETECT); Coronavirus HKU1 Not Detected (NOT DETECT); Coronavirus NL63 Not Detected (NOT DETECT); Coronavirus OC43 Not Detected (NOT DETECT); Human Metapneumovirus Not Detected (NOT DETECT); Human Rhinovirus/Enterovirus Not Detected (NOT DETECT); Influenza A/2009-H1 Not Detected (NOT DETECT); Influenza A/H1 Not Detected (NOT DETECT); Influenza A/H3 Not Detected (NOT DETECT); Influenza B Not Detected (NOT DETECT); Mycoplasma pneumoniae Not Detected (NOT DETECT); Parainfluenza Virus 1 Not Detected (NOT DETECT); Parainfluenza Virus 2 Not Detected (NOT DETECT); Parainfluenza Virus 3 Not Detected (NOT DETECT); Parainfluenza Virus 4 Not Detected (NOT DETECT); Respiratory Syncytial Virus Not Detected (NOT DETECT); SARS-Cov-2 (COVID-19), BioFire Not Detected (NOT DETECT)
[2020-03-03 05:01] LABS: BASOPHILS ABSOLUTE AUTO 0.03 K/mm3 (0.00-0.23); BASOPHILS PERCENT AUTO 0 % (0-2); EOSINOPHILS PERCENT AUTO 1 % (0-6); Hematocrit 31.1 % (37.0-53.0); Hemoglobin 9.7 g/dL (13.5-17.5); IMMATURE GRAN ABSOLUTE AUTO 0.16 K/mm3 (0.00-0.10); IMMATURE GRAN PERCENT AUTO 1 % (0-1); LYMPHOCYTES ABSOLUTE AUTO 0.56 K/mm3 (0.84-5.20); LYMPHOCYTES PERCENT AUTO 4 % (21-46); MONOCYTES ABSOLUTE AUTO 0.26 K/mm3 (0.16-1.47); MONOCYTES PERCENT AUTO 2 % (4-13); Mean Corpuscular HGB 29.1 pg (26.0-34.0); Mean Corpuscular HGB Conc 31.2 g/dL (31.5-36.5); Mean Corpuscular Volume 93 fL (80-100); Mean Platelet Volume 10.5 fL (9.1-12.4); NEUTROPHILS ABSOLUTE AUTO 14.09 K/mm3 (1.96-9.15); NEUTROPHILS PERCENT AUTO 93 % (41-73); Platelet Count 186 K/mm3 (150-400); RDW Coefficient Variation 14.6 % (11.7-14.2); RDW Standard Deviation 50.2 fL (35.1-46.3); Red Blood Cell Count 3.33 M/mm3 (4.30-5.90)
[2020-03-03 05:21] LABS: Albumin, Blood 2.8 g/dL (3.4-5.0); Anion Gap 9 mmol/L (6-16); Blood Urea Nitrogen 62 mg/dL (8-24); Bun/Creatinine Ratio 12.3 (12.0-20.0); CO2, Blood 31 mmol/L (21-32); Calcium, Blood 9.2 mg/dL (8.5-10.1); Chloride, Blood 102 mmol/L (98-108); Creatinine, Blood 5.06 mg/dL (0.60-1.20); Glomerular Filtration Rate 12 (60-); Glucose, Blood 261 mg/dL (70-99); Phosphorus, Blood 5.9 mg/dL (2.5-4.9); Potassium, Blood 4.7 mmol/L (3.5-5.5); Sodium, Blood 142 mmol/L (136-145)
[2020-03-04 06:03] LABS: BASOPHILS ABSOLUTE AUTO 0.05 K/mm3 (0.00-0.23); BASOPHILS PERCENT AUTO 1 % (0-2); EOSINOPHILS ABSOLUTE AUTO 0.22 K/mm3 (0.00-0.68); EOSINOPHILS PERCENT AUTO 3 % (0-6); Hematocrit 28.6 % (37.0-53.0); Hemoglobin 8.8 g/dL (13.5-17.5); IMMATURE GRAN ABSOLUTE AUTO 0.11 K/mm3 (0.00-0.10); IMMATURE GRAN PERCENT AUTO 1 % (0-1); LYMPHOCYTES ABSOLUTE AUTO 0.56 K/mm3 (0.84-5.20); LYMPHOCYTES PERCENT AUTO 7 % (21-46); MONOCYTES ABSOLUTE AUTO 0.38 K/mm3 (0.16-1.47); MONOCYTES PERCENT AUTO 5 % (4-13); Mean Corpuscular HGB 28.9 pg (26.0-34.0); Mean Corpuscular HGB Conc 30.8 g/dL (31.5-36.5); Mean Corpuscular Volume 94 fL (80-100); Mean Platelet Volume 10.9 fL (9.1-12.4); NEUTROPHILS ABSOLUTE AUTO 6.58 K/mm3 (1.96-9.15); NEUTROPHILS PERCENT AUTO 83 % (41-73); Platelet Count 163 K/mm3 (150-400); RDW Coefficient Variation 14.8 % (11.7-14.2); RDW Standard Deviation 50.7 fL (35.1-46.3); Red Blood Cell Count 3.05 M/mm3 (4.30-5.90)
[2020-03-04 06:21] LABS: Alanine Aminotransfer (ALT/SGP 8 U/L (12-78); Albumin, Blood 2.5 g/dL (3.4-5.0); Albumin/Globulin Ratio 0.8 (0.8-1.8); Alk Phos 54 U/L (50-136); Anion Gap 7 mmol/L (6-16); Aspartate Aminotrans (AST/SGOT 3 U/L (12-37); Bilirubin, Total 0.4 mg/dL (0.1-1.0); Blood Urea Nitrogen 43 mg/dL (8-24); Bun/Creatinine Ratio 9.8 (12.0-20.0); CO2, Blood 32 mmol/L (21-32); Calcium, Blood 8.7 mg/dL (8.5-10.1); Chloride, Blood 102 mmol/L (98-108); Creatinine, Blood 4.39 mg/dL (0.60-1.20); Globulin, Blood 3.1 g/dL (2.2-4.0); Glomerular Filtration Rate 14 (60-); Glucose, Blood 168 mg/dL (70-99); Magnesium, Blood 2.3 mg/dL (1.6-2.4); Phosphorus, Blood 5.1 mg/dL (2.5-4.9); Potassium, Blood 4.3 mmol/L (3.5-5.5); Sodium, Blood 141 mmol/L (136-145); Total Protein, Blood 5.6 g/dL (6.4-8.2)
[2020-03-05 05:44] LABS: Hematocrit 29.1 % (37.0-53.0); Hemoglobin 9.1 g/dL (13.5-17.5); Mean Corpuscular HGB 29.2 pg (26.0-34.0); Mean Corpuscular HGB Conc 31.3 g/dL (31.5-36.5); Mean Corpuscular Volume 93 fL (80-100); Mean Platelet Volume 10.9 fL (9.1-12.4); Platelet Count 172 K/mm3 (150-400); RDW Coefficient Variation 14.9 % (11.7-14.2); RDW Standard Deviation 50.7 fL (35.1-46.3); Red Blood Cell Count 3.12 M/mm3 (4.30-5.90); White Blood Cell Count 10.83 K/mm3 (4.00-11.30)
[2020-03-05 06:14] LABS: Albumin, Blood 2.5 g/dL (3.4-5.0); Anion Gap 8 mmol/L (6-16); Blood Urea Nitrogen 57 mg/dL (8-24); Bun/Creatinine Ratio 10.5 (12.0-20.0); CO2, Blood 29 mmol/L (21-32); Chloride, Blood 102 mmol/L (98-108); Creatinine, Blood 5.41 mg/dL (0.60-1.20); Glomerular Filtration Rate 11 (60-); Glucose, Blood 235 mg/dL (70-99); Phosphorus, Blood 5.5 mg/dL (2.5-4.9); Potassium, Blood 4.2 mmol/L (3.5-5.5); Sodium, Blood 139 mmol/L (136-145)
[2020-03-05] MEDS ORDERED: AUGMENTIN 500-1 EACH PO (14:53)
[2020-03-05] MEDS ORDERED: GUAI600T33 PO (14:53)
[2020-03-05] MEDS ORDERED: METO25 PO (15:02)
== END 2020-03-05 15:06 | disposition home health service (06) | DRG 871 ==
LOC: ER 18:02 → MEDS 20:46
PROVIDERS: Emergency Medicine; Internal Medicine; Internal Medicine Nephrology; Nurse Practitioner Acute Care; ADMIT Family Medicine
PROC: 5A1D70Z Performance of Urinary Filtration, Intermittent, Less than 6 Hours Per Day (ICD-10-PCS; principal; 2020-03-03)
PROC: 5A1D70Z Performance of Urinary Filtration, Intermittent, Less than 6 Hours Per Day (ICD-10-PCS; 2020-03-05)
DX: A41.9 Sepsis, unspecified organism (principal); J18.9 Pneumonia, unspecified organism; N18.6 End stage renal disease; I13.2 Hypertensive heart and chronic kidney disease with heart failure and with stage 5 chronic kidney disease, or end stage renal disease; Z51.5 Encounter for palliative care; J44.0 Chronic obstructive pulmonary disease with (acute) lower respiratory infection; N25.81 Secondary hyperparathyroidism of renal origin; Z20.822 Contact with and (suspected) exposure to COVID-19; E11.22 Type 2 diabetes mellitus with diabetic chronic kidney disease; I50.9 Heart failure, unspecified; Z99.2 Dependence on renal dialysis; I48.0 Paroxysmal atrial fibrillation; I73.9 Peripheral vascular disease, unspecified; D63.1 Anemia in chronic kidney disease; E83.39 Other disorders of phosphorus metabolism; F01.50 Vascular dementia, unspecified severity, without behavioral disturbance, psychotic disturbance, mood disturbance, and anxiety; Z86.73 Personal history of transient ischemic attack (TIA), and cerebral infarction without residual deficits; I25.10 Atherosclerotic heart disease of native coronary artery without angina pectoris; G47.33 Obstructive sleep apnea (adult) (pediatric); E87.70 Fluid overload, unspecified; Z79.4 Long term (current) use of insulin; Z86.718 Personal history of other venous thrombosis and embolism; Z86.711 Personal history of pulmonary embolism
CPT/HCPCS: 0202U; 0241U; 36415; 80053; 80069; 80202; 81001; 82947; 83605; 83735; 83880; 84100; 84145; 84484; 85025; 85027; 87040; 92526; 92610; 93005; 93010; 94640; 94760; 94762; 96374; 99285-25; A9270-GY; J0692; J0696; J0881; J1815; J2543; J3370; J7030; J7050